=== PATIENT | female | born 1960 | race African-American/Black ===

== ENCOUNTER 2018-01-01 13:34 | Inpatient (IN) | payer MEDICARE, OTHER ==
[2018-01-01] VITALS (10 sets, daily range): BP systolic 64–146; BP diastolic 30–84
[~2018-01-01] VITALS: Ht 165.1 cm; Wt 64.6 kg
[2018-01-01] MEDS ORDERED: Isovue-300 100ml vial INJ PRN (14:30)
--- NOTE | 2018-01-01 14:32 | Emergency Room Report ---
History of Present Illness General Chief Complaint: Abdominal Pain Source: Patient Present Illness HPI 57-year-old female presents ED for evaluation. Patient brought in by stitchdown toe former. Patient resides in [facility]. Tie Tape Machine Operator at bedside states that patient was drinking last night. Was complaining of abdominal pain and vomiting and diarrhea this morning. Patient states pain is dull, 7 out of 10, nonradiating. Denies fevers or chills. Denies chest pain or shortness of breath. Denies alcohol or drug use. Tie Tape Machine Operator states that patient has history of gallstones. No other aggravating relieving factors. Denies any other associated symptoms Allergies: Coded Allergies: OLANZAPINE (Verified Allergy, Unknown, 01/01/18) TETRACYCLINE (Verified Allergy, Unknown, 01/01/18) Patient History Past Medical History: HTN Past Surgical History: none Pertinent Family History: none Social History: Denies: smoking, alcohol use, drug use Now: No Immunizations: UTD Reviewed Nursing Documentation: PMH: Agreed; PSxH: Agreed Nursing Documentation-PMH Past Medical History: No History, Except For Hx Hypertension: Yes History Of Psychiatric Problem: Yes - paranoid schizophrenia, Review of Systems All Other Systems: negative except mentioned in HPI Physical Exam Vital Signs Date Time Temp Pulse Resp B/P (MAP) Pulse Ox O2 Delivery O2 Flow Rate FiO2 01/01/18 13:47 96.1 53 20 92/66 96.1 01/01/18 14:12 100 Room Air Sp02 EP Interpretation: reviewed, normal General Appearance: no apparent distress, alert, GCS 15, non-toxic Head: normocephalic, atraumatic Eyes: bilateral eye normal inspection, bilateral eye PERRL ENT: hearing grossly normal, normal pharynx, no angioedema, normal voice Neck: full range of motion, supple/symm/no masses Respiratory: chest non-tender, lungs clear, normal breath sounds, speaking full sentences Cardiovascular #1: regular rate, rhythm, no edema Cardiovascular #2: 2+ carotid (R), 2+ carotid (L), 2+ radial (R), 2+ radial (L) , 2+ dorsalis pedis (R), 2+ dorsalis pedis (L) Gastrointestinal: normal bowel sounds, soft, non-distended, no guarding, no rebound, tenderness Rectal: deferred Genitourinary: normal inspection, no CVA tenderness Musculoskeletal: back normal, gait/station normal, normal range of motion, non- tender Neurologic: alert, oriented x3, responsive, motor strength/tone normal, sensory intact, speech normal Psychiatric: judgement/insight normal, memory normal, mood/affect normal, no suicidal/homicidal ideation Reflexes: 3+ bicep (R), 3+ bicep (L), 3+ tricep (R), 3+ tricep (L), 3+ knee (R) , 3+ knee (L) Skin: normal color, no rash, warm/dry, well hydrated Lymphatic: no adenopathy Procedures Critical Care Time Critical Care Time i. I feel this is a highly complex case requiring extensive working including EKG/Rhythm strip, Xray/CT/US, Blood/urine lab work, repeat exams while in ED, and administration of strong opiates/narcotics for pain control, admission to hospital or close patient follow up. Total time: 30 min bedside evaluation and treatment excludes procedures (EKG). Reason for critical care: hypotensive, hypokalemia, severe sepsis, elevated LFTS Possible complications: hypotension, hypertension, [place], shock, arrhythmias, metabolic acidosis, end organ damage, respiratory failure. Interventions: Labs, IV fluids, potassium replacement. Central line. Pressors. Consultation with surgery and GI. Course: Patient presenting with abdominal pain, vomiting. Tachycardic. Labs show leukocytosis, elevated LFTs. CT shows choledocholithiasis. Patient remains hypotensive despite IV fluids. Central line placed. Pressors started. Lactate greater than 4. Concern for cholangitis. Discussed case with surgery and GI. Upgraded to ICU. Blood pressure slowly improving with pressors and IV fluids. Broad spectrum antibiotics given. Consultations: nursing staff, EMS, family Performed by: Dr Niño Tolerated well condition = critical j. because of unstable vital signs this patient had a condition that could potentially threaten life or limb. I feel this is a critical patient who required my full attention while patient was considered critical. Total Critical Care Time excluding procedures was greater than 35 minutes Central Line Central Line : Consent: Verbal Central Line Lumen: triple Maximal Sterile Barrier Tech: yes cap, yes mask, yes sterile gown, yes sterile gloves, yes large sterile sheet, yes hand hygiene, yes chlorhexidine prep Central Line Postion: femoral (R) Anesthesia: Lidocaine Complications: none Central Line Post Position: sutured, good blood return Attempts: One Patient Tolerated: Well Complications: None Medical Decision Making Diagnostic Impression: Primary Impression: Choledocholithiasis Additional Impressions: Septic shock Renal failure Qualified Codes: N19 - Unspecified kidney failure Hypokalemia Elevated LFTs ER Course Hospital Course 57 yo F presents with abd pain, vomiting. h/o ETOH. h/o tarry stools. h/o gallstones Differential diagnoses include: BPH, cystitis, pyelonephritis, kidney stone Clinical course Patient placed on stretcher. gm video. After initial history and physical I ordered labs, IV fluids, UA, pain medication and CT scan Labs - noted leukocytosis, Hb/Hct stable, BUN/Cr elevated, K 2.3 CT abdomen and pelvis - choledocolithiasis ABD US - gallstones with dilated CBD EKG - sinus tachycarda, no acute ischemic changes interpreted by me Despite IV hydration patient remains hypotensive. Central line placed. Lactic and cultures drawn Lactate greater than 4. Pressors started. Blood pressure slowly improving. given 30cc/kg fluid bolus. Concern for cholangitis potassium repleted. Broad-spectrum antibiotics given. Discussed case with GI and surgery Case discussed with Dr. lincoln and he agreed to accept the patient to his service for further care and support I feel this is a highly complex case requiring extensive working including EKG/ Rhythm strip, Xray/CT/US, Blood/urine lab work, repeat exams while in ED, and administration of strong opiates/narcotics for pain control, admission to hospital or close patient follow up. Diagnosis - choledocolithasis, septic shock, renal failure, hypokalemia, elevated LFTS Patient admitted to ICU in critical condition Labs Test 01/01/18 13:55 01/01/18 14:06 01/01/18 19:00 White Blood Count 17.6 K/UL (4.8-10.8) 18.4 K/UL (4.8-10.8) Red Blood Count 5.14 M/UL (4.20-5.40) 3.76 M/UL (4.20-5.40) Hemoglobin 17.0 G/DL (12.0-16.0) 13.4 G/DL (12.0-16.0) Hematocrit 49.1 % (37.0-47.0) 37.4 % (37.0-47.0) Mean Corpuscular Volume 96 FL (80-99) 99 FL (80-99) Mean Corpuscular Hemoglobin 33.2 PG (27.0-31.0) 35.5 PG (27.0-31.0) Mean Corpuscular Hemoglobin Concent 34.7 G/DL (32.0-36.0) 35.8 G/DL (32.0-36.0) Red Cell Distribution Width 11.7 % (11.6-14.8) 12.2 % (11.6-14.8) Platelet Count 60 K/UL (150-450) 37 K/UL (150-450) Mean Platelet Volume 6.8 FL (6.5-10.1) 5.7 FL (6.5-10.1) Neutrophils (%) (Auto) % (45.0-75.0) % (45.0-75.0) Lymphocytes (%) (Auto) % (20.0-45.0) % (20.0-45.0) Monocytes (%) (Auto) % (1.0-10.0) % (1.0-10.0) Eosinophils (%) (Auto) % (0.0-3.0) % (0.0-3.0) Basophils (%) (Auto) % (0.0-2.0) % (0.0-2.0) Differential Total Cells Counted 100 Neutrophils % (Manual) 71 % (45-75) Lymphocytes % (Manual) 9 % (20-45) Monocytes % (Manual) 6 % (1-10) Eosinophils % (Manual) 0 % (0-3) Basophils % (Manual) 0 % (0-2) Blast Cells % 5 % (0-0) Band Neutrophils 9 % (0-8) Platelet Estimate Decreased Platelet Morphology Normal Red Blood Cell Morphology Normal Prothrombin Time 13.8 SEC (9.30-11.50) Prothromb Time International Ratio 1.3 (0.9-1.1) Activated Partial Thromboplast Time 33 SEC (23-33) Sodium Level 140 MMOL/L (136-145) Potassium Level 2.3 MMOL/L (3.5-5.1) Chloride Level 98 MMOL/L (98-107) Carbon Dioxide Level 21 MMOL/L (21-32) Anion Gap 21 mmol/L (5-15) Blood Urea Nitrogen 35 mg/dL (7-18) Creatinine 3.8 MG/DL (0.55-1.30) Estimat Glomerular Filtration Rate 14.8 mL/min (>60) Glucose Level 85 MG/DL (74-106) Calcium Level 8.9 MG/DL (8.5-10.1) Total Bilirubin 11.0 MG/DL (0.2-1.0) Direct Bilirubin 8.7 MG/DL (0.0-0.3) Aspartate Amino Transf (AST/SGOT) 138 U/L (15-37) Alanine Aminotransferase (ALT/SGPT) 89 U/L (12-78) Alkaline Phosphatase 220 U/L (46-116) Total Protein 6.9 G/DL (6.4-8.2) Albumin 2.9 G/DL (3.4-5.0) Globulin 4.0 g/dL Albumin/Globulin Ratio 0.7 (1.0-2.7) Lipase 113 U/L (73-393) Stool Occult Blood Positive (NEGATIVE) Lactic Acid Level 4.10 mmol/L (0.4-2.0) EKG Diagnostic Results Rate: tachycardiac Rhythm: NSR ST Segments: no acute changes ASA given to the pt in ED: No Rhythm Strip Diag. Results EP Interpretation: yes Rhythm: NSR, no PVC's, no ectopy CT/MRI/US Diagnostic Results CT/MRI/US Diagnostic Results #1: Imaging Test Ordered: CT A/P Impression Positive for choledocholithiasis, 3 large calculi in the downstream common bile duct. There is evidence of biliary obstruction, with marked dilatation of the extrahepatic and intrahepatic bile ducts. CT/MRI/US Diagnostic Results #2: Imaging Test Ordered: ABD US Impression Gallbladder demonstrates gallstones. No gallbladder wall thickening Sonographic Simental's sign is negative. Common bile duct measures 22 mm in diameter. Last Vital Signs Date Time Temp Pulse Resp B/P (MAP) Pulse Ox O2 Delivery O2 Flow Rate FiO2 01/01/18 14:12 96.1 53 20 92/66 100 Room Air 96.1 Status: improved Disposition: ADMITTED INPATIENT Condition: Critical Lit Niño MD Jan 01, 2018 14:32
[2018-01-01 14:43] LABS: HEMATOCRIT 49.1 % (37.0-47.0); MEAN CORPUSCULAR VOLUME 96 FL (80-99); PLATELET COUNT 60 K/UL (150-450); RED BLOOD COUNT 5.14 M/UL (4.20-5.40); RED CELL DISTRIBUTION WIDTH 11.7 % (11.6-14.8); WHITE BLOOD COUNT 17.6 K/UL (4.8-10.8)
[2018-01-01 15:02] LABS: ALANINE AMINOTRANSFERASE 89 U/L (12-78); ALBUMIN 2.9 G/DL (3.4-5.0); ALBUMIN/GLOBULIN RATIO 0.7 (1.0-2.7); ALKALINE PHOSPHATASE 220 U/L (46-116); ANION GAP 21 mmol/L (5-15); ASPARTATE AMINO TRANSFERASE 138 U/L (15-37); BLOOD UREA NITROGEN 35 mg/dL (7-18); CALCIUM 8.9 MG/DL (8.5-10.1); CARBON DIOXIDE 21 MMOL/L (21-32); CHLORIDE 98 MMOL/L (98-107); CREATININE 3.8 MG/DL (0.55-1.30); SODIUM 140 MMOL/L (136-145)
[2018-01-01 15:06] LABS: POTASSIUM 2.3 MMOL/L (3.5-5.1)
[2018-01-01 15:07] LABS: BILIRUBIN,DIRECT 8.7 MG/DL (0.0-0.3)
[2018-01-01] MEDS ORDERED: NS w/KCl 40mEq 1,000 ML IV SCH (15:15)
[2018-01-01 16:14] LABS: INR 1.3 (0.9-1.1)
[2018-01-01] MEDS ORDERED: Pantoprazole Inj IVP ONE (16:15)
[2018-01-01] MEDS ORDERED: ALPRAZOLAM1 M2 ORAL (16:24)
[2018-01-01] MEDS ORDERED: FAMOTIDINE20 MG ORAL (16:24)
[2018-01-01] MEDS ORDERED: QUETIAPINE FUM300 MG ORAL (16:24)
[2018-01-01] MEDS ORDERED: LORAZEPAM2 MG/1 M4 ORAL (16:24)
[2018-01-01] MEDS ORDERED: TEMAZEPAM22.5 MG PO (16:24)
[2018-01-01] MEDS ORDERED: FAMOTIDINE IV (16:24)
[2018-01-01] MEDS ORDERED: LISINOPRIL20 MG ORAL (16:24)
[2018-01-01] MEDS ORDERED: BENZTROPINE2 MG/2 ML PO (16:24)
[2018-01-01] MEDS ORDERED: PERPHENAZINE8 MG PO (16:24)
[2018-01-01] MEDS ORDERED: Morphine Sulfate 4mg/ml Inj (IV/IM USE ONLY) IVP ONE (16:30)
--- NOTE | 2018-01-01 16:42 | Diagnostic Imaging Report ---
Indication: Abdominal pain Technique: Spiral acquisitions obtained through the abdomen and pelvis. No oral contrast utilized, per emergency room physician request No IV contrast utilized, per referring physician request.. Multiplanar reconstructions were generated. Total dose length product 629.75 mGycm. CTDIvol(s) 11.49 mGy. Dose reduction achieved using automated exposure control Comparison: None Findings: 3 calculi are seen within the downstream common bile duct. The largest of these is the most upstream, measures 12 mm in diameter. There is resultant extrahepatic biliary ductal dilatation, common bile duct measuring 19 mm in diameter. There is also considerable intrahepatic biliary ductal dilatation Multiple stones are seen within the gallbladder. The gallbladder is distended, but there is no definite gallbladder wall thickening or pericholecystic inflammation. Lack of IV contrast limits assessment of the solid organs. No focal liver lesions are demonstrated. The pancreas, spleen, adrenals, kidneys are unremarkable. No retroperitoneal or mesenteric mass or adenopathy. Uterus and ovaries are unremarkable. No pelvic mass or adenopathy. Is limited assessment of the GI tract, due to lack of enteric contrast. No evidence of diverticulosis or diverticulitis. The appendix is normal. Prominent gas-filled but not frankly dilated small bowel loops are demonstrated. The distal esophagus, stomach, duodenum are unremarkable. There is a tiny fat-containing umbilical hernia. The lung bases demonstrate posterior dependent atelectatic changes. There is some scarring in the medial right middle lobe with some associated bronchiectasis. The bones are unremarkable. Impression: Positive for choledocholithiasis, 3 large calculi in the downstream common bile duct. There is evidence of biliary obstruction, with marked dilatation of the extrahepatic and intrahepatic bile ducts. Dr. Niño was notified of this finding at the time of interpretation Cholelithiasis Limited assessment of the GI tract, due to lack of enteric contrast Posterior dependent pulmonary atelectatic changes. Right middle lobe scarring with associated bronchiectasis Incidental finding of tiny fat-containing abdominal hernia. The CT scanner at [facility] is accredited by the [employer] and the scans are performed using protocols designed to limit radiation exposure to as low as reasonably achievable to attain images of sufficient resolution adequate for diagnostic evaluation.
[2018-01-01] MEDS ORDERED: Lidocaine 1% Plain 30 ml INJ ONE (17:14)
[2018-01-01] MEDS ORDERED: Lidocaine 1% MPF 10mg/ml 5ml ONE (17:15)
--- NOTE | 2018-01-01 17:29 | Diagnostic Imaging Report ---
Indication: Abdominal pain Technique: Rosales-scale and duplex images of the upper abdomen were obtained. Doppler interrogation of the hepatic vessels Comparison: CT scan earlier the same day Findings: Exam is limited due to patient motion, as well as patient not being nothing by mouth. Gallbladder demonstrates gallstones. No gallbladder wall thickening Sonographic Simental's sign is negative. Common bile duct measures 22 mm in diameter. There is intrahepatic biliary ductal dilatation.. Liver demonstrates normal echogenicity, no focal abnormality. Portal vein and hepatic veins are patent. Pancreas is incompletely visualized due to overlying bowel gas, visualized portions are unremarkable. Spleen is unremarkable. Left kidney measures 10.1 cm in length. Right kidney measures 12.2 cm length. Both kidneys demonstrate normal echogenicity. There is no hydronephrosis. No focal abnormality . Abdominal aorta is partially obscured by bowel gas, visualized portions are non-aneurysmal . Impression: Cholelithiasis Marked biliary ductal dilatation, consistent with choledocholithiasis seen on prior CT scan, although not imaged on current study Limited exam as described. Note inability to visualize portions of the pancreas and portions of the abdominal aorta
--- NOTE | 2018-01-01 17:37 | History and Physical ---
History of Present Illness General Date patient seen: Jan 01, 2018 Time patient seen: 18:00 Reason for Hospitalization: Abdominal Pain Present Illness HPI 57 year old woman with history of unspecified psychiatry history, brought in from a board and care facility for abdominal pain and altered mental status which was reported by the patient's caregiver. Patient is unable to provide any meaningful history due to confusion. In ED she was noted to have markedly elevated T. bili of [address] A/P showing choledocholithiasis. She has been persistently hypotensive to the 60s despite 2.5 liters of fluid. I evaluated the patient and spoke with ED physician who will be placing a central line and admitting the patient to the ICU. Allergies: Coded Allergies: OLANZAPINE (Verified Allergy, Unknown, 01/01/18) TETRACYCLINE (Verified Allergy, Unknown, 01/01/18) Medication History Scheduled Alprazolam (Alprazolam), 1 MG ORAL BID, (Reported) Famotidine (Famotidine), 20 MG ORAL TWICE A DAY, (Reported) Lisinopril (Lisinopril*), 20 MG ORAL DAILY, (Reported) Lorazepam (Lorazepam), 1 MG ORAL BID, (Reported) Perphenazine (Perphenazine), 8 MG PO BID, (Reported) Quetiapine Fumarate (Quetiapine Fumarate), 100 MG ORAL BEDTIME, (Reported) Temazepam (Temazepam), 15 MG PO BEDTIME, (Reported) Miscellaneous Medications Benztropine Mesylate (Benztropine Mesylate), 1 MG PO, (Reported) Famotidine In Nacl,Iso-Osm/Pf (Famotidine 20 Mg Piggyback), 20 MG IV, (Reported) Patient History Limited by: medical condition Healthcare decision maker Resuscitation status Advanced Directive on File Family History Family History: Unabl to obtain due to confusion Social History Social History: (1) Unable to obtain due to confusion Review of Systems ROS Narrative Unable to obtain due to confusion Physical Exam General Appearance: confused, thin HEENT: atraumatic, anicteric Neck: non-tender, normal alignment Respiratory/Chest: lungs clear, normal breath sounds, no respiratory distress Cardiovascular/Chest: normal peripheral pulses, normal rate Abdomen: soft - No rebound, rigidity Extremities: non-tender, normal inspection, no calf tenderness Skin Exam: other - Cold Neurologic: alert Last 24 Hour Vital Signs Date Time Temp Pulse Resp B/P (MAP) Pulse Ox O2 Delivery O2 Flow Rate FiO2 01/01/18 16:20 96.1 01/01/18 16:00 114 24 73/51 Nasal Cannula 6.0 01/01/18 14:12 96.1 53 20 92/66 100 Room Air 96.1 01/01/18 13:47 96.1 53 20 92/ 96.1 Laboratory Tests Test 01/01/18 13:55 01/01/18 14:06 White Blood Count 17.6 K/UL (4.8-10.8) H Red Blood Count 5.14 M/UL (4.20-5.40) Hemoglobin 17.0 G/DL (12.0-16.0) H Hematocrit 49.1 % (37.0-47.0) H Mean Corpuscular Volume 96 FL (80-99) Mean Corpuscular Hemoglobin 33.2 PG (27.0-31.0) H Mean Corpuscular Hemoglobin Concent 34.7 G/DL (32.0-36.0) Red Cell Distribution Width 11.7 % (11.6-14.8) Platelet Count 60 K/UL (150-450) L Mean Platelet Volume 6.8 FL (6.5-10.1) Neutrophils (%) (Auto) % (45.0-75.0) Lymphocytes (%) (Auto) % (20.0-45.0) Monocytes (%) (Auto) % (1.0-10.0) Eosinophils (%) (Auto) % (0.0-3.0) Basophils (%) (Auto) % (0.0-2.0) Differential Total Cells Counted 100 Neutrophils % (Manual) 71 % (45-75) Lymphocytes % (Manual) 9 % (20-45) L Monocytes % (Manual) 6 % (1-10) Eosinophils % (Manual) 0 % (0-3) Basophils % (Manual) 0 % (0-2) Blast Cells % 5 % (0-0) *H Band Neutrophils 9 % (0-8) H Platelet Estimate Decreased L Platelet Morphology Normal Red Blood Cell Morphology Normal Prothrombin Time 13.8 SEC (9.30-11.50) H Prothromb Time International Ratio 1.3 (0.9-1.1) H Activated Partial Thromboplast Time 33 SEC (23-33) Sodium Level 140 MMOL/L (136-145) Potassium Level 2.3 MMOL/L (3.5-5.1) *L Chloride Level 98 MMOL/L (98-107) Carbon Dioxide Level 21 MMOL/L (21-32) Anion Gap 21 mmol/L (5-15) H Blood Urea Nitrogen 35 mg/dL (7-18) H Creatinine 3.8 MG/DL (0.55-1.30) H Estimat Glomerular Filtration Rate 14.8 mL/min (>60) Glucose Level 85 MG/DL (74-106) Calcium Level 8.9 MG/DL (8.5-10.1) Total Bilirubin 11.0 MG/DL (0.2-1.0) H Direct Bilirubin 8.7 MG/DL (0.0-0.3) H Aspartate Amino Transf (AST/SGOT) 138 U/L (15-37) H Alanine Aminotransferase (ALT/SGPT) 89 U/L (12-78) H Alkaline Phosphatase 220 U/L (46-116) H Total Protein 6.9 G/DL (6.4-8.2) Albumin 2.9 G/DL (3.4-5.0) L Globulin 4.0 g/dL Albumin/Globulin Ratio 0.7 (1.0-2.7) L Lipase 113 U/L (73-393) Stool Occult Blood Positive (NEGATIVE) Height (Feet): 5 Height (Inches): 6.00 Weight (Pounds): 150 Medications Current Medications Medications (Trade) Dose Ordered Sig/Bertrand Route PRN Reason Start Time Stop Time Status Last Admin Dose Admin Dextrose (Dextrose 50%) 25 ml Q30M PRN IV Hypoglycemia 01/01/18 17:30 01/31/18 17:29 UNV Dextrose (Dextrose 50%) 50 ml Q30M PRN IV Hypoglycemia 01/01/18 17:30 01/31/18 17:29 UNV Heparin Sodium (Porcine) (Heparin 5000 units/ml) 5,000 units EVERY 12 HOURS SUBQ 01/01/18 21:00 01/31/18 20:59 UNV Iopamidol (Isovue-300 100ml) 100 ml NOW PRN INJ Radiology Procedure 01/01/18 14:30 Ondansetron HCl (Zofran) 4 mg Q6H PRN IVP Nausea & Vomiting 01/01/18 17:30 01/31/18 17:29 UNV Pantoprazole (Protonix) 40 mg DAILY IV 01/02/18 09:00 02/01/18 08:59 UNV Piperacillin Sod/ Tazobactam Sod 3.375 gm/Sodium Chloride 110 ml @ 220 mls/hr ONCE ONCE IVPB 01/01/18 17:30 01/01/18 17:59 UNV Sodium Chloride 1,000 ml @ 100 mls/hr Q10H IV 01/01/18 15:15 01/31/18 15:14 01/01/18 15:15 Sodium Chloride 1,000 ml @ 125 mls/hr Q8H IVLG 01/01/18 18:18 01/31/18 18:17 UNV Objective Narrative EKG, personally reviewed, sinus tachycardia without acute ischemic changes Assessment/Plan Problem List: (1) Choledocholithiasis ICD Codes: K80.50 - Calculus of bile duct without cholangitis or cholecystitis without obstruction SNOMED: 069103295 (2) Sepsis ICD Codes: A41.9 - Sepsis, unspecified organism SNOMED: 54952672 Assessment/Plan 57 year old woman with history of unspecified psychiatry history on various psychotropics who presents from a [facility] facility with abdominal pain, hypotension, hyperbilirubinemia/choledocholithiasis on CT A/P. 1)Choledocholithiasis with hypotension despite 2.5 liters of crystalloid, could be early cholangitis. Spoke with ED physician, insurance defense attorney. She will be admitted to ICU with central line placement. NPO, Zofran, morphine prb. Continue IV fluids, check serial lactate levels, blood cultures. Start Zosyn. Patient may require vasopressor support for possible septic shock. Will continue to follow LFTs. Spoke with ID, GI and Surgery who will evaluate. 2)Severe hypokalemia, will replace with IV KCl, repeat BMP tonight and replace as needed. Check BMP in AM. 3)Acute metabolic encephalopathy, likely due to to underlying sepsis, continue to treat acute medical issues and provide supportive care. Fall, aspiration, seizure precautions. 4)History of unspecified psychiatric illness, will hold all psychotropics for now to avoid oversedation. VTE PPx heparin SC Full Code The patient is critically ill and will require a hospitalization crossing 2 midnights for IV antibiotics, IV fluids and possible pressors. She is high risk for given the severity of her medical problems and require close hemodynamic monitoring in the hospital setting. Sav Bunch MD Jan 01, 2018 17:37
[2018-01-01] MEDS ORDERED: Piperacillin/Tazobactam 3.375 GM in D5W 110 ML IVPB ONE (18:00)
[2018-01-01] MEDS ORDERED: Piperacillin/Tazobactam 3.375 GM in NS 110 ML IVPB SCH (18:00)
[2018-01-01] MEDS ORDERED: BENZTROPINE ME0.5 MG PO (18:39)
[2018-01-01] MEDS ORDERED: LISINOPRIL-HCT1 EAC2 ORAL (18:53)
[2018-01-01] MEDS ORDERED: SEROQUEL100 MG ORAL (19:02)
[2018-01-01] MEDS ORDERED: TEMAZEPAM15 MG ORAL (19:04)
[2018-01-01] MEDS ORDERED: PHENERGAN25 M1 ORAL (19:17)
[2018-01-01 19:18] LABS: HEMATOCRIT 37.4 % (37.0-47.0); HEMOGLOBIN 13.4 G/DL (12.0-16.0); MEAN CORPUSCULAR VOLUME 99 FL (80-99); PLATELET COUNT 37 K/UL (150-450); RED BLOOD COUNT 3.76 M/UL (4.20-5.40); RED CELL DISTRIBUTION WIDTH 12.2 % (11.6-14.8); WHITE BLOOD COUNT 18.4 K/UL (4.8-10.8)
[2018-01-01] MEDS ORDERED: PROMETHAZINE HC25 M1 ORAL (19:19)
[2018-01-01] MEDS ORDERED: VITAMIN D250000 UNI1 ORAL (19:22)
[2018-01-01] MEDS ORDERED: LORAZEPAM1 MG ORAL (19:24)
[2018-01-01] MEDS ORDERED: PERFOROMIS20 MCG/2 M IH (19:31)
[2018-01-01] MEDS: DOPamine 400mg/250ml 250 ML IV SCH (20:15)
[2018-01-01] MEDS: Heparin 5000 units/ml inj SUBQ SCH (21:00)
[2018-01-01] MEDS ORDERED: LORazepam Inj 2mg/ml 1ml IV ONE (21:15)
--- NOTE | 2018-01-01 21:22 | Pulmonolgy Critical Care Note ---
Critical Care - Asmt/Plan Assessment/Plan: Pulmonary Consultation Note Patient is a 57 year old woman with history of unspecified psychiatry history, brought in from a [facility] for abdominal pain and altered mental status which was reported by the patient's caregiver. Patient is unable to provide any meaningful history due to confusion. In ED she was noted to have markedly elevated Tbili of [address] A/P showing choledocholithiasis with dilated biliary ducts. She has been persistently hypotensive to the 60s despite 2.5 liters of fluid. S/p central line in the ED, remains on Pressors and broad spectrum antibiotics the ICU. Allergies: Coded Allergies: OLANZAPINE (Verified Allergy, Unknown, 01/01/18) TETRACYCLINE (Verified Allergy, Unknown, 01/01/18) Medication History Scheduled Alprazolam (Alprazolam), 1 MG ORAL BID, (Reported) Famotidine (Famotidine), 20 MG ORAL TWICE A DAY, (Reported) Lisinopril (Lisinopril*), 20 MG ORAL DAILY, (Reported) Lorazepam (Lorazepam), 1 MG ORAL BID, (Reported) Perphenazine (Perphenazine), 8 MG PO BID, (Reported) Quetiapine Fumarate (Quetiapine Fumarate), 100 MG ORAL BEDTIME, (Reported) Temazepam (Temazepam), 15 MG PO BEDTIME, (Reported) Miscellaneous Medications Benztropine Mesylate (Benztropine Mesylate), 1 MG PO, (Reported) Famotidine In Nacl,Iso-Osm/Pf (Famotidine 20 Mg Piggyback), 20 MG IV, (Reported) Patient History Limited by: medical condition Healthcare decision maker Resuscitation status Advanced Directive on File Family History Family History: Unabl to obtain due to confusion Social History Social History: (1) Unable to obtain due to confusion Review of Systems ROS Narrative Unable to obtain due to confusion Physical Exam General Appearance: confused, thin HEENT: atraumatic, anicteric Neck: non-tender, normal alignment Respiratory/Chest: lungs clear, normal breath sounds, no respiratory distress Cardiovascular/Chest: normal peripheral pulses, normal rate Abdomen: soft - No rebound, rigidity Extremities: non-tender, normal inspection, no calf tenderness Skin Exam: other - Cold Neurologic: alert Last 24 Hour Vital Signs Date Time Temp Pulse Resp B/P (MAP) Pulse Ox O2 Delivery O2 Flow Rate FiO2 10/5/18 16:20 96.1 01/01/18 16:00 114 24 73/51 Nasal Cannula 6.0 01/01/18 14:12 96.1 53 20 100 Room Air 96.1 01/01/18 13:47 96.1 53 20 96.1 Laboratory Tests Test 01/01/18 13:55 01/01/18 14:06 White Blood Count 17.6 K/UL (4.8-10.8) H Red Blood Count 5.14 M/UL (4.20-5.40) Hemoglobin 17.0 G/DL (12.0-16.0) H Hematocrit 49.1 % (37.0-47.0) H Mean Corpuscular Volume 96 FL (80-99) Mean Corpuscular Hemoglobin 33.2 PG (27.0-31.0) H Mean Corpuscular Hemoglobin Concent 34.7 G/DL (32.0-36.0) Red Cell Distribution Width 11.7 % (11.6-14.8) Platelet Count 60 K/UL (150-450) L Mean Platelet Volume 6.8 FL (6.5-10.1) Neutrophils (%) (Auto) % (45.0-75.0) Lymphocytes (%) (Auto) % (20.0-45.0) Monocytes (%) (Auto) % (1.0-10.0) Eosinophils (%) (Auto) % (0.0-3.0) Basophils (%) (Auto) % (0.0-2.0) Differential Total Cells Counted 100 Neutrophils % (Manual) 71 % (45-75) Lymphocytes % (Manual) 9 % (20-45) L Monocytes % (Manual) 6 % (1-10) Eosinophils % (Manual) 0 % (0-3) Basophils % (Manual) 0 % (0-2) Blast Cells % 5 % (0-0) *H Band Neutrophils 9 % (0-8) H Platelet Estimate Decreased L Platelet Morphology Normal Red Blood Cell Morphology Normal Prothrombin Time 13.8 SEC (9.30-11.50) H Prothromb Time International Ratio 1.3 (0.9-1.1) H Activated Partial Thromboplast Time 33 SEC (23-33) Sodium Level 140 MMOL/L (136-145) Potassium Level 2.3 MMOL/L (3.5-5.1) *L Chloride Level 98 MMOL/L (98-107) Carbon Dioxide Level 21 MMOL/L (21-32) Anion Gap 21 mmol/L (5-15) H Blood Urea Nitrogen 35 mg/dL (7-18) H Creatinine 3.8 MG/DL (0.55-1.30) H Estimat Glomerular Filtration Rate 14.8 mL/min (>60) Glucose Level 85 MG/DL (74-106) Calcium Level 8.9 MG/DL (8.5-10.1) Total Bilirubin 11.0 MG/DL (0.2-1.0) H Direct Bilirubin 8.7 MG/DL (0.0-0.3) H Aspartate Amino Transf (AST/SGOT) 138 U/L (15-37) H Alanine Aminotransferase (ALT/SGPT) 89 U/L (12-78) H Alkaline Phosphatase 220 U/L (46-116) H Total Protein 6.9 G/DL (6.4-8.2) Albumin 2.9 G/DL (3.4-5.0) L Globulin 4.0 g/dL Albumin/Globulin Ratio 0.7 (1.0-2.7) L Lipase 113 U/L (73-393) Stool Occult Blood Positive (NEGATIVE) Height (Feet): 5 Height (Inches): 6.00 Weight (Pounds): 150 Medications Current Medications Medications (Trade) Dose Ordered Sig/Bertrand Route PRN Reason Start Time Stop Time Status Last Admin Dose Admin Dextrose (Dextrose 50%) 25 ml Q30M PRN IV Hypoglycemia 01/01/18 17:30 01/31/18 17:29 UNV Dextrose (Dextrose 50%) 50 ml Q30M PRN IV Hypoglycemia 01/01/18 17:30 01/31/18 17:29 UNV Heparin Sodium (Porcine) (Heparin 5000 units/ml) 5,000 units EVERY 12 HOURS SUBQ 01/01/18 21:00 01/31/18 20:59 UNV Iopamidol (Isovue-300 100ml) 100 ml NOW PRN INJ Radiology Procedure 01/01/18 14:30 Ondansetron HCl (Zofran) 4 mg Q6H PRN IVP Nausea & Vomiting 01/01/18 17:30 114/18 17:29 UNV Pantoprazole (Protonix) 40 mg DAILY IV 01/02/18 09:00 02/01/18 08:59 UNV Piperacillin Sod/ Tazobactam Sod 3.375 gm/Sodium Chloride 110 ml @ 220 mls/hr ONCE ONCE IVPB 01/01/18 17:30 01/01/18 17:59 UNV Sodium Chloride 1,000 ml @ 100 mls/hr Q10H IV 01/01/18 15:15 01/31/18 15:14 01/01/18 15:15 Sodium Chloride 1,000 ml @ 125 mls/hr Q8H IVLG 01/01/18 18:18 01/31/18 18:17 UNV Objective Narrative EKG: Sinus tachycardia without acute ischemic changes Assessment/Plan Problem List: (1) Choledocholithiasis ICD Codes: K80.50 - Calculus of bile duct without cholangitis or cholecystitis without obstruction SNOMED: 920960782 (2) Sepsis ICD Codes: A41.9 - Sepsis, unspecified organism SNOMED: 75839411 Assessment/Plan 57 year old woman with history of unspecified psychiatry history on various psychotropics who presents from a [facility] facility with abdominal pain, hypotension, hyperbilirubinemia/choledocholithiasis on CT A/P. 1)Choledocholithiasis with hypotension despite 2.5 liters of crystalloid, possible cholangitis.Continue IV fluids, check serial lactate levels, blood cultures. Start Zosyn. Patient may require vasopressor support for possible septic shock. Will continue to follow LFTs. GI following 2)Severe hypokalemia, s/p IV KCl, repeat BMP tonight and replace as needed. Check BMP in AM. 3)Acute metabolic encephalopathy, likely due to to underlying sepsis, continue to treat acute medical issues and provide supportive care. Fall, aspiration, seizure precautions. 4)History of unspecified psychiatric illness, will hold all psychotropics for now to avoid oversedation. 5) O2 PRN 6)CXR VTE PPx heparin SC Full Code The patient is critically ill and will require a hospitalization crossing 2 midnights for IV antibiotics, IV fluids and possible pressors. She is high risk for given the severity of her medical problems and require close hemodynamic monitoring in the hospital setting. Respiratory: CXR Critical Care - Objective Last 24 Hour Vital Signs Date Time Temp Pulse Resp B/P (MAP) Pulse Ox O2 Delivery O2 Flow Rate FiO2 01/01/18 19:15 76/58 01/01/18 19:10 75/55 01/01/18 19:05 79/60 01/01/18 19:00 76/55 01/01/18 18:55 69/52 01/01/18 18:50 66/45 01/01/18 18:45 63/48 01/01/18 18:40 74/61 01/01/18 18:35 67/45 01/01/18 18:30 58/38 01/01/18 18:28 73/51 01/01/18 18:00 115 22 64/42 98 Nasal Cannula 6.0 01/01/18 17:00 117 22 64/30 98 Nasal Cannula 6.0 01/01/18 16:20 96.1 01/01/18 16:00 114 24 73/51 Nasal Cannula 6.0 01/01/18 14:12 96.1 53 20 92/66 100 Room Air 96.1 01/01/18 13:47 96.1 53 20 92/66 96.1 Accucheck: 89 Critical Care - Subjective ROS Limited/Unobtainable: No Condition: improving EKG Rhythm: Sinus Rhythm Farhat Hunt MD Jan 01, 2018 21:22
--- NOTE | 2018-01-01 23:44 | Infectious Diseases Prog Note ---
Assessment/Plan Assessment/Plan Full consult to follow: A) 1) possible cholangitis, choledocholithiasis, sepsis, shock, leukocytosis 2) pmh noted 3) allergies - olanzapine, tetracycline P) 1) zosyn 2) GI and surgery evaluations 3) supportive care 4) f/u on cultures 5) thank you n Subjective Allergies: Coded Allergies: OLANZAPINE (Verified Allergy, Unknown, 01/01/18) TETRACYCLINE (Verified Allergy, Unknown, 01/01/18) Objective Vital Signs Last 24 Hour Vital Signs Date Time Temp Pulse Resp B/P (MAP) Pulse Ox O2 Delivery O2 Flow Rate FiO2 01/01/18 23:05 Nasal Cannula 2.0 01/01/18 22:00 112 01/01/18 22:00 94.7 112 25 146/68 (94) 94.7 01/01/18 20:15 146/68 01/01/18 19:15 76/58 01/01/18 19:10 75/55 01/01/18 19:05 79/60 01/01/18 19:00 76/55 01/01/18 18:55 69/52 01/01/18 18:50 66/45 01/01/18 18:45 63/48 01/01/18 18:40 74/61 01/01/18 18:35 67/45 01/01/18 18:30 58/38 01/01/18 18:28 73/51 01/01/18 18:00 115 22 64/42 98 Nasal Cannula 6.0 01/01/18 17:00 117 22 64/30 98 Nasal Cannula 6.0 01/01/18 16:20 96.1 01/01/18 16:00 114 24 73/51 Nasal Cannula 6.0 01/01/18 14:12 96.1 53 20 92/66 100 Room Air 96.1 01/01/18 13:47 96.1 53 20 92/66 96.1 Height (Feet): 5 Height (Inches): 5.00 Weight (Pounds): 149 Laboratory Tests Test 01/01/18 13:55 01/01/18 14:06 01/01/18 19:00 White Blood Count 17.6 K/UL (4.8-10.8) H 18.4 K/UL (4.8-10.8) H Red Blood Count 5.14 M/UL (4.20-5.40) 3.76 M/UL (4.20-5.40) L Hemoglobin 17.0 G/DL (12.0-16.0) H 13.4 G/DL (12.0-16.0) Hematocrit 49.1 % (37.0-47.0) H 37.4 % (37.0-47.0) Mean Corpuscular Volume 96 FL (80-99) 99 FL (80-99) Mean Corpuscular Hemoglobin 33.2 PG (27.0-31.0) H 35.5 PG (27.0-31.0) H Mean Corpuscular Hemoglobin Concent 34.7 G/DL (32.0-36.0) 35.8 G/DL (32.0-36.0) Red Cell Distribution Width 11.7 % (11.6-14.8) 12.2 % (11.6-14.8) Platelet Count 60 K/UL (150-450) L 37 K/UL (150-450) L Mean Platelet Volume 6.8 FL (6.5-10.1) 5.7 FL (6.5-10.1) L Neutrophils (%) (Auto) % (45.0-75.0) % (45.0-75.0) Lymphocytes (%) (Auto) % (20.0-45.0) % (20.0-45.0) Monocytes (%) (Auto) % (1.0-10.0) % (1.0-10.0) Eosinophils (%) (Auto) % (0.0-3.0) % (0.0-3.0) Basophils (%) (Auto) % (0.0-2.0) % (0.0-2.0) Differential Total Cells Counted 100 100 Neutrophils % (Manual) 71 % (45-75) 78 % (45-75) H Lymphocytes % (Manual) 9 % (20-45) L 10 % (20-45) L Monocytes % (Manual) 6 % (1-10) 5 % (1-10) Eosinophils % (Manual) 0 % (0-3) 0 % (0-3) Basophils % (Manual) 0 % (0-2) 0 % (0-2) Blast Cells % 5 % (0-0) *H Band Neutrophils 9 % (0-8) H 5 % (0-8) Platelet Estimate Decreased L Decreased L Platelet Morphology Normal Normal Red Blood Cell Morphology Normal Prothrombin Time 13.8 SEC (9.30-11.50) H Prothromb Time International Ratio 1.3 (0.9-1.1) H Activated Partial Thromboplast Time 33 SEC (23-33) Sodium Level 140 MMOL/L (136-145) Potassium Level 2.3 MMOL/L (3.5-5.1) *L Chloride Level 98 MMOL/L (98-107) Carbon Dioxide Level 21 MMOL/L (21-32) Anion Gap 21 mmol/L (5-15) H Blood Urea Nitrogen 35 mg/dL (7-18) H Creatinine 3.8 MG/DL (0.55-1.30) H Estimat Glomerular Filtration Rate 14.8 mL/min (>60) Glucose Level 85 MG/DL (74-106) Calcium Level 8.9 MG/DL (8.5-10.1) Total Bilirubin 11.0 MG/DL (0.2-1.0) H Direct Bilirubin 8.7 MG/DL (0.0-0.3) H Aspartate Amino Transf (AST/SGOT) 138 U/L (15-37) H Alanine Aminotransferase (ALT/SGPT) 89 U/L (12-78) H Alkaline Phosphatase 220 U/L (46-116) H Total Protein 6.9 G/DL (6.4-8.2) Albumin 2.9 G/DL (3.4-5.0) L Globulin 4.0 g/dL Albumin/Globulin Ratio 0.7 (1.0-2.7) L Lipase 113 U/L (73-393) Stool Occult Blood Positive (NEGATIVE) Myelocytes % 2 % (0-0) H Atypical Lymphocytes Occasional Reactive Lymphocytes Giant Platelets Occasional Lactic Acid Level 4.10 mmol/L (0.4-2.0) H Current Medications Medications (Trade) Dose Ordered Sig/Bertrand Route PRN Reason Start Time Stop Time Status Last Admin Dose Admin Dextrose (Dextrose 50%) 25 ml Q30M PRN IV Hypoglycemia 01/01/18 17:30 01/31/18 17:29 Dextrose (Dextrose 50%) 50 ml Q30M PRN IV Hypoglycemia 01/01/18 17:30 01/31/18 17:29 Dopamine HCl/ Dextrose 250 ml @ 0 mls/hr Q24H IV 01/01/18 20:15 01/31/18 20:14 Heparin Sodium (Porcine) (Heparin 5000 units/ml) 5,000 units EVERY 12 HOURS SUBQ 01/01/18 21:00 01/31/18 20:59 01/01/18 21:00 Iopamidol (Isovue-300 100ml) 100 ml NOW PRN INJ Radiology Procedure 01/01/18 14:30 Norepinephrine Bitartrate 8 mg/ Dextrose 250 ml @ 0 mls/hr Q24H IV 01/01/18 18:00 01/31/18 17:59 01/01/18 18:28 Ondansetron HCl (Zofran) 4 mg Q6H PRN IVP Nausea & Vomiting 01/01/18 17:30 01/31/18 17:29 Pantoprazole (Protonix) 40 mg DAILY IV 01/02/18 09:00 02/01/18 08:59 Piperacillin Sod/ Tazobactam Sod 3.375 gm/Sodium Chloride 110 ml @ 27.5 mls/hr EVERY 6 HOURS IVPB 01/02/18 00:00 01/06/18 23:59 Sodium Chloride 1,000 ml @ 125 mls/hr Q8H IVLG 01/01/18 17:30 01/31/18 17:29 01/01/18 18:09 Corinne Lilly MD Jan 01, 2018 23:44
[2018-01-02] VITALS (35 sets, daily range): BP systolic 91–138; BP diastolic 36–83
[2018-01-02] MEDS ORDERED: Piperacillin/Tazobactam 3.375 GM in NS 110 ML IVPB SCH ×2
[2018-01-02] MEDS ORDERED: Levophed 4mg/4mL Inj IV ONE (00:38)
[2018-01-02 04:57] LABS: HEMATOCRIT 45.6 % (37.0-47.0); HEMOGLOBIN 16.3 G/DL (12.0-16.0); MEAN CORPUSCULAR VOLUME 97 FL (80-99); PLATELET COUNT 33 K/UL (150-450); RED BLOOD COUNT 4.71 M/UL (4.20-5.40); RED CELL DISTRIBUTION WIDTH 12.5 % (11.6-14.8); WHITE BLOOD COUNT 6.7 K/UL (4.8-10.8)
[2018-01-02 05:41] LABS: ALANINE AMINOTRANSFERASE 122 U/L (12-78); ALBUMIN 2.1 G/DL (3.4-5.0); ALKALINE PHOSPHATASE 138 U/L (46-116); ANION GAP 15 mmol/L (5-15); ASPARTATE AMINO TRANSFERASE 334 U/L (15-37); BILIRUBIN,DIRECT 9.2 MG/DL (0.0-0.3); BILIRUBIN,TOTAL 10.9 MG/DL (0.2-1.0); BLOOD UREA NITROGEN 36 mg/dL (7-18); CALCIUM 6.4 MG/DL (8.5-10.1); CARBON DIOXIDE 20 MMOL/L (21-32); CHLORIDE 111 MMOL/L (98-107); CREATININE 2.4 MG/DL (0.55-1.30); POTASSIUM 3.1 MMOL/L (3.5-5.1); SODIUM 146 MMOL/L (136-145)
[2018-01-02] MEDS: Piperacillin/Tazobactam 3.375 GM in NS 110 ML IVPB SCH ×2 (05:55→18:00)
[2018-01-02] MEDS: DOPamine 400mg/250ml 250 ML IV SCH ×3 (08:00→19:10)
[2018-01-02] MEDS: Pantoprazole Inj IV SCH (09:00)
[2018-01-02] MEDS: Heparin 5000 units/ml inj SUBQ SCH ×2 (09:00→21:00)
[2018-01-02] MEDS ORDERED: Tobramyicin Rx to dose MISC PRN (09:15)
[2018-01-02] MEDS: Vasopressin 100 UNITS in NS 95 ML IV SCH (10:08)
--- NOTE | 2018-01-02 11:20 | Emergency Room Report ---
History of Present Illness General Chief Complaint: Abdominal Pain Source: Medical Record Present Illness Allergies: Coded Allergies: OLANZAPINE (Verified Allergy, Unknown, 01/01/18) TETRACYCLINE (Verified Allergy, Unknown, 01/01/18) Patient History Now: No Nursing Documentation-[facility] Past Medical History: No History, Except For Hx Cardiac Problems: Yes Hx Hypertension: Yes Hx Cancer: No Hx Gastrointestinal Problems: Yes - nausea and vomiting History Of Psychiatric Problem: Yes - paranoid schizophrenia, Hx Neurological Problems: No Physical Exam Vital Signs Date Time Temp Pulse Resp B/P (MAP) Pulse Ox O2 Delivery O2 Flow Rate FiO2 01/01/18 13:47 96.1 53 20 92/66 96.1 01/01/18 14:12 100 Room Air 01/01/18 16:00 6.0 Procedures Intubation Intubation : Consent: Emergent Time of Intubation: 11:05 Intubation Method: orotracheal Tube Size (cm): 7.5 Medications: Etomidate, Rocuronium Breath Sounds after Intubation: equal Intubation Complications: no complications Post Intubation Xray: Yes Progress/Xray Impression: ETT in appropriate position Attempts: One Patient Tolerated: Well Complications: None Progress I was asked to by ICU nursing staff to intubate Ms. Mcleod with acute respiratory failure. I noticed severe hypoxia with NRB. 71% oxygen saturation when I came to bedside. I immediately increased flow of oxygen which improved oxygenation to 91%. I also added high flow to nasal cannula. After several minutes of oxygenation, 100% oxygenation was achieved. Intubation per procedure note. Medical Decision Making Diagnostic Impression: Primary Impression: Choledocholithiasis Additional Impressions: Septic shock Renal failure Elevated LFTs Hypokalemia Last Vital Signs Date Time Temp Pulse Resp B/P (MAP) Pulse Ox O2 Delivery O2 Flow Rate FiO2 01/02/18 10:00 125 30 121/77 (92) 97 01/02/18 08:00 Nasal Cannula 2.0 01/02/18 08:00 99.2 99.2 Disposition: ADMITTED INPATIENT Condition: Critical Referrals: NON PHYSICIAN (PCP) Tanya Delvalle MD Jan 02, 2018 11:20
--- NOTE | 2018-01-02 11:39 | Consultation ---
History of Present Illness General Date patient seen: Jan 02, 2018 Chief Complaint: Abdominal Pain Reason for Consultation: abdominal pain Present Illness HPI 57 year old female with history of unspecified psychiatry history presented from [facility] facility for abdominal pain and altered mental status as per report by the patient's caregiver. Patient is unable to provide any history. In ED she was noted to have markedly elevated T. bili of [address] A/ P showing choledocholithiasis. Hypotensive requiring resuscitation. Admitted to ICU for care and management. On pressors. Lactic acid trending down, leukocytosis tended down, LFTs noted. Surgery called to evaluate. patient seen , chart reviewed, patient examined. Allergies: Coded Allergies: OLANZAPINE (Verified Allergy, Unknown, 01/01/18) TETRACYCLINE (Verified Allergy, Unknown, 01/01/18) Medication History Scheduled Alprazolam (Alprazolam), 1 MG ORAL BID, (Reported) Benztropine Mesylate* (Cogentin*), 1 MG PO BID, (Reported) Ergocalciferol (Vitamin D2)* (Vitamin D*), 50,000 UNIT ORAL ONCE A WEEK, ( Reported) Famotidine (Famotidine), 20 MG ORAL TWICE A DAY, (Reported) Lisinopril/Hydrochlorothiazide 20-25 Mg Tab (Lisinopril-Hctz 20-25 Mg Tab), 1 TAB ORAL BID, (Reported) Lorazepam* (Lorazepam*), 1 MG ORAL BID, (Reported) Perphenazine (Perphenazine), 8 MG PO BID, (Reported) Promethazine Hcl* (Phenergan*), 6.25 MG ORAL Q8HR, (Reported) Quetiapine Fumarate* (Seroquel*), 100 MG ORAL BEDTIME, (Reported) Temazepam (Temazepam*), 15 MG ORAL BEDTIME, (Reported) Patient History Limited by: medical condition History Provided By: Medical Record, PMD Healthcare decision maker angela lewis Resuscitation status Full Code Advanced Directive on File No Past Medical/Surgical History Past Medical/Surgical History: (1) Unable to obtain due to confusion (2) Sepsis (3) Septic shock (4) Hypokalemia (5) Renal failure (6) Elevated LFTs (7) Choledocholithiasis Review of Systems ROS Narrative cannot obtain given medical condition Physical Exam General Appearance: other Lines, tubes and drains: central line HEENT: mucous membranes moist Neck: normal inspection Respiratory/Chest: on vent Cardiovascular/Chest: tachycardia Abdomen: normal bowel sounds, soft, no organomegaly, no mass, distended Extremities: normal inspection Skin Exam: warm/dry Neurologic: unresponsiveness Last 24 Hour Vital Signs Date Time Temp Pulse Resp B/P (MAP) Pulse Ox O2 Delivery O2 Flow Rate FiO2 01/02/18 10:00 125 30 121/77 (92) 97 01/02/18 09:16 78/36 01/02/18 09:00 121 34 111/45 (67) 97 01/02/18 08:00 Nasal Cannula 2.0 01/02/18 08:00 78/36 01/02/18 08:00 99.2 124 32 100/58 (72) 95 99.2 01/02/18 08:00 121 01/02/18 07:00 123 30 101/42 (61) 97 01/02/18 06:00 125 34 97/36 (56) 97 01/02/18 05:30 124 33 92/53 (66) 97 01/02/18 05:00 123 34 98/48 (65) 97 01/02/18 04:30 126 27 102/60 (74) 97 01/02/18 04:00 124 01/02/18 04:00 99.2 124 37 95/58 (70) 95 99.2 01/02/18 04:00 Nasal Cannula 2.0 01/02/18 03:30 125 33 91/64 (73) 97 01/02/18 03:00 123 32 91/64 (73) 96 01/02/18 02:30 119 38 110/63 (79) 97 01/02/18 02:00 120 36 103/64 (77) 98 01/02/18 01:30 120 36 98/68 (78) 98 01/02/18 01:00 121 35 102/67 (79) 97 01/02/18 00:30 112 35 96/66 (76) 98 01/02/18 00:00 112 01/02/18 00:00 96.6 112 36 93/60 (71) 98 96.6 01/01/18 23:30 115 31 103/84 (90) 97 01/01/18 23:30 Nasal Cannula 2.0 01/01/18 23:05 Nasal Cannula 2.0 01/01/18 23:00 111 33 117/69 (85) 96 01/01/18 22:00 112 01/01/18 22:00 94.7 112 25 146/68 (94) 94.7 01/01/18 21:55 97.5 113 28 146/68 95 Nasal Cannula 4.0 205.0 01/01/18 21:55 96.7 113 28 146/68 95 Nasal Cannula 4.0 96.7 01/01/18 21:00 96.5 115 22 89/57 98 Nasal Cannula 6.0 96.5 01/01/18 20:15 146/68 01/01/18 20:00 96.4 115 22 84/57 98 Nasal Cannula 6.0 96.4 01/01/18 19:15 76/58 01/01/18 19:10 75/55 01/01/18 19:10 96.6 01/01/18 19:05 79/60 01/01/18 19:00 76/55 01/01/18 18:55 69/52 01/01/18 18:50 66/45 01/01/18 18:45 63/48 01/01/18 18:40 74/61 01/01/18 18:35 67/45 01/01/18 18:30 58/38 01/01/18 18:28 73/51 01/01/18 18:00 115 22 64/42 98 Nasal Cannula 6.0 01/01/18 17:00 117 22 64/30 98 Nasal Cannula 6.0 01/01/18 16:20 96.1 01/01/18 16:00 114 24 73/51 Nasal Cannula 6.0 01/01/18 14:12 96.1 53 20 92/66 100 Room Air 96.1 01/01/18 13:47 96.1 53 20 92/66 96.1 Intake and Output 01/01/18 01/02/18 19:00 07:00 Intake Total 50 ml 3822.46 ml Output Total 300 ml Balance 50 ml 3522.46 ml Intake Oral 0 ml IV Total 50 ml 3822.46 ml Output Urine Total 300 ml # Voids 2 # Bowel Movements 1 Laboratory Tests Test 01/01/18 13:55 01/01/18 14:06 01/01/18 19:00 01/02/18 04:00 White Blood Count 17.6 K/UL (4.8-10.8) H 18.4 K/UL (4.8-10.8) H 6.7 K/UL (4.8-10.8) # Red Blood Count 5.14 M/UL (4.20-5.40) 3.76 M/UL (4.20-5.40) L 4.71 M/UL (4.20-5.40) Hemoglobin 17.0 G/DL (12.0-16.0) H 13.4 G/DL (12.0-16.0) 16.3 G/DL (12.0-16.0) H Hematocrit 49.1 % (37.0-47.0) H 37.4 % (37.0-47.0) 45.6 % (37.0-47.0) Mean Corpuscular Volume 96 FL (80-99) 99 FL (80-99) 97 FL (80-99) Mean Corpuscular Hemoglobin 33.2 PG (27.0-31.0) H 35.5 PG (27.0-31.0) H 34.5 PG (27.0-31.0) H Mean Corpuscular Hemoglobin Concent 34.7 G/DL (32.0-36.0) 35.8 G/DL (32.0-36.0) 35.7 G/DL (32.0-36.0) Red Cell Distribution Width 11.7 % (11.6-14.8) 12.2 % (11.6-14.8) 12.5 % (11.6-14.8) Platelet Count 60 K/UL (150-450) L 37 K/UL (150-450) L 33 K/UL (150-450) L Mean Platelet Volume 6.8 FL (6.5-10.1) 5.7 FL (6.5-10.1) L 9.4 FL (6.5-10.1) Neutrophils (%) (Auto) % (45.0-75.0) % (45.0-75.0) % (45.0-75.0) Lymphocytes (%) (Auto) % (20.0-45.0) % (20.0-45.0) % (20.0-45.0) Monocytes (%) (Auto) % (1.0-10.0) % (1.0-10.0) % (1.0-10.0) Eosinophils (%) (Auto) % (0.0-3.0) % (0.0-3.0) % (0.0-3.0) Basophils (%) (Auto) % (0.0-2.0) % (0.0-2.0) % (0.0-2.0) Differential Total Cells Counted 100 100 100 Neutrophils % (Manual) 71 % (45-75) 78 % (45-75) H 63 % (45-75) Lymphocytes % (Manual) 9 % (20-45) L 10 % (20-45) L 7 % (20-45) L Monocytes % (Manual) 6 % (1-10) 5 % (1-10) 4 % (1-10) Eosinophils % (Manual) 0 % (0-3) 0 % (0-3) 0 % (0-3) Basophils % (Manual) 0 % (0-2) 0 % (0-2) 0 % (0-2) Blast Cells % 5 % (0-0) *H Band Neutrophils 9 % (0-8) H 5 % (0-8) 21 % (0-8) H Platelet Estimate Decreased L Decreased L Decreased L Platelet Morphology Normal Normal Normal Red Blood Cell Morphology Normal Prothrombin Time 13.8 SEC (9.30-11.50) H Prothromb Time International Ratio 1.3 (0.9-1.1) H Activated Partial Thromboplast Time 33 SEC (23-33) Sodium Level 140 MMOL/L (136-145) 146 MMOL/L (136-145) H Potassium Level 2.3 MMOL/L (3.5-5.1) *L 3.1 MMOL/L (3.5-5.1) L Chloride Level 98 MMOL/L (98-107) 111 MMOL/L (98-107) H Carbon Dioxide Level 21 MMOL/L (21-32) 20 MMOL/L (21-32) L Anion Gap 21 mmol/L (5-15) H 15 mmol/L (5-15) Blood Urea Nitrogen 35 mg/dL (7-18) H 36 mg/dL (7-18) H Creatinine 3.8 MG/DL (0.55-1.30) H 2.4 MG/DL (0.55-1.30) H Estimat Glomerular Filtration Rate 14.8 mL/min (>60) 25.1 mL/min (>60) Glucose Level 85 MG/DL (74-106) 76 MG/DL (74-106) Calcium Level 8.9 MG/DL (8.5-10.1) 6.4 MG/DL (8.5-10.1) #L Total Bilirubin 11.0 MG/DL (0.2-1.0) H 10.9 MG/DL (0.2-1.0) H Direct Bilirubin 8.7 MG/DL (0.0-0.3) H 9.2 MG/DL (0.0-0.3) H Aspartate Amino Transf (AST/SGOT) 138 U/L (15-37) H 334 U/L (15-37) H Alanine Aminotransferase (ALT/SGPT) 89 U/L (12-78) H 122 U/L (12-78) H Alkaline Phosphatase 220 U/L (46-116) H 138 U/L (46-116) H Total Protein 6.9 G/DL (6.4-8.2) 5.4 G/DL (6.4-8.2) L Albumin 2.9 G/DL (3.4-5.0) L 2.1 G/DL (3.4-5.0) L Globulin 4.0 g/dL Albumin/Globulin Ratio 0.7 (1.0-2.7) L Lipase 113 U/L (73-393) Stool Occult Blood Positive (NEGATIVE) Myelocytes % 2 % (0-0) H 3 % (0-0) H Atypical Lymphocytes Occasional Reactive Lymphocytes Giant Platelets Occasional Lactic Acid Level 4.10 mmol/L (0.4-2.0) H 3.40 mmol/L (0.4-2.0) H Metamyelocytes % 2 % (0-0) H Macrocytosis 1+ Magnesium Level 1.9 MG/DL (1.8-2.4) Test 01/02/18 09:00 01/02/18 10:00 Lactic Acid Level 3.40 mmol/L (0.66-2.22) H Arterial Blood pH 7.296 (7.350-7.450) Arterial Blood Partial Pressure CO2 32.4 mmHg (35.0-45.0) L Arterial Blood Partial Pressure O2 42.5 mmHg (75.0-100.0) Arterial Blood HCO3 15.4 mmol/L (22.0-26.0) *L Arterial Blood Oxygen Saturation 74.5 % (95-100) *L Arterial Blood Base Excess -9.7 (-2-2) *L [place] Test Positive Microbiology Date/Time Source Procedure Growth Status 01/01/18 19:10 Blood Blood Culture - Preliminary Resulted 01/01/18 18:55 Blood Blood Culture - Preliminary Resulted Height (Feet): 5 Height (Inches): 5.00 Weight (Pounds): 138 Medications Current Medications Medications (Trade) Dose Ordered Sig/Bertrand Route PRN Reason Start Time Stop Time Status Last Admin Dose Admin Dextrose (Dextrose 50%) 25 ml Q30M PRN IV Hypoglycemia 01/01/18 17:30 01/31/18 17:29 Dextrose (Dextrose 50%) 50 ml Q30M PRN IV Hypoglycemia 01/01/18 17:30 01/31/18 17:29 Dopamine HCl/ Dextrose 250 ml @ 0 mls/hr Q24H IV 01/01/18 20:15 01/31/18 20:14 01/02/18 08:00 Heparin Sodium (Porcine) (Heparin 5000 units/ml) 5,000 units EVERY 12 HOURS SUBQ 01/01/18 21:00 01/31/18 20:59 01/01/18 21:00 Iopamidol (Isovue-300 100ml) 100 ml NOW PRN INJ Radiology Procedure 01/01/18 14:30 01/02/18 14:29 Norepinephrine Bitartrate 8 mg/ Dextrose 250 ml @ 0 mls/hr Q24H IV 01/01/18 18:00 01/31/18 17:59 01/02/18 09:16 Ondansetron HCl (Zofran) 4 mg Q6H PRN IVP Nausea & Vomiting 01/01/18 17:30 01/31/18 17:29 Pantoprazole (Protonix) 40 mg DAILY IV 01/02/18 09:00 02/01/18 08:59 01/02/18 09:00 Piperacillin Sod/ Tazobactam Sod 3.375 gm/Sodium Chloride 110 ml @ 27.5 mls/hr Q12H IVPB 01/02/18 06:00 01/09/18 05:59 01/02/18 05:55 Sodium Chloride 1,000 ml @ 125 mls/hr Q8H IVLG 01/01/18 17:30 01/31/18 17:29 01/02/18 09:16 Tobramycin Protocol (Tobramycin pharmacy to dose) 1 ea DAILY PRN MISC Per rx protocol 01/02/18 09:15 02/01/18 09:14 Tobramycin Sulfate 120 mg/ Sodium Chloride 55 ml @ 100 mls/hr Q24H IV 01/02/18 12:00 01/09/18 11:59 Vasopressin 100 units/Sodium Chloride 100 ml @ 0 mls/hr Q24H IV 01/02/18 10:00 02/01/18 09:59 01/02/18 10:08 Assessment/Plan Problem List: (1) Septic shock Assessment & Plan: Septic shock, choledocholithiasis, possible cholangitis -npo -iv fluids -iv abx -icu care -trend labs thank you. will follow with recs. ICD Codes: A41.9 - Sepsis, unspecified organism; R65.21 - Severe sepsis with septic shock SNOMED: 73806882 (2) Choledocholithiasis Assessment & Plan: -GI eval ICD Codes: K80.50 - Calculus of bile duct without cholangitis or cholecystitis without obstruction SNOMED: 232997174 (3) Elevated LFTs ICD Codes: R94.5 - Abnormal results of liver function studies SNOMED: 198960629, [id number] Darius Caraballo Jan 02, 2018 11:39
[2018-01-02] MEDS ORDERED: TOBRAMYCIN IV SCH (12:00)
[2018-01-02] MEDS ORDERED: NS IV SCH (12:00)
--- NOTE | 2018-01-02 12:45 | General Progress Note ---
Assessment/Plan Assessment/Plan GI CONSULT Dictated Assessment - Likely cholangitis - sepsis/chock - lactic acidosis - thrombocytopenia, likely DIC related - Critical Recommendations - NPO - IVF - Abx - emergency ERCP today to save life. Message left with family to discuss. Subjective Allergies: Coded Allergies: OLANZAPINE (Verified Allergy, Unknown, 01/01/18) TETRACYCLINE (Verified Allergy, Unknown, 01/01/18) Objective Last 24 Hour Vital Signs Date Time Temp Pulse Resp B/P (MAP) Pulse Ox O2 Delivery O2 Flow Rate FiO2 01/02/18 11:25 121 16 100 01/02/18 11:25 95 16 Mechanical Ventilator 15.0 100 01/02/18 10:00 125 30 121/77 (92) 97 01/02/18 09:16 78/36 01/02/18 09:00 121 34 111/45 (67) 97 01/02/18 08:00 Nasal Cannula 2.0 01/02/18 08:00 78/36 01/02/18 08:00 99.2 124 32 100/58 (72) 95 99.2 01/02/18 08:00 121 01/02/18 07:00 123 30 101/42 (61) 97 01/02/18 06:00 125 34 97/36 (56) 97 01/02/18 05:30 124 33 92/53 (66) 97 01/02/18 05:00 123 34 98/48 (65) 97 01/02/18 04:30 126 27 102/60 (74) 97 01/02/18 04:00 124 01/02/18 04:00 99.2 124 37 95/58 (70) 95 99.2 01/02/18 04:00 Nasal Cannula 2.0 01/02/18 03:30 125 33 91/64 (73) 97 01/02/18 03:00 123 32 91/64 (73) 96 01/02/18 02:30 119 38 110/63 (79) 97 01/02/18 02:00 120 36 103/64 (77) 98 01/02/18 01:30 120 36 98/68 (78) 98 01/02/18 01:00 121 35 102/67 (79) 97 01/02/18 00:30 112 35 96/66 (76) 98 01/02/18 00:00 112 01/02/18 00:00 96.6 112 36 93/60 (71) 98 96.6 01/01/18 23:30 115 31 103/84 (90) 97 01/01/18 23:30 Nasal Cannula 2.0 01/01/18 23:05 Nasal Cannula 2.0 01/01/18 23:00 111 33 117/69 (85) 96 01/01/18 22:00 112 01/01/18 22:00 94.7 112 25 146/68 (94) 94.7 01/01/18 21:55 97.5 113 28 146/68 95 Nasal Cannula 4.0 205.0 01/01/18 21:55 96.7 113 28 146/68 95 Nasal Cannula 4.0 96.7 01/01/18 21:00 96.5 115 22 89/57 98 Nasal Cannula 6.0 96.5 01/01/18 20:15 146/68 01/01/18 20:00 96.4 115 22 84/57 98 Nasal Cannula 6.0 96.4 01/01/18 19:15 76/58 01/01/18 19:10 75/55 01/01/18 19:10 96.6 01/01/18 19:05 79/60 01/01/18 19:00 76/55 01/01/18 18:55 69/52 01/01/18 18:50 66/45 01/01/18 18:45 63/48 01/01/18 18:40 74/61 01/01/18 18:35 67/45 01/01/18 18:30 58/38 01/01/18 18:28 73/51 01/01/18 18:00 115 22 64/42 98 Nasal Cannula 6.0 01/01/18 17:00 117 22 64/30 98 Nasal Cannula 6.0 01/01/18 16:20 96.1 01/01/18 16:00 114 24 73/51 Nasal Cannula 6.0 01/01/18 14:12 96.1 53 20 92/66 100 Room Air 96.1 01/01/18 13:47 96.1 53 20 92/66 96.1 Intake and Output 01/01/18 01/02/18 19:00 07:00 Intake Total 50 ml 3822.46 ml Output Total 300 ml Balance 50 ml 3522.46 ml Intake Oral 0 ml IV Total 50 ml 3822.46 ml Output Urine Total 300 ml # Voids 2 # Bowel Movements 1 Laboratory Tests 01/01/18 13:55: White Blood Count 17.6H, Red Blood Count 5.14, Hemoglobin 17.0H, Hematocrit 49.1H, Mean Corpuscular Volume 96, Mean Corpuscular Hemoglobin 33.2H, Mean Corpuscular Hemoglobin Concent 34.7, Red Cell Distribution Width 11.7, Platelet Count 60L, Mean Platelet Volume 6.8, Neutrophils (%) (Auto) , Lymphocytes (%) ( Auto) , Monocytes (%) (Auto) , Eosinophils (%) (Auto) , Basophils (%) (Auto) , Differential Total Cells Counted 100, Neutrophils % (Manual) 71, Lymphocytes % ( Manual) 9L, Monocytes % (Manual) 6, Eosinophils % (Manual) 0, Basophils % ( Manual) 0, Blast Cells % 5*H, Band Neutrophils 9H, Platelet Estimate DecreasedL , Platelet Morphology Normal, Red Blood Cell Morphology Normal, Prothrombin Time 13.8H, Prothromb Time International Ratio 1.3H, Activated Partial Thromboplast Time 33, Sodium Level 140, Potassium Level 2.3*L, Chloride Level 98 , Carbon Dioxide Level 21, Anion Gap 21H, Blood Urea Nitrogen 35H, Creatinine 3.8H, Estimat Glomerular Filtration Rate 14.8, Glucose Level 85, Calcium Level 8.9, Total Bilirubin 11.0H, Direct Bilirubin 8.7H, Aspartate Amino Transf (AST/ SGOT) 138H, Alanine Aminotransferase (ALT/SGPT) 89H, Alkaline Phosphatase 220H, Total Protein 6.9, Albumin 2.9L, Globulin 4.0, Albumin/Globulin Ratio 0.7L, Lipase 113 01/01/18 14:06: Stool Occult Blood Positive 01/01/18 19:00: White Blood Count 18.4H, Red Blood Count 3.76L, Hemoglobin 13.4, Hematocrit 37.4 , Mean Corpuscular Volume 99, Mean Corpuscular Hemoglobin 35.5H, Mean Corpuscular Hemoglobin Concent 35.8, Red Cell Distribution Width 12.2, Platelet Count 37L, Mean Platelet Volume 5.7L, Neutrophils (%) (Auto) , Lymphocytes (%) ( Auto) , Monocytes (%) (Auto) , Eosinophils (%) (Auto) , Basophils (%) (Auto) , Differential Total Cells Counted 100, Neutrophils % (Manual) 78H, Lymphocytes % (Manual) 10L, Monocytes % (Manual) 5, Eosinophils % (Manual) 0, Basophils % ( Manual) 0, Band Neutrophils 5, Platelet Estimate DecreasedL, Platelet Morphology Normal, Myelocytes % 2H, Atypical Lymphocytes Occasional, Reactive Lymphocytes , Giant Platelets Occasional, Lactic Acid Level 4.10H 01/02/18 04:00: White Blood Count 6.7#, Red Blood Count 4.71, Hemoglobin 16.3H, Hematocrit 45.6 , Mean Corpuscular Volume 97, Mean Corpuscular Hemoglobin 34.5H, Mean Corpuscular Hemoglobin Concent 35.7, Red Cell Distribution Width 12.5, Platelet Count 33L, Mean Platelet Volume 9.4, Neutrophils (%) (Auto) , Lymphocytes (%) ( Auto) , Monocytes (%) (Auto) , Eosinophils (%) (Auto) , Basophils (%) (Auto) , Differential Total Cells Counted 100, Neutrophils % (Manual) 63, Lymphocytes % ( Manual) 7L, Monocytes % (Manual) 4, Eosinophils % (Manual) 0, Basophils % ( Manual) 0, Band Neutrophils 21H, Platelet Estimate DecreasedL, Platelet Morphology Normal, Sodium Level 146H, Potassium Level 3.1L, Chloride Level 111H , Carbon Dioxide Level 20L, Anion Gap 15, Blood Urea Nitrogen 36H, Creatinine 2.4H, Estimat Glomerular Filtration Rate 25.1, Glucose Level 76, Calcium Level 6.4#L, Total Bilirubin 10.9H, Direct Bilirubin 9.2H, Aspartate Amino Transf (AST /SGOT) 334H, Alanine Aminotransferase (ALT/SGPT) 122H, Alkaline Phosphatase 138H , Total Protein 5.4L, Albumin 2.1L, Myelocytes % 3H, Lactic Acid Level 3.40H, Metamyelocytes % 2H, Macrocytosis 1+, Magnesium Level 1.9 01/02/18 09:00: Lactic Acid Level 3.40H 01/02/18 10:00: Arterial Blood pH 7.296L, Arterial Blood Partial Pressure CO2 32.4L, Arterial Blood Partial Pressure O2 42.5*L, Arterial Blood HCO3 15.4*L, Arterial Blood Oxygen Saturation 74.5*L, Arterial Blood Base Excess -9.7*L, [place] Test Positive 01/02/18 12:15: Prothrombin Time [Pending], Prothromb Time International Ratio [Pending], Fibrinogen [Pending], Cortisol [Pending] 01/02/18 12:25: Arterial Blood pH 7.146*L, Arterial Blood Partial Pressure CO2 53.5H, Arterial Blood Partial Pressure O2 80.5, Arterial Blood HCO3 18.1L, Arterial Blood Oxygen Saturation 92.7L, Arterial Blood Base Excess -11.3*L, [place] Test Positive Height (Feet): 5 Height (Inches): 5.00 Weight (Pounds): 138 Ky Guerrero MD Jan 02, 2018 12:45
[2018-01-02 12:50] LABS: INR 1.6 (0.9-1.1)
--- NOTE | 2018-01-02 13:20 | Diagnostic Imaging Report ---
EXAM: XR Chest, 1 View CLINICAL HISTORY: S/P INTUB TECHNIQUE: Frontal view of the chest. COMPARISON: No relevant prior studies available. FINDINGS: Lungs: Mild pulmonary vascular congestion. Subsegmental atelectasis versus infiltrates in bilateral lung bases. Pleural space: Unremarkable. The costophrenic angles are sharp. No visible pneumothorax. Heart: Unremarkable. No cardiomegaly. Mediastinum: Unremarkable. Bones/joints: Unremarkable. Tubes, lines and devices: Endotracheal tube tip is 2.9 cm above the andrade. EKG leads overlie the thorax. IMPRESSION: 1. Endotracheal tube tip is 2.9 cm above the andrade. 2. Mild pulmonary vascular congestion. 3. Subsegmental atelectasis versus infiltrates in bilateral lung bases.
[2018-01-02] MEDS ORDERED: Sodium Bicarbonate 150 ML in D5W 1000ml 1,000 ML IV SCH (14:00)
[2018-01-02] MEDS ORDERED: Zemuron 50mg/5ml Inj IV ONE (14:00)
[2018-01-02] MEDS ORDERED: NS 500ML ONE (14:00)
[2018-01-02] MEDS ORDERED: Midazolam 2mg/2ml Inj ONE ×2 (14:00→16:08)
--- NOTE | 2018-01-02 14:08 | General Progress Note ---
Assessment/Plan Problem List: (1) Septic shock ICD Codes: A41.9 - Sepsis, unspecified organism; R65.21 - Severe sepsis with septic shock SNOMED: 14407357 (2) Choledocholithiasis ICD Codes: K80.50 - Calculus of bile duct without cholangitis or cholecystitis without obstruction SNOMED: 080218935 Assessment/Plan Septic shock, gram negative bacteremia, suspected cholangitis - remains on multiple pressors and required intubation for acute respiratory failure. Continue with Zosyn and vasopressors. Add IV hydrocortisone for refractory hypotension. Plan for emergent ERCP today. ID, GI, Surgery following. Patient with very poor prognosis. Acute hypoxic respiratory failure, s/p intubation this morning, vent management per pulmonology. Acute thrombocytopenia with elevated INR, could be DIC from septic shock. Check D-dimer. Spoke with purse maker. VTE PPx Venodynes Full Code Subjective Date patient seen: Jan 02, 2018 Time patient seen: 12:00 ROS Limited/Unobtainable: Yes Allergies: Coded Allergies: OLANZAPINE (Verified Allergy, Unknown, 01/01/18) TETRACYCLINE (Verified Allergy, Unknown, 01/01/18) Subjective Medicine followup for septic shock, acute cholangitis, gram negative bacteremia , acute hypoxic respiratory failure requiring intubation. Patient has been on 3 vasopressors today, required intubation for respiratory failure. Seen by GI and Surgery, will need emergent ERCP. Unable to obtain due to intubation Objective Last 24 Hour Vital Signs Date Time Temp Pulse Resp B/P (MAP) Pulse Ox O2 Delivery O2 Flow Rate FiO2 01/02/18 14:01 99/65 01/02/18 13:00 111 30 99/65 (76) 97 01/02/18 12:00 117 01/02/18 12:00 99.2 124 32 109/58 (75) 95 99.2 01/02/18 12:00 Nasal Cannula 2.0 01/02/18 11:25 121 16 100 01/02/18 11:25 95 16 Mechanical Ventilator 15.0 100 01/02/18 11:00 122 30 100/70 (80) 97 01/02/18 10:00 125 30 121/77 (92) 97 01/02/18 09:16 78/36 01/02/18 09:00 121 34 111/45 (67) 97 01/02/18 08:00 Nasal Cannula 2.0 01/02/18 08:00 78/36 01/02/18 08:00 99.2 124 32 100/58 (72) 95 99.2 01/02/18 08:00 121 01/02/18 07:00 123 30 101/42 (61) 97 01/02/18 06:00 125 34 97/36 (56) 97 01/02/18 05:30 124 33 92/53 (66) 97 01/02/18 05:00 123 34 98/48 (65) 97 01/02/18 04:30 126 27 102/60 (74) 97 01/02/18 04:00 124 01/02/18 04:00 99.2 124 37 95/58 (70) 95 99.2 01/02/18 04:00 Nasal Cannula 2.0 01/02/18 03:30 125 33 91/64 (73) 97 01/02/18 03:00 123 32 91/64 (73) 96 01/02/18 02:30 119 38 110/63 (79) 97 01/02/18 02:00 120 36 103/64 (77) 98 01/02/18 01:30 120 36 98/68 (78) 98 01/02/18 01:00 121 35 102/67 (79) 97 01/02/18 00:30 112 35 96/66 (76) 98 01/02/18 00:00 112 01/02/18 00:00 96.6 112 36 93/60 (71) 98 96.6 01/01/18 23:30 115 31 103/84 (90) 97 01/01/18 23:30 Nasal Cannula 2.0 01/01/18 23:05 Nasal Cannula 2.0 01/01/18 23:00 111 33 117/69 (85) 96 01/01/18 22:00 112 01/01/18 22:00 94.7 112 25 146/68 (94) 94.7 01/01/18 21:55 97.5 113 28 146/68 95 Nasal Cannula 4.0 205.0 01/01/18 21:55 96.7 113 28 146/68 95 Nasal Cannula 4.0 96.7 01/01/18 21:00 96.5 115 22 89/57 98 Nasal Cannula 6.0 96.5 01/01/18 20:15 146/68 01/01/18 20:00 96.4 115 22 84/57 98 Nasal Cannula 6.0 96.4 01/01/18 19:15 76/58 01/01/18 19:10 75/55 01/01/18 19:10 96.6 01/01/18 19:05 79/60 01/01/18 19:00 76/55 01/01/18 18:55 69/52 01/01/18 18:50 66/45 01/01/18 18:45 63/48 01/01/18 18:40 74/61 01/01/18 18:35 67/45 01/01/18 18:30 58/38 01/01/18 18:28 73/51 01/01/18 18:00 115 22 64/42 98 Nasal Cannula 6.0 01/01/18 17:00 117 22 64/30 98 Nasal Cannula 6.0 01/01/18 16:20 96.1 01/01/18 16:00 114 24 73/51 Nasal Cannula 6.0 01/01/18 14:12 96.1 53 20 92/66 100 Room Air 96.1 Intake and Output 01/01/18 01/02/18 19:00 07:00 Intake Total 50 ml 3822.46 ml Output Total 300 ml Balance 50 ml 3522.46 ml Intake Oral 0 ml IV Total 50 ml 3822.46 ml Output Urine Total 300 ml # Voids 2 # Bowel Movements 1 Laboratory Tests 01/01/18 14:06: Stool Occult Blood Positive 01/01/18 19:00: White Blood Count 18.4H, Red Blood Count 3.76L, Hemoglobin 13.4, Hematocrit 37.4 , Mean Corpuscular Volume 99, Mean Corpuscular Hemoglobin 35.5H, Mean Corpuscular Hemoglobin Concent 35.8, Red Cell Distribution Width 12.2, Platelet Count 37L, Mean Platelet Volume 5.7L, Neutrophils (%) (Auto) , Lymphocytes (%) ( Auto) , Monocytes (%) (Auto) , Eosinophils (%) (Auto) , Basophils (%) (Auto) , Differential Total Cells Counted 100, Neutrophils % (Manual) 78H, Lymphocytes % (Manual) 10L, Monocytes % (Manual) 5, Eosinophils % (Manual) 0, Basophils % ( Manual) 0, Myelocytes % 2H, Band Neutrophils 5, Atypical Lymphocytes Occasional , Reactive Lymphocytes , Platelet Estimate DecreasedL, Platelet Morphology Normal, Giant Platelets Occasional, Lactic Acid Level 4.10H 01/02/18 04:00: White Blood Count 6.7#, Red Blood Count 4.71, Hemoglobin 16.3H, Hematocrit 45.6 , Mean Corpuscular Volume 97, Mean Corpuscular Hemoglobin 34.5H, Mean Corpuscular Hemoglobin Concent 35.7, Red Cell Distribution Width 12.5, Platelet Count 33L, Mean Platelet Volume 9.4, Neutrophils (%) (Auto) , Lymphocytes (%) ( Auto) , Monocytes (%) (Auto) , Eosinophils (%) (Auto) , Basophils (%) (Auto) , Differential Total Cells Counted 100, Neutrophils % (Manual) 63, Lymphocytes % ( Manual) 7L, Monocytes % (Manual) 4, Eosinophils % (Manual) 0, Basophils % ( Manual) 0, Myelocytes % 3H, Band Neutrophils 21H, Platelet Estimate DecreasedL, Platelet Morphology Normal, Lactic Acid Level 3.40H, Metamyelocytes % 2H, Macrocytosis 1+, Sodium Level 146H, Potassium Level 3.1L, Chloride Level 111H, Carbon Dioxide Level 20L, Anion Gap 15, Blood Urea Nitrogen 36H, Creatinine 2.4H , Estimat Glomerular Filtration Rate 25.1, Glucose Level 76, Calcium Level 6.4#L , Magnesium Level 1.9, Total Bilirubin 10.9H, Direct Bilirubin 9.2H, Aspartate Amino Transf (AST/SGOT) 334H, Alanine Aminotransferase (ALT/SGPT) 122H, Alkaline Phosphatase 138H, Total Protein 5.4L, Albumin 2.1L 01/02/18 09:00: Lactic Acid Level 3.40H 01/02/18 10:00: Arterial Blood pH 7.296L, Arterial Blood Partial Pressure CO2 32.4L, Arterial Blood Partial Pressure O2 42.5*L, Arterial Blood HCO3 15.4*L, Arterial Blood Oxygen Saturation 74.5*L, Arterial Blood Base Excess -9.7*L, [place] Test Positive 01/02/18 12:15: Prothrombin Time 16.5H, Prothromb Time International Ratio 1.6H, Fibrinogen [ Pending], Cortisol [Pending] 01/02/18 12:25: Arterial Blood pH 7.146*L, Arterial Blood Partial Pressure CO2 53.5H, Arterial Blood Partial Pressure O2 80.5, Arterial Blood HCO3 18.1L, Arterial Blood Oxygen Saturation 92.7L, Arterial Blood Base Excess -11.3*L, [place] Test Positive Height (Feet): 5 Height (Inches): 5.00 Weight (Pounds): 138 General Appearance: no apparent distress EENT: other - Intubated Cardiovascular: no gallop/murmur, no JVD, tachycardia Respiratory/Chest: lungs clear, normal breath sounds, no respiratory distress Abdomen: non tender, soft, no mass Extremities: normal inspection, no calf tenderness Neurologic: unresponsive Sav Bunch MD Jan 02, 2018 14:08
[2018-01-02] MEDS: Hydrocortisone 100mg Inj IV SCH ×3 (14:15→23:38)
[2018-01-02] MEDS ORDERED: Iothalamate Meglumine 60% 30ML INJ ONE ×2 (15:04→17:15)
[2018-01-02] MEDS ORDERED: Amikacin Rx to dose MISC PRN (15:30)
--- NOTE | 2018-01-02 15:40 | Infectious Diseases Prog Note ---
Assessment/Plan Assessment/Plan Full consult dictated: A) 1) cholangitis, gram neg bacteremia, choledocholithiasis, sepsis, shock, leukocytosis, ? zimmer 2) pmh noted 3) allergies - olanzapine, tetracycline P) 1) zosyn and tobramycin 2) for ERCP 3) supportive care 4) f/u on cultures 5) prognosis guarded Subjective Allergies: Coded Allergies: OLANZAPINE (Verified Allergy, Unknown, 01/01/18) TETRACYCLINE (Verified Allergy, Unknown, 01/01/18) Objective Vital Signs Last 24 Hour Vital Signs Date Time Temp Pulse Resp B/P (MAP) Pulse Ox O2 Delivery O2 Flow Rate FiO2 01/02/18 15:11 119 28 100 01/02/18 14:45 99/65 01/02/18 14:01 99/65 01/02/18 13:00 111 30 99/65 (76) 97 01/02/18 12:40 115 28 100 01/02/18 12:00 117 01/02/18 12:00 99.2 124 32 109/58 (75) 95 99.2 01/02/18 12:00 100 01/02/18 12:00 Nasal Cannula 2.0 01/02/18 11:25 121 16 100 01/02/18 11:25 95 16 Mechanical Ventilator 15.0 100 01/02/18 11:00 122 30 100/70 (80) 97 01/02/18 10:00 125 30 121/77 (92) 97 01/02/18 09:16 78/36 01/02/18 09:00 121 34 111/45 (67) 97 01/02/18 08:00 Nasal Cannula 2.0 01/02/18 08:00 78/36 01/02/18 08:00 99.2 124 32 100/58 (72) 95 99.2 01/02/18 08:00 121 01/02/18 07:00 123 30 101/42 (61) 97 01/02/18 06:00 125 34 97/36 (56) 97 01/02/18 05:30 124 33 92/53 (66) 97 01/02/18 05:00 123 34 98/48 (65) 97 01/02/18 04:30 126 27 102/60 (74) 97 01/02/18 04:00 124 01/02/18 04:00 99.2 124 37 95/58 (70) 95 99.2 01/02/18 04:00 Nasal Cannula 2.0 01/02/18 03:30 125 33 91/64 (73) 97 01/02/18 03:00 123 32 91/64 (73) 96 01/02/18 02:30 119 38 110/63 (79) 97 01/02/18 02:00 120 36 103/64 (77) 98 01/02/18 01:30 120 36 98/68 (78) 98 01/02/18 01:00 121 35 102/67 (79) 97 01/02/18 00:30 112 35 96/66 (76) 98 01/02/18 00:00 112 01/02/18 00:00 96.6 112 36 93/60 (71) 98 96.6 01/01/18 23:30 115 31 103/84 (90) 97 01/01/18 23:30 Nasal Cannula 2.0 01/01/18 23:05 Nasal Cannula 2.0 01/01/18 23:00 111 33 117/69 (85) 96 01/01/18 22:00 112 01/01/18 22:00 94.7 112 25 146/68 (94) 94.7 01/01/18 21:55 97.5 113 28 146/68 95 Nasal Cannula 4.0 205.0 01/01/18 21:55 96.7 113 28 146/68 95 Nasal Cannula 4.0 96.7 01/01/18 21:00 96.5 115 22 89/57 98 Nasal Cannula 6.0 96.5 01/01/18 20:15 146/68 01/01/18 20:00 96.4 115 22 84/57 98 Nasal Cannula 6.0 96.4 01/01/18 19:15 76/58 01/01/18 19:10 75/55 01/01/18 19:10 96.6 01/01/18 19:05 79/60 01/01/18 19:00 76/55 18 18:55 69/52 01/01/18 18:50 66/45 18 18:45 63/48 18 18:40 74/61 01/01/18 18:35 67/45 01/01/18 18:30 58/38 01/01/18 18:28 73/51 01/01/18 18:00 115 22 64/42 98 Nasal Cannula 6.0 01/01/18 17:00 117 22 64/30 98 Nasal Cannula 6.0 01/01/18 16:20 96.1 01/01/18 16:00 114 24 73/51 Nasal Cannula 6.0 Height (Feet): 5 Height (Inches): 5.00 Weight (Pounds): 138 Microbiology Date/Time Source Procedure Growth Status 01/01/18 19:10 Blood Blood Culture - Preliminary Resulted 01/01/18 18:55 Blood Blood Culture - Preliminary Resulted Laboratory Tests Test 01/01/18 19:00 01/02/18 04:00 01/02/18 09:00 01/02/18 10:00 White Blood Count 18.4 K/UL (4.8-10.8) H 6.7 K/UL (4.8-10.8) # Red Blood Count 3.76 M/UL (4.20-5.40) L 4.71 M/UL (4.20-5.40) Hemoglobin 13.4 G/DL (12.0-16.0) 16.3 G/DL (12.0-16.0) H Hematocrit 37.4 % (37.0-47.0) 45.6 % (37.0-47.0) Mean Corpuscular Volume 99 FL (80-99) 97 FL (80-99) Mean Corpuscular Hemoglobin 35.5 PG (27.0-31.0) H 34.5 PG (27.0-31.0) H Mean Corpuscular Hemoglobin Concent 35.8 G/DL (32.0-36.0) 35.7 G/DL (32.0-36.0) Red Cell Distribution Width 12.2 % (11.6-14.8) 12.5 % (11.6-14.8) Platelet Count 37 K/UL (150-450) L 33 K/UL (150-450) L Mean Platelet Volume 5.7 FL (6.5-10.1) L 9.4 FL (6.5-10.1) Neutrophils (%) (Auto) % (45.0-75.0) % (45.0-75.0) Lymphocytes (%) (Auto) % (20.0-45.0) % (20.0-45.0) Monocytes (%) (Auto) % (1.0-10.0) % (1.0-10.0) Eosinophils (%) (Auto) % (0.0-3.0) % (0.0-3.0) Basophils (%) (Auto) % (0.0-2.0) % (0.0-2.0) Differential Total Cells Counted 100 100 Neutrophils % (Manual) 78 % (45-75) H 63 % (45-75) Lymphocytes % (Manual) 10 % (20-45) L 7 % (20-45) L Monocytes % (Manual) 5 % (1-10) 4 % (1-10) Eosinophils % (Manual) 0 % (0-3) 0 % (0-3) Basophils % (Manual) 0 % (0-2) 0 % (0-2) Myelocytes % 2 % (0-0) H 3 % (0-0) H Band Neutrophils 5 % (0-8) 21 % (0-8) H Atypical Lymphocytes Occasional Reactive Lymphocytes Platelet Estimate Decreased L Decreased L Platelet Morphology Normal Normal Giant Platelets Occasional Lactic Acid Level 4.10 mmol/L (0.4-2.0) H 3.40 mmol/L (0.4-2.0) H 3.40 mmol/L (0.66-2.22) H Metamyelocytes % 2 % (0-0) H Macrocytosis 1+ Sodium Level 146 MMOL/L (136-145) H Potassium Level 3.1 MMOL/L (3.5-5.1) L Chloride Level 111 MMOL/L (98-107) H Carbon Dioxide Level 20 MMOL/L (21-32) L Anion Gap 15 mmol/L (5-15) Blood Urea Nitrogen 36 mg/dL (7-18) H Creatinine 2.4 MG/DL (0.55-1.30) H Estimat Glomerular Filtration Rate 25.1 mL/min (>60) Glucose Level 76 MG/DL (74-106) Calcium Level 6.4 MG/DL (8.5-10.1) #L Magnesium Level 1.9 MG/DL (1.8-2.4) Total Bilirubin 10.9 MG/DL (0.2-1.0) H Direct Bilirubin 9.2 MG/DL (0.0-0.3) H Aspartate Amino Transf (AST/SGOT) 334 U/L (15-37) H Alanine Aminotransferase (ALT/SGPT) 122 U/L (12-78) H Alkaline Phosphatase 138 U/L (46-116) H Total Protein 5.4 G/DL (6.4-8.2) L Albumin 2.1 G/DL (3.4-5.0) L Arterial Blood pH 7.296 (7.350-7.450) Arterial Blood Partial Pressure CO2 32.4 mmHg (35.0-45.0) L Arterial Blood Partial Pressure O2 42.5 mmHg (75.0-100.0) Arterial Blood HCO3 15.4 mmol/L (22.0-26.0) *L Arterial Blood Oxygen Saturation 74.5 % (95-100) *L Arterial Blood Base Excess -9.7 (-2-2) *L [place] Test Positive Test 01/02/18 12:15 01/02/18 12:25 Prothrombin Time 16.5 SEC (9.30-11.50) H Prothromb Time International Ratio 1.6 (0.9-1.1) H Fibrinogen 848 mg/dL (200-400) H Cortisol Pending Arterial Blood pH 7.146 (7.350-7.450) Arterial Blood Partial Pressure CO2 53.5 mmHg (35.0-45.0) H Arterial Blood Partial Pressure O2 80.5 mmHg (75.0-100.0) Arterial Blood HCO3 18.1 mmol/L (22.0-26.0) L Arterial Blood Oxygen Saturation 92.7 % (95-100) L Arterial Blood Base Excess -11.3 (-2-2) *L [place] Test Positive Current Medications Medications (Trade) Dose Ordered Sig/Bertrand Route PRN Reason Start Time Stop Time Status Last Admin Dose Admin Dextrose (Dextrose 50%) 25 ml Q30M PRN IV Hypoglycemia 01/01/18 17:30 01/31/18 17:29 Dextrose (Dextrose 50%) 50 ml Q30M PRN IV Hypoglycemia 01/01/18 17:30 01/31/18 17:29 Dopamine HCl/ Dextrose 250 ml @ 0 mls/hr Q24H IV 01/01/18 20:15 01/31/18 20:14 01/02/18 14:01 Heparin Sodium (Porcine) (Heparin 5000 units/ml) 5,000 units EVERY 12 HOURS SUBQ 01/01/18 21:00 01/31/18 20:59 01/01/18 21:00 Hydrocortisone (Solu-CORTEF) 50 mg Q6HR IV 01/02/18 14:15 02/01/18 14:14 01/02/18 14:15 Lorazepam (Ativan 2mg/ml 1ml) 2 mg EVERY 2 HOURS PRN IV For Anxiety 01/02/18 14:30 01/09/18 14:29 Morphine Sulfate (Morphine Sulfate) 2 mg Q4H PRN IVP For Pain 01/02/18 14:30 01/09/18 14:29 Norepinephrine Bitartrate 16 mg/ Dextrose 516 ml @ 0 mls/hr Q24H IV 01/02/18 14:00 02/01/18 13:59 01/02/18 14:45 Ondansetron HCl (Zofran) 4 mg Q6H PRN IVP Nausea & Vomiting 01/01/18 17:30 01/31/18 17:29 Pantoprazole (Protonix) 40 mg DAILY IV 01/02/18 09:00 02/01/18 08:59 01/02/18 09:00 Piperacillin Sod/ Tazobactam Sod 3.375 gm/Sodium Chloride 110 ml @ 27.5 mls/hr Q12H IVPB 01/02/18 06:00 01/09/18 05:59 01/02/18 05:55 Potassium Chloride 100 ml @ 50 mls/hr ONCE ONCE IVPB 01/02/18 18:00 01/02/18 19:59 Sodium Bicarbonate 150 ml/Dextrose 1,150 ml @ 50 mls/hr Q23H IV 01/02/18 14:00 02/01/18 13:59 01/02/18 14:00 Tobramycin Protocol (Tobramycin pharmacy to dose) 1 ea DAILY PRN MISC Per rx protocol 01/02/18 09:15 02/01/18 09:14 Tobramycin Sulfate 120 mg/ Sodium Chloride 55 ml @ 100 mls/hr Q24H IV 01/02/18 12:00 01/09/18 11:59 10/6/18 12:00 Vasopressin 100 units/Sodium Chloride 100 ml @ 0 mls/hr Q24H IV 01/02/18 10:00 02/01/18 09:59 01/02/18 10:08 Corinne Lilly MD Jan 02, 2018 15:40
--- NOTE | 2018-01-02 15:53 | Pulmonolgy Critical Care Note ---
Critical Care - Asmt/Plan Assessment/Plan: Pulmonary Follow Up Note Patient is a 57 year old woman with history of unspecified psychiatry history, brought in from a [facility] care facility for abdominal pain and altered mental status which was reported by the patient's caregiver. Patient is unable to provide any meaningful history due to confusion. In ED she was noted to have markedly elevated Tbili of [address] A/P showing choledocholithiasis with dilated biliary ducts. She has been persistently hypotensive to the 60s despite 2.5 liters of fluid. S/p central line in the ED, remains on Pressors and broad spectrum antibiotics the ICU. Allergies: Coded Allergies: OLANZAPINE (Verified Allergy, Unknown, 01/01/18) TETRACYCLINE (Verified Allergy, Unknown, 01/01/18) Medication History Scheduled Alprazolam (Alprazolam), 1 MG ORAL BID, (Reported) Famotidine (Famotidine), 20 MG ORAL TWICE A DAY, (Reported) Lisinopril (Lisinopril*), 20 MG ORAL DAILY, (Reported) Lorazepam (Lorazepam), 1 MG ORAL BID, (Reported) Perphenazine (Perphenazine), 8 MG PO BID, (Reported) Quetiapine Fumarate (Quetiapine Fumarate), 100 MG ORAL BEDTIME, (Reported) Temazepam (Temazepam), 15 MG PO BEDTIME, (Reported) Miscellaneous Medications Benztropine Mesylate (Benztropine Mesylate), 1 MG PO, (Reported) Famotidine In Nacl,Iso-Osm/Pf (Famotidine 20 Mg Piggyback), 20 MG IV, (Reported) Patient History Limited by: medical condition Healthcare decision maker Resuscitation status Advanced Directive on File Family History Family History: Unabl to obtain due to confusion Social History Social History: (1) Unable to obtain due to confusion Review of Systems ROS Narrative Unable to obtain due to confusion Physical Exam General Appearance: confused, thin HEENT: atraumatic, anicteric Neck: non-tender, normal alignment Respiratory/Chest: lungs clear, normal breath sounds, no respiratory distress Cardiovascular/Chest: normal peripheral pulses, normal rate Abdomen: soft - No rebound, rigidity Extremities: non-tender, normal inspection, no calf tenderness Skin Exam: other - Cold Neurologic: alert Last 24 Hour Vital Signs Date Time Temp Pulse Resp B/P (MAP) Pulse Ox O2 Delivery O2 Flow Rate FiO2 10/5/18 16:20 96.1 01/01/18 16:00 114 24 73/51 Nasal Cannula 6.0 01/01/18 14:12 96.1 53 20 100 Room Air 96.1 01/01/18 13:47 96.1 53 20 96.1 Laboratory Tests Test 01/01/18 13:55 01/01/18 14:06 White Blood Count 17.6 K/UL (4.8-10.8) H Red Blood Count 5.14 M/UL (4.20-5.40) Hemoglobin 17.0 G/DL (12.0-16.0) H Hematocrit 49.1 % (37.0-47.0) H Mean Corpuscular Volume 96 FL (80-99) Mean Corpuscular Hemoglobin 33.2 PG (27.0-31.0) H Mean Corpuscular Hemoglobin Concent 34.7 G/DL (32.0-36.0) Red Cell Distribution Width 11.7 % (11.6-14.8) Platelet Count 60 K/UL (150-450) L Mean Platelet Volume 6.8 FL (6.5-10.1) Neutrophils (%) (Auto) % (45.0-75.0) Lymphocytes (%) (Auto) % (20.0-45.0) Monocytes (%) (Auto) % (1.0-10.0) Eosinophils (%) (Auto) % (0.0-3.0) Basophils (%) (Auto) % (0.0-2.0) Differential Total Cells Counted 100 Neutrophils % (Manual) 71 % (45-75) Lymphocytes % (Manual) 9 % (20-45) L Monocytes % (Manual) 6 % (1-10) Eosinophils % (Manual) 0 % (0-3) Basophils % (Manual) 0 % (0-2) Blast Cells % 5 % (0-0) *H Band Neutrophils 9 % (0-8) H Platelet Estimate Decreased L Platelet Morphology Normal Red Blood Cell Morphology Normal Prothrombin Time 13.8 SEC (9.30-11.50) H Prothromb Time International Ratio 1.3 (0.9-1.1) H Activated Partial Thromboplast Time 33 SEC (23-33) Sodium Level 140 MMOL/L (136-145) Potassium Level 2.3 MMOL/L (3.5-5.1) *L Chloride Level 98 MMOL/L (98-107) Carbon Dioxide Level 21 MMOL/L (21-32) Anion Gap 21 mmol/L (5-15) H Blood Urea Nitrogen 35 mg/dL (7-18) H Creatinine 3.8 MG/DL (0.55-1.30) H Estimat Glomerular Filtration Rate 14.8 mL/min (>60) Glucose Level 85 MG/DL (74-106) Calcium Level 8.9 MG/DL (8.5-10.1) Total Bilirubin 11.0 MG/DL (0.2-1.0) H Direct Bilirubin 8.7 MG/DL (0.0-0.3) H Aspartate Amino Transf (AST/SGOT) 138 U/L (15-37) H Alanine Aminotransferase (ALT/SGPT) 89 U/L (12-78) H Alkaline Phosphatase 220 U/L (46-116) H Total Protein 6.9 G/DL (6.4-8.2) Albumin 2.9 G/DL (3.4-5.0) L Globulin 4.0 g/dL Albumin/Globulin Ratio 0.7 (1.0-2.7) L Lipase 113 U/L (73-393) Stool Occult Blood Positive (NEGATIVE) Height (Feet): 5 Height (Inches): 6.00 Weight (Pounds): 150 Medications Current Medications Medications (Trade) Dose Ordered Sig/Bertrand Route PRN Reason Start Time Stop Time Status Last Admin Dose Admin Dextrose (Dextrose 50%) 25 ml Q30M PRN IV Hypoglycemia 01/01/18 17:30 01/31/18 17:29 UNV Dextrose (Dextrose 50%) 50 ml Q30M PRN IV Hypoglycemia 01/01/18 17:30 01/31/18 17:29 UNV Heparin Sodium (Porcine) (Heparin 5000 units/ml) 5,000 units EVERY 12 HOURS SUBQ 01/01/18 21:00 01/31/18 20:59 UNV Iopamidol (Isovue-300 100ml) 100 ml NOW PRN INJ Radiology Procedure 01/01/18 14:30 Ondansetron HCl (Zofran) 4 mg Q6H PRN IVP Nausea & Vomiting 01/01/18 17:30 11/4/18 17:29 UNV Pantoprazole (Protonix) 40 mg DAILY IV 01/02/18 09:00 02/01/18 08:59 UNV Piperacillin Sod/ Tazobactam Sod 3.375 gm/Sodium Chloride 110 ml @ 220 mls/hr ONCE ONCE IVPB 01/01/18 17:30 01/01/18 17:59 UNV Sodium Chloride 1,000 ml @ 100 mls/hr Q10H IV 01/01/18 15:15 01/31/18 15:14 01/01/18 15:15 Sodium Chloride 1,000 ml @ 125 mls/hr Q8H IVLG 01/01/18 18:18 01/31/18 18:17 UNV Objective Narrative EKG: Sinus tachycardia without acute ischemic changes Assessment/Plan Problem List: (1) Choledocholithiasis ICD Codes: K80.50 - Calculus of bile duct without cholangitis or cholecystitis without obstruction SNOMED: 193042080 (2) Sepsis ICD Codes: A41.9 - Sepsis, unspecified organism SNOMED: 28846959 Assessment/Plan 57 year old woman with history of unspecified psychiatry history on various psychotropics who presents from a [facility] facility with abdominal pain, hypotension, hyperbilirubinemia/choledocholithiasis on CT A/P. 1)Choledocholithiasis with hypotension despite 2.5 liters of crystalloid, possible cholangitis.Continue IV fluids, check serial lactate levels, blood cultures. Start Zosyn. Patient may require vasopressor support for possible septic shock. Will continue to follow LFTs. GI following Antibiotics per ID, Surgery following 2)Severe hypokalemia, s/p IV KCl, repeat BMP tonight and replace as needed. Check BMP in AM. 3)Acute metabolic encephalopathy, likely due to to underlying sepsis, continue to treat acute medical issues and provide supportive care. Fall, aspiration, seizure precautions. 4)History of unspecified psychiatric illness, will hold all psychotropics for now to avoid oversedation. 5) Worsening Respiratory Failure, Hypoxia, Respiratory Acidosis - acute with metabolic acidosis - AC ventilation, adjust Vt, HCO# gtt 6)CXR: 1. Endotracheal tube tip is 2.9 cm above the andrade. 2. Mild pulmonary vascular congestion. 3. Subsegmental atelectasis versus infiltrates in bilateral lung bases. VTE PPx heparin SC Full Code The patient is critically ill and will require a hospitalization crossing 2 midnights for IV antibiotics, IV fluids and possible pressors. She is high risk for given the severity of her medical problems and require close hemodynamic monitoring in the hospital setting. Critical Care - Objective Last 24 Hour Vital Signs Date Time Temp Pulse Resp B/P (MAP) Pulse Ox O2 Delivery O2 Flow Rate FiO2 01/02/18 15:11 119 28 100 01/02/18 14:45 99/65 01/02/18 14:01 99/65 01/02/18 13:00 111 30 99/65 (76) 97 01/02/18 12:40 115 28 100 01/02/18 12:00 117 01/02/18 12:00 99.2 124 32 109/58 (75) 95 99.2 01/02/18 12:00 100 01/02/18 12:00 Nasal Cannula 2.0 01/02/18 11:25 121 16 100 01/02/18 11:25 95 16 Mechanical Ventilator 15.0 100 01/02/18 11:00 122 30 100/70 (80) 97 01/02/18 10:00 125 30 121/77 (92) 97 01/02/18 09:16 78/36 01/02/18 09:00 121 34 111/45 (67) 97 01/02/18 08:00 Nasal Cannula 2.0 01/02/18 08:00 78/36 01/02/18 08:00 99.2 124 32 100/58 (72) 95 99.2 01/02/18 08:00 121 01/02/18 07:00 123 30 101/42 (61) 97 01/02/18 06:00 125 34 97/36 (56) 97 01/02/18 05:30 124 33 92/53 (66) 97 01/02/18 05:00 123 34 98/48 (65) 97 01/02/18 04:30 126 27 102/60 (74) 97 01/02/18 04:00 124 01/02/18 04:00 99.2 124 37 95/58 (70) 95 99.2 01/02/18 04:00 Nasal Cannula 2.0 01/02/18 03:30 125 33 91/64 (73) 97 01/02/18 03:00 123 32 91/64 (73) 96 01/02/18 02:30 119 38 110/63 (79) 97 01/02/18 02:00 120 36 103/64 (77) 98 01/02/18 01:30 120 36 98/68 (78) 98 01/02/18 01:00 121 35 102/67 (79) 97 01/02/18 00:30 112 35 96/66 (76) 98 01/02/18 00:00 112 01/02/18 00:00 96.6 112 36 93/60 (71) 98 96.6 01/01/18 23:30 115 31 103/84 (90) 97 01/01/18 23:30 Nasal Cannula 2.0 01/01/18 23:05 Nasal Cannula 2.0 01/01/18 23:00 111 33 117/69 (85) 96 01/01/18 22:00 112 01/01/18 22:00 94.7 112 25 146/68 (94) 94.7 01/01/18 21:55 97.5 113 28 146/68 95 Nasal Cannula 4.0 205.0 01/01/18 21:55 96.7 113 28 146/68 95 Nasal Cannula 4.0 96.7 01/01/18 21:00 96.5 115 22 89/57 98 Nasal Cannula 6.0 96.5 01/01/18 20:15 146/68 01/01/18 20:00 96.4 115 22 84/57 98 Nasal Cannula 6.0 96.4 01/01/18 19:15 76/58 01/01/18 19:10 75/55 01/01/18 19:10 96.6 01/01/18 19:05 79/60 01/01/18 19:00 76/55 01/01/18 18:55 69/52 01/01/18 18:50 66/45 01/01/18 18:45 63/48 01/01/18 18:40 74/61 01/01/18 18:35 67/45 01/01/18 18:30 58/38 01/01/18 18:28 73/51 01/01/18 18:00 115 22 64/42 98 Nasal Cannula 6.0 01/01/18 17:00 117 22 64/30 98 Nasal Cannula 6.0 01/01/18 16:20 96.1 01/01/18 16:00 114 24 73/51 Nasal Cannula 6.0 Micro: Microbiology Date/Time Source Procedure Growth Status 01/01/18 19:10 Blood Blood Culture - Preliminary Resulted 01/01/18 18:55 Blood Blood Culture - Preliminary Resulted Accucheck: 89 Critical Care - Subjective ROS Limited/Unobtainable: Yes Condition: critical IV Access: central EKG Rhythm: Sinus Rhythm FI02: 100 Vent Support Breath Rate: 28 Vent Support Mode: AC Vent Tidal Volume: 600 Sputum Amount: Moderate PEEP: 5.0 PIP: 24 I&O: Intake and Output 01/01/18 01/02/18 19:00 07:00 Intake Total 50 ml 3822.46 ml Output Total 300 ml Balance 50 ml 3522.46 ml Intake Oral 0 ml IV Total 50 ml 3822.46 ml Output Urine Total 300 ml # Voids 2 # Bowel Movements 1 ET-Tube: 7.5 ET Position: 23 Farhat Hunt MD Jan 02, 2018 15:53
[2018-01-02] MEDS ORDERED: NS 500ML IVPB ONE ×2 (16:00→17:00)
[2018-01-02] MEDS ORDERED: Midazolam 2mg/2ml Inj IV ONE (16:10)
[2018-01-02] MEDS ORDERED: Amikacin 350 MG in NS 110 ML IV ONE (16:30)
--- NOTE | 2018-01-02 16:37 | Pre-Procedure Note/Attestation ---
Pre-Procedure Note/Attestation Complete Prior to Procedure Planned Procedure: not applicable Procedure Narrative: ercp Indications for Procedure Pre-Operative Diagnosis: cholangitis Attestation I attest that I discussed the nature of the procedure; its benefits; risks and complications; and alternatives (and the risks and benefits of such alternatives ), prior to the procedure, with the patient (or the patient's legal member services representative). I attest that, if there was a reasonable possibility of needing a blood transfusion, the patient (or the patient's legal member services representative) was given the [facility] standardized written summary, pursuant to the [place] Blood Safety Act ([place] Health and Safety Code # 1645, as amended). I attest that I re-evaluated the patient just prior to the surgery and that there has been no change in the patient's H&P, except as documented below: Edward Villar MD Jan 02, 2018 16:37
--- NOTE | 2018-01-02 16:54 | Consultation ---
Consult Note Consult Note HEMATOLOGY-ONCOLOGY CONSULTATION REQUESTING PHYSICIAN: Mercedes Vásquez MD DATE OF CONSULTATION: 01/02/2018 REASON FOR CONSULTATION: Evaluation of thrombocytopenia and leukocytosis HPI 57 year old woman with history of unspecified psychiatry history, brought in from a [facility] facility for abdominal pain and altered mental status which was reported by the patient's caregiver. Patient is unable to provide any meaningful history due to confusion. In ED she was noted to have markedly elevated T. bili of [address] A/P showing choledocholithiasis. She has been persistently hypotensive to the 60s despite 2.5 liters of fluid. Pt admitted to ICU for central line placement. I have been conulted for the evaluation of leukocytosis and thrombocytopenia. Current wbc 6.7 and plt at 13.3k. US abd has been reviewed. Allergies: Coded Allergies: OLANZAPINE (Verified Allergy, Unknown, 01/01/18) TETRACYCLINE (Verified Allergy, Unknown, 01/01/18) Medication History Scheduled Alprazolam (Alprazolam), 1 MG ORAL BID, (Reported) Famotidine (Famotidine), 20 MG ORAL TWICE A DAY, (Reported) Lisinopril (Lisinopril*), 20 MG ORAL DAILY, (Reported) Lorazepam (Lorazepam), 1 MG ORAL BID, (Reported) Perphenazine (Perphenazine), 8 MG PO BID, (Reported) Quetiapine Fumarate (Quetiapine Fumarate), 100 MG ORAL BEDTIME, (Reported) Temazepam (Temazepam), 15 MG PO BEDTIME, (Reported) Miscellaneous Medications Benztropine Mesylate (Benztropine Mesylate), 1 MG PO, (Reported) Famotidine In Nacl,Iso-Osm/Pf (Famotidine 20 Mg Piggyback), 20 MG IV, (Reported) Patient History Limited by: medical condition Healthcare decision maker Resuscitation status Advanced Directive on File Family History Family History: Unable to obtain due to confusion Social History Social History: (1) Unable to obtain due to confusion Review of Systems ROS Narrative Unable to obtain due to confusion Physical Exam General Appearance: confused, thin HEENT: atraumatic, anicteric Neck: non-tender, normal alignment Respiratory/Chest: lungs clear, normal breath sounds, no respiratory distress Cardiovascular/Chest: normal peripheral pulses, normal rate Abdomen: soft - No rebound, rigidity Extremities: non-tender, normal inspection, no calf tenderness Skin Exam: other - Cold Neurologic: alert Last 24 Hour Vital Signs Date Time Temp Pulse Resp B/P (MAP) Pulse Ox O2 Delivery O2 Flow Rate FiO2 01/01/18 16:20 96.1 01/01/18 16:00 114 24 73/51 Nasal Cannula 6.0 01/01/18 14:12 96.1 53 20 92/66 100 Room Air 96.1 01/01/18 13:47 96.1 53 20 92/ 96.1 Laboratory Tests Test 01/01/18 13:55 01/01/18 14:06 White Blood Count 17.6 K/UL (4.8-10.8) H Red Blood Count 5.14 M/UL (4.20-5.40) Hemoglobin 17.0 G/DL (12.0-16.0) H Hematocrit 49.1 % (37.0-47.0) H Mean Corpuscular Volume 96 FL (80-99) Mean Corpuscular Hemoglobin 33.2 PG (27.0-31.0) H Mean Corpuscular Hemoglobin Concent 34.7 G/DL (32.0-36.0) Red Cell Distribution Width 11.7 % (11.6-14.8) Platelet Count 60 K/UL (150-450) L Mean Platelet Volume 6.8 FL (6.5-10.1) Neutrophils (%) (Auto) % (45.0-75.0) Lymphocytes (%) (Auto) % (20.0-45.0) Monocytes (%) (Auto) % (1.0-10.0) Eosinophils (%) (Auto) % (0.0-3.0) Basophils (%) (Auto) % (0.0-2.0) Differential Total Cells Counted 100 Neutrophils % (Manual) 71 % (45-75) Lymphocytes % (Manual) 9 % (20-45) L Monocytes % (Manual) 6 % (1-10) Eosinophils % (Manual) 0 % (0-3) Basophils % (Manual) 0 % (0-2) Blast Cells % 5 % (0-0) *H Band Neutrophils 9 % (0-8) H Platelet Estimate Decreased L Platelet Morphology Normal Red Blood Cell Morphology Normal Prothrombin Time 13.8 SEC (9.30-11.50) H Prothromb Time International Ratio 1.3 (0.9-1.1) H Activated Partial Thromboplast Time 33 SEC (23-33) Sodium Level 140 MMOL/L (136-145) Potassium Level 2.3 MMOL/L (3.5-5.1) *L Chloride Level 98 MMOL/L (98-107) Carbon Dioxide Level 21 MMOL/L (21-32) Anion Gap 21 mmol/L (5-15) H Blood Urea Nitrogen 35 mg/dL (7-18) H Creatinine 3.8 MG/DL (0.55-1.30) H Estimat Glomerular Filtration Rate 14.8 mL/min (>60) Glucose Level 85 MG/DL (74-106) Calcium Level 8.9 MG/DL (8.5-10.1) Total Bilirubin 11.0 MG/DL (0.2-1.0) H Direct Bilirubin 8.7 MG/DL (0.0-0.3) H Aspartate Amino Transf (AST/SGOT) 138 U/L (15-37) H Alanine Aminotransferase (ALT/SGPT) 89 U/L (12-78) H Alkaline Phosphatase 220 U/L (46-116) H Total Protein 6.9 G/DL (6.4-8.2) Albumin 2.9 G/DL (3.4-5.0) L Globulin 4.0 g/dL Albumin/Globulin Ratio 0.7 (1.0-2.7) L Lipase 113 U/L (73-393) Stool Occult Blood Positive (NEGATIVE) Height (Feet): 5 Height (Inches): 6.00 Weight (Pounds): 150 Medications Current Medications Medications (Trade) Dose Ordered Sig/Bertrand Route PRN Reason Start Time Stop Time Status Last Admin Dose Admin Dextrose (Dextrose 50%) 25 ml Q30M PRN IV Hypoglycemia 01/01/18 17:30 01/31/18 17:29 UNV Dextrose (Dextrose 50%) 50 ml Q30M PRN IV Hypoglycemia 01/01/18 17:30 01/31/18 17:29 UNV Heparin Sodium (Porcine) (Heparin 5000 units/ml) 5,000 units EVERY 12 HOURS SUBQ 01/01/18 21:00 01/31/18 20:59 UNV Iopamidol (Isovue-300 100ml) 100 ml NOW PRN INJ Radiology Procedure 01/01/18 14:30 Ondansetron HCl (Zofran) 4 mg Q6H PRN IVP Nausea & Vomiting 01/01/18 17:30 01/31/18 17:29 UNV Pantoprazole (Protonix) 40 mg DAILY IV 01/02/18 09:00 02/01/18 08:59 UNV Piperacillin Sod/ Tazobactam Sod 3.375 gm/Sodium Chloride 110 ml @ 220 mls/hr ONCE ONCE IVPB 01/01/18 17:30 01/01/18 17:59 UNV Sodium Chloride 1,000 ml @ 100 mls/hr Q10H IV 01/01/18 15:15 01/31/18 15:14 01/01/18 15:15 Sodium Chloride 1,000 ml @ 125 mls/hr Q8H IVLG 01/01/18 18:18 01/31/18 18:17 UNV Assessment/Plan # Leukocytosis. Likely related to underlying infection versus reactive process. In addition, concerning for BLASTS, MYELOCYTES AND METAMYELOCYTES on the peripheral smear --> WILL ORDER A FLOW CYTOMETRY TO RULE OUT ACUTE LEUKEMIA --> DIC PANEL ORDERED WELL, HAPTO PENDING --> TUMOR LYSIS LABS ORDERED URIC ACID, LDH, K, PHOS, CALCIUM STAT --> MAY need a bone marrow biopsy will discuss with pathologist --> Imaging has been reviewed and reveals: Mild pulmonary vascular congestion. Subsegmental atelectasis versus infiltrates in bilateral lung bases. Cholelithiasis --> Blood and urine cultures are pending. --> Has been started on abx, empiric treatment # Thrombocytopenia. Potential causes multifactorial, evaluate liver and viral etiologies v infectious --> Have ordered for Hep panel and HIV --> US abd: Cholelithiasis --> Peripheral smear ordered to eval for blasts --> Abx and other meds have been reviewed. # Choledocholithiasis with hypotension despite 2.5 liters of crystalloid, could be early cholangitis. She will be admitted to ICU with central line placement. --> NPO, Zofran, morphine prb. Continue IV fluids, check serial lactate levels, blood cultures. Start Zosyn. Patient may require vasopressor support for possible septic shock. --> ID, GI and Surgery will evaluate. # Severe hypokalemia, will replace with IV KCl, repeat BMP tonight and replace as needed. Check BMP in AM. # Acute metabolic encephalopathy, likely due to to underlying sepsis, continue to treat acute medical issues and provide supportive care. Fall, aspiration, seizure precautions. # History of unspecified psychiatric illness, will hold all psychotropics for now to avoid oversedation. # Rrespiratory failure -- s/p vent I GREATLY APPRECIATE CONSULTATION. Davin Aguero MD Jan 02, 2018 16:54
--- NOTE | 2018-01-02 17:05 | Anethesia Preoperative Eval ---
Anesthesia Pre-op PMH/ROS General Date of Evaluation: Jan 02, 2018 Anesthesiologist: Sami ASA Score: ASA 5 - Emergency Mallampati Score Class I : Soft palate, uvula, fauces, pillars visible Class II: Soft palate, uvula, fauces visible Class III: Soft palate, base of uvula visible Class IV: Only hard plate visible Mallampati Classification: Class IV Surgeon: Jian Diagnosis: Septic Cholangitis Anesthesia History: none Family History: no anesthesia problems Allergies: Coded Allergies: OLANZAPINE (Verified Allergy, Unknown, 01/01/18) TETRACYCLINE (Verified Allergy, Unknown, 01/01/18) Medications: see eMAR Patient NPO?: Yes Past Medical History Cardiovascular: Reports: HTN Pulmonary: Reports: other - Ventilatory Failure Neurologic/Psychiatric: Reports: other - Schizophrenia Hematology/Immune: Reports: other - Septic Cholangitis Anesthesia Pre-op Phys. Exam Physician Exam Last Vital Signs Date Time Temp Pulse Resp B/P (MAP) Pulse Ox O2 Delivery O2 Flow Rate FiO2 01/02/18 15:11 119 28 100 01/02/18 14:45 99/65 01/02/18 13:00 97 01/02/18 12:00 99.2 99.2 01/02/18 12:00 Nasal Cannula 2.0 Constitutional: NAD, other - In Extremis Neurologic: other Cardiovascular: other - Tachycardia Respiratory: other - Rhonci Airway Exam Mallampati Score: Class IV MO: limited ROM: limited Teeth: missing Anesthesia Pre-op A/P Labs Hematology Test 01/01/18 19:00 01/02/18 04:00 White Blood Count 18.4 K/UL (4.8-10.8) H 6.7 K/UL (4.8-10.8) # Red Blood Count 3.76 M/UL (4.20-5.40) L 4.71 M/UL (4.20-5.40) Hemoglobin 13.4 G/DL (12.0-16.0) 16.3 G/DL (12.0-16.0) H Hematocrit 37.4 % (37.0-47.0) 45.6 % (37.0-47.0) Mean Corpuscular Volume 99 FL (80-99) 97 FL (80-99) Mean Corpuscular Hemoglobin 35.5 PG (27.0-31.0) H 34.5 PG (27.0-31.0) H Mean Corpuscular Hemoglobin Concent 35.8 G/DL (32.0-36.0) 35.7 G/DL (32.0-36.0) Red Cell Distribution Width 12.2 % (11.6-14.8) 12.5 % (11.6-14.8) Platelet Count 37 K/UL (150-450) L 33 K/UL (150-450) L Mean Platelet Volume 5.7 FL (6.5-10.1) L 9.4 FL (6.5-10.1) Neutrophils (%) (Auto) % (45.0-75.0) % (45.0-75.0) Lymphocytes (%) (Auto) % (20.0-45.0) % (20.0-45.0) Monocytes (%) (Auto) % (1.0-10.0) % (1.0-10.0) Eosinophils (%) (Auto) % (0.0-3.0) % (0.0-3.0) Basophils (%) (Auto) % (0.0-2.0) % (0.0-2.0) Differential Total Cells Counted 100 100 Neutrophils % (Manual) 78 % (45-75) H 63 % (45-75) Lymphocytes % (Manual) 10 % (20-45) L 7 % (20-45) L Monocytes % (Manual) 5 % (1-10) 4 % (1-10) Eosinophils % (Manual) 0 % (0-3) 0 % (0-3) Basophils % (Manual) 0 % (0-2) 0 % (0-2) Myelocytes % 2 % (0-0) H 3 % (0-0) H Band Neutrophils 5 % (0-8) 21 % (0-8) H Atypical Lymphocytes Occasional Reactive Lymphocytes Platelet Estimate Decreased L Decreased L Platelet Morphology Normal Normal Giant Platelets Occasional Metamyelocytes % 2 % (0-0) H Macrocytosis 1+ Coagulation Test 01/02/18 12:15 Prothrombin Time 16.5 SEC (9.30-11.50) H Prothromb Time International Ratio 1.6 (0.9-1.1) H Fibrinogen 848 mg/dL (200-400) H Chemistry Test 01/01/18 19:00 01/02/18 04:00 01/02/18 09:00 01/02/18 12:15 Lactic Acid Level 4.10 mmol/L (0.4-2.0) H 3.40 mmol/L (0.4-2.0) H 3.40 mmol/L (0.66-2.22) H Sodium Level 146 MMOL/L (136-145) H Potassium Level 3.1 MMOL/L (3.5-5.1) L Chloride Level 111 MMOL/L (98-107) H Carbon Dioxide Level 20 MMOL/L (21-32) L Anion Gap 15 mmol/L (5-15) Blood Urea Nitrogen 36 mg/dL (7-18) H Creatinine 2.4 MG/DL (0.55-1.30) H Estimat Glomerular Filtration Rate 25.1 mL/min (>60) Glucose Level 76 MG/DL (74-106) Calcium Level 6.4 MG/DL (8.5-10.1) #L Magnesium Level 1.9 MG/DL (1.8-2.4) Total Bilirubin 10.9 MG/DL (0.2-1.0) H Direct Bilirubin 9.2 MG/DL (0.0-0.3) H Aspartate Amino Transf (AST/SGOT) 334 U/L (15-37) H Alanine Aminotransferase (ALT/SGPT) 122 U/L (12-78) H Alkaline Phosphatase 138 U/L (46-116) H Total Protein 5.4 G/DL (6.4-8.2) L Albumin 2.1 G/DL (3.4-5.0) L Cortisol Pending Risk Assessment & Plan Assessment: ASA 5E Plan: GA Pre-Antibiotics Drug: Receiving Given Within 1 Hr of Incision: Yes Rajeev Gallardo MD Jan 02, 2018 17:05
--- NOTE | 2018-01-02 17:06 | 48 Hour Post Anesthesia Eval ---
Post Anesthesia Evaluation Procedure: ERCP Date of Evaluation: Jan 02, 2018 Time of Evaluation: 20:23 Blood Pressure Systolic: 104 0: 66 Pulse Rate: 112 Respiratory Rate: 25 - Mech Vent Temperature (Fahrenheit): 98.2 O2 Sat by Pulse Oximetry: 97 Airway: patent Nausea: No Vomiting: No Pain Intensity: 0 Hydration Status: adequate Cardiopulmonary Status: Guarded Mental Status/LOC: other - Intubated Follow-up Care/Observations: 0 Post-Anesthesia Complications: 0 Rajeev Gallardo MD Jan 02, 2018 17:06
--- NOTE | 2018-01-02 17:34 | Immediate Post-Op Evaluation ---
Immediate Post-Op Evalulation Immediate Post-Op Evalulation Procedure: ERCP Date of Evaluation: Jan 02, 2018 Time of Evaluation: 18:14 IV Fluids: 700 NS Blood Products: 0 Estimated Blood Loss: 2 Urinary Output: 0 Blood Pressure Systolic: 106 Blood Pressure Diastolic: 64 Pulse Rate: 118 Respiratory Rate: 25 - Mech Vent O2 Sat by Pulse Oximetry: 95 Temperature (Fahrenheit): 98.2 Pain Score (1-10): 0 Nausea: No Vomiting: No Complications 0 Patient Status: no response, patent, ventilated, none Hydration Status: adequate Given Within 1 Hr of Incision: Yes Rajeev Gallardo MD Jan 02, 2018 17:34
--- NOTE | 2018-01-02 19:15 | Procedure Note ---
DATE OF PROCEDURE: 01/02/2018 SURGEON: Edward Villar M.D. ANESTHESIOLOGIST: Dr. Gallardo. REFERRING PHYSICIAN: Mercedes Vásquez M.D. PROCEDURE: ERCP with sphincterotomy, stone removal, and stent placement. ANESTHESIA: Per Dr. Gallardo. INSTRUMENT: Olympus adult flexible ERCP scope. INDICATION: Cholangitis. The procedure, risks, benefits, and possible consequences, including hemorrhage, aspiration, perforation and infection, and alternative treatments, were explained to the patient/legal guardian by Dr. Edward Villar and the patient/legal guardian understood and accepted these risks. DESCRIPTION OF PROCEDURE: After informed consent was obtained and the patient was adequately sedated, ERCP scope was advanced from the mouth into the second portion of duodenum. A stone was seen impacted at the ampulla most probably causing cholangitis. Using a cannula, common bile duct was selectively cannulated. Initial cholangiogram showed dilated common bile duct with multiple stones, one impacted. Then over a guidewire, a sphincterotomy was performed. Given the patient has low platelet, we only did 90% sphincterotomy. Then a balloon was used to sweep the duct and removed the stone that was causing impaction. There were multiple other stones, the big ones, but given we could not do a larger sphincterotomy given the low platelets, we decided not to take them out at this time. Then over a guidewire, a 10-Croatian 9 cm stent was successfully placed. The draining was excellent after the stent placement. SUMMARY OF FINDINGS: 1. Cholangitis, most probably from the stone impaction at the ampulla. 2. Status post sphincterotomy, balloon assist, stone extraction, and stent placement. RECOMMENDATIONS: The patient at this time is critical, still on pressors. There is stent now draining common bile duct. Recommend following laboratories tomorrow. Continue on antibiotics. Supportive care. If the patient gets better and gets extubated, she would need repeat ERCP for removing the rest of the stones and also to remove the stent. I want to thank Dr. Vásquez for this kind referral. Edward Villar M.D. DR: Mendoza JOB#: [id number] CC: Mercedes Vásquez M.D.; Fax#: [phone]
[2018-01-02 21:59] LABS: LACTATE DEHYDROGENASE 597 U/L (81-234)
--- NOTE | 2018-01-02 22:00 | Consultation ---
DATE OF CONSULTATION: 01/02/2018 GASTROENTEROLOGY CONSULTATION CONSULTING PHYSICIAN: Ky Guerrero M.D. CHIEF COMPLAINT: I was asked to see this patient by Dr. Mercedes Vásquez, for evaluation of cholangitis. HISTORY OF PRESENT ILLNESS: The patient is a 57-year-old woman from a facility, who was brought in last night due to abdominal pain and vomiting. She was noted to be jaundiced and imaging studies shortly thereafter revealed biliary ductal dilation with common bile duct stones and a presumptive diagnosis of cholangitis was made. The patient was ill and septic. Discussion was held at that time with respect to performing an ERCP. However, the patient was elected to wait until the patient stabilized. Today, the patient is intubated and she is on three pressors for blood pressure support. She is nonverbal and nonreactive and there is no family available to me to discuss further details. The patient has developed lactic acidosis, which has mildly improved. She has also had some leukocytosis on admission, which has improved. However, her platelet counts dropped down to 30s and she is still jaundiced. PAST MEDICAL HISTORY: Remarkable for history of hypertension and history of psychiatric disorder based on her medication list. FAMILY HISTORY: Unavailable and unobtainable. SOCIAL HISTORY: Unavailable and unobtainable. REVIEW OF SYSTEMS: Unobtainable. MEDICATIONS: See chart list for details. PHYSICAL EXAMINATION: GENERAL: This is a well-developed, well-nourished, woman, who was intubated and unresponsive, seen in the intensive care unit. HEENT: Normocephalic and atraumatic. Endotracheal tube was in place. CHEST: Reveals coarse breath sounds. CARDIOVASCULAR: Tachycardic heart rate. ABDOMEN: Mildly distended, but soft. EXTREMITIES: Revealed no edema. LABORATORY DATA: Noted. IMAGING STUDIES: Noted. ASSESSMENT: This patient presents with biliary obstruction presumed due to common bile duct stones, which have been seen on imaging studies. She has significant jaundice and also in septic shock, which the picture is highly suggestive of cholangitis. The patient will need to undergo an emergency ERCP today to help drain the common bile duct. Given her low platelet counts and her septic state, preliminary ERCP will be performed to place the plastic stents to allow for drainage and stabilization. The patient can then be taken back to the GI laboratory at a later date once stabilized for completion of the ERCP with stone extraction. I have left a message to the patient's family, the only phone number available to me on the face sheet, but there has been no reply yet. If there will be no reply by the next three hours, then the patient will undergo this examination based on emergency decree given her critical status and possibility of without ERCP. RECOMMENDATIONS: 1. Keep the patient NPO. 2. Broad-spectrum antibiotics. 3. Blood pressure support. 4. Fresh platelet transfusion. 5. Emergency ERCP today. Ky Guerrero M.D. DR: CICI JOB#: [id number] CC:
[2018-01-02 22:31] LABS: % IRON SATURATION 7 % (15-50); IRON 9 ug/dL (50-175); TOTAL IRON BINDING CAPACITY 138 ug/dL (250-450)
--- NOTE | 2018-01-02 23:45 | Consultation ---
DATE OF CONSULTATION: 01/02/2018 CONSULTING PHYSICIAN: Corinne Lilly M.D. ATTENDING PHYSICIAN: Mercedes Vásquez M.D. REFERRING PHYSICIAN: Dr. Bowling. REASON FOR CONSULTATION: Sepsis, shock, cholangitis, possible pneumonia, leukocytosis. CHIEF COMPLAINT: The patient's chief complaint coming in to the hospital is vomiting, hypokalemia, and dehydration. HISTORY OF PRESENT ILLNESS: This is a 57-year-old female, who comes in to [facility] and is currently intubated on a vent, on maximum pressors. The patient came in with abdominal pain and altered mental status. The patient currently is in septic shock with elevated white count and likely has cholangitis with elevated total bilirubin. The patient is to undergo an emergency ERCP or urgent ERCP. The patient is currently on Zosyn. Blood cultures grew out gram-negative organisms, identification is pending. Amikacin was added just now in addition to Zosyn. The patient cannot give any further history. Case was discussed with RN. MAR was noted. Orders were noted. Notes were reviewed. REVIEW OF SYSTEMS: CONSTITUTIONAL: She has generalized weakness and fatigue. She does open her eyes. HEAD AND NECK: She is orally intubated. CARDIAC: She is on pressors. GASTROINTESTINAL: No current nausea, vomiting, or diarrhea. GENITOURINARY: She has a Sarmiento. PULMONARY: On a vent. She has yellowish secretions that are significant or large amount. SKIN: No new rash. NEUROLOGIC: No seizures. Denies fatigue or weakness. She is afebrile. No seizure activity noted. GENITOURINARY: She does have a Sarmiento. Review of systems is limited in this patient otherwise. PAST MEDICAL HISTORY: Obtained from the records, she has history of psychiatric disease. She comes from a board and [facility]. She has history of coming in with confusion. She has history of hypertension. She comes in with choledocholithiasis, hypokalemia, and encephalopathy. As discussed, she has history of hypertension. No history of diabetes and she has history of paranoid schizophrenia. ALLERGIES: Include olanzapine and tetracycline. SOCIAL HISTORY: No mention of smoking, alcohol, or drug abuse. FAMILY HISTORY: There is no mention of exposure to tuberculosis or cancer, but limited. MEDICATIONS: Upon reviewing the MAR, she is on the following medications. I am going to stop her amikacin. She is already on tobramycin. She is on morphine, potassium, lorazepam, hydrocortisone, norepinephrine, and tobramycin. She is on vasopressin. She is on Zosyn. She is on heparin, dopamine, and Zofran. Outside medications were noted and reconciliated. PHYSICAL EXAMINATION: VITAL SIGNS: Temperature maximum 99.2, pulse rate 111, respiratory rate 30, blood pressure 99/65, and saturation 97% on FiO2 100%. She is on maximum pressors. GENERAL: She is alert, responsive to a certain extent, opens her eyes. HEAD AND NECK: Oral exam, she is intubated. She is normocephalic. Eye exam, she has icterus. No obvious JVD. Could not assess neck suppleness. She is currently on vent, on pressors. HEART: Regular. No obvious gallop or murmur. No friction rub. ABDOMEN: Soft. Positive bowel sounds. Some distention. She did have tenderness. LUNGS: Few bilateral rhonchi. Positive rales at the bases. SKIN: No rash or dermatitis. MUSCULOSKELETAL: No effusion. Legs are without cellulitis. PERIPHERAL VASCULAR: No cyanosis or gangrene. GENITOURINARY: She has a Sarmiento. Urine is slightly cloudy. LINE SITES: Without phlebitis. NEUROLOGIC: Alert. Generalized weakness. Responsive. Opens her eyes to a certain extent. LABORATORY DATA: As follows. Total bilirubin is 10.9, AST 324, ALT 122, and alkaline phosphatase 138. Creatinine 2.4. White count on admission 17.6, hemoglobin 17.0. Now white count 6.7, hemoglobin 16.3. Urinalysis was canceled. Blood cultures in both looks like 4/4 gram-negative rods. Identification is pending. IMAGING STUDIES: Chest x-ray shows atelectasis versus infiltrate in the lower lung bases. Her abdominal ultrasound showed marked biliary ductal dilatation consistent with choledocholithiasis. CT scan of the abdomen and pelvis was positive for choledocholithiasis and 3 large calculi downstream in the common bile duct. ASSESSMENT AND PLAN: 1. The patient has sepsis, shock likely secondary to cholangitis, rule out pneumonia such as aspiration or healthcare-acquired pneumonia versus community-acquired pneumonia. She has gram-negative bacteremia. The likely source of gram-negative bacteremia is the cholangitis. She has common bile duct stones and markedly dilated common bile duct. Imaging was noted. At this time, we will continue with Zosyn and tobramycin for gram-negative bacteremia. The patient is to go undergo an emergency or urgent ERCP today. Check followup labs, chest x-ray, and blood cultures. Check identification of blood cultures. Continue antibiotics, Zosyn and tobramycin for sepsis, shock, gram-negative bacteremia, cholangitis, and possible pneumonia pending final workup. Check sputum culture also. Watch laboratories and chest x-ray. Continue ICU, supportive care, and pressors at this time. Continue vent support. FiO2 is 100%. 2. Respiratory failure, on FiO2 of 100%. Treatment per Pulmonary Medicine. 3. Acute kidney injury with elevated creatinine, likely secondary to sepsis. 4. History of paranoid schizophrenia and psychiatric disease. 5. Hypertension. 6. No history of diabetes. 7. Allergy to olanzapine and tetracycline. 8. MAR was noted. 9. Case discussed with RN. 10. Family history noncontributory. 11. Social history negative. 12. Continue treatment per primary consultants. 13. Prognosis is guarded to poor. 14. Notes and records were noted and orders were entered. Thank you for this consultation. I will follow. Corinne Lilly M.D. DR: LILLIE JOB#: [id number] CC:
[2018-01-03] VITALS (41 sets, daily range): BP systolic 65–151; BP diastolic 37–85
[2018-01-03] MEDS: DOPamine 400mg/250ml 250 ML IV SCH ×3 (00:09→15:50)
[2018-01-03] MEDS: Norepinephrine Bitartrate 16 MG in D5W 500ml 550 ML IV SCH ×2 (00:12→15:50)
[2018-01-03] MEDS: LORazepam Inj 2mg/ml 1ml IV PRN ×4 (00:16→22:03)
[2018-01-03] MEDS: Hydrocortisone 100mg Inj IV SCH ×4 (05:43→23:33)
[2018-01-03] MEDS: Piperacillin/Tazobactam 3.375 GM in NS 110 ML IVPB SCH (05:44)
[2018-01-03 06:39] LABS: HEMATOCRIT 43.2 % (37.0-47.0); HEMOGLOBIN 15.5 G/DL (12.0-16.0); MEAN CORPUSCULAR VOLUME 95 FL (80-99); PLATELET COUNT 12 K/UL (150-450); RED BLOOD COUNT 4.53 M/UL (4.20-5.40); RED CELL DISTRIBUTION WIDTH 12.5 % (11.6-14.8); WHITE BLOOD COUNT 15.7 K/UL (4.8-10.8)
[2018-01-03] MEDS ORDERED: Sodium Chloride 500ML 550 ML IV ONE (07:30)
[2018-01-03 07:35] LABS: ALANINE AMINOTRANSFERASE 130 U/L (12-78); ALBUMIN 1.9 G/DL (3.4-5.0); ALBUMIN/GLOBULIN RATIO 0.5 (1.0-2.7); ALKALINE PHOSPHATASE 109 U/L (46-116); ANION GAP 14 mmol/L (5-15); ASPARTATE AMINO TRANSFERASE 216 U/L (15-37); BILIRUBIN,TOTAL 13.4 MG/DL (0.2-1.0); BLOOD UREA NITROGEN 30 mg/dL (7-18); CALCIUM 6.6 MG/DL (8.5-10.1); CARBON DIOXIDE 21 MMOL/L (21-32); CHLORIDE 109 MMOL/L (98-107); CREATININE 1.3 MG/DL (0.55-1.30); SODIUM 144 MMOL/L (136-145)
[2018-01-03 07:36] LABS: POTASSIUM 2.2 MMOL/L (3.5-5.1)
[2018-01-03 07:37] LABS: BILIRUBIN,DIRECT 10.8 MG/DL (0.0-0.3)
[2018-01-03] MEDS: Pantoprazole Inj IV SCH (08:55)
[2018-01-03] MEDS ORDERED: D5 1/2NS 1,000 ML IV SCH (09:00)
--- NOTE | 2018-01-03 09:11 | Diagnostic Imaging Report ---
PORTABLE AP UPRIGHT CXR: HISTORY: 57-year-old female with SOB. COMPARISON: Portable CXR 01/02/2018; abdominal CT without contrast 01/01/2018. FINDINGS: Image is limited by portable technique and external artifacts. Allowing for this, endotracheal tube remains in place, terminating approximately 2 cm above the andrade. Enteric tube terminates at least within the gastric body. There are patchy coarse reticular opacities within bilateral medial lung bases with probable associated volume loss, indicating at least atelectasis, as before. No definite new lung opacity. Heart size is normal and stable. No obvious significant pleural effusion or pneumothorax. IMPRESSION: 1. New enteric tube terminates at least within the gastric body. 2. Otherwise, no definite significant interval change.
[2018-01-03] MEDS: Vasopressin 100 UNITS in NS 95 ML IV SCH ×2 (10:00→19:00)
--- NOTE | 2018-01-03 12:01 | General Progress Note ---
Assessment/Plan Assessment/Plan Assessment/Plan # Leukocytosis. Likely related to underlying infection versus reactive process. In addition, concerning for BLASTS, MYELOCYTES AND METAMYELOCYTES on the peripheral smear --> WILL ORDER A FLOW CYTOMETRY TO RULE OUT ACUTE LEUKEMIA (results are pending ) have discussed with pathologist --> DIC PANEL ORDERED WELL, HAPTO PENDING --> TUMOR LYSIS LABS ORDERED URIC ACID, LDH, K, PHOS, CALCIUM Monitor --> MAY need a bone marrow biopsy will discuss with pathologist --> Imaging has been reviewed and reveals: Mild pulmonary vascular congestion. Subsegmental atelectasis versus infiltrates in bilateral lung bases. Cholelithiasis --> Blood and urine cultures are pending. --> Has been started on abx, empiric treatment # Thrombocytopenia. Potential causes multifactorial, evaluate liver and viral etiologies v infectious, hepatitis and hiv are negative --> have ordered for HIT test and heparin d/mao --> US abd: Cholelithiasis --> Peripheral smear ordered to eval for blasts --> initially showed blasts --> Abx and other meds have been reviewed. # Choledocholithiasis with hypotension despite 2.5 liters of crystalloid, could be early cholangitis. She will be admitted to ICU with central line placement. --> NPO, Zofran, morphine prb. Continue IV fluids, check serial lactate levels, blood cultures. Start Zosyn. Patient may require vasopressor support for possible septic shock. --> ID, GI and Surgery will evaluate. # Severe hypokalemia, will replace with IV KCl, repeat BMP tonight and replace as needed. Check BMP in AM. # Acute metabolic encephalopathy, likely due to to underlying sepsis, continue to treat acute medical issues and provide supportive care. Fall, aspiration, seizure precautions. # History of unspecified psychiatric illness, will hold all psychotropics for now to avoid oversedation. # Rrespiratory failure -- s/p vent --> pulm recs appreciated I GREATLY APPRECIATE CONSULTATION. Subjective Constitutional: Reports: no symptoms HEENT: Reports: no symptoms Cardiovascular: Reports: no symptoms Respiratory: Reports: no symptoms Gastrointestinal/Abdominal: Reports: no symptoms Genitourinary: Reports: no symptoms Neurologic/Psychiatric: Reports: no symptoms Endocrine: Reports: no symptoms Hematologic/Lymphatic: Reports: no symptoms Allergies: Coded Allergies: OLANZAPINE (Verified Allergy, Unknown, 01/01/18) TETRACYCLINE (Verified Allergy, Unknown, 01/01/18) Subjective remains on pressors, on abx, labs being monitored Objective Last 24 Hour Vital Signs Date Time Temp Pulse Resp B/P (MAP) Pulse Ox O2 Delivery O2 Flow Rate FiO2 01/03/18 11:25 97 26 90 01/03/18 11:00 99 26 112/59 (76) 97 01/03/18 10:30 98 26 103/69 (80) 96 01/03/18 10:00 99 26 92/60 (71) 97 01/03/18 09:30 95 25 136/81 (99) 97 01/03/18 09:00 92 25 109/77 (88) 97 01/03/18 09:00 85 24 90 01/03/18 08:30 80 25 105/80 (88) 97 01/03/18 08:00 99.5 91 25 119/72 (88) 97 99.5 01/03/18 08:00 Mechanical Ventilator 01/03/18 08:00 97 01/03/18 07:24 90 28 100 01/03/18 07:00 99 28 136/81 (99) 100 01/03/18 06:30 82 28 132/80 (97) 100 01/03/18 06:00 103 28 105/69 (81) 100 01/03/18 06:00 105/69 01/03/18 05:47 99/62 01/03/18 05:30 129/72 01/03/18 05:30 102 28 129/72 (91) 99 01/03/18 05:00 79 28 150/77 (101) 99 01/03/18 05:00 150/77 01/03/18 05:00 150/77 01/03/18 04:48 80 28 100 01/03/18 04:45 82 28 134/80 (98) 99 01/03/18 04:30 82 28 65/38 (47) 99 01/03/18 04:30 65/38 01/03/18 04:00 99.5 91 28 122/72 (89) 100 99.5 01/03/18 04:00 Mechanical Ventilator 01/03/18 04:00 122/72 01/03/18 03:31 99 01/03/18 03:30 92 28 141/82 (101) 99 01/03/18 03:28 89 28 100 01/03/18 03:00 102 27 105/66 (79) 98 01/03/18 03:00 105/66 01/03/18 02:30 105 28 123/69 (87) 97 01/03/18 02:00 111/68 01/03/18 02:00 103 28 111/68 (82) 96 01/03/18 01:30 99 25 151/78 (102) 99 01/03/18 01:09 100 28 100 01/03/18 01:00 124/70 01/03/18 01:00 124/70 01/03/18 01:00 102 28 124/70 (88) 97 01/03/18 00:45 130/73 01/03/18 00:30 98 28 138/77 (97) 97 01/03/18 00:30 138/77 01/03/18 00:15 99 28 72/37 (49) 97 01/03/18 00:12 144/82 01/03/18 00:09 144/82 01/03/18 00:00 Mechanical Ventilator 01/03/18 00:00 144/82 01/03/18 00:00 98.5 99 28 144/82 (102) 97 98.5 01/02/18 23:58 111 28 100 01/02/18 23:30 109 28 111/73 (86) 97 01/02/18 23:12 113 01/02/18 23:00 112 28 123/72 (89) 94 01/02/18 23:00 123/72 01/02/18 23:00 123/72 01/02/18 22:30 108 28 128/83 (98) 96 01/02/18 22:00 138/78 01/02/18 22:00 138/78 01/02/18 22:00 111 28 138/78 (98) 96 01/02/18 21:30 115 28 100/67 (78) 95 01/02/18 21:13 115 27 100 01/02/18 21:00 115/94 01/02/18 21:00 115/94 01/02/18 21:00 114 28 112/66 (81) 95 01/02/18 20:30 115 28 122/73 (89) 94 01/02/18 20:00 115/94 01/02/18 20:00 115/93 01/02/18 20:00 Mechanical Ventilator 01/02/18 20:00 100.0 115 28 96/60 (72) 93 100.0 01/02/18 19:30 115 28 117/73 (88) 93 01/02/18 19:20 118 01/02/18 19:10 109/65 01/02/18 19:02 113 28 100 01/02/18 19:00 112 28 106/70 (82) 98 01/02/18 18:00 114 28 109/65 (80) 97 01/02/18 17:57 208.8 112 25 97 01/02/18 17:56 208.8 118 25 95 01/02/18 17:45 118 26 100 01/02/18 17:00 111 30 98/65 (76) 97 01/02/18 16:00 Nasal Cannula 2.0 01/02/18 16:00 98.9 115 28 101/58 (72) 95 98.9 01/02/18 16:00 115 01/02/18 15:11 119 28 100 01/02/18 15:00 111 30 99/65 (76) 97 01/02/18 14:45 99/65 01/02/18 14:01 99/65 01/02/18 14:00 110 30 110/65 (80) 97 01/02/18 13:00 111 30 99/65 (76) 97 01/02/18 12:40 115 28 100 01/02/18 12:00 117 01/02/18 12:00 99.2 124 32 109/58 (75) 95 99.2 01/02/18 12:00 100 01/02/18 12:00 Nasal Cannula 2.0 Intake and Output 01/02/18 01/03/18 19:00 07:00 Intake Total 290.16 ml 2039.13 ml Output Total 2090 ml 3350 ml Balance -1799.84 ml -1310.87 ml IV Total 290.16 ml 2039.13 ml Output Urine Total 2090 ml 3350 ml Laboratory Tests 01/02/18 12:15: Prothrombin Time 16.5H, Prothromb Time International Ratio 1.6H, Fibrinogen 848H , D-Dimer 18.04H, Cortisol [Pending] 01/02/18 12:25: Arterial Blood pH 7.146*L, Arterial Blood Partial Pressure CO2 53.5H, Arterial Blood Partial Pressure O2 80.5, Arterial Blood HCO3 18.1L, Arterial Blood Oxygen Saturation 92.7L, Arterial Blood Base Excess -11.3*L, [place] Test Positive 01/02/18 21:00: Reticulocyte Count 0.6, Sickle Cell Screen [Pending], Haptoglobin [Pending], Jak2 V617F Mutation Detection [Pending], JAK2 V617F Mutation Background [Pending ], JAK2 V617F Reviewed By [Pending], Iron Level 9L, Total Iron Binding Capacity 138L, Percent Iron Saturation 7L, Unsaturated Iron Binding 129, Lactate Dehydrogenase 597H, Carcinoembryonic Antigen [Pending], Hepatitis A IgM Antibody [Pending], Hepatitis B Surface Antigen [Pending], Hepatitis B Core IgM Antibody [Pending], Hepatitis C Antibody [Pending], HIV (1&2) Antibody Rapid Negative 01/03/18 06:05: White Blood Count 15.7#H, Red Blood Count 4.53, Hemoglobin 15.5, Hematocrit 43.2 , Mean Corpuscular Volume 95, Mean Corpuscular Hemoglobin 34.2H, Mean Corpuscular Hemoglobin Concent 35.8, Red Cell Distribution Width 12.5, Platelet Count 12#L, Mean Platelet Volume 10.8H, Neutrophils (%) (Auto) , Lymphocytes (% ) (Auto) , Monocytes (%) (Auto) , Eosinophils (%) (Auto) , Basophils (%) (Auto) , Differential Total Cells Counted 100, Neutrophils % (Manual) 78H, Lymphocytes % (Manual) 10L, Monocytes % (Manual) 3, Eosinophils % (Manual) 0, Basophils % ( Manual) 0, Myelocytes % 1H, Band Neutrophils 8, Toxic Granulation 1+, Platelet Estimate DecreasedL, Platelet Morphology Normal, Red Blood Cell Morphology Normal, Sodium Level 144, Potassium Level 2.2*L, Chloride Level 109H, Carbon Dioxide Level 21, Anion Gap 14, Blood Urea Nitrogen 30H, Creatinine 1.3, Estimat Glomerular Filtration Rate 51.0, Glucose Level 229#H, Calcium Level 6.6L , Total Bilirubin 13.4H, Direct Bilirubin 10.8H, Aspartate Amino Transf (AST/ SGOT) 216H, Alanine Aminotransferase (ALT/SGPT) 130H, Alkaline Phosphatase 109, Total Protein 5.7L, Albumin 1.9L, Globulin 3.8, Albumin/Globulin Ratio 0.5L 01/03/18 07:40: Arterial Blood pH 7.554*H, Arterial Blood Partial Pressure CO2 20.7*L, Arterial Blood Partial Pressure O2 162.4H, Arterial Blood HCO3 17.9*L, Arterial Blood Oxygen Saturation 98.9, Arterial Blood Base Excess -1.7, [place] Test Positive 01/03/18 11:25: Arterial Blood pH 7.455H, Arterial Blood Partial Pressure CO2 29.7L, Arterial Blood Partial Pressure O2 66.4L, Arterial Blood HCO3 20.4L, Arterial Blood Oxygen Saturation 93.7L, Arterial Blood Base Excess -2.3L, [place] Test Positive Height (Feet): 5 Height (Inches): 5.00 Weight (Pounds): 148 General Appearance: no apparent distress EENT: TMs normal Neck: supple Cardiovascular: regular rhythm Respiratory/Chest: lungs clear, other - intuabted++ Abdomen: soft Extremities: normal inspection Edema: 1+ Leg (L), 1+ Leg (R) Edema: mild edema Neurologic: responsive Davin Aguero MD Jan 03, 2018 12:01
--- NOTE | 2018-01-03 13:28 | General Progress Note ---
Assessment/Plan Problem List: (1) Septic shock ICD Codes: A41.9 - Sepsis, unspecified organism; R65.21 - Severe sepsis with septic shock SNOMED: 72146481 (2) Choledocholithiasis ICD Codes: K80.50 - Calculus of bile duct without cholangitis or cholecystitis without obstruction SNOMED: 622908628 Assessment/Plan Septic shock due to gram negative bacteremia, choledocholithiasis s/p emergent ERCP with stone stone removal, acute cholangitis - hypotension improved somewhat today, suspect can start to wean vasopressors, will defer to weigh box tender. Continue Zosyn and follow up final blood cultures, ID following. Continue hydrocortisone IV. Continue to monitor LFTs daily Severe hypokalemia, replace with IV KCl and check BMP and Mg this afternoon. Acute hypoxic respiratory failure, s/p intubation,vent management per pulmonology. Acute thrombocytopenia with elevated INR, no evidence of bleeding, transfused platelets, will continue to monitor daily CBC. Hematology evaluation appreciated. VTE PPx Venodynes Full Code Subjective Date patient seen: Jan 03, 2018 Time patient seen: 13:20 ROS Limited/Unobtainable: Yes Allergies: Coded Allergies: OLANZAPINE (Verified Allergy, Unknown, 01/01/18) TETRACYCLINE (Verified Allergy, Unknown, 01/01/18) Subjective Medicine followup for septic shock, acute cholangitis, choledocholithiasis, gram negative bacteremia, acute hypoxic respiratory failure requiring intubation. She underwent ERCP yesterday sphincterotomy, stone removal, and stent placement. Hypotension has improved. Objective Last 24 Hour Vital Signs Date Time Temp Pulse Resp B/P (MAP) Pulse Ox O2 Delivery O2 Flow Rate FiO2 01/03/18 11:25 97 26 90 01/03/18 11:00 99 26 112/59 (76) 97 01/03/18 10:30 98 26 103/69 (80) 96 01/03/18 10:00 99 26 92/60 (71) 97 01/03/18 09:30 95 25 136/81 (99) 97 01/03/18 09:00 92 25 109/77 (88) 97 01/03/18 09:00 85 24 90 01/03/18 08:30 80 25 105/80 (88) 97 01/03/18 08:00 99.5 91 25 119/72 (88) 97 99.5 10/7/18 08:00 Mechanical Ventilator 01/03/18 08:00 97 01/03/18 07:24 90 28 100 01/03/18 07:00 99 28 136/81 (99) 100 01/03/18 06:30 82 28 132/80 (97) 100 01/03/18 06:00 103 28 105/69 (81) 100 01/03/18 06:00 105/69 01/03/18 05:47 99/62 01/03/18 05:30 129/72 01/03/18 05:30 102 28 129/72 (91) 99 01/03/18 05:00 79 28 150/77 (101) 99 01/03/18 05:00 150/77 01/03/18 05:00 150/77 01/03/18 04:48 80 28 100 01/03/18 04:45 82 28 134/80 (98) 99 01/03/18 04:30 82 28 65/38 (47) 99 01/03/18 04:30 65/38 01/03/18 04:00 99.5 91 28 122/72 (89) 100 99.5 01/03/18 04:00 Mechanical Ventilator 01/03/18 04:00 122/72 01/03/18 03:31 99 01/03/18 03:30 92 28 141/82 (101) 99 01/03/18 03:28 89 28 100 01/03/18 03:00 102 27 105/66 (79) 98 01/03/18 03:00 105/66 01/03/18 02:30 105 28 123/69 (87) 97 01/03/18 02:00 111/68 01/03/18 02:00 103 28 111/68 (82) 96 01/03/18 01:30 99 25 151/78 (102) 99 01/03/18 01:09 100 28 100 01/03/18 01:00 124/70 01/03/18 01:00 124/70 01/03/18 01:00 102 28 124/70 (88) 97 01/03/18 00:45 130/73 01/03/18 00:30 98 28 138/77 (97) 97 01/03/18 00:30 138/77 01/03/18 00:15 99 28 72/37 (49) 97 01/03/18 00:12 144/82 01/03/18 00:09 144/82 01/03/18 00:00 Mechanical Ventilator 01/03/18 00:00 144/82 01/03/18 00:00 98.5 99 28 144/82 (102) 97 98.5 01/02/18 23:58 111 28 100 01/02/18 23:30 109 28 111/73 (86) 97 01/02/18 23:12 113 01/02/18 23:00 112 28 123/72 (89) 94 01/02/18 23:00 123/72 01/02/18 23:00 123/72 01/02/18 22:30 108 28 128/83 (98) 96 01/02/18 22:00 138/78 01/02/18 22:00 138/78 01/02/18 22:00 111 28 138/78 (98) 96 01/02/18 21:30 115 28 100/67 (78) 95 01/02/18 21:13 115 27 100 01/02/18 21:00 115/94 01/02/18 21:00 115/94 01/02/18 21:00 114 28 112/66 (81) 95 01/02/18 20:30 115 28 122/73 (89) 94 01/02/18 20:00 115/94 01/02/18 20:00 115/93 01/02/18 20:00 Mechanical Ventilator 01/02/18 20:00 100.0 115 28 96/60 (72) 93 100.0 01/02/18 19:30 115 28 117/73 (88) 93 01/02/18 19:20 118 01/02/18 19:10 109/65 01/02/18 19:02 113 28 100 01/02/18 19:00 112 28 106/70 (82) 98 01/02/18 18:00 114 28 109/65 (80) 97 01/02/18 17:57 208.8 112 25 97 01/02/18 17:56 208.8 118 25 95 01/02/18 17:45 118 26 100 01/02/18 17:00 111 30 98/65 (76) 97 01/02/18 16:00 Nasal Cannula 2.0 01/02/18 16:00 98.9 115 28 101/58 (72) 95 98.9 01/02/18 16:00 115 01/02/18 15:11 119 28 100 01/02/18 15:00 111 30 99/65 (76) 97 01/02/18 14:45 99/65 01/02/18 14:01 99/65 01/02/18 14:00 110 30 110/65 (80) 97 Intake and Output 01/02/18 01/03/18 19:00 07:00 Intake Total 290.16 ml 2039.13 ml Output Total 2090 ml 3350 ml Balance -1799.84 ml -1310.87 ml IV Total 290.16 ml 2039.13 ml Output Urine Total 2090 ml 3350 ml Laboratory Tests 01/02/18 21:00: Reticulocyte Count 0.6, Sickle Cell Screen [Pending], Haptoglobin [Pending], Jak2 V617F Mutation Detection [Pending], JAK2 V617F Mutation Background [Pending ], JAK2 V617F Reviewed By [Pending], Iron Level 9L, Total Iron Binding Capacity 138L, Percent Iron Saturation 7L, Unsaturated Iron Binding 129, Lactate Dehydrogenase 597H, Carcinoembryonic Antigen [Pending], Hepatitis A IgM Antibody [Pending], Hepatitis B Surface Antigen [Pending], Hepatitis B Core IgM Antibody [Pending], Hepatitis C Antibody [Pending], HIV (1&2) Antibody Rapid Negative 01/03/18 06:05: White Blood Count 15.7#H, Red Blood Count 4.53, Hemoglobin 15.5, Hematocrit 43.2 , Mean Corpuscular Volume 95, Mean Corpuscular Hemoglobin 34.2H, Mean Corpuscular Hemoglobin Concent 35.8, Red Cell Distribution Width 12.5, Platelet Count 12#L, Mean Platelet Volume 10.8H, Neutrophils (%) (Auto) , Lymphocytes (% ) (Auto) , Monocytes (%) (Auto) , Eosinophils (%) (Auto) , Basophils (%) (Auto) , Differential Total Cells Counted 100, Neutrophils % (Manual) 78H, Lymphocytes % (Manual) 10L, Monocytes % (Manual) 3, Eosinophils % (Manual) 0, Basophils % ( Manual) 0, Myelocytes % 1H, Band Neutrophils 8, Toxic Granulation 1+, Platelet Estimate DecreasedL, Platelet Morphology Normal, Red Blood Cell Morphology Normal, Sodium Level 144, Potassium Level 2.2*L, Chloride Level 109H, Carbon Dioxide Level 21, Anion Gap 14, Blood Urea Nitrogen 30H, Creatinine 1.3, Estimat Glomerular Filtration Rate 51.0, Glucose Level 229#H, Calcium Level 6.6L , Total Bilirubin 13.4H, Direct Bilirubin 10.8H, Aspartate Amino Transf (AST/ SGOT) 216H, Alanine Aminotransferase (ALT/SGPT) 130H, Alkaline Phosphatase 109, Total Protein 5.7L, Albumin 1.9L, Globulin 3.8, Albumin/Globulin Ratio 0.5L 01/03/18 07:40: Arterial Blood pH 7.554*H, Arterial Blood Partial Pressure CO2 20.7*L, Arterial Blood Partial Pressure O2 162.4H, Arterial Blood HCO3 17.9*L, Arterial Blood Oxygen Saturation 98.9, Arterial Blood Base Excess -1.7, [place] Test Positive 01/03/18 11:25: Arterial Blood pH 7.455H, Arterial Blood Partial Pressure CO2 29.7L, Arterial Blood Partial Pressure O2 66.4L, Arterial Blood HCO3 20.4L, Arterial Blood Oxygen Saturation 93.7L, Arterial Blood Base Excess -2.3L, [place] Test Positive Height (Feet): 5 Height (Inches): 5.00 Weight (Pounds): 148 General Appearance: lethargic Neck: supple Cardiovascular: regular rhythm, tachycardia Respiratory/Chest: lungs clear, normal breath sounds, no respiratory distress Abdomen: non tender, soft, no mass Edema: trace edema Neurologic: other - Unable to assess as she is intubated Skin: warm/dry Sav Bunch MD Jan 03, 2018 13:28
--- NOTE | 2018-01-03 14:17 | General Progress Note ---
Assessment/Plan Assessment/Plan Assessment - Cholangitis - Choledocholithiasis - s/p ERCP and stent - sepsis/chock - lactic acidosis - renal failure - thrombocytopenia, likely DIC related - Critical Recommendations - Begin TF, slowly - IVF - Abx - follow labs - transfuse PRN Subjective Allergies: Coded Allergies: OLANZAPINE (Verified Allergy, Unknown, 01/01/18) TETRACYCLINE (Verified Allergy, Unknown, 01/01/18) Subjective Above noted s/p ERCP, sphincterotomy, partial stone extraction, and stent placement Bili slightly higher Platelets critically low --> transfusion ordered (did not get the platelets yesterday) Objective Last 24 Hour Vital Signs Date Time Temp Pulse Resp B/P (MAP) Pulse Ox O2 Delivery O2 Flow Rate FiO2 01/03/18 12:57 92 22 80 01/03/18 11:25 97 26 90 01/03/18 11:00 99 26 112/59 (76) 97 01/03/18 10:30 98 26 103/69 (80) 96 01/03/18 10:00 99 26 92/60 (71) 97 01/03/18 09:30 95 25 136/81 (99) 97 01/03/18 09:00 92 25 109/77 (88) 97 01/03/18 09:00 85 24 90 01/03/18 08:30 80 25 105/80 (88) 97 01/03/18 08:00 99.5 91 25 119/72 (88) 97 99.5 01/03/18 08:00 Mechanical Ventilator 01/03/18 08:00 97 01/03/18 07:24 90 28 100 01/03/18 07:00 99 28 136/81 (99) 100 01/03/18 06:30 82 28 132/80 (97) 100 01/03/18 06:00 103 28 105/69 (81) 100 01/03/18 06:00 105/69 01/03/18 05:47 99/62 01/03/18 05:30 129/72 01/03/18 05:30 102 28 129/72 (91) 99 01/03/18 05:00 79 28 150/77 (101) 99 01/03/18 05:00 150/77 01/03/18 05:00 150/77 01/03/18 04:48 80 28 100 01/03/18 04:45 82 28 134/80 (98) 99 01/03/18 04:30 82 28 65/38 (47) 99 01/03/18 04:30 65/38 01/03/18 04:00 99.5 91 28 122/72 (89) 100 99.5 01/03/18 04:00 Mechanical Ventilator 01/03/18 04:00 122/72 01/03/18 03:31 99 01/03/18 03:30 92 28 141/82 (101) 99 01/03/18 03:28 89 28 100 01/03/18 03:00 102 27 105/66 (79) 98 01/03/18 03:00 105/66 01/03/18 02:30 105 28 123/69 (87) 97 01/03/18 02:00 111/68 01/03/18 02:00 103 28 111/68 (82) 96 01/03/18 01:30 99 25 151/78 (102) 99 01/03/18 01:09 100 28 100 01/03/18 01:00 124/70 01/03/18 01:00 124/70 01/03/18 01:00 102 28 124/70 (88) 97 01/03/18 00:45 130/73 01/03/18 00:30 98 28 138/77 (97) 97 01/03/18 00:30 138/77 01/03/18 00:15 99 28 72/37 (49) 97 01/03/18 00:12 144/82 01/03/18 00:09 144/82 01/03/18 00:00 Mechanical Ventilator 01/03/18 00:00 144/82 01/03/18 00:00 98.5 99 28 144/82 (102) 97 98.5 01/02/18 23:58 111 28 100 01/02/18 23:30 109 28 111/73 (86) 97 01/02/18 23:12 113 01/02/18 23:00 112 28 123/72 (89) 94 01/02/18 23:00 123/72 01/02/18 23:00 123/72 01/02/18 22:30 108 28 128/83 (98) 96 01/02/18 22:00 138/78 01/02/18 22:00 138/78 01/02/18 22:00 111 28 138/78 (98) 96 01/02/18 21:30 115 28 100/67 (78) 95 01/02/18 21:13 115 27 100 01/02/18 21:00 115/94 01/02/18 21:00 115/94 01/02/18 21:00 114 28 112/66 (81) 95 01/02/18 20:30 115 28 122/73 (89) 94 01/02/18 20:00 115/94 01/02/18 20:00 115/93 01/02/18 20:00 Mechanical Ventilator 01/02/18 20:00 100.0 115 28 96/60 (72) 93 100.0 01/02/18 19:30 115 28 117/73 (88) 93 01/02/18 19:20 118 01/02/18 19:10 109/65 01/02/18 19:02 113 28 100 01/02/18 19:00 112 28 106/70 (82) 98 01/02/18 18:00 114 28 109/65 (80) 97 01/02/18 17:57 208.8 112 25 97 01/02/18 17:56 208.8 118 25 95 01/02/18 17:45 118 26 100 01/02/18 17:00 111 30 98/65 (76) 97 01/02/18 16:00 Nasal Cannula 2.0 01/02/18 16:00 98.9 115 28 101/58 (72) 95 98.9 01/02/18 16:00 115 01/02/18 15:11 119 28 100 01/02/18 15:00 111 30 99/65 (76) 97 01/02/18 14:45 99/65 Intake and Output 01/02/18 01/03/18 19:00 07:00 Intake Total 290.16 ml 2039.13 ml Output Total 2090 ml 3350 ml Balance -1799.84 ml -1310.87 ml IV Total 290.16 ml 2039.13 ml Output Urine Total 2090 ml 3350 ml Laboratory Tests 01/02/18 21:00: Reticulocyte Count 0.6, Sickle Cell Screen [Pending], Haptoglobin [Pending], Jak2 V617F Mutation Detection [Pending], JAK2 V617F Mutation Background [Pending ], JAK2 V617F Reviewed By [Pending], Iron Level 9L, Total Iron Binding Capacity 138L, Percent Iron Saturation 7L, Unsaturated Iron Binding 129, Lactate Dehydrogenase 597H, Carcinoembryonic Antigen [Pending], Hepatitis A IgM Antibody [Pending], Hepatitis B Surface Antigen [Pending], Hepatitis B Core IgM Antibody [Pending], Hepatitis C Antibody [Pending], HIV (1&2) Antibody Rapid Negative 01/03/18 06:05: White Blood Count 15.7#H, Red Blood Count 4.53, Hemoglobin 15.5, Hematocrit 43.2 , Mean Corpuscular Volume 95, Mean Corpuscular Hemoglobin 34.2H, Mean Corpuscular Hemoglobin Concent 35.8, Red Cell Distribution Width 12.5, Platelet Count 12#L, Mean Platelet Volume 10.8H, Neutrophils (%) (Auto) , Lymphocytes (% ) (Auto) , Monocytes (%) (Auto) , Eosinophils (%) (Auto) , Basophils (%) (Auto) , Differential Total Cells Counted 100, Neutrophils % (Manual) 78H, Lymphocytes % (Manual) 10L, Monocytes % (Manual) 3, Eosinophils % (Manual) 0, Basophils % ( Manual) 0, Myelocytes % 1H, Band Neutrophils 8, Toxic Granulation 1+, Platelet Estimate DecreasedL, Platelet Morphology Normal, Red Blood Cell Morphology Normal, Sodium Level 144, Potassium Level 2.2*L, Chloride Level 109H, Carbon Dioxide Level 21, Anion Gap 14, Blood Urea Nitrogen 30H, Creatinine 1.3, Estimat Glomerular Filtration Rate 51.0, Glucose Level 229#H, Calcium Level 6.6L , Total Bilirubin 13.4H, Direct Bilirubin 10.8H, Aspartate Amino Transf (AST/ SGOT) 216H, Alanine Aminotransferase (ALT/SGPT) 130H, Alkaline Phosphatase 109, Total Protein 5.7L, Albumin 1.9L, Globulin 3.8, Albumin/Globulin Ratio 0.5L 01/03/18 07:40: Arterial Blood pH 7.554*H, Arterial Blood Partial Pressure CO2 20.7*L, Arterial Blood Partial Pressure O2 162.4H, Arterial Blood HCO3 17.9*L, Arterial Blood Oxygen Saturation 98.9, Arterial Blood Base Excess -1.7, [place] Test Positive 01/03/18 11:25: Arterial Blood pH 7.455H, Arterial Blood Partial Pressure CO2 29.7L, Arterial Blood Partial Pressure O2 66.4L, Arterial Blood HCO3 20.4L, Arterial Blood Oxygen Saturation 93.7L, Arterial Blood Base Excess -2.3L, [place] Test Positive Height (Feet): 5 Height (Inches): 5.00 Weight (Pounds): 148 Objective Obtunded AA woman NCAT supple CTA RRR Abd soft no edema Ky Guerrero MD Jan 03, 2018 14:17
[2018-01-03] MEDS: Piperacillin/Tazobactam 3.375 GM in D5W 110 ML IVPB SCH ×2 (14:22→21:51)
--- NOTE | 2018-01-03 14:24 | General Surgery Progress Note ---
General Surgery-Progress Note Subjective Additional Comments ERCP with stent last night. today alert and able to follow simple commands. leukocytosis. lfts noted Objective Last 24 Hour Vital Signs Date Time Temp Pulse Resp B/P (MAP) Pulse Ox O2 Delivery O2 Flow Rate FiO2 01/03/18 12:57 92 22 80 01/03/18 11:25 97 26 90 01/03/18 11:00 99 26 112/59 (76) 97 01/03/18 10:30 98 26 103/69 (80) 96 01/03/18 10:00 99 26 92/60 (71) 97 01/03/18 09:30 95 25 136/81 (99) 97 01/03/18 09:00 92 25 109/77 (88) 97 01/03/18 09:00 85 24 90 01/03/18 08:30 80 25 105/80 (88) 97 01/03/18 08:00 99.5 91 25 119/72 (88) 97 99.5 01/03/18 08:00 Mechanical Ventilator 01/03/18 08:00 97 01/03/18 07:24 90 28 100 01/03/18 07:00 99 28 136/81 (99) 100 01/03/18 06:30 82 28 132/80 (97) 100 01/03/18 06:00 103 28 105/69 (81) 100 01/03/18 06:00 105/69 01/03/18 05:47 99/62 01/03/18 05:30 129/72 01/03/18 05:30 102 28 129/72 (91) 99 01/03/18 05:00 79 28 150/77 (101) 99 01/03/18 05:00 150/77 01/03/18 05:00 150/77 01/03/18 04:48 80 28 100 01/03/18 04:45 82 28 134/80 (98) 99 01/03/18 04:30 82 28 65/38 (47) 99 01/03/18 04:30 65/38 01/03/18 04:00 99.5 91 28 122/72 (89) 100 99.5 01/03/18 04:00 Mechanical Ventilator 01/03/18 04:00 122/72 01/03/18 03:31 99 01/03/18 03:30 92 28 141/82 (101) 99 10/7/18 03:28 89 28 100 01/03/18 03:00 102 27 105/66 (79) 98 01/03/18 03:00 105/66 01/03/18 02:30 105 28 123/69 (87) 97 01/03/18 02:00 111/68 01/03/18 02:00 103 28 111/68 (82) 96 01/03/18 01:30 99 25 151/78 (102) 99 01/03/18 01:09 100 28 100 01/03/18 01:00 124/70 01/03/18 01:00 124/70 01/03/18 01:00 102 28 124/70 (88) 97 01/03/18 00:45 130/73 01/03/18 00:30 98 28 138/77 (97) 97 01/03/18 00:30 138/77 01/03/18 00:15 99 28 72/37 (49) 97 01/03/18 00:12 144/82 01/03/18 00:09 144/82 01/03/18 00:00 Mechanical Ventilator 01/03/18 00:00 144/82 01/03/18 00:00 98.5 99 28 144/82 (102) 97 98.5 01/02/18 23:58 111 28 100 01/02/18 23:30 109 28 111/73 (86) 97 01/02/18 23:12 113 01/02/18 23:00 112 28 123/72 (89) 94 01/02/18 23:00 123/72 01/02/18 23:00 123/72 01/02/18 22:30 108 28 128/83 (98) 96 01/02/18 22:00 138/78 01/02/18 22:00 138/78 01/02/18 22:00 111 28 138/78 (98) 96 01/02/18 21:30 115 28 100/67 (78) 95 01/02/18 21:13 115 27 100 01/02/18 21:00 115/94 01/02/18 21:00 115/94 01/02/18 21:00 114 28 112/66 (81) 95 01/02/18 20:30 115 28 122/73 (89) 94 01/02/18 20:00 115/94 10/6/18 20:00 115/93 01/02/18 20:00 Mechanical Ventilator 01/02/18 20:00 100.0 115 28 96/60 (72) 93 100.0 01/02/18 19:30 115 28 117/73 (88) 93 01/02/18 19:20 118 01/02/18 19:10 109/65 01/02/18 19:02 113 28 100 01/02/18 19:00 112 28 106/70 (82) 98 01/02/18 18:00 114 28 109/65 (80) 97 01/02/18 17:57 208.8 112 25 97 01/02/18 17:56 208.8 118 25 95 01/02/18 17:45 118 26 100 01/02/18 17:00 111 30 98/65 (76) 97 01/02/18 16:00 Nasal Cannula 2.0 01/02/18 16:00 98.9 115 28 101/58 (72) 95 98.9 01/02/18 16:00 115 01/02/18 15:11 119 28 100 01/02/18 15:00 111 30 99/65 (76) 97 01/02/18 14:45 99/65 I&O Intake and Output 01/02/18 01/03/18 19:00 07:00 Intake Total 290.16 ml 2039.13 ml Output Total 2090 ml 3350 ml Balance -1799.84 ml -1310.87 ml IV Total 290.16 ml 2039.13 ml Output Urine Total 2090 ml 3350 ml Drains: other Cardiovascular: RSR Respiratory: decreased breath sounds Abdomen: soft, distended, non-tender, present bowel sounds Extremities: other Laboratory Tests Test 01/02/18 21:00 01/03/18 06:05 01/03/18 07:40 01/03/18 11:25 Reticulocyte Count 0.6 % (0.0-2.0) Sickle Cell Screen Pending Haptoglobin Pending Jak2 V617F Mutation Detection Pending JAK2 V617F Mutation Background Pending JAK2 V617F Reviewed By Pending Iron Level 9 ug/dL (50-175) L Total Iron Binding Capacity 138 ug/dL (250-450) L Percent Iron Saturation 7 % (15-50) L Unsaturated Iron Binding 129 ug/dL (112-346) Lactate Dehydrogenase 597 U/L (81-234) H Carcinoembryonic Antigen Pending Hepatitis A IgM Antibody Pending Hepatitis B Surface Antigen Pending Hepatitis B Core IgM Antibody Pending Hepatitis C Antibody Pending HIV (1&2) Antibody Rapid Negative (NEGATIVE) White Blood Count 15.7 K/UL (4.8-10.8) #H Red Blood Count 4.53 M/UL (4.20-5.40) Hemoglobin 15.5 G/DL (12.0-16.0) Hematocrit 43.2 % (37.0-47.0) Mean Corpuscular Volume 95 FL (80-99) Mean Corpuscular Hemoglobin 34.2 PG (27.0-31.0) H Mean Corpuscular Hemoglobin Concent 35.8 G/DL (32.0-36.0) Red Cell Distribution Width 12.5 % (11.6-14.8) Platelet Count 12 K/UL (150-450) #L Mean Platelet Volume 10.8 FL (6.5-10.1) H Neutrophils (%) (Auto) % (45.0-75.0) Lymphocytes (%) (Auto) % (20.0-45.0) Monocytes (%) (Auto) % (1.0-10.0) Eosinophils (%) (Auto) % (0.0-3.0) Basophils (%) (Auto) % (0.0-2.0) Differential Total Cells Counted 100 Neutrophils % (Manual) 78 % (45-75) H Lymphocytes % (Manual) 10 % (20-45) L Monocytes % (Manual) 3 % (1-10) Eosinophils % (Manual) 0 % (0-3) Basophils % (Manual) 0 % (0-2) Myelocytes % 1 % (0-0) H Band Neutrophils 8 % (0-8) Toxic Granulation 1+ Platelet Estimate Decreased L Platelet Morphology Normal Red Blood Cell Morphology Normal Sodium Level 144 MMOL/L (136-145) Potassium Level 2.2 MMOL/L (3.5-5.1) *L Chloride Level 109 MMOL/L (98-107) H Carbon Dioxide Level 21 MMOL/L (21-32) Anion Gap 14 mmol/L (5-15) Blood Urea Nitrogen 30 mg/dL (7-18) H Creatinine 1.3 MG/DL (0.55-1.30) Estimat Glomerular Filtration Rate 51.0 mL/min (>60) Glucose Level 229 MG/DL (74-106) #H Calcium Level 6.6 MG/DL (8.5-10.1) L Total Bilirubin 13.4 MG/DL (0.2-1.0) H Direct Bilirubin 10.8 MG/DL (0.0-0.3) H Aspartate Amino Transf (AST/SGOT) 216 U/L (15-37) H Alanine Aminotransferase (ALT/SGPT) 130 U/L (12-78) H Alkaline Phosphatase 109 U/L (46-116) Total Protein 5.7 G/DL (6.4-8.2) L Albumin 1.9 G/DL (3.4-5.0) L Globulin 3.8 g/dL Albumin/Globulin Ratio 0.5 (1.0-2.7) L Arterial Blood pH 7.554 (7.350-7.450) 7.455 (7.350-7.450) Arterial Blood Partial Pressure CO2 20.7 mmHg (35.0-45.0) *L 29.7 mmHg (35.0-45.0) L Arterial Blood Partial Pressure O2 162.4 mmHg (75.0-100.0) H 66.4 mmHg (75.0-100.0) L Arterial Blood HCO3 17.9 mmol/L (22.0-26.0) *L 20.4 mmol/L (22.0-26.0) L Arterial Blood Oxygen Saturation 98.9 % (95-100) 93.7 % (95-100) L Arterial Blood Base Excess -1.7 (-2-2) -2.3 (-2-2) L [place] Test Positive Positive Plan Problems: (1) Septic shock Assessment & Plan: Septic shock, choledocholithiasis, possible cholangitis -npo -iv fluids -iv abx -icu care -trend labs thank you. will follow with recs. (2) Choledocholithiasis Assessment & Plan: s/p ERCP with stent LFT's noted Trend labs for now thank you (3) Elevated LFTs Darius Caraballo Jan 03, 2018 14:24
--- NOTE | 2018-01-03 15:09 | Pulmonolgy Critical Care Note ---
Critical Care - Asmt/Plan Assessment/Plan: Pulmonary CCM Follow Up Note Patient is a 57 year old woman with history of unspecified psychiatry history, brought in from a board and care facility for abdominal pain and altered mental status which was reported by the patient's caregiver. Patient is unable to provide any meaningful history due to confusion. In ED she was noted to have markedly elevated Tbili of [address] A/P showing choledocholithiasis with dilated biliary ducts. She has been persistently hypotensive to the 60s despite 2.5 liters of fluid. S/p central line in the ED, remains on Pressors and broad spectrum antibiotics the ICU. Acidosis improved, HCO2 gtt dc, Vt and RR decreased, K supplemented CXR: 1. New enteric tube terminates at least within the gastric body. 2. Otherwise, no definite significant interval change. Allergies: Coded Allergies: OLANZAPINE (Verified Allergy, Unknown, 01/01/18) TETRACYCLINE (Verified Allergy, Unknown, 01/01/18) Medication History Scheduled Alprazolam (Alprazolam), 1 MG ORAL BID, (Reported) Famotidine (Famotidine), 20 MG ORAL TWICE A DAY, (Reported) Lisinopril (Lisinopril*), 20 MG ORAL DAILY, (Reported) Lorazepam (Lorazepam), 1 MG ORAL BID, (Reported) Perphenazine (Perphenazine), 8 MG PO BID, (Reported) Quetiapine Fumarate (Quetiapine Fumarate), 100 MG ORAL BEDTIME, (Reported) Temazepam (Temazepam), 15 MG PO BEDTIME, (Reported) Miscellaneous Medications Benztropine Mesylate (Benztropine Mesylate), 1 MG PO, (Reported) Famotidine In Nacl,Iso-Osm/Pf (Famotidine 20 Mg Piggyback), 20 MG IV, (Reported) Patient History Limited by: medical condition Healthcare decision maker Resuscitation status Advanced Directive on File Family History Family History: Unabl to obtain due to confusion Social History Social History: (1) Unable to obtain due to confusion Review of Systems ROS Narrative Unable to obtain due to confusion Physical Exam General Appearance: confused, thin HEENT: atraumatic, anicteric Neck: non-tender, normal alignment Respiratory/Chest: lungs clear, normal breath sounds, no respiratory distress Cardiovascular/Chest: normal peripheral pulses, normal rate Abdomen: soft - No rebound, rigidity Extremities: non-tender, normal inspection, no calf tenderness Skin Exam: other - Cold Neurologic: alert Last 24 Hour Vital Signs Date Time Temp Pulse Resp B/P (MAP) Pulse Ox O2 Delivery O2 Flow Rate FiO2 01/01/18 16:20 96.1 01/01/18 16:00 114 24 73/51 Nasal Cannula 6.0 01/01/18 14:12 96.1 53 20 92/66 100 Room Air 96.1 01/01/18 13:47 96.1 53 20 92/ 96.1 Laboratory Tests Test 01/01/18 13:55 01/01/18 14:06 White Blood Count 17.6 K/UL (4.8-10.8) H Red Blood Count 5.14 M/UL (4.20-5.40) Hemoglobin 17.0 G/DL (12.0-16.0) H Hematocrit 49.1 % (37.0-47.0) H Mean Corpuscular Volume 96 FL (80-99) Mean Corpuscular Hemoglobin 33.2 PG (27.0-31.0) H Mean Corpuscular Hemoglobin Concent 34.7 G/DL (32.0-36.0) Red Cell Distribution Width 11.7 % (11.6-14.8) Platelet Count 60 K/UL (150-450) L Mean Platelet Volume 6.8 FL (6.5-10.1) Neutrophils (%) (Auto) % (45.0-75.0) Lymphocytes (%) (Auto) % (20.0-45.0) Monocytes (%) (Auto) % (1.0-10.0) Eosinophils (%) (Auto) % (0.0-3.0) Basophils (%) (Auto) % (0.0-2.0) Differential Total Cells Counted 100 Neutrophils % (Manual) 71 % (45-75) Lymphocytes % (Manual) 9 % (20-45) L Monocytes % (Manual) 6 % (1-10) Eosinophils % (Manual) 0 % (0-3) Basophils % (Manual) 0 % (0-2) Blast Cells % 5 % (0-0) *H Band Neutrophils 9 % (0-8) H Platelet Estimate Decreased L Platelet Morphology Normal Red Blood Cell Morphology Normal Prothrombin Time 13.8 SEC (9.30-11.50) H Prothromb Time International Ratio 1.3 (0.9-1.1) H Activated Partial Thromboplast Time 33 SEC (23-33) Sodium Level 140 MMOL/L (136-145) Potassium Level 2.3 MMOL/L (3.5-5.1) *L Chloride Level 98 MMOL/L (98-107) Carbon Dioxide Level 21 MMOL/L (21-32) Anion Gap 21 mmol/L (5-15) H Blood Urea Nitrogen 35 mg/dL (7-18) H Creatinine 3.8 MG/DL (0.55-1.30) H Estimat Glomerular Filtration Rate 14.8 mL/min (>60) Glucose Level 85 MG/DL (74-106) Calcium Level 8.9 MG/DL (8.5-10.1) Total Bilirubin 11.0 MG/DL (0.2-1.0) H Direct Bilirubin 8.7 MG/DL (0.0-0.3) H Aspartate Amino Transf (AST/SGOT) 138 U/L (15-37) H Alanine Aminotransferase (ALT/SGPT) 89 U/L (12-78) H Alkaline Phosphatase 220 U/L (46-116) H Total Protein 6.9 G/DL (6.4-8.2) Albumin 2.9 G/DL (3.4-5.0) L Globulin 4.0 g/dL Albumin/Globulin Ratio 0.7 (1.0-2.7) L Lipase 113 U/L (73-393) Stool Occult Blood Positive (NEGATIVE) Height (Feet): 5 Height (Inches): 6.00 Weight (Pounds): 150 Medications Current Medications Medications (Trade) Dose Ordered Sig/Bertrand Route PRN Reason Start Time Stop Time Status Last Admin Dose Admin Dextrose (Dextrose 50%) 25 ml Q30M PRN IV Hypoglycemia 01/01/18 17:30 01/31/18 17:29 UNV Dextrose (Dextrose 50%) 50 ml Q30M PRN IV Hypoglycemia 01/01/18 17:30 01/31/18 17:29 UNV Heparin Sodium (Porcine) (Heparin 5000 units/ml) 5,000 units EVERY 12 HOURS SUBQ 01/01/18 21:00 01/31/18 20:59 UNV Iopamidol (Isovue-300 100ml) 100 ml NOW PRN INJ Radiology Procedure 01/01/18 14:30 Ondansetron HCl (Zofran) 4 mg Q6H PRN IVP Nausea & Vomiting 01/01/18 17:30 01/31/18 17:29 UNV Pantoprazole (Protonix) 40 mg DAILY IV 01/02/18 09:00 02/01/18 08:59 UNV Piperacillin Sod/ Tazobactam Sod 3.375 gm/Sodium Chloride 110 ml @ 220 mls/hr ONCE ONCE IVPB 01/01/18 17:30 01/01/18 17:59 UNV Sodium Chloride 1,000 ml @ 100 mls/hr Q10H IV 01/01/18 15:15 01/31/18 15:14 01/01/18 15:15 Sodium Chloride 1,000 ml @ 125 mls/hr Q8H IVLG 01/01/18 18:18 01/31/18 18:17 UNV Objective Narrative EKG: Sinus tachycardia without acute ischemic changes Assessment/Plan Problem List: (1) Choledocholithiasis ICD Codes: K80.50 - Calculus of bile duct without cholangitis or cholecystitis without obstruction SNOMED: 504885207 (2) Sepsis ICD Codes: A41.9 - Sepsis, unspecified organism SNOMED: 34299388 Assessment/Plan 57 year old woman with history of unspecified psychiatry history on various psychotropics who presents from a [facility] and [facility] facility with abdominal pain, hypotension, hyperbilirubinemia/choledocholithiasis on CT A/P. 1)Choledocholithiasis with hypotension despite 2.5 liters of crystalloid, possible cholangitis.Continue IV fluids, check serial lactate levels, blood cultures. Start Zosyn. Patient may require vasopressor support for possible septic shock. Will continue to follow LFTs. GI following Antibiotics per ID, Surgery following 2)Severe hypokalemia, s/p IV KCl, repeat BMP tonight and replace as needed. Check BMP in AM. 3)Acute metabolic encephalopathy, likely due to to underlying sepsis, continue to treat acute medical issues and provide supportive care. Fall, aspiration, seizure precautions. 4)History of unspecified psychiatric illness, will hold all psychotropics for now to avoid oversedation. 5) Worsening Respiratory Failure, Hypoxia, Respiratory Acidosis - acute with metabolic acidosis - AC ventilation, adjust Vt, HCO# gtt dc, ABG ordered 6)CXR: 1. Endotracheal tube tip is 2.9 cm above the andrade. 2. Mild pulmonary vascular congestion. 3. Subsegmental atelectasis versus infiltrates in bilateral lung bases. VTE PPx heparin SC Full Code The patient is critically ill and will require a hospitalization crossing 2 midnights for IV antibiotics, IV fluids and possible pressors. She is high risk for given the severity of her medical problems and require close hemodynamic monitoring in the hospital setting. Critical Care - Objective Last 24 Hour Vital Signs Date Time Temp Pulse Resp B/P (MAP) Pulse Ox O2 Delivery O2 Flow Rate FiO2 01/03/18 14:35 89 24 80 01/03/18 12:57 92 22 80 01/03/18 11:25 97 26 90 01/03/18 11:00 99 26 112/59 (76) 97 01/03/18 10:30 98 26 103/69 (80) 96 01/03/18 10:00 99 26 92/60 (71) 97 01/03/18 09:30 95 25 136/81 (99) 97 01/03/18 09:00 92 25 109/77 (88) 97 01/03/18 09:00 85 24 90 01/03/18 08:30 80 25 105/80 (88) 97 01/03/18 08:00 99.5 91 25 119/72 (88) 97 99.5 01/03/18 08:00 Mechanical Ventilator 01/03/18 08:00 97 01/03/18 07:24 90 28 100 01/03/18 07:00 99 28 136/81 (99) 100 01/03/18 06:30 82 28 132/80 (97) 100 01/03/18 06:00 103 28 105/69 (81) 100 01/03/18 06:00 105/69 01/03/18 05:47 99/62 01/03/18 05:30 129/72 01/03/18 05:30 102 28 129/72 (91) 99 01/03/18 05:00 79 28 150/77 (101) 99 01/03/18 05:00 150/77 01/03/18 05:00 150/77 01/03/18 04:48 80 28 100 01/03/18 04:45 82 28 134/80 (98) 99 10/7/18 04:30 82 28 65/38 (47) 99 01/03/18 04:30 65/38 01/03/18 04:00 99.5 91 28 122/72 (89) 100 99.5 01/03/18 04:00 Mechanical Ventilator 01/03/18 04:00 122/72 01/03/18 03:31 99 01/03/18 03:30 92 28 141/82 (101) 99 01/03/18 03:28 89 28 100 01/03/18 03:00 102 27 105/66 (79) 98 01/03/18 03:00 105/66 01/03/18 02:30 105 28 123/69 (87) 97 01/03/18 02:00 111/68 01/03/18 02:00 103 28 111/68 (82) 96 01/03/18 01:30 99 25 151/78 (102) 99 01/03/18 01:09 100 28 100 01/03/18 01:00 124/70 01/03/18 01:00 124/70 01/03/18 01:00 102 28 124/70 (88) 97 01/03/18 00:45 130/73 01/03/18 00:30 98 28 138/77 (97) 97 01/03/18 00:30 138/77 01/03/18 00:15 99 28 72/37 (49) 97 01/03/18 00:12 144/82 01/03/18 00:09 144/82 01/03/18 00:00 Mechanical Ventilator 01/03/18 00:00 144/82 01/03/18 00:00 98.5 99 28 144/82 (102) 97 98.5 01/02/18 23:58 111 28 100 01/02/18 23:30 109 28 111/73 (86) 97 01/02/18 23:12 113 01/02/18 23:00 112 28 123/72 (89) 94 01/02/18 23:00 123/72 01/02/18 23:00 123/72 01/02/18 22:30 108 28 128/83 (98) 96 01/02/18 22:00 138/78 01/02/18 22:00 138/78 01/02/18 22:00 111 28 138/78 (98) 96 01/02/18 21:30 115 28 100/67 (78) 95 01/02/18 21:13 115 27 100 01/02/18 21:00 115/94 01/02/18 21:00 115/94 01/02/18 21:00 114 28 112/66 (81) 95 01/02/18 20:30 115 28 122/73 (89) 94 01/02/18 20:00 115/94 01/02/18 20:00 115/93 01/02/18 20:00 Mechanical Ventilator 01/02/18 20:00 100.0 115 28 96/60 (72) 93 100.0 01/02/18 19:30 115 28 117/73 (88) 93 01/02/18 19:20 118 01/02/18 19:10 109/65 01/02/18 19:02 113 28 100 01/02/18 19:00 112 28 106/70 (82) 98 01/02/18 18:00 114 28 109/65 (80) 97 01/02/18 17:57 208.8 112 25 97 01/02/18 17:56 208.8 118 25 95 01/02/18 17:45 118 26 100 01/02/18 17:00 111 30 98/65 (76) 97 01/02/18 16:00 Nasal Cannula 2.0 01/02/18 16:00 98.9 115 28 101/58 (72) 95 98.9 01/02/18 16:00 115 01/02/18 15:11 119 28 100 Micro: Microbiology Date/Time Source Procedure Growth Status 01/01/18 19:10 Blood Blood Culture - Preliminary Resulted 01/01/18 18:55 Blood Blood Culture - Preliminary Gram Negative Bacillus 1 Resulted 01/02/18 21:15 Sputum Induced Gram Stain - Final Resulted 01/02/18 21:15 Sputum Induced Sputum Culture Pending Resulted 01/01/18 14:00 Nasal Nares MRSA Culture - Final NO METHICILLIN RESISTANT STAPH AUREUS... Complete 01/01/18 14:00 Rectum - Final NO CARBAPENEM-RESISTANT ENTEROBACTERI... Complete 01/01/18 14:00 Rectum VRE Culture - Final NO VANCOMYCIN RESISTANT ENTEROCOCCUS ... Complete Accucheck: 89 Critical Care - Subjective ROS Limited/Unobtainable: Yes Condition: critical EKG Rhythm: Sinus Rhythm FI02: 80 Vent Support Breath Rate: 20 Vent Support Mode: AC Vent Tidal Volume: 450 Sputum Amount: Small PEEP: 7.0 PIP: 25 I&O: Intake and Output 01/02/18 01/03/18 19:00 07:00 Intake Total 290.16 ml 2039.13 ml Output Total 2090 ml 3350 ml Balance -1799.84 ml -1310.87 ml IV Total 290.16 ml 2039.13 ml Output Urine Total 2090 ml 3350 ml ET-Tube: 7.5 ET Position: 23 Farhat Hunt MD Jan 03, 2018 15:09
[2018-01-03 16:22] LABS: HEMATOCRIT 37.3 % (37.0-47.0); HEMOGLOBIN 13.2 G/DL (12.0-16.0); MEAN CORPUSCULAR VOLUME 96 FL (80-99); PLATELET COUNT 42 K/UL (150-450); RED BLOOD COUNT 3.87 M/UL (4.20-5.40); RED CELL DISTRIBUTION WIDTH 12.6 % (11.6-14.8); WHITE BLOOD COUNT 16.7 K/UL (4.8-10.8)
[2018-01-03] MEDS ORDERED: Tubing IV Secondary IV ONE (16:24)
[2018-01-03] MEDS ORDERED: D5 1/2NS 1000ml IV ONE (16:24)
[2018-01-03] MEDS ORDERED: NS 275ml ONE (16:24)
[2018-01-03 16:57] LABS: ALANINE AMINOTRANSFERASE 116 U/L (12-78); ALBUMIN 2.1 G/DL (3.4-5.0); ALBUMIN/GLOBULIN RATIO 0.6 (1.0-2.7); ALKALINE PHOSPHATASE 90 U/L (46-116); ANION GAP 11 mmol/L (5-15); ASPARTATE AMINO TRANSFERASE 158 U/L (15-37); BILIRUBIN,TOTAL 10.6 MG/DL (0.2-1.0); BLOOD UREA NITROGEN 28 mg/dL (7-18); CALCIUM 6.4 MG/DL (8.5-10.1); CARBON DIOXIDE 25 MMOL/L (21-32); CHLORIDE 110 MMOL/L (98-107); CREATININE 1.2 MG/DL (0.55-1.30); SODIUM 147 MMOL/L (136-145)
[2018-01-03 17:04] LABS: POTASSIUM 2.5 MMOL/L (3.5-5.1)
[2018-01-03 17:06] LABS: BILIRUBIN,DIRECT 8.2 MG/DL (0.0-0.3)
[2018-01-03] MEDS ORDERED: NS IV SCH (18:00)
[2018-01-03] MEDS ORDERED: TOBRAMYCIN IV SCH (18:00)
[2018-01-03] MEDS: D5 1/2NS w/KCl 40meq 1000ml 1,000 ML IV SCH (19:20)
[2018-01-03] MEDS: Dyna-Hex 2% Top Sol 2oz TOPIC SCH (19:47)
--- NOTE | 2018-01-03 21:29 | Infectious Diseases Prog Note ---
Assessment/Plan Assessment/Plan ASSESSMENT AND PLAN: 1. sepsis, shock, gram negative bacteremia, cholangitis, fevers, leukocytosis, ? pna, ? ards - zosyn and tobramycin - f/u on cultures - monitor labs and chest x-ray - d/w RN\ - prognosis guarded - icu, supportive care 2. Respiratory failure - on vent, per pulmonary medicine 3. Acute kidney injury - cr better 4. History of paranoid schizophrenia and psychiatric disease. 5. Hypertension. 6. No history of diabetes. 7. Allergy to olanzapine and tetracycline. 8. MAR was noted. 9. Case discussed with RN. 10. Family history noncontributory. 11. Social history negative. 12. Continue treatment per primary consultants. 13. Prognosis is guarded to poor. 14. Notes and records were noted and orders were entered. Subjective Constitutional: Reports: fever, other - on vent HEENT: Reports: congestion Respiratory: Reports: shortness of breath, other - + vent Cardiovascular: Reports: other - + pressors Allergies: Coded Allergies: OLANZAPINE (Verified Allergy, Unknown, 01/01/18) TETRACYCLINE (Verified Allergy, Unknown, 01/01/18) Objective Vital Signs Last 24 Hour Vital Signs Date Time Temp Pulse Resp B/P (MAP) Pulse Ox O2 Delivery O2 Flow Rate FiO2 01/03/18 20:56 75 25 80 01/03/18 19:34 86 28 80 01/03/18 18:00 85 26 95/59 (71) 97 01/03/18 17:28 91 21 80 01/03/18 17:00 88 26 93/58 (70) 97 01/03/18 16:00 82 01/03/18 16:00 80 01/03/18 16:00 Mechanical Ventilator 01/03/18 16:00 98.2 91 25 100/77 (85) 96 98.2 01/03/18 15:50 112/59 01/03/18 15:50 112/59 01/03/18 15:00 94 26 112/59 (76) 97 01/03/18 14:35 89 24 80 01/03/18 14:00 95 26 110/55 (73) 97 01/03/18 13:00 80 26 106/59 (75) 96 01/03/18 12:57 92 22 80 01/03/18 12:00 98.2 89 25 115/72 (86) 96 98.2 01/03/18 12:00 88 01/03/18 12:00 Mechanical Ventilator 01/03/18 11:25 97 26 90 01/03/18 11:00 99 26 112/59 (76) 97 01/03/18 10:30 98 26 103/69 (80) 96 01/03/18 10:00 99 26 92/60 (71) 97 01/03/18 09:30 95 25 136/81 (99) 97 01/03/18 09:00 92 25 109/77 (88) 97 01/03/18 09:00 85 24 90 01/03/18 08:30 80 25 105/80 (88) 97 01/03/18 08:00 99.5 91 25 119/72 (88) 97 99.5 01/03/18 08:00 Mechanical Ventilator 01/03/18 08:00 97 01/03/18 07:24 90 28 100 01/03/18 07:00 99 28 136/81 (99) 100 01/03/18 06:30 82 28 132/80 (97) 100 01/03/18 06:00 103 28 105/69 (81) 100 01/03/18 06:00 105/69 01/03/18 05:47 99/62 01/03/18 05:30 129/72 01/03/18 05:30 102 28 129/72 (91) 99 01/03/18 05:00 79 28 150/77 (101) 99 01/03/18 05:00 150/77 01/03/18 05:00 150/77 01/03/18 04:48 80 28 100 01/03/18 04:45 82 28 134/80 (98) 99 01/03/18 04:30 82 28 65/38 (47) 99 01/03/18 04:30 65/38 01/03/18 04:00 99.5 91 28 122/72 (89) 100 99.5 01/03/18 04:00 Mechanical Ventilator 01/03/18 04:00 122/72 01/03/18 03:31 99 01/03/18 03:30 92 28 141/82 (101) 99 01/03/18 03:28 89 28 100 01/03/18 03:00 102 27 105/66 (79) 98 01/03/18 03:00 105/66 01/03/18 02:30 105 28 123/69 (87) 97 01/03/18 02:00 111/68 01/03/18 02:00 103 28 111/68 (82) 96 01/03/18 01:30 99 25 151/78 (102) 99 01/03/18 01:09 100 28 100 01/03/18 01:00 124/70 01/03/18 01:00 124/70 01/03/18 01:00 102 28 124/70 (88) 97 01/03/18 00:45 130/73 01/03/18 00:30 98 28 138/77 (97) 97 01/03/18 00:30 138/77 01/03/18 00:15 99 28 72/37 (49) 97 01/03/18 00:12 144/82 01/03/18 00:09 144/82 01/03/18 00:00 Mechanical Ventilator 01/03/18 00:00 144/82 01/03/18 00:00 98.5 99 28 144/82 (102) 97 98.5 01/02/18 23:58 111 28 100 01/02/18 23:30 109 28 111/73 (86) 97 01/02/18 23:12 113 01/02/18 23:00 112 28 123/72 (89) 94 01/02/18 23:00 123/72 01/02/18 23:00 123/72 01/02/18 22:30 108 28 128/83 (98) 96 01/02/18 22:00 138/78 01/02/18 22:00 138/78 01/02/18 22:00 111 28 138/78 (98) 96 01/02/18 21:30 115 28 100/67 (78) 95 Height (Feet): 5 Height (Inches): 5.00 Weight (Pounds): 148 General Appearance: other - on vent and pressors Respiratory/Chest: crackles/rales, rhonchi - bilaterally Cardiovascular: normal rate, regular rhythm, no gallop/murmur Abdomen: normal bowel sounds, soft, non tender, no organomegaly Extremities: no cyanosis Skin: no rash Neurologic/Psychiatric: other - lethergic, on vent Objective CT abdomen and pelvis: Impression: Positive for choledocholithiasis, 3 large calculi in the downstream common bile duct. There is evidence of biliary obstruction, with marked dilatation of the extrahepatic and intrahepatic bile ducts. Dr. Niño was notified of this finding at the time of interpretation Cholelithiasis Limited assessment of the GI tract, due to lack of enteric contrast Posterior dependent pulmonary atelectatic changes. Right middle lobe scarring with associated bronchiectasis Incidental finding of tiny fat-containing abdominal hernia. US - abdomen: Impression: Cholelithiasis Marked biliary ductal dilatation, consistent with choledocholithiasis seen on prior CT scan, although not imaged on current study Chest x-ray - 01/03 - FINDINGS: Image is limited by portable technique and external artifacts. Allowing for this, endotracheal tube remains in place, terminating approximately 2 cm above the andrade. Enteric tube terminates at least within the gastric body. There are patchy coarse reticular opacities within bilateral medial lung bases with probable associated volume loss, indicating at least atelectasis, as before. No definite new lung opacity. Heart size is normal and stable. No obvious significant pleural effusion or pneumothorax. IMPRESSION: 1. New enteric tube terminates at least within the gastric body. 2. Otherwise, no definite significant interval change. Microbiology Date/Time Source Procedure Growth Status 01/01/18 19:10 Blood Blood Culture - Preliminary Resulted 01/01/18 18:55 Blood Blood Culture - Preliminary Gram Negative Bacillus 1 Resulted 01/02/18 21:15 Sputum Induced Gram Stain - Final Resulted 01/02/18 21:15 Sputum Induced Sputum Culture Pending Resulted 01/01/18 14:00 Nasal Nares MRSA Culture - Final NO METHICILLIN RESISTANT STAPH AUREUS... Complete 01/01/18 14:00 Rectum - Final NO CARBAPENEM-RESISTANT ENTEROBACTERI... Complete 01/01/18 14:00 Rectum VRE Culture - Final NO VANCOMYCIN RESISTANT ENTEROCOCCUS ... Complete Laboratory Tests Test 01/03/18 06:05 01/03/18 07:40 01/03/18 11:25 01/03/18 14:25 White Blood Count 15.7 K/UL (4.8-10.8) #H Red Blood Count 4.53 M/UL (4.20-5.40) Hemoglobin 15.5 G/DL (12.0-16.0) Hematocrit 43.2 % (37.0-47.0) Mean Corpuscular Volume 95 FL (80-99) Mean Corpuscular Hemoglobin 34.2 PG (27.0-31.0) H Mean Corpuscular Hemoglobin Concent 35.8 G/DL (32.0-36.0) Red Cell Distribution Width 12.5 % (11.6-14.8) Platelet Count 12 K/UL (150-450) #L Mean Platelet Volume 10.8 FL (6.5-10.1) H Neutrophils (%) (Auto) % (45.0-75.0) Lymphocytes (%) (Auto) % (20.0-45.0) Monocytes (%) (Auto) % (1.0-10.0) Eosinophils (%) (Auto) % (0.0-3.0) Basophils (%) (Auto) % (0.0-2.0) Differential Total Cells Counted 100 Neutrophils % (Manual) 78 % (45-75) H Lymphocytes % (Manual) 10 % (20-45) L Monocytes % (Manual) 3 % (1-10) Eosinophils % (Manual) 0 % (0-3) Basophils % (Manual) 0 % (0-2) Myelocytes % 1 % (0-0) H Band Neutrophils 8 % (0-8) Toxic Granulation 1+ Platelet Estimate Decreased L Platelet Morphology Normal Red Blood Cell Morphology Normal Sodium Level 144 MMOL/L (136-145) Potassium Level 2.2 MMOL/L (3.5-5.1) *L Chloride Level 109 MMOL/L (98-107) H Carbon Dioxide Level 21 MMOL/L (21-32) Anion Gap 14 mmol/L (5-15) Blood Urea Nitrogen 30 mg/dL (7-18) H Creatinine 1.3 MG/DL (0.55-1.30) Estimat Glomerular Filtration Rate 51.0 mL/min (>60) Glucose Level 229 MG/DL (74-106) #H Calcium Level 6.6 MG/DL (8.5-10.1) L Total Bilirubin 13.4 MG/DL (0.2-1.0) H Direct Bilirubin 10.8 MG/DL (0.0-0.3) H Aspartate Amino Transf (AST/SGOT) 216 U/L (15-37) H Alanine Aminotransferase (ALT/SGPT) 130 U/L (12-78) H Alkaline Phosphatase 109 U/L (46-116) Total Protein 5.7 G/DL (6.4-8.2) L Albumin 1.9 G/DL (3.4-5.0) L Globulin 3.8 g/dL Albumin/Globulin Ratio 0.5 (1.0-2.7) L Arterial Blood pH 7.554 (7.350-7.450) 7.455 (7.350-7.450) 7.448 (7.350-7.450) Arterial Blood Partial Pressure CO2 20.7 mmHg (35.0-45.0) *L 29.7 mmHg (35.0-45.0) L 28.9 mmHg (35.0-45.0) L Arterial Blood Partial Pressure O2 162.4 mmHg (75.0-100.0) H 66.4 mmHg (75.0-100.0) L 91.3 mmHg (75.0-100.0) Arterial Blood HCO3 17.9 mmol/L (22.0-26.0) *L 20.4 mmol/L (22.0-26.0) L 19.5 mmol/L (22.0-26.0) L Arterial Blood Oxygen Saturation 98.9 % (95-100) 93.7 % (95-100) L 97.3 % (95-100) Arterial Blood Base Excess -1.7 (-2-2) -2.3 (-2-2) L -3.2 (-2-2) L [place] Test Positive Positive Positive Test 01/03/18 16:00 White Blood Count 16.7 K/UL (4.8-10.8) H Red Blood Count 3.87 M/UL (4.20-5.40) L Hemoglobin 13.2 G/DL (12.0-16.0) Hematocrit 37.3 % (37.0-47.0) Mean Corpuscular Volume 96 FL (80-99) Mean Corpuscular Hemoglobin 34.2 PG (27.0-31.0) H Mean Corpuscular Hemoglobin Concent 35.5 G/DL (32.0-36.0) Red Cell Distribution Width 12.6 % (11.6-14.8) Platelet Count 42 K/UL (150-450) #L Mean Platelet Volume 7.2 FL (6.5-10.1) Neutrophils (%) (Auto) % (45.0-75.0) Lymphocytes (%) (Auto) % (20.0-45.0) Monocytes (%) (Auto) % (1.0-10.0) Eosinophils (%) (Auto) % (0.0-3.0) Basophils (%) (Auto) % (0.0-2.0) Differential Total Cells Counted 100 Neutrophils % (Manual) 85 % (45-75) H Lymphocytes % (Manual) 4 % (20-45) L Monocytes % (Manual) 2 % (1-10) Eosinophils % (Manual) 0 % (0-3) Basophils % (Manual) 0 % (0-2) Myelocytes % 2 % (0-0) H Band Neutrophils 7 % (0-8) Platelet Estimate Decreased L Platelet Morphology Normal Red Blood Cell Morphology Normal Fibrinogen 904 mg/dL (200-400) H Fibrin Degradation Products, Quant Pending Sodium Level 147 MMOL/L (136-145) H Potassium Level 2.5 MMOL/L (3.5-5.1) *L Chloride Level 110 MMOL/L (98-107) H Carbon Dioxide Level 25 MMOL/L (21-32) Anion Gap 11 mmol/L (5-15) Blood Urea Nitrogen 28 mg/dL (7-18) H Creatinine 1.2 MG/DL (0.55-1.30) Estimat Glomerular Filtration Rate 56.0 mL/min (>60) Glucose Level 189 MG/DL (74-106) H Calcium Level 6.4 MG/DL (8.5-10.1) L Magnesium Level 2.0 MG/DL (1.8-2.4) Total Bilirubin 10.6 MG/DL (0.2-1.0) H Direct Bilirubin 8.2 MG/DL (0.0-0.3) H Aspartate Amino Transf (AST/SGOT) 158 U/L (15-37) H Alanine Aminotransferase (ALT/SGPT) 116 U/L (12-78) H Alkaline Phosphatase 90 U/L (46-116) Total Protein 5.7 G/DL (6.4-8.2) L Albumin 2.1 G/DL (3.4-5.0) L Globulin 3.6 g/dL Albumin/Globulin Ratio 0.6 (1.0-2.7) L Heparin-PF4 Antibody Screen Pending Current Medications Medications (Trade) Dose Ordered Sig/Bertrand Route PRN Reason Start Time Stop Time Status Last Admin Dose Admin Chlorhexidine Gluconate (Mandy-Hex 2%) 1 applic DAILY@2000 TOPIC 01/03/18 20:00 02/02/18 19:59 01/03/18 19:47 Dextrose (Dextrose 50%) 25 ml Q30M PRN IV Hypoglycemia 01/01/18 17:30 01/31/18 17:29 Dextrose (Dextrose 50%) 50 ml Q30M PRN IV Hypoglycemia 01/01/18 17:30 01/31/18 17:29 Dextrose/ Electrolytes 1,000 ml @ 50 mls/hr Q20H IV 01/03/18 19:00 02/02/18 18:59 01/03/18 19:20 Dopamine HCl/ Dextrose 250 ml @ 0 mls/hr Q24H IV 01/01/18 20:15 01/31/18 20:14 01/03/18 15:50 Hydrocortisone (Solu-CORTEF) 50 mg Q6HR IV 01/02/18 14:15 02/01/18 14:14 01/03/18 18:21 Lorazepam (Ativan 2mg/ml 1ml) 2 mg EVERY 2 HOURS PRN IV For Anxiety 01/02/18 14:30 01/09/18 14:29 01/03/18 15:52 Morphine Sulfate (Morphine Sulfate) 2 mg Q4H PRN IVP For Pain 01/02/18 14:30 01/09/18 14:29 Norepinephrine Bitartrate 16 mg/ Dextrose 566 ml @ 0 mls/hr Q24H IV 01/02/18 21:30 02/01/18 13:59 01/03/18 15:50 Ondansetron HCl (Zofran) 4 mg Q6H PRN IVP Nausea & Vomiting 01/01/18 17:30 01/31/18 17:29 Pantoprazole (Protonix) 40 mg DAILY IV 01/02/18 09:00 02/01/18 08:59 01/03/18 08:55 Piperacillin Sod/ Tazobactam Sod 3.375 gm/Dextrose 110 ml @ 27.5 mls/hr Q8HR IVPB 01/03/18 14:00 01/10/18 13:59 01/03/18 14:22 Tobramycin Protocol (Tobramycin pharmacy to dose) 1 ea DAILY PRN MISC Per rx protocol 01/02/18 09:15 02/01/18 09:14 Tobramycin Sulfate 280 mg/ Sodium Chloride 110 ml @ 220 mls/hr Q36H IV 01/03/18 18:00 01/10/18 17:59 01/03/18 18:21 Vasopressin 100 units/Sodium Chloride 100 ml @ 0 mls/hr Q24H IV 01/02/18 10:00 02/01/18 09:59 01/03/18 19:00 Corinne Lilly MD Jan 03, 2018 21:29
[2018-01-04] VITALS (48 sets, daily range): BP systolic 96–133; BP diastolic 60–93
[2018-01-04] MEDS: Hydrocortisone 100mg Inj IV SCH ×4 (05:38→23:51)
[2018-01-04] MEDS: Piperacillin/Tazobactam 3.375 GM in D5W 110 ML IVPB SCH ×3 (05:38→21:42)
[2018-01-04 06:25] LABS: HEMATOCRIT 35.2 % (37.0-47.0); HEMOGLOBIN 12.4 G/DL (12.0-16.0); MEAN CORPUSCULAR VOLUME 96 FL (80-99); PLATELET COUNT 26 K/UL (150-450); RED BLOOD COUNT 3.68 M/UL (4.20-5.40); RED CELL DISTRIBUTION WIDTH 13.1 % (11.6-14.8); WHITE BLOOD COUNT 17.8 K/UL (4.8-10.8)
[2018-01-04 06:54] LABS: ALANINE AMINOTRANSFERASE 110 U/L (12-78); ALBUMIN 2.1 G/DL (3.4-5.0); ALBUMIN/GLOBULIN RATIO 0.6 (1.0-2.7); ALKALINE PHOSPHATASE 98 U/L (46-116); ANION GAP 11 mmol/L (5-15); ASPARTATE AMINO TRANSFERASE 103 U/L (15-37); BILIRUBIN,TOTAL 6.4 MG/DL (0.2-1.0); BLOOD UREA NITROGEN 27 mg/dL (7-18); CALCIUM 6.7 MG/DL (8.5-10.1); CARBON DIOXIDE 25 MMOL/L (21-32); CHLORIDE 111 MMOL/L (98-107); SODIUM 147 MMOL/L (136-145)
[2018-01-04 07:02] LABS: BILIRUBIN,DIRECT 4.6 MG/DL (0.0-0.3); POTASSIUM 2.6 MMOL/L (3.5-5.1)
--- NOTE | 2018-01-04 07:25 | General Progress Note ---
Assessment/Plan Assessment/Plan # Leukocytosis. Likely related to underlying infection versus reactive process. In addition, concerning for BLASTS, MYELOCYTES AND METAMYELOCYTES on the peripheral smear --> Have ordered a FLOW CYTOMETRY TO RULE OUT ACUTE LEUKEMIA (results are pending) have discussed with pathologist over the 01/02 weekend --> DIC PANEL ORDERED WELL, HAPTO PENDING --> Tumor lysis labs have been reviewed and does not appear to have TLS -- will monitor closely --> MAY need a bone marrow biopsy will discuss with pathologist --> Imaging has been reviewed and reveals: Mild pulmonary vascular congestion. Subsegmental atelectasis versus infiltrates in bilateral lung bases. Cholelithiasis --> Blood and urine cultures are pending. --> Has been started on abx, empiric treatment # Thrombocytopenia. Potential causes multifactorial, evaluate liver and viral etiologies v infectious, hepatitis and hiv are negative, could be related to shock/sepsis as well --> have ordered for HIT test and heparin d/mao --> US abd: Cholelithiasis --> Peripheral smear ordered to eval for blasts --> initially showed blasts --> Abx and other meds have been reviewed. # Choledocholithiasis with hypotension despite 2.5 liters of crystalloid, could be early cholangitis. She will be admitted to ICU with central line placement. --> NPO, Zofran, morphine prb. Continue IV fluids, check serial lactate levels, blood cultures. Start Zosyn. Patient may require vasopressor support for possible septic shock. --> ID, GI and Surgery will evaluate. # Severe hypokalemia, will replace with IV KCl, repeat BMP tonight and replace as needed. Check BMP in AM. --> appreciate recs by renal # Acute metabolic encephalopathy, likely due to to underlying sepsis, continue to treat acute medical issues and provide supportive care. --> Fall, aspiration, seizure precautions. # History of unspecified psychiatric illness, will hold all psychotropics for now to avoid oversedation. # Rrespiratory failure -- s/p vent --> pulm recs appreciated I GREATLY APPRECIATE CONSULTATION. Subjective ROS Limited/Unobtainable: Yes Allergies: Coded Allergies: OLANZAPINE (Verified Allergy, Unknown, 01/01/18) TETRACYCLINE (Verified Allergy, Unknown, 01/01/18) Subjective remains on pressors, on abx, on a vent, og, rt as well, not bleeding Objective Last 24 Hour Vital Signs Date Time Temp Pulse Resp B/P (MAP) Pulse Ox O2 Delivery O2 Flow Rate FiO2 01/04/18 07:17 66 22 80 01/04/18 07:00 68 22 112/73 (86) 96 01/04/18 06:30 66 22 117/93 (101) 95 01/04/18 06:00 104/71 01/04/18 06:00 66 24 104/71 (82) 95 01/04/18 05:30 83 16 111/71 (84) 95 01/04/18 05:01 68 23 80 01/04/18 05:00 68 19 109/70 (83) 94 01/04/18 05:00 109/70 01/04/18 04:30 68 19 121/78 (92) 94 01/04/18 04:00 98.4 68 20 117/80 (92) 94 98.4 01/04/18 04:00 117/80 01/04/18 04:00 Mechanical Ventilator 01/04/18 03:30 67 21 128/77 (94) 95 01/04/18 03:11 70 24 80 01/04/18 03:07 70 01/04/18 03:00 128/78 01/04/18 03:00 68 19 128/78 (95) 95 01/04/18 02:30 69 20 126/73 (90) 95 01/04/18 02:00 96/60 01/04/18 02:00 71 24 96/60 (72) 94 01/04/18 01:30 77 25 103/65 (78) 94 01/04/18 01:00 84 22 101/63 (76) 94 01/04/18 01:00 101/63 01/04/18 00:56 73 26 80 01/04/18 00:30 68 19 128/79 (95) 94 01/04/18 00:30 128/79 01/04/18 00:00 98.6 69 18 125/74 (91) 94 98.6 01/04/18 00:00 125/74 01/04/18 00:00 Mechanical Ventilator 01/03/18 23:30 70 19 113/70 (84) 94 01/03/18 23:05 80 01/03/18 23:00 73 22 104/65 (78) 94 01/03/18 23:00 104/65 01/03/18 22:44 70 22 80 01/03/18 22:30 82 19 96/61 (73) 93 01/03/18 22:00 140/79 10 22:00 68 20 140/79 (99) 94 01/03/18 21:30 69 19 132/78 (96) 94 01/03/18 21:00 69 20 127/85 (99) 95 01/03/18 21:00 127/85 01/03/18 20:56 75 25 80 01/03/18 20:30 73 21 125/70 (88) 95 01/03/18 20:00 98.7 75 20 110/63 (79) 93 98.7 01/03/18 20:00 Mechanical Ventilator 01/03/18 20:00 110/63 01/03/18 19:34 86 28 80 01/03/18 19:30 86 25 118/64 (82) 92 01/03/18 19:29 75 01/03/18 19:00 68 19 121/74 (90) 94 01/03/18 18:00 85 26 95/59 (71) 97 01/03/18 17:28 91 21 80 01/03/18 17:00 88 26 93/58 (70) 97 01/03/18 16:00 82 01/03/18 16:00 80 01/03/18 16:00 Mechanical Ventilator 01/03/18 16:00 98.2 91 25 100/77 (85) 96 98.2 01/03/18 15:50 112/59 01/03/18 15:50 112/59 01/03/18 15:00 94 26 112/59 (76) 97 01/03/18 14:35 89 24 80 01/03/18 14:00 95 26 110/55 (73) 97 01/03/18 13:00 80 26 106/59 (75) 96 01/03/18 12:57 92 22 80 01/03/18 12:00 98.2 89 25 115/72 (86) 96 98.2 01/03/18 12:00 88 01/03/18 12:00 Mechanical Ventilator 01/03/18 11:25 97 26 90 01/03/18 11:00 99 26 112/59 (76) 97 01/03/18 10:30 98 26 103/69 (80) 96 01/03/18 10:00 99 26 92/60 (71) 97 01/03/18 09:30 95 25 136/81 (99) 97 01/03/18 09:00 92 25 109/77 (88) 97 01/03/18 09:00 85 24 90 01/03/18 08:30 80 25 105/80 (88) 97 01/03/18 08:00 99.5 91 25 119/72 (88) 97 99.5 01/03/18 08:00 Mechanical Ventilator 01/03/18 08:00 97 01/03/18 07:24 90 28 100 Intake and Output 01/03/18 01/04/18 19:00 07:00 Intake Total 30 ml 1141.56 ml Output Total 2300 ml 1140 ml Balance -2270 ml 1.56 ml IV Total 1081.56 ml Tube Feeding 30 ml 60 ml Output Urine Total 2300 ml 1140 ml Laboratory Tests 01/03/18 07:40: Arterial Blood pH 7.554*H, Arterial Blood Partial Pressure CO2 20.7*L, Arterial Blood Partial Pressure O2 162.4H, Arterial Blood HCO3 17.9*L, Arterial Blood Oxygen Saturation 98.9, Arterial Blood Base Excess -1.7, [place] Test Positive 01/03/18 11:25: Arterial Blood pH 7.455H, Arterial Blood Partial Pressure CO2 29.7L, Arterial Blood Partial Pressure O2 66.4L, Arterial Blood HCO3 20.4L, Arterial Blood Oxygen Saturation 93.7L, Arterial Blood Base Excess -2.3L, [place] Test Positive 01/03/18 14:25: Arterial Blood pH 7.448, Arterial Blood Partial Pressure CO2 28.9L, Arterial Blood Partial Pressure O2 91.3, Arterial Blood HCO3 19.5L, Arterial Blood Oxygen Saturation 97.3, Arterial Blood Base Excess -3.2L, [place] Test Positive 01/03/18 16:00: White Blood Count 16.7H, Red Blood Count 3.87L, Hemoglobin 13.2, Hematocrit 37.3 , Mean Corpuscular Volume 96, Mean Corpuscular Hemoglobin 34.2H, Mean Corpuscular Hemoglobin Concent 35.5, Red Cell Distribution Width 12.6, Platelet Count 42#L, Mean Platelet Volume 7.2, Neutrophils (%) (Auto) , Lymphocytes (%) ( Auto) , Monocytes (%) (Auto) , Eosinophils (%) (Auto) , Basophils (%) (Auto) , Differential Total Cells Counted 100, Neutrophils % (Manual) 85H, Lymphocytes % (Manual) 4L, Monocytes % (Manual) 2, Eosinophils % (Manual) 0, Basophils % ( Manual) 0, Myelocytes % 2H, Band Neutrophils 7, Platelet Estimate DecreasedL, Platelet Morphology Normal, Red Blood Cell Morphology Normal, Fibrinogen 904H, Fibrin Degradation Products, Quant [Pending], Sodium Level 147H, Potassium Level 2.5*L, Chloride Level 110H, Carbon Dioxide Level 25, Anion Gap 11, Blood Urea Nitrogen 28H, Creatinine 1.2, Estimat Glomerular Filtration Rate 56.0, Glucose Level 189H, Calcium Level 6.4L, Magnesium Level 2.0, Total Bilirubin 10.6H, Direct Bilirubin 8.2H, Aspartate Amino Transf (AST/SGOT) 158H, Alanine Aminotransferase (ALT/SGPT) 116H, Alkaline Phosphatase 90, Total Protein 5.7L, Albumin 2.1L, Globulin 3.6, Albumin/Globulin Ratio 0.6L, Heparin-PF4 Antibody Screen [Pending] 01/04/18 05:54: White Blood Count 17.8H, Red Blood Count 3.68L, Hemoglobin 12.4, Hematocrit 35.2L, Mean Corpuscular Volume 96, Mean Corpuscular Hemoglobin 33.8H, Mean Corpuscular Hemoglobin Concent 35.3, Red Cell Distribution Width 13.1, Platelet Count 26L, Mean Platelet Volume 11.4H, Neutrophils (%) (Auto) , Lymphocytes (%) (Auto) , Monocytes (%) (Auto) , Eosinophils (%) (Auto) , Basophils (%) (Auto) , Neutrophils % (Manual) [Pending], Lymphocytes % (Manual) [Pending], Platelet Estimate [Pending], Platelet Morphology [Pending], Prothrombin Time 10.7, Prothromb Time International Ratio 1.0, Sodium Level 147H, Potassium Level 2.6*L , Chloride Level 111H, Carbon Dioxide Level 25, Anion Gap 11, Blood Urea Nitrogen 27H, Creatinine 1.0, Estimat Glomerular Filtration Rate > 60, Glucose Level 205H, Lactic Acid Level 2.40H, Calcium Level 6.7L, Total Bilirubin 6.4H, Direct Bilirubin 4.6H, Aspartate Amino Transf (AST/SGOT) 103H, Alanine Aminotransferase (ALT/SGPT) 110H, Alkaline Phosphatase 98, Total Protein 5.8L, Albumin 2.1L, Globulin 3.7, Albumin/Globulin Ratio 0.6L, Random Tobramycin Level < 0.2 Height (Feet): 5 Height (Inches): 5.00 Weight (Pounds): 142 General Appearance: no apparent distress EENT: normal ENT inspection Neck: normal alignment Cardiovascular: regular rhythm Respiratory/Chest: lungs clear Abdomen: non tender Extremities: non-tender Edema: mild edema Neurologic: alert Skin: warm/dry Objective on a vent, og, RT as well Davin Aguero MD Jan 04, 2018 07:25
[2018-01-04 08:23] LABS: PHOSPHORUS 1.5 MG/DL (2.5-4.9)
[2018-01-04] MEDS: Pantoprazole Inj IV SCH (08:36)
--- NOTE | 2018-01-04 09:49 | Cardiology Report ---
APPROVED REPORT EXAM: Two-dimensional and M-mode echocardiogram with Doppler and color Doppler. INDICATION Chest Pain M-Mode DIMENSIONS IVSd1.0 (0.7-1.1cm)Left Atrium (MM)2.9 (1.6-4.0cm) LVDd1.2 (3.5-5.6cm)Aortic Root3.3 (2.0-3.7cm) PWd3.9 (0.7-1.1cm)Aortic Cusp Exc.1.9 (1.5-2.0cm) IVSs2.3 cm LVDs1.4 (2.5-4.0cm) PWs1.6 cm Normal left ventricular chamber size, hyper dynamic systolic function and wall motion. Left ventricular ejection fraction estimated to be 70-75%. Mild left ventricular hypertrophy by 2-D. No evidence of pericardial effusion. All other cardiac chamber sizes are within normal limits. Focal aortic valve sclerosis with adequate cusp excursion. Thickened mitral valve leaflets with normal excursion. Mitral annulus and aortic root calcification. Pulmonic valve not well visualized. Normal tricuspid valve structure. IVC at size 2.0cm without physiologic collapse, suggestive of increased RA pressure. A color flow and spectral Doppler study was performed and revealed: No aortic insufficiency . Trace mitral regurgitation. Mitral diastolic velocities suggest reduced left ventricular relaxation c/w mild LV diastolic dysfunction (Grade I ). Mild tricuspid regurgitation. Tricuspid systolic velocities suggests peak right ventricular systolic pressure of 62 mmHg,consistent with severe pulmonory hypertension . No Pulmonic regurgitation present.
--- NOTE | 2018-01-04 10:39 | Endoscopy Procedure Note ---
Endoscopy Procedure Note General Indication for Procedure: cholangitis Procedures Performed: ERCP Operative Findings/Diagnosis: same Specimen: none Pt Tolerated Procedure Well: Yes Estimated Blood Loss: none Anesthesia Anesthesiologist: cleo Anesthesia: MAC Inserted Devices Implant(s) used?: No GI Core Measures 50 yrs or older w/o bx or poly: Not Applicable 10yrs. F/U not recommended: Not Applicable Edward Villar MD Jan 04, 2018 10:39
[2018-01-04] MEDS ORDERED: NS 275ml ONE (11:02)
[2018-01-04] MEDS ORDERED: Tubing IV Secondary IV ONE (11:02)
--- NOTE | 2018-01-04 11:02 | Diagnostic Imaging Report ---
Indication: Dyspnea Comparison: 01/03/2018 A single view chest radiograph was obtained. Findings: The endotracheal tube appears to be projected over the right mainstem bronchus. This is not absolutely certain and the recommend repeating the examination. The heart is enlarged. There is basilar consolidation again demonstrated. IMPRESSION: Probable endotracheal tube in the proximal right mainstem bronchus. Suggest a repeat x-ray for confirmation.
--- NOTE | 2018-01-04 11:04 | General Progress Note ---
Assessment/Plan Problem List: (1) Septic shock ICD Codes: A41.9 - Sepsis, unspecified organism; R65.21 - Severe sepsis with septic shock SNOMED: 08880358 (2) Thrombocytopenia ICD Codes: D69.6 - Thrombocytopenia, unspecified SNOMED: 307740017 (3) Leukocytosis ICD Codes: D72.829 - Elevated white blood cell count, unspecified SNOMED: 535214089, 695034966 (4) Hypokalemia ICD Codes: E87.6 - Hypokalemia SNOMED: 65331956, 834023186 Status: stable Assessment/Plan Septic Shock 2/2 gram negative bacteremia 2/2 cholelithiasis s/p sphincterotomy and biliary stent on 01/02 - continue IV abx - follow ID reqs - patient currently on three pressors, wean off per ICU team Thrombocytopenia likely multifactorial ddx include sepsis vs medication vs DIC vs HIT - DIC panel pending, follow up factor 4 assay, follow up hemolysis labs including haptoglobin Leukocytosis likely 2/2 to steroids and sepsis - will follow up labs per heme onc reqs Severe Hyponatremia - replace as necessary Subjective Time patient seen: 09:30 ROS Limited/Unobtainable: Yes Allergies: Coded Allergies: OLANZAPINE (Verified Allergy, Unknown, 01/01/18) TETRACYCLINE (Verified Allergy, Unknown, 01/01/18) Subjective Per RN no acute events overnight Objective Last 24 Hour Vital Signs Date Time Temp Pulse Resp B/P (MAP) Pulse Ox O2 Delivery O2 Flow Rate FiO2 01/04/18 10:42 67 22 75 01/04/18 10:00 74 20 115/72 (86) 98 01/04/18 09:30 78 22 111/74 (86) 98 01/04/18 09:00 65 22 108/70 (83) 98 01/04/18 08:57 62 24 80 01/04/18 08:30 68 23 106/71 (83) 94 01/04/18 08:00 98.8 77 22 115/72 (86) 96 98.8 01/04/18 08:00 68 01/04/18 08:00 Mechanical Ventilator 01/04/18 07:30 65 22 110/70 (83) 96 01/04/18 07:17 66 22 80 01/04/18 07:00 68 22 112/73 (86) 96 01/04/18 06:30 66 22 117/93 (101) 95 01/04/18 06:00 104/71 01/04/18 06:00 66 24 104/71 (82) 95 01/04/18 05:30 83 16 111/71 (84) 95 01/04/18 05:01 68 23 80 01/04/18 05:00 68 19 109/70 (83) 94 01/04/18 05:00 109/70 01/04/18 04:30 68 19 121/78 (92) 94 01/04/18 04:00 98.4 68 20 117/80 (92) 94 98.4 01/04/18 04:00 117/80 01/04/18 04:00 Mechanical Ventilator 01/04/18 03:30 67 21 128/77 (94) 95 01/04/18 03:11 70 24 80 01/04/18 03:07 70 01/04/18 03:00 128/78 01/04/18 03:00 68 19 128/78 (95) 95 01/04/18 02:30 69 20 126/73 (90) 95 01/04/18 02:00 96/60 01/04/18 02:00 71 24 96/60 (72) 94 01/04/18 01:30 77 25 103/65 (78) 94 01/04/18 01:00 84 22 101/63 (76) 94 01/04/18 01:00 101/63 01/04/18 00:56 73 26 80 01/04/18 00:30 68 19 128/79 (95) 94 01/04/18 00:30 128/79 01/04/18 00:00 98.6 69 18 125/74 (91) 94 98.6 01/04/18 00:00 125/74 01/04/18 00:00 Mechanical Ventilator 01/03/18 23:30 70 19 113/70 (84) 94 01/03/18 23:05 80 01/03/18 23:00 73 22 104/65 (78) 94 01/03/18 23:00 104/65 01/03/18 22:44 70 22 80 01/03/18 22:30 82 19 96/61 (73) 93 01/03/18 22:00 140/79 01/03/18 22:00 68 20 140/79 (99) 94 01/03/18 21:30 69 19 132/78 (96) 94 01/03/18 21:00 69 20 127/85 (99) 95 01/03/18 21:00 127/85 01/03/18 20:56 75 25 80 01/03/18 20:30 73 21 125/70 (88) 95 01/03/18 20:00 98.7 75 20 110/63 (79) 93 98.7 01/03/18 20:00 Mechanical Ventilator 01/03/18 20:00 110/63 01/03/18 19:34 86 28 80 01/03/18 19:30 86 25 118/64 (82) 92 01/03/18 19:29 75 01/03/18 19:00 68 19 121/74 (90) 94 01/03/18 18:00 85 26 95/59 (71) 97 01/03/18 17:28 91 21 80 01/03/18 17:00 88 26 93/58 (70) 97 01/03/18 16:00 82 01/03/18 16:00 80 01/03/18 16:00 Mechanical Ventilator 01/03/18 16:00 98.2 91 25 100/77 (85) 96 98.2 01/03/18 15:50 112/59 01/03/18 15:50 112/59 01/03/18 15:00 94 26 112/59 (76) 97 01/03/18 14:35 89 24 80 01/03/18 14:00 95 26 110/55 (73) 97 01/03/18 13:00 80 26 106/59 (75) 96 01/03/18 12:57 92 22 80 01/03/18 12:00 98.2 89 25 115/72 (86) 96 98.2 01/03/18 12:00 88 01/03/18 12:00 Mechanical Ventilator 01/03/18 11:25 97 26 90 01/03/18 11:00 99 26 112/59 (76) 97 Intake and Output 01/03/18 01/04/18 19:00 07:00 Intake Total 30 ml 1247.92 ml Output Total 2300 ml 1140 ml Balance -2270 ml 107.92 ml IV Total 1187.92 ml Tube Feeding 30 ml 60 ml Output Urine Total 2300 ml 1140 ml Laboratory Tests 01/03/18 11:25: Arterial Blood pH 7.455H, Arterial Blood Partial Pressure CO2 29.7L, Arterial Blood Partial Pressure O2 66.4L, Arterial Blood HCO3 20.4L, Arterial Blood Oxygen Saturation 93.7L, Arterial Blood Base Excess -2.3L, [place] Test Positive 01/03/18 14:25: Arterial Blood pH 7.448, Arterial Blood Partial Pressure CO2 28.9L, Arterial Blood Partial Pressure O2 91.3, Arterial Blood HCO3 19.5L, Arterial Blood Oxygen Saturation 97.3, Arterial Blood Base Excess -3.2L, [place] Test Positive 01/03/18 16:00: White Blood Count 16.7H, Red Blood Count 3.87L, Hemoglobin 13.2, Hematocrit 37.3 , Mean Corpuscular Volume 96, Mean Corpuscular Hemoglobin 34.2H, Mean Corpuscular Hemoglobin Concent 35.5, Red Cell Distribution Width 12.6, Platelet Count 42#L, Mean Platelet Volume 7.2, Neutrophils (%) (Auto) , Lymphocytes (%) ( Auto) , Monocytes (%) (Auto) , Eosinophils (%) (Auto) , Basophils (%) (Auto) , Differential Total Cells Counted 100, Neutrophils % (Manual) 85H, Lymphocytes % (Manual) 4L, Monocytes % (Manual) 2, Eosinophils % (Manual) 0, Basophils % ( Manual) 0, Myelocytes % 2H, Band Neutrophils 7, Platelet Estimate DecreasedL, Platelet Morphology Normal, Red Blood Cell Morphology Normal, Fibrinogen 904H, Fibrin Degradation Products, Quant [Pending], Sodium Level 147H, Potassium Level 2.5*L, Chloride Level 110H, Carbon Dioxide Level 25, Anion Gap 11, Blood Urea Nitrogen 28H, Creatinine 1.2, Estimat Glomerular Filtration Rate 56.0, Glucose Level 189H, Calcium Level 6.4L, Magnesium Level 2.0, Total Bilirubin 10.6H, Direct Bilirubin 8.2H, Aspartate Amino Transf (AST/SGOT) 158H, Alanine Aminotransferase (ALT/SGPT) 116H, Alkaline Phosphatase 90, Total Protein 5.7L, Albumin 2.1L, Globulin 3.6, Albumin/Globulin Ratio 0.6L, Heparin-PF4 Antibody Screen [Pending] 01/04/18 05:54: White Blood Count 17.8H, Red Blood Count 3.68L, Hemoglobin 12.4, Hematocrit 35.2L, Mean Corpuscular Volume 96, Mean Corpuscular Hemoglobin 33.8H, Mean Corpuscular Hemoglobin Concent 35.3, Red Cell Distribution Width 13.1, Platelet Count 26L, Mean Platelet Volume 11.4H, Neutrophils (%) (Auto) , Lymphocytes (%) (Auto) , Monocytes (%) (Auto) , Eosinophils (%) (Auto) , Basophils (%) (Auto) , Differential Total Cells Counted 100, Neutrophils % (Manual) 84H, Lymphocytes % (Manual) 9L, Monocytes % (Manual) 7, Eosinophils % (Manual) 0, Basophils % ( Manual) 0, Band Neutrophils 0, Platelet Estimate DecreasedL, Platelet Morphology Normal, Red Blood Cell Morphology Normal, Sodium Level 147H, Potassium Level 2.6*L, Chloride Level 111H, Carbon Dioxide Level 25, Anion Gap 11, Blood Urea Nitrogen 27H, Creatinine 1.0, Estimat Glomerular Filtration Rate > 60, Glucose Level 205H, Calcium Level 6.7L, Total Bilirubin 6.4H, Direct Bilirubin 4.6H, Aspartate Amino Transf (AST/SGOT) 103H, Alanine Aminotransferase (ALT/SGPT) 110H, Alkaline Phosphatase 98, Total Protein 5.8L, Albumin 2.1L, Globulin 3.7, Albumin/Globulin Ratio 0.6L, Prothrombin Time 10.7, Prothromb Time International Ratio 1.0, Lactic Acid Level 2.40H, Uric Acid 5.6, Phosphorus Level 1.5L, Random Tobramycin Level < 0.2 01/04/18 07:57: Arterial Blood pH 7.394, Arterial Blood Partial Pressure CO2 38.9, Arterial Blood Partial Pressure O2 124.3H, Arterial Blood HCO3 23.2, Arterial Blood Oxygen Saturation 98.1, Arterial Blood Base Excess -1.4, [place] Test Positive Height (Feet): 5 Height (Inches): 5.00 Weight (Pounds): 142 General Appearance: WD/WN, no apparent distress - patient withdraws to pait and spontaneously opens eyes EENT: PERRL/EOMI - patient intubated Neck: non-tender, supple Cardiovascular: normal rate, regular rhythm, no gallop/murmur, no JVD Respiratory/Chest: no respiratory distress, no accessory muscle use, rhonchi - bilaterally Abdomen: soft, no mass, hypoactive bowel sounds, decreased bowel sounds Genitourinary/Rectal: other - urinary catheter in place Extremities: swelling - mild swelling - right wrist Edema: no edema noted Arm (L), no edema noted Arm (R), no edema noted Leg (L), no edema noted Leg (R), no edema noted Pedal (L), no edema noted Pedal (R), no edema noted Generalized Neurologic: responsive - patient spontaneously opens eyes and withdraws to gita as well as displays non-purposeful movements Skin: warm/dry Susi Pryor DO Jan 04, 2018 11:04
--- NOTE | 2018-01-04 11:06 | Diagnostic Imaging Report ---
Indication: NG tube placement Comparison: Earlier at 07:25 A single view chest radiograph was obtained. Findings: NG tube and nasogastric tube appear in good position. Basilar consolidation again noted. Heart size is stable. IMPRESSION: No significant traveler changer the last 6 hours.
--- NOTE | 2018-01-04 12:01 | GI Progress Note ---
Assessment/Plan Problems: (1) Thrombocytopenia ICD Codes: D69.6 - Thrombocytopenia, unspecified SNOMED: 301430042 (2) Leukocytosis ICD Codes: D72.829 - Elevated white blood cell count, unspecified SNOMED: 565115727, 171751797 (3) Choledocholithiasis ICD Codes: K80.50 - Calculus of bile duct without cholangitis or cholecystitis without obstruction SNOMED: 742491109 (4) Renal failure ICD Codes: N19 - Unspecified kidney failure SNOMED: 88396057 Qualifiers: Qualified Codes: N19 - Unspecified kidney failure (5) Hypokalemia ICD Codes: E87.6 - Hypokalemia SNOMED: 23144893, 430605563 (6) Septic shock ICD Codes: A41.9 - Sepsis, unspecified organism; R65.21 - Severe sepsis with septic shock SNOMED: 69765083 (7) Sepsis ICD Codes: A41.9 - Sepsis, unspecified organism SNOMED: 09686695 (8) Elevated LFTs ICD Codes: R94.5 - Abnormal results of liver function studies SNOMED: 720717348, 936072934 Status: unchanged Status Narrative Discussed with Dr. Villar. Assessment/Plan Assessment - Cholangitis - Choledocholithiasis - s/p ERCP and stent - sepsis/chock - lactic acidosis - renal failure - thrombocytopenia, likely DIC related - Critical Recommendations - Begin TF, slowly - IVF - Abx - follow labs - transfuse PRN Subjective Subjective limited Objective Last 24 Hour Vital Signs Date Time Temp Pulse Resp B/P (MAP) Pulse Ox O2 Delivery O2 Flow Rate FiO2 01/04/18 11:00 78 22 117/74 (88) 98 01/04/18 10:42 67 22 75 01/04/18 10:30 71 20 110/70 (83) 98 01/04/18 10:00 74 20 115/72 (86) 98 01/04/18 09:30 78 22 111/74 (86) 98 01/04/18 09:00 65 22 108/70 (83) 98 01/04/18 08:57 62 24 80 01/04/18 08:30 68 23 106/71 (83) 94 01/04/18 08:00 98.8 77 22 115/72 (86) 96 98.8 01/04/18 08:00 68 10/8/18 08:00 Mechanical Ventilator 01/04/18 07:30 65 22 110/70 (83) 96 01/04/18 07:17 66 22 80 01/04/18 07:00 68 22 112/73 (86) 96 01/04/18 06:30 66 22 117/93 (101) 95 01/04/18 06:00 104/71 01/04/18 06:00 66 24 104/71 (82) 95 01/04/18 05:30 83 16 111/71 (84) 95 01/04/18 05:01 68 23 80 01/04/18 05:00 68 19 109/70 (83) 94 01/04/18 05:00 109/70 01/04/18 04:30 68 19 121/78 (92) 94 01/04/18 04:00 98.4 68 20 117/80 (92) 94 98.4 01/04/18 04:00 117/80 01/04/18 04:00 Mechanical Ventilator 01/04/18 03:30 67 21 128/77 (94) 95 01/04/18 03:11 70 24 80 01/04/18 03:07 70 01/04/18 03:00 128/78 01/04/18 03:00 68 19 128/78 (95) 95 01/04/18 02:30 69 20 126/73 (90) 95 01/04/18 02:00 96/60 01/04/18 02:00 71 24 96/60 (72) 94 01/04/18 01:30 77 25 103/65 (78) 94 01/04/18 01:00 84 22 101/63 (76) 94 01/04/18 01:00 101/63 01/04/18 00:56 73 26 80 01/04/18 00:30 68 19 128/79 (95) 94 01/04/18 00:30 128/79 01/04/18 00:00 98.6 69 18 125/74 (91) 94 98.6 01/04/18 00:00 125/74 01/04/18 00:00 Mechanical Ventilator 01/03/18 23:30 70 19 113/70 (84) 94 01/03/18 23:05 80 01/03/18 23:00 73 22 104/65 (78) 94 01/03/18 23:00 104/65 01/03/18 22:44 70 22 80 01/03/18 22:30 82 19 96/61 (73) 93 01/03/18 22:00 140/79 01/03/18 22:00 68 20 140/79 (99) 94 01/03/18 21:30 69 19 132/78 (96) 94 01/03/18 21:00 69 20 127/85 (99) 95 01/03/18 21:00 127/85 01/03/18 20:56 75 25 80 01/03/18 20:30 73 21 125/70 (88) 95 01/03/18 20:00 98.7 75 20 110/63 (79) 93 98.7 01/03/18 20:00 Mechanical Ventilator 01/03/18 20:00 110/63 01/03/18 19:34 86 28 80 01/03/18 19:30 86 25 118/64 (82) 92 01/03/18 19:29 75 01/03/18 19:00 68 19 121/74 (90) 94 01/03/18 18:00 85 26 95/59 (71) 97 01/03/18 17:28 91 21 80 01/03/18 17:00 88 26 93/58 (70) 97 01/03/18 16:00 82 01/03/18 16:00 80 01/03/18 16:00 Mechanical Ventilator 01/03/18 16:00 98.2 91 25 100/77 (85) 96 98.2 01/03/18 15:50 112/59 01/03/18 15:50 112/59 01/03/18 15:00 94 26 112/59 (76) 97 01/03/18 14:35 89 24 80 01/03/18 14:00 95 26 110/55 (73) 97 01/03/18 13:00 80 26 106/59 (75) 96 01/03/18 12:57 92 22 80 01/03/18 12:00 98.2 89 25 115/72 (86) 96 98.2 01/03/18 12:00 88 01/03/18 12:00 Mechanical Ventilator Intake and Output 01/03/18 01/04/18 19:00 07:00 Intake Total 30 ml 1247.92 ml Output Total 2300 ml 1140 ml Balance -2270 ml 107.92 ml IV Total 1187.92 ml Tube Feeding 30 ml 60 ml Output Urine Total 2300 ml 1140 ml Laboratory Tests Test 01/03/18 14:25 01/03/18 16:00 01/04/18 05:54 01/04/18 07:57 Arterial Blood pH 7.448 (7.350-7.450) 7.394 (7.350-7.450) Arterial Blood Partial Pressure CO2 28.9 mmHg (35.0-45.0) L 38.9 mmHg (35.0-45.0) Arterial Blood Partial Pressure O2 91.3 mmHg (75.0-100.0) 124.3 mmHg (75.0-100.0) H Arterial Blood HCO3 19.5 mmol/L (22.0-26.0) L 23.2 mmol/L (22.0-26.0) Arterial Blood Oxygen Saturation 97.3 % (95-100) 98.1 % (95-100) Arterial Blood Base Excess -3.2 (-2-2) L -1.4 (-2-2) [place] Test Positive Positive White Blood Count 16.7 K/UL (4.8-10.8) H 17.8 K/UL (4.8-10.8) H Red Blood Count 3.87 M/UL (4.20-5.40) L 3.68 M/UL (4.20-5.40) L Hemoglobin 13.2 G/DL (12.0-16.0) 12.4 G/DL (12.0-16.0) Hematocrit 37.3 % (37.0-47.0) 35.2 % (37.0-47.0) L Mean Corpuscular Volume 96 FL (80-99) 96 FL (80-99) Mean Corpuscular Hemoglobin 34.2 PG (27.0-31.0) H 33.8 PG (27.0-31.0) H Mean Corpuscular Hemoglobin Concent 35.5 G/DL (32.0-36.0) 35.3 G/DL (32.0-36.0) Red Cell Distribution Width 12.6 % (11.6-14.8) 13.1 % (11.6-14.8) Platelet Count 42 K/UL (150-450) #L 26 K/UL (150-450) L Mean Platelet Volume 7.2 FL (6.5-10.1) 11.4 FL (6.5-10.1) H Neutrophils (%) (Auto) % (45.0-75.0) % (45.0-75.0) Lymphocytes (%) (Auto) % (20.0-45.0) % (20.0-45.0) Monocytes (%) (Auto) % (1.0-10.0) % (1.0-10.0) Eosinophils (%) (Auto) % (0.0-3.0) % (0.0-3.0) Basophils (%) (Auto) % (0.0-2.0) % (0.0-2.0) Differential Total Cells Counted 100 100 Neutrophils % (Manual) 85 % (45-75) H 84 % (45-75) H Lymphocytes % (Manual) 4 % (20-45) L 9 % (20-45) L Monocytes % (Manual) 2 % (1-10) 7 % (1-10) Eosinophils % (Manual) 0 % (0-3) 0 % (0-3) Basophils % (Manual) 0 % (0-2) 0 % (0-2) Myelocytes % 2 % (0-0) H Band Neutrophils 7 % (0-8) 0 % (0-8) Platelet Estimate Decreased L Decreased L Platelet Morphology Normal Normal Red Blood Cell Morphology Normal Normal Fibrinogen 904 mg/dL (200-400) H Fibrin Degradation Products, Quant Pending Sodium Level 147 MMOL/L (136-145) H 147 MMOL/L (136-145) H Potassium Level 2.5 MMOL/L (3.5-5.1) *L 2.6 MMOL/L (3.5-5.1) *L Chloride Level 110 MMOL/L (98-107) H 111 MMOL/L (98-107) H Carbon Dioxide Level 25 MMOL/L (21-32) 25 MMOL/L (21-32) Anion Gap 11 mmol/L (5-15) 11 mmol/L (5-15) Blood Urea Nitrogen 28 mg/dL (7-18) H 27 mg/dL (7-18) H Creatinine 1.2 MG/DL (0.55-1.30) 1.0 MG/DL (0.55-1.30) Estimat Glomerular Filtration Rate 56.0 mL/min (>60) > 60 mL/min (>60) Glucose Level 189 MG/DL (74-106) H 205 MG/DL (74-106) H Calcium Level 6.4 MG/DL (8.5-10.1) L 6.7 MG/DL (8.5-10.1) L Magnesium Level 2.0 MG/DL (1.8-2.4) Total Bilirubin 10.6 MG/DL (0.2-1.0) H 6.4 MG/DL (0.2-1.0) H Direct Bilirubin 8.2 MG/DL (0.0-0.3) H 4.6 MG/DL (0.0-0.3) H Aspartate Amino Transf (AST/SGOT) 158 U/L (15-37) H 103 U/L (15-37) H Alanine Aminotransferase (ALT/SGPT) 116 U/L (12-78) H 110 U/L (12-78) H Alkaline Phosphatase 90 U/L (46-116) 98 U/L (46-116) Total Protein 5.7 G/DL (6.4-8.2) L 5.8 G/DL (6.4-8.2) L Albumin 2.1 G/DL (3.4-5.0) L 2.1 G/DL (3.4-5.0) L Globulin 3.6 g/dL 3.7 g/dL Albumin/Globulin Ratio 0.6 (1.0-2.7) L 0.6 (1.0-2.7) L Heparin-PF4 Antibody Screen Pending Prothrombin Time 10.7 SEC (9.30-11.50) Prothromb Time International Ratio 1.0 (0.9-1.1) Lactic Acid Level 2.40 mmol/L (0.4-2.0) H Uric Acid 5.6 MG/DL (2.6-7.2) Phosphorus Level 1.5 MG/DL (2.5-4.9) L Random Tobramycin Level < 0.2 ug/mL Height (Feet): 5 Height (Inches): 5.00 Weight (Pounds): 142 General Appearance: no apparent distress Cardiovascular: normal rate Respiratory/Chest: no respiratory distress Abdominal Exam: normal bowel sounds, non tender, soft Extremities: non-tender Brando Euceda NP Jan 04, 2018 12:01
[2018-01-04] MEDS: LORazepam Inj 2mg/ml 1ml IV PRN ×2 (12:47→23:54)
[2018-01-04] MEDS ORDERED: Albuterol/Ipratropium 3ml neb HHN PRN (13:15)
--- NOTE | 2018-01-04 13:15 | Pulmonolgy Critical Care Note ---
Critical Care - Asmt/Plan Problems: (1) Septic shock (2) Sepsis (3) Choledocholithiasis (4) Thrombocytopenia (5) Leukocytosis (6) Elevated LFTs (7) Renal failure (8) Chronic deep vein thrombosis (DVT) Respiratory: monitor respiratory rate, adjust FIO2 - Titrate down FiO2 and then PEEP to keep SaO2 > 92%, CXR - monitor, ABG, weaning trial Cardiac: continue pressors - Titrate NE and DA to keep MAP > 60 Renal: keep IV fluid - D51/[id number]@50 Infectious Disease: continue antibiotics - Zosyn and Tobra per ID, F/U ERCP Cx' s Gastrointestinal: continue feedings/current rate, other - F/U GI recs, monitor LFT's Endocrine: check TSH - and cortisol Hematologic: monitor H/H - and platelets, F/U heme onc recs and w/u Neurologic: PRN Ativan Prophylaxis: Protonix, SCDs Disposition: keep in ICU Time Spent (Minutes): 70 Notes Reviewed: utility operator, ID, GI, other - heme onc Discussed with: nurses, consultants Critical Care - Objective Last 24 Hour Vital Signs Date Time Temp Pulse Resp B/P (MAP) Pulse Ox O2 Delivery O2 Flow Rate FiO2 01/04/18 12:50 61 20 75 01/04/18 12:30 70 20 110/66 (81) 98 01/04/18 12:00 Mechanical Ventilator 01/04/18 12:00 61 01/04/18 12:00 72 22 108/64 (79) 98 01/04/18 11:30 75 20 115/75 (88) 98 01/04/18 11:00 78 22 117/74 (88) 98 01/04/18 10:42 67 22 75 01/04/18 10:30 71 20 110/70 (83) 98 01/04/18 10:00 74 20 115/72 (86) 98 01/04/18 09:30 78 22 111/74 (86) 98 01/04/18 09:00 65 22 108/70 (83) 98 01/04/18 08:57 62 24 80 01/04/18 08:30 68 23 106/71 (83) 94 01/04/18 08:00 98.8 77 22 115/72 (86) 96 98.8 01/04/18 08:00 68 01/04/18 08:00 Mechanical Ventilator 01/04/18 07:30 65 22 110/70 (83) 96 01/04/18 07:17 66 22 80 01/04/18 07:00 68 22 112/73 (86) 96 01/04/18 06:30 66 22 117/93 (101) 95 01/04/18 06:00 104/71 01/04/18 06:00 66 24 104/71 (82) 95 01/04/18 05:30 83 16 111/71 (84) 95 01/04/18 05:01 68 23 80 01/04/18 05:00 68 19 109/70 (83) 94 01/04/18 05:00 109/70 01/04/18 04:30 68 19 121/78 (92) 94 01/04/18 04:00 98.4 68 20 117/80 (92) 94 98.4 01/04/18 04:00 117/80 01/04/18 04:00 Mechanical Ventilator 01/04/18 03:30 67 21 128/77 (94) 95 01/04/18 03:11 70 24 80 01/04/18 03:07 70 01/04/18 03:00 128/78 01/04/18 03:00 68 19 128/78 (95) 95 01/04/18 02:30 69 20 126/73 (90) 95 01/04/18 02:00 96/60 01/04/18 02:00 71 24 96/60 (72) 94 01/04/18 01:30 77 25 103/65 (78) 94 01/04/18 01:00 84 22 101/63 (76) 94 01/04/18 01:00 101/63 01/04/18 00:56 73 26 80 01/04/18 00:30 68 19 128/79 (95) 94 01/04/18 00:30 128/79 01/04/18 00:00 98.6 69 18 125/74 (91) 94 98.6 01/04/18 00:00 125/74 01/04/18 00:00 Mechanical Ventilator 01/03/18 23:30 70 19 113/70 (84) 94 01/03/18 23:05 80 01/03/18 23:00 73 22 104/65 (78) 94 01/03/18 23:00 104/65 01/03/18 22:44 70 22 80 01/03/18 22:30 82 19 96/61 (73) 93 01/03/18 22:00 140/79 01/03/18 22:00 68 20 140/79 (99) 94 01/03/18 21:30 69 19 132/78 (96) 94 01/03/18 21:00 69 20 127/85 (99) 95 01/03/18 21:00 127/85 01/03/18 20:56 75 25 80 01/03/18 20:30 73 21 125/70 (88) 95 01/03/18 20:00 98.7 75 20 110/63 (79) 93 98.7 01/03/18 20:00 Mechanical Ventilator 01/03/18 20:00 110/63 01/03/18 19:34 86 28 80 01/03/18 19:30 86 25 118/64 (82) 92 01/03/18 19:29 75 01/03/18 19:00 68 19 121/74 (90) 94 01/03/18 18:00 85 26 95/59 (71) 97 01/03/18 17:28 91 21 80 01/03/18 17:00 88 26 93/58 (70) 97 01/03/18 16:00 82 01/03/18 16:00 80 01/03/18 16:00 Mechanical Ventilator 01/03/18 16:00 98.2 91 25 100/77 (85) 96 98.2 01/03/18 15:50 112/59 01/03/18 15:50 112/59 01/03/18 15:00 94 26 112/59 (76) 97 01/03/18 14:35 89 24 80 01/03/18 14:00 95 26 110/55 (73) 97 Status: awake, other - intubated Condition: critical Neck: full ROM Lungs: rales - BiB Heart: HR/BP unstable Abdomen: soft, non-tender, active bowel sounds Extremities: no C/C/E Micro: Microbiology Date/Time Source Procedure Growth Status 01/03/18 06:05 Blood Blood Culture - Preliminary Resulted 01/01/18 19:10 Blood Blood Culture - Preliminary Citrobacter Freundii Resulted 01/01/18 18:55 Blood Blood Culture - Preliminary Citrobacter Freundii Gram Negative Bacillus 2 Resulted 01/02/18 21:15 Sputum Induced Gram Stain - Final Resulted 01/02/18 21:15 Sputum Induced Sputum Culture Pending Resulted 01/01/18 14:00 Nasal Nares MRSA Culture - Final NO METHICILLIN RESISTANT STAPH AUREUS... Complete 01/01/18 22:25 Rectum VRE Culture - Final NO VANCOMYCIN RESISTANT ENTEROCOCCUS ... Complete 01/01/18 14:00 Rectum - Final NO CARBAPENEM-RESISTANT ENTEROBACTERI... Complete 01/01/18 14:00 Rectum VRE Culture - Final NO VANCOMYCIN RESISTANT ENTEROCOCCUS ... Complete Accucheck: 89 Blood Sugars: BS controlled Critical Care - Subjective ROS Limited/Unobtainable: Yes ICU Day: 4 Intubation Day: 3 Interval Events: S/P ERCP and STENT Condition: critical IV Access: central - R fem TLC EKG Rhythm: Sinus Rhythm FI02: 75 Vent Support Breath Rate: 20 Vent Support Mode: AC - 20, 450, 75/8 Vent Tidal Volume: 450 Sputum Amount: Small PEEP: 8.0 PIP: 35 Secretions: No sig secretions Fluids: D51/4MAl10KAB@50 Drips: NE 8, DA 4, off vaso Tube Feeding Amount: 15 I&O: Intake and Output 01/03/18 01/04/18 19:00 07:00 Intake Total 30 ml 1247.92 ml Output Total 2300 ml 1140 ml Balance -2270 ml 107.92 ml IV Total 1187.92 ml Tube Feeding 30 ml 60 ml Output Urine Total 2300 ml 1140 ml Subjective: Awake on vent, follow commands CXR: Duplex chronic R FEM DVT CXR BiB atx, mainstem ETT ET-Tube: 7.5 ET Position: 23 Labs: Laboratory Tests Test 01/03/18 14:25 01/03/18 16:00 01/04/18 05:54 01/04/18 07:57 Arterial Blood pH 7.448 (7.350-7.450) 7.394 (7.350-7.450) Arterial Blood Partial Pressure CO2 28.9 mmHg (35.0-45.0) L 38.9 mmHg (35.0-45.0) Arterial Blood Partial Pressure O2 91.3 mmHg (75.0-100.0) 124.3 mmHg (75.0-100.0) H Arterial Blood HCO3 19.5 mmol/L (22.0-26.0) L 23.2 mmol/L (22.0-26.0) Arterial Blood Oxygen Saturation 97.3 % (95-100) 98.1 % (95-100) Arterial Blood Base Excess -3.2 (-2-2) L -1.4 (-2-2) [place] Test Positive Positive White Blood Count 16.7 K/UL (4.8-10.8) H 17.8 K/UL (4.8-10.8) H Red Blood Count 3.87 M/UL (4.20-5.40) L 3.68 M/UL (4.20-5.40) L Hemoglobin 13.2 G/DL (12.0-16.0) 12.4 G/DL (12.0-16.0) Hematocrit 37.3 % (37.0-47.0) 35.2 % (37.0-47.0) L Mean Corpuscular Volume 96 FL (80-99) 96 FL (80-99) Mean Corpuscular Hemoglobin 34.2 PG (27.0-31.0) H 33.8 PG (27.0-31.0) H Mean Corpuscular Hemoglobin Concent 35.5 G/DL (32.0-36.0) 35.3 G/DL (32.0-36.0) Red Cell Distribution Width 12.6 % (11.6-14.8) 13.1 % (11.6-14.8) Platelet Count 42 K/UL (150-450) #L 26 K/UL (150-450) L Mean Platelet Volume 7.2 FL (6.5-10.1) 11.4 FL (6.5-10.1) H Neutrophils (%) (Auto) % (45.0-75.0) % (45.0-75.0) Lymphocytes (%) (Auto) % (20.0-45.0) % (20.0-45.0) Monocytes (%) (Auto) % (1.0-10.0) % (1.0-10.0) Eosinophils (%) (Auto) % (0.0-3.0) % (0.0-3.0) Basophils (%) (Auto) % (0.0-2.0) % (0.0-2.0) Differential Total Cells Counted 100 100 Neutrophils % (Manual) 85 % (45-75) H 84 % (45-75) H Lymphocytes % (Manual) 4 % (20-45) L 9 % (20-45) L Monocytes % (Manual) 2 % (1-10) 7 % (1-10) Eosinophils % (Manual) 0 % (0-3) 0 % (0-3) Basophils % (Manual) 0 % (0-2) 0 % (0-2) Myelocytes % 2 % (0-0) H Band Neutrophils 7 % (0-8) 0 % (0-8) Platelet Estimate Decreased L Decreased L Platelet Morphology Normal Normal Red Blood Cell Morphology Normal Normal Fibrinogen 904 mg/dL (200-400) H Fibrin Degradation Products, Quant Pending Sodium Level 147 MMOL/L (136-145) H 147 MMOL/L (136-145) H Potassium Level 2.5 MMOL/L (3.5-5.1) *L 2.6 MMOL/L (3.5-5.1) *L Chloride Level 110 MMOL/L (98-107) H 111 MMOL/L (98-107) H Carbon Dioxide Level 25 MMOL/L (21-32) 25 MMOL/L (21-32) Anion Gap 11 mmol/L (5-15) 11 mmol/L (5-15) Blood Urea Nitrogen 28 mg/dL (7-18) H 27 mg/dL (7-18) H Creatinine 1.2 MG/DL (0.55-1.30) 1.0 MG/DL (0.55-1.30) Estimat Glomerular Filtration Rate 56.0 mL/min (>60) > 60 mL/min (>60) Glucose Level 189 MG/DL (74-106) H 205 MG/DL (74-106) H Calcium Level 6.4 MG/DL (8.5-10.1) L 6.7 MG/DL (8.5-10.1) L Magnesium Level 2.0 MG/DL (1.8-2.4) Total Bilirubin 10.6 MG/DL (0.2-1.0) H 6.4 MG/DL (0.2-1.0) H Direct Bilirubin 8.2 MG/DL (0.0-0.3) H 4.6 MG/DL (0.0-0.3) H Aspartate Amino Transf (AST/SGOT) 158 U/L (15-37) H 103 U/L (15-37) H Alanine Aminotransferase (ALT/SGPT) 116 U/L (12-78) H 110 U/L (12-78) H Alkaline Phosphatase 90 U/L (46-116) 98 U/L (46-116) Total Protein 5.7 G/DL (6.4-8.2) L 5.8 G/DL (6.4-8.2) L Albumin 2.1 G/DL (3.4-5.0) L 2.1 G/DL (3.4-5.0) L Globulin 3.6 g/dL 3.7 g/dL Albumin/Globulin Ratio 0.6 (1.0-2.7) L 0.6 (1.0-2.7) L Heparin-PF4 Antibody Screen Pending Prothrombin Time 10.7 SEC (9.30-11.50) Prothromb Time International Ratio 1.0 (0.9-1.1) Lactic Acid Level 2.40 mmol/L (0.4-2.0) H Uric Acid 5.6 MG/DL (2.6-7.2) Phosphorus Level 1.5 MG/DL (2.5-4.9) L Random Tobramycin Level < 0.2 ug/mL Test 01/04/18 11:50 Lactic Acid Level 2.20 mmol/L (0.66-2.22) Duncan Marte MD Jan 04, 2018 13:15
[2018-01-04] MEDS ORDERED: LORazepam Inj 2mg/ml 1ml IV SCH (13:30)
--- NOTE | 2018-01-04 14:48 | Cardiology Report ---
APPROVED REPORT EKG Measurement Heart [id number] MN 140P57 [id number] Sinus tachycardia Biatrial enlargement Anterior infarct, age undetermined Abnormal ECG
[2018-01-04] MEDS: DOPamine 400mg/250ml 250 ML IV SCH (15:20)
[2018-01-04] MEDS: D5 1/2NS w/KCl 40meq 1000ml 1,000 ML IV SCH (15:20)
--- NOTE | 2018-01-04 15:48 | General Surgery Progress Note ---
General Surgery-Progress Note Subjective Additional Comments leukocytosis. t bili trending down. lft's improving Objective Last 24 Hour Vital Signs Date Time Temp Pulse Resp B/P (MAP) Pulse Ox O2 Delivery O2 Flow Rate FiO2 01/04/18 15:24 54 21 65 01/04/18 15:22 80 01/04/18 15:20 108/62 01/04/18 15:00 78 20 108/62 (77) 98 01/04/18 14:00 98.8 88 20 118/65 (82) 98 98.8 01/04/18 13:00 98 20 122/68 (86) 98 01/04/18 12:50 61 20 70 01/04/18 12:30 70 20 110/66 (81) 98 01/04/18 12:00 Mechanical Ventilator 01/04/18 12:00 61 01/04/18 12:00 72 22 108/64 (79) 98 01/04/18 11:30 75 20 115/75 (88) 98 01/04/18 11:00 78 22 117/74 (88) 98 01/04/18 10:42 67 22 75 01/04/18 10:30 71 20 110/70 (83) 98 01/04/18 10:00 74 20 115/72 (86) 98 01/04/18 09:30 78 22 111/74 (86) 98 01/04/18 09:00 65 22 108/70 (83) 98 01/04/18 08:57 62 24 80 01/04/18 08:30 68 23 106/71 (83) 94 01/04/18 08:00 98.8 77 22 115/72 (86) 96 98.8 01/04/18 08:00 68 01/04/18 08:00 Mechanical Ventilator 01/04/18 07:30 65 22 110/70 (83) 96 01/04/18 07:17 66 22 80 01/04/18 07:00 68 22 112/73 (86) 96 01/04/18 06:30 66 22 117/93 (101) 95 01/04/18 06:00 104/71 01/04/18 06:00 66 24 104/71 (82) 95 01/04/18 05:30 83 16 111/71 (84) 95 01/04/18 05:01 68 23 80 01/04/18 05:00 68 19 109/70 (83) 94 01/04/18 05:00 109/70 01/04/18 04:30 68 19 121/78 (92) 94 01/04/18 04:00 98.4 68 20 117/80 (92) 94 98.4 01/04/18 04:00 117/80 01/04/18 04:00 Mechanical Ventilator 01/04/18 03:30 67 21 128/77 (94) 95 01/04/18 03:11 70 24 80 01/04/18 03:07 70 01/04/18 03:00 128/78 01/04/18 03:00 68 19 128/78 (95) 95 01/04/18 02:30 69 20 126/73 (90) 95 01/04/18 02:00 96/60 01/04/18 02:00 71 24 96/60 (72) 94 01/04/18 01:30 77 25 103/65 (78) 94 01/04/18 01:00 84 22 101/63 (76) 94 01/04/18 01:00 101/63 01/04/18 00:56 73 26 80 01/04/18 00:30 68 19 128/79 (95) 94 01/04/18 00:30 128/79 01/04/18 00:00 98.6 69 18 125/74 (91) 94 98.6 01/04/18 00:00 125/74 01/04/18 00:00 Mechanical Ventilator 01/03/18 23:30 70 19 113/70 (84) 94 01/03/18 23:05 80 01/03/18 23:00 73 22 104/65 (78) 94 01/03/18 23:00 104/65 01/03/18 22:44 70 22 80 01/03/18 22:30 82 19 96/61 (73) 93 01/03/18 22:00 140/79 01/03/18 22:00 68 20 140/79 (99) 94 01/03/18 21:30 69 19 132/78 (96) 94 01/03/18 21:00 69 20 127/85 (99) 95 01/03/18 21:00 127/85 01/03/18 20:56 75 25 80 01/03/18 20:30 73 21 125/70 (88) 95 01/03/18 20:00 98.7 75 20 110/63 (79) 93 98.7 01/03/18 20:00 Mechanical Ventilator 01/03/18 20:00 110/63 01/03/18 19:34 86 28 80 01/03/18 19:30 86 25 118/64 (82) 92 01/03/18 19:29 75 01/03/18 19:00 68 19 121/74 (90) 94 01/03/18 18:00 85 26 95/59 (71) 97 01/03/18 17:28 91 21 80 01/03/18 17:00 88 26 93/58 (70) 97 01/03/18 16:00 82 01/03/18 16:00 80 01/03/18 16:00 Mechanical Ventilator 01/03/18 16:00 98.2 91 25 100/77 (85) 96 98.2 01/03/18 15:50 112/59 01/03/18 15:50 112/59 I&O Intake and Output 01/03/18 01/04/18 19:00 07:00 Intake Total 30 ml 1247.92 ml Output Total 2300 ml 1140 ml Balance -2270 ml 107.92 ml IV Total 1187.92 ml Tube Feeding 30 ml 60 ml Output Urine Total 2300 ml 1140 ml Drains: other Cardiovascular: RSR Respiratory: clear Abdomen: soft, distended, non-tender, present bowel sounds Extremities: no cyanosis Laboratory Tests Test 01/03/18 16:00 01/04/18 05:54 01/04/18 07:57 01/04/18 11:50 White Blood Count 16.7 K/UL (4.8-10.8) H 17.8 K/UL (4.8-10.8) H Red Blood Count 3.87 M/UL (4.20-5.40) L 3.68 M/UL (4.20-5.40) L Hemoglobin 13.2 G/DL (12.0-16.0) 12.4 G/DL (12.0-16.0) Hematocrit 37.3 % (37.0-47.0) 35.2 % (37.0-47.0) L Mean Corpuscular Volume 96 FL (80-99) 96 FL (80-99) Mean Corpuscular Hemoglobin 34.2 PG (27.0-31.0) H 33.8 PG (27.0-31.0) H Mean Corpuscular Hemoglobin Concent 35.5 G/DL (32.0-36.0) 35.3 G/DL (32.0-36.0) Red Cell Distribution Width 12.6 % (11.6-14.8) 13.1 % (11.6-14.8) Platelet Count 42 K/UL (150-450) #L 26 K/UL (150-450) L Mean Platelet Volume 7.2 FL (6.5-10.1) 11.4 FL (6.5-10.1) H Neutrophils (%) (Auto) % (45.0-75.0) % (45.0-75.0) Lymphocytes (%) (Auto) % (20.0-45.0) % (20.0-45.0) Monocytes (%) (Auto) % (1.0-10.0) % (1.0-10.0) Eosinophils (%) (Auto) % (0.0-3.0) % (0.0-3.0) Basophils (%) (Auto) % (0.0-2.0) % (0.0-2.0) Differential Total Cells Counted 100 100 Neutrophils % (Manual) 85 % (45-75) H 84 % (45-75) H Lymphocytes % (Manual) 4 % (20-45) L 9 % (20-45) L Monocytes % (Manual) 2 % (1-10) 7 % (1-10) Eosinophils % (Manual) 0 % (0-3) 0 % (0-3) Basophils % (Manual) 0 % (0-2) 0 % (0-2) Myelocytes % 2 % (0-0) H Band Neutrophils 7 % (0-8) 0 % (0-8) Platelet Estimate Decreased L Decreased L Platelet Morphology Normal Normal Red Blood Cell Morphology Normal Normal Fibrinogen 904 mg/dL (200-400) H Fibrin Degradation Products, Quant Pending Sodium Level 147 MMOL/L (136-145) H 147 MMOL/L (136-145) H Potassium Level 2.5 MMOL/L (3.5-5.1) *L 2.6 MMOL/L (3.5-5.1) *L Chloride Level 110 MMOL/L (98-107) H 111 MMOL/L (98-107) H Carbon Dioxide Level 25 MMOL/L (21-32) 25 MMOL/L (21-32) Anion Gap 11 mmol/L (5-15) 11 mmol/L (5-15) Blood Urea Nitrogen 28 mg/dL (7-18) H 27 mg/dL (7-18) H Creatinine 1.2 MG/DL (0.55-1.30) 1.0 MG/DL (0.55-1.30) Estimat Glomerular Filtration Rate 56.0 mL/min (>60) > 60 mL/min (>60) Glucose Level 189 MG/DL (74-106) H 205 MG/DL (74-106) H Calcium Level 6.4 MG/DL (8.5-10.1) L 6.7 MG/DL (8.5-10.1) L Magnesium Level 2.0 MG/DL (1.8-2.4) Total Bilirubin 10.6 MG/DL (0.2-1.0) H 6.4 MG/DL (0.2-1.0) H Direct Bilirubin 8.2 MG/DL (0.0-0.3) H 4.6 MG/DL (0.0-0.3) H Aspartate Amino Transf (AST/SGOT) 158 U/L (15-37) H 103 U/L (15-37) H Alanine Aminotransferase (ALT/SGPT) 116 U/L (12-78) H 110 U/L (12-78) H Alkaline Phosphatase 90 U/L (46-116) 98 U/L (46-116) Total Protein 5.7 G/DL (6.4-8.2) L 5.8 G/DL (6.4-8.2) L Albumin 2.1 G/DL (3.4-5.0) L 2.1 G/DL (3.4-5.0) L Globulin 3.6 g/dL 3.7 g/dL Albumin/Globulin Ratio 0.6 (1.0-2.7) L 0.6 (1.0-2.7) L Heparin-PF4 Antibody Screen 0.06 OD (<0.40) Prothrombin Time 10.7 SEC (9.30-11.50) Prothromb Time International Ratio 1.0 (0.9-1.1) Lactic Acid Level 2.40 mmol/L (0.4-2.0) H 2.20 mmol/L (0.66-2.22) Uric Acid 5.6 MG/DL (2.6-7.2) Phosphorus Level 1.5 MG/DL (2.5-4.9) L Random Tobramycin Level < 0.2 ug/mL Arterial Blood pH 7.394 (7.350-7.450) Arterial Blood Partial Pressure CO2 38.9 mmHg (35.0-45.0) Arterial Blood Partial Pressure O2 124.3 mmHg (75.0-100.0) H Arterial Blood HCO3 23.2 mmol/L (22.0-26.0) Arterial Blood Oxygen Saturation 98.1 % (95-100) Arterial Blood Base Excess -1.4 (-2-2) [place] Test Positive Plan Problems: (1) Septic shock Assessment & Plan: Septic shock, choledocholithiasis, possible cholangitis -npo -iv fluids -iv abx -icu care -trend labs thank you. will follow with recs. (2) Choledocholithiasis Assessment & Plan: s/p ERCP with stent LFT's improving leukocytosis cont iv abx thank you (3) Elevated LFTs Darius Caraballo Jan 04, 2018 15:48
--- NOTE | 2018-01-04 16:18 | Diagnostic Imaging Report ---
Indication: Dyspnea. Repeat chest Comparison: None A single view chest radiograph was obtained. Findings: Endotracheal tube is in good position just above the andrade. This appears to have been repositioned. NG tube is unchanged. IMPRESSION: Endotracheal tube now in good position
--- NOTE | 2018-01-04 17:02 | Diagnostic Imaging Report ---
Indication: Abdominal pain. ERCP. Findings: Fluoroscopically captured images of the right upper quadrant of the abdomen demonstrate an endoscope with cannulation of the common bile duct and injection of contrast material. Single fluoroscopically obtained image shows the endoscope contrast within the somewhat prominent biliary ducts and a CBD stent. Total fluoroscopic time 5.9 minutes Impression: ERCP as above
--- NOTE | 2018-01-04 18:02 | Infectious Diseases Prog Note ---
Assessment/Plan Assessment/Plan ASSESSMENT AND PLAN: 1. sepsis, shock, citrobacter/gram negative bacteremia, cholangitis, fevers, leukocytosis, ? pna, ? ards - s/p ERCP - zosyn and tobramycin for now - f/u on cultures - monitor labs and chest x-ray - d/w RN - prognosis guarded - icu, supportive care 2. Respiratory failure - on vent, per pulmonary medicine 3. Acute kidney injury - cr better 4. History of paranoid schizophrenia and psychiatric disease. 5. Hypertension. 6. No history of diabetes. 7. Allergy to olanzapine and tetracycline. 8. MAR was noted. 9. Case discussed with RN. 10. Family history noncontributory. 11. Social history negative. 12. Continue treatment per primary consultants. 13. Prognosis is guarded to poor. 14. Notes and records were noted and orders were entered. Subjective Constitutional: Reports: fatigue, other - lethargic, on vent, + pressors ; Denies: fever HEENT: Reports: congestion Respiratory: Reports: shortness of breath, other - on vent Cardiovascular: Reports: other - + pressors Gastrointestinal/Abdominal: Reports: diarrhea, other - + rectal tube ; Denies: nausea, vomiting Genitourinary: Reports: other - + goldman Neurologic: Reports: other - lethargic and weak Psychiatric: Reports: other - na Skin: Denies: rash Endocrine: Reports: other - na Hematologic: Denies: bleeding Musculoskeletal: Reports: other - na Allergies: Coded Allergies: OLANZAPINE (Verified Allergy, Unknown, 01/01/18) TETRACYCLINE (Verified Allergy, Unknown, 01/01/18) Objective Vital Signs Last 24 Hour Vital Signs Date Time Temp Pulse Resp B/P (MAP) Pulse Ox O2 Delivery O2 Flow Rate FiO2 01/04/18 17:00 80 22 124/68 (86) 98 01/04/18 16:56 81 25 60 01/04/18 16:30 77 20 118/64 (82) 98 01/04/18 16:00 Mechanical Ventilator 01/04/18 16:00 60 01/04/18 16:00 75 20 115/68 (84) 98 01/04/18 15:30 70 20 110/66 (81) 98 01/04/18 15:24 54 21 65 01/04/18 15:22 80 01/04/18 15:20 108/62 01/04/18 15:00 78 20 108/62 (77) 98 01/04/18 14:30 82 20 118/62 (80) 98 01/04/18 14:00 98.8 88 20 118/65 (82) 98 98.8 01/04/18 13:30 90 20 120/68 (85) 98 01/04/18 13:00 98 20 122/68 (86) 98 01/04/18 12:50 61 20 70 01/04/18 12:30 70 20 110/66 (81) 98 01/04/18 12:00 Mechanical Ventilator 01/04/18 12:00 61 01/04/18 12:00 72 22 108/64 (79) 98 01/04/18 11:30 75 20 115/75 (88) 98 01/04/18 11:00 78 22 117/74 (88) 98 01/04/18 10:42 67 22 75 01/04/18 10:30 71 20 110/70 (83) 98 01/04/18 10:00 74 20 115/72 (86) 98 01/04/18 09:30 78 22 111/74 (86) 98 01/04/18 09:00 65 22 108/70 (83) 98 01/04/18 08:57 62 24 80 01/04/18 08:30 68 23 106/71 (83) 94 01/04/18 08:00 98.8 77 22 115/72 (86) 96 98.8 01/04/18 08:00 68 01/04/18 08:00 Mechanical Ventilator 01/04/18 07:30 65 22 110/70 (83) 96 01/04/18 07:17 66 22 80 01/04/18 07:00 68 22 112/73 (86) 96 01/04/18 06:30 66 22 117/93 (101) 95 01/04/18 06:00 104/71 01/04/18 06:00 66 24 104/71 (82) 95 01/04/18 05:30 83 16 111/71 (84) 95 01/04/18 05:01 68 23 80 01/04/18 05:00 68 19 109/70 (83) 94 01/04/18 05:00 109/70 01/04/18 04:30 68 19 121/78 (92) 94 01/04/18 04:00 98.4 68 20 117/80 (92) 94 98.4 01/04/18 04:00 117/80 01/04/18 04:00 Mechanical Ventilator 01/04/18 03:30 67 21 128/77 (94) 95 01/04/18 03:11 70 24 80 01/04/18 03:07 70 01/04/18 03:00 128/78 01/04/18 03:00 68 19 128/78 (95) 95 01/04/18 02:30 69 20 126/73 (90) 95 01/04/18 02:00 96/60 01/04/18 02:00 71 24 96/60 (72) 94 01/04/18 01:30 77 25 103/65 (78) 94 01/04/18 01:00 84 22 101/63 (76) 94 01/04/18 01:00 101/63 01/04/18 00:56 73 26 80 01/04/18 00:30 68 19 128/79 (95) 94 01/04/18 00:30 128/79 01/04/18 00:00 98.6 69 18 125/74 (91) 94 98.6 01/04/18 00:00 125/74 01/04/18 00:00 Mechanical Ventilator 01/03/18 23:30 70 19 113/70 (84) 94 01/03/18 23:05 80 01/03/18 23:00 73 22 104/65 (78) 94 01/03/18 23:00 104/65 01/03/18 22:44 70 22 80 01/03/18 22:30 82 19 96/61 (73) 93 01/03/18 22:00 140/79 01/03/18 22:00 68 20 140/79 (99) 94 01/03/18 21:30 69 19 132/78 (96) 94 01/03/18 21:00 69 20 127/85 (99) 95 01/03/18 21:00 127/85 01/03/18 20:56 75 25 80 01/03/18 20:30 73 21 125/70 (88) 95 01/03/18 20:00 98.7 75 20 110/63 (79) 93 98.7 01/03/18 20:00 Mechanical Ventilator 01/03/18 20:00 110/63 01/03/18 19:34 86 28 80 01/03/18 19:30 86 25 118/64 (82) 92 01/03/18 19:29 75 01/03/18 19:00 68 19 121/74 (90) 94 01/03/18 18:00 85 26 95/59 (71) 97 Height (Feet): 5 Height (Inches): 5.00 Weight (Pounds): 142 General Appearance: other - on vent, on pressors, lethargic HEENT: normocephalic, atraumatic, anicteric, other Respiratory/Chest: crackles/rales, rhonchi - bilaterally Cardiovascular: normal rate, regular rhythm, no gallop/murmur, no JVD Abdomen: normal bowel sounds, soft, non tender, no organomegaly, non distended Genitourinary: other - + rectal tube, + goldman Extremities: no cyanosis Skin: no rash Neurologic/Psychiatric: motor weakness, other - lethargic, weak Lymphatic: no neck adenopathy Musculoskeletal: no effusion Objective CT abdomen and pelvis: Impression: Positive for choledocholithiasis, 3 large calculi in the downstream common bile duct. There is evidence of biliary obstruction, with marked dilatation of the extrahepatic and intrahepatic bile ducts. Dr. Niño was notified of this finding at the time of interpretation Cholelithiasis Limited assessment of the GI tract, due to lack of enteric contrast Posterior dependent pulmonary atelectatic changes. Right middle lobe scarring with associated bronchiectasis Incidental finding of tiny fat-containing abdominal hernia. US - abdomen: Impression: Cholelithiasis Marked biliary ductal dilatation, consistent with choledocholithiasis seen on prior CT scan, although not imaged on current study Chest x-ray - 01/03 - FINDINGS: Image is limited by portable technique and external artifacts. Allowing for this, endotracheal tube remains in place, terminating approximately 2 cm above the andrade. Enteric tube terminates at least within the gastric body. There are patchy coarse reticular opacities within bilateral medial lung bases with probable associated volume loss, indicating at least atelectasis, as before. No definite new lung opacity. Heart size is normal and stable. No obvious significant pleural effusion or pneumothorax. IMPRESSION: 1. New enteric tube terminates at least within the gastric body. 2. Otherwise, no definite significant interval change. Chest x-ray - 01/04 - Findings: The endotracheal tube appears to be projected over the right mainstem bronchus. This is not absolutely certain and the recommend repeating the examination. The heart is enlarged. There is basilar consolidation again demonstrated. IMPRESSION: Probable endotracheal tube in the proximal right mainstem bronchus. Suggest a repeat x-ray for confirmation. Microbiology Date/Time Source Procedure Growth Status 01/03/18 06:05 Blood Blood Culture - Preliminary Resulted 01/01/18 19:10 Blood Blood Culture - Preliminary Citrobacter Freundii Resulted 01/01/18 18:55 Blood Blood Culture - Preliminary Citrobacter Freundii Gram Negative Bacillus 2 Resulted 01/02/18 21:15 Sputum Induced Gram Stain - Final Resulted 01/02/18 21:15 Sputum Induced Sputum Culture Pending Resulted 01/01/18 22:25 Rectum VRE Culture - Final NO VANCOMYCIN RESISTANT ENTEROCOCCUS ... Complete Laboratory Tests Test 01/04/18 05:54 01/04/18 07:57 01/04/18 11:50 White Blood Count 17.8 K/UL (4.8-10.8) H Red Blood Count 3.68 M/UL (4.20-5.40) L Hemoglobin 12.4 G/DL (12.0-16.0) Hematocrit 35.2 % (37.0-47.0) L Mean Corpuscular Volume 96 FL (80-99) Mean Corpuscular Hemoglobin 33.8 PG (27.0-31.0) H Mean Corpuscular Hemoglobin Concent 35.3 G/DL (32.0-36.0) Red Cell Distribution Width 13.1 % (11.6-14.8) Platelet Count 26 K/UL (150-450) L Mean Platelet Volume 11.4 FL (6.5-10.1) H Neutrophils (%) (Auto) % (45.0-75.0) Lymphocytes (%) (Auto) % (20.0-45.0) Monocytes (%) (Auto) % (1.0-10.0) Eosinophils (%) (Auto) % (0.0-3.0) Basophils (%) (Auto) % (0.0-2.0) Differential Total Cells Counted 100 Neutrophils % (Manual) 84 % (45-75) H Lymphocytes % (Manual) 9 % (20-45) L Monocytes % (Manual) 7 % (1-10) Eosinophils % (Manual) 0 % (0-3) Basophils % (Manual) 0 % (0-2) Band Neutrophils 0 % (0-8) Platelet Estimate Decreased L Platelet Morphology Normal Red Blood Cell Morphology Normal Prothrombin Time 10.7 SEC (9.30-11.50) Prothromb Time International Ratio 1.0 (0.9-1.1) Sodium Level 147 MMOL/L (136-145) H Potassium Level 2.6 MMOL/L (3.5-5.1) *L Chloride Level 111 MMOL/L (98-107) H Carbon Dioxide Level 25 MMOL/L (21-32) Anion Gap 11 mmol/L (5-15) Blood Urea Nitrogen 27 mg/dL (7-18) H Creatinine 1.0 MG/DL (0.55-1.30) Estimat Glomerular Filtration Rate > 60 mL/min (>60) Glucose Level 205 MG/DL (74-106) H Lactic Acid Level 2.40 mmol/L (0.4-2.0) H 2.20 mmol/L (0.66-2.22) Uric Acid 5.6 MG/DL (2.6-7.2) Calcium Level 6.7 MG/DL (8.5-10.1) L Phosphorus Level 1.5 MG/DL (2.5-4.9) L Total Bilirubin 6.4 MG/DL (0.2-1.0) H Direct Bilirubin 4.6 MG/DL (0.0-0.3) H Aspartate Amino Transf (AST/SGOT) 103 U/L (15-37) H Alanine Aminotransferase (ALT/SGPT) 110 U/L (12-78) H Alkaline Phosphatase 98 U/L (46-116) Total Protein 5.8 G/DL (6.4-8.2) L Albumin 2.1 G/DL (3.4-5.0) L Globulin 3.7 g/dL Albumin/Globulin Ratio 0.6 (1.0-2.7) L Random Tobramycin Level < 0.2 ug/mL Arterial Blood pH 7.394 (7.350-7.450) Arterial Blood Partial Pressure CO2 38.9 mmHg (35.0-45.0) Arterial Blood Partial Pressure O2 124.3 mmHg (75.0-100.0) H Arterial Blood HCO3 23.2 mmol/L (22.0-26.0) Arterial Blood Oxygen Saturation 98.1 % (95-100) Arterial Blood Base Excess -1.4 (-2-2) [place] Test Positive Current Medications Medications (Trade) Dose Ordered Sig/Bertrand Route PRN Reason Start Time Stop Time Status Last Admin Dose Admin Acetaminophen (Tylenol) 650 mg Q6H PRN ORAL Mild Pain/Temp > 100.5 01/03/18 21:25 02/02/18 21:24 Albuterol/ Ipratropium (Albuterol/ Ipratropium) 3 ml Q4H PRN HHN Shortness of Breath 01/04/18 13:15 01/09/18 13:14 Chlorhexidine Gluconate (Mandy-Hex 2%) 1 applic DAILY@2000 TOPIC 01/03/18 20:00 02/02/18 19:59 01/03/18 19:47 Dextrose (Dextrose 50%) 25 ml Q30M PRN IV Hypoglycemia 01/01/18 17:30 01/31/18 17:29 Dextrose (Dextrose 50%) 50 ml Q30M PRN IV Hypoglycemia 01/01/18 17:30 01/31/18 17:29 Dextrose/ Electrolytes 1,000 ml @ 50 mls/hr Q20H IV 01/03/18 19:00 02/02/18 18:59 01/04/18 15:20 Dopamine HCl/ Dextrose 250 ml @ 0 mls/hr Q24H IV 01/01/18 20:15 01/31/18 20:14 01/04/18 15:20 Hydrocortisone (Solu-CORTEF) 50 mg Q6HR IV 01/02/18 14:15 02/01/18 14:14 01/04/18 12:00 Lorazepam (Ativan 2mg/ml 1ml) 2 mg EVERY 2 HOURS PRN IV For Anxiety 01/02/18 14:30 01/09/18 14:29 01/04/18 12:47 Morphine Sulfate (Morphine Sulfate) 2 mg Q4H PRN IVP For Pain 01/02/18 14:30 01/09/18 14:29 Norepinephrine Bitartrate 16 mg/ Dextrose 566 ml @ 0 mls/hr Q24H IV 01/02/18 21:30 02/01/18 13:59 01/03/18 15:50 Ondansetron HCl (Zofran) 4 mg Q6H PRN IVP Nausea & Vomiting 01/01/18 17:30 01/31/18 17:29 Pantoprazole (Protonix) 40 mg DAILY IV 01/02/18 09:00 02/01/18 08:59 01/04/18 08:36 Piperacillin Sod/ Tazobactam Sod 3.375 gm/Dextrose 110 ml @ 27.5 mls/hr Q8HR IVPB 01/03/18 14:00 01/10/18 13:59 01/04/18 13:03 Tobramycin Protocol (Tobramycin pharmacy to dose) 1 ea DAILY PRN MISC Per rx protocol 01/02/18 09:15 02/01/18 09:14 Tobramycin Sulfate 280 mg/ Sodium Chloride 110 ml @ 220 mls/hr Q24H IV 01/04/18 18:00 01/11/18 17:59 Vasopressin 100 units/Sodium Chloride 100 ml @ 0 mls/hr Q24H IV 01/02/18 10:00 02/01/18 09:59 01/03/18 19:00 Corinne Lilly MD Jan 04, 2018 18:02
[2018-01-04] MEDS: TOBRAMYCIN IV SCH (18:10)
[2018-01-04] MEDS: NS IV SCH (18:10)
[2018-01-04] MEDS: Dyna-Hex 2% Top Sol 2oz TOPIC SCH (20:15)
[2018-01-04] MEDS: Norepinephrine Bitartrate 16 MG in D5W 500ml 550 ML IV SCH (21:12)
[2018-01-05] VITALS (37 sets, daily range): BP systolic 97–134; BP diastolic 56–86
[2018-01-05] MEDS: Hydrocortisone 100mg Inj IV SCH ×3 (06:07→18:04)
[2018-01-05] MEDS: Piperacillin/Tazobactam 3.375 GM in D5W 110 ML IVPB SCH ×3 (06:09→21:34)
[2018-01-05 07:19] LABS: HEMATOCRIT 33.6 % (37.0-47.0); HEMOGLOBIN 11.7 G/DL (12.0-16.0); MEAN CORPUSCULAR VOLUME 98 FL (80-99); PLATELET COUNT 44 K/UL (150-450); RED BLOOD COUNT 3.44 M/UL (4.20-5.40); RED CELL DISTRIBUTION WIDTH 13.5 % (11.6-14.8); WHITE BLOOD COUNT 19.1 K/UL (4.8-10.8)
[2018-01-05 07:53] LABS: ALANINE AMINOTRANSFERASE 102 U/L (12-78); ALBUMIN 2.3 G/DL (3.4-5.0); ALBUMIN/GLOBULIN RATIO 0.6 (1.0-2.7); ALKALINE PHOSPHATASE 111 U/L (46-116); ANION GAP 9 mmol/L (5-15); ASPARTATE AMINO TRANSFERASE 63 U/L (15-37); BILIRUBIN,TOTAL 4.5 MG/DL (0.2-1.0); BLOOD UREA NITROGEN 25 mg/dL (7-18); CALCIUM 7.6 MG/DL (8.5-10.1); CARBON DIOXIDE 27 MMOL/L (21-32); CHLORIDE 114 MMOL/L (98-107); CREATININE 0.9 MG/DL (0.55-1.30); POTASSIUM 3.3 MMOL/L (3.5-5.1); SODIUM 150 MMOL/L (136-145)
[2018-01-05 08:02] LABS: BILIRUBIN,DIRECT 2.8 MG/DL (0.0-0.3)
[2018-01-05] MEDS: Vasopressin 100 UNITS in NS 95 ML IV SCH (08:20)
--- NOTE | 2018-01-05 08:42 | Pulmonolgy Critical Care Note ---
Critical Care - Asmt/Plan Problems: (1) Septic shock (2) Sepsis (3) Choledocholithiasis (4) Thrombocytopenia (5) Leukocytosis (6) Elevated LFTs (7) Renal failure (8) Chronic deep vein thrombosis (DVT) Respiratory: monitor respiratory rate, adjust FIO2 - Titrate FiO2 to keep SaO2> 90, other - PRN HHN;s Cardiac: continue pressors - titrate NE to keep MAP > 60 Renal: F/U I&O, keep IV fluid - replete free water Infectious Disease: check cultures - and BAL studies, continue antibiotics - per ID Gastrointestinal: continue feedings/current rate Endocrine: monitor blood sugar, other - cortisol pending Neurologic: PRN Ativan Prophylaxis: Protonix Time Spent (Minutes): 60 Notes 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: 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 president 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, ID, GI, other - Heme-Onc Critical Care - Objective Last 24 Hour Vital Signs Date Time Temp Pulse Resp B/P (MAP) Pulse Ox O2 Delivery O2 Flow Rate FiO2 01/05/18 08:00 50 01/05/18 08:00 Mechanical Ventilator 01/05/18 08:00 62 18 110/66 (81) 99 01/05/18 07:30 65 20 108/68 (81) 98 01/05/18 07:00 60 18 110/65 (80) 98 01/05/18 06:55 74 25 50 01/05/18 06:00 53 18 108/71 (83) 98 01/05/18 05:30 55 20 110/68 (82) 100 01/05/18 05:13 53 20 60 01/05/18 05:00 56 21 105/65 (78) 99 01/05/18 04:00 Mechanical Ventilator 01/05/18 04:00 55 01/05/18 04:00 98.8 55 19 110/77 (88) 99 98.8 01/05/18 04:00 60 01/05/18 03:11 76 23 60 01/05/18 03:00 59 20 120/74 (89) 98 01/05/18 02:00 57 20 102/69 (80) 100 01/05/18 01:30 57 20 112/73 (86) 100 01/05/18 01:10 79 24 60 01/05/18 01:00 64 21 107/70 (82) 100 01/05/18 00:30 69 22 97/67 (77) 100 01/05/18 00:00 75 01/05/18 00:00 98.9 73 23 99/75 (83) 100 98.9 01/05/18 00:00 60 01/05/18 00:00 Mechanical Ventilator 01/04/18 23:30 70 23 104/71 (82) 100 01/04/18 23:13 86 22 60 01/04/18 23:00 67 20 125/78 (94) 98 01/04/18 22:30 71 21 128/76 (93) 98 01/04/18 22:00 71 23 133/77 (95) 97 01/04/18 21:30 78 24 132/72 (92) 96 01/04/18 21:12 103/65 01/04/18 21:00 70 23 114/69 (84) 98 01/04/18 20:40 59 21 60 01/04/18 20:30 57 19 112/71 (85) 99 01/04/18 20:00 78 01/04/18 20:00 Mechanical Ventilator 01/04/18 20:00 60 01/04/18 20:00 99.1 78 24 103/65 (78) 96 99.1 01/04/18 19:30 64 24 110/75 (87) 97 01/04/18 19:00 68 20 110/65 (80) 98 01/04/18 18:55 77 25 60 01/04/18 18:30 72 22 108/64 (79) 98 01/04/18 18:00 78 22 116/66 (83) 98 01/04/18 17:30 99.0 87 20 115/66 (82) 98 99.0 01/04/18 17:00 80 22 124/68 (86) 98 01/04/18 16:56 81 25 60 01/04/18 16:30 77 20 118/64 (82) 98 01/04/18 16:00 Mechanical Ventilator 01/04/18 16:00 60 01/04/18 16:00 75 20 115/68 (84) 98 01/04/18 15:30 70 20 110/66 (81) 98 01/04/18 15:24 54 21 65 01/04/18 15:22 80 01/04/18 15:20 108/62 01/04/18 15:00 78 20 108/62 (77) 98 01/04/18 14:30 82 20 118/62 (80) 98 01/04/18 14:00 98.8 88 20 118/65 (82) 98 98.8 01/04/18 13:30 90 20 120/68 (85) 98 01/04/18 13:00 98 20 122/68 (86) 98 01/04/18 12:50 61 20 70 01/04/18 12:30 70 20 110/66 (81) 98 01/04/18 12:00 Mechanical Ventilator 01/04/18 12:00 61 01/04/18 12:00 72 22 108/64 (79) 98 01/04/18 11:30 75 20 115/75 (88) 98 01/04/18 11:00 78 22 117/74 (88) 98 01/04/18 10:42 67 22 75 01/04/18 10:30 71 20 110/70 (83) 98 01/04/18 10:00 74 20 115/72 (86) 98 01/04/18 09:30 78 22 111/74 (86) 98 01/04/18 09:00 65 22 108/70 (83) 98 01/04/18 08:57 62 24 80 Status: awake - vent, other - OGT, ETT Condition: critical HEENT: atraumatic, normocephalic Lungs: rhonchi Heart: HR/BP unstable Abdomen: soft, non-tender, active bowel sounds Extremities: no C/C/E Micro: Microbiology Date/Time Source Procedure Growth Status 01/03/18 06:05 Blood Blood Culture - Preliminary Resulted 01/02/18 21:15 Sputum Induced Gram Stain - Final Complete 01/02/18 21:15 Sputum Induced Sputum Culture - Final NORMAL UPPER RESPIRATORY KEMI PRESENT Complete Accucheck: 89 Critical Care - Subjective ROS Limited/Unobtainable: Yes ICU Day: 5 Intubation Day: 4 Interval Events: S/P FOB Condition: critical IV Access: central - R fem CVC EKG Rhythm: Sinus Rhythm FI02: 50 Vent Support Breath Rate: 20 Vent Support Mode: AC Vent Tidal Volume: 450 Sputum Amount: Moderate PEEP: 8.0 PIP: 21 Secretions: small/mod white Fluids: D51/[id number]@50 Drips: NE8, off DA and VASO Tube Feeding Amount: 30 I&O: Intake and Output 01/04/18 01/05/18 19:00 07:00 Intake Total 1402.10 ml 1547.58 ml Output Total 860 ml 930 ml Balance 542.10 ml 617.58 ml Free Water 300 ml IV Total 1187.10 ml 887.58 ml Tube Feeding 215 ml 360 ml Output Urine Total 860 ml 780 ml Stool Total 150 ml Subjective: Awake on vent, follow commands ET-Tube: 7.5 ET Position: 22 Labs: Laboratory Tests Test 01/04/18 11:50 01/05/18 05:10 Lactic Acid Level 2.20 mmol/L (0.66-2.22) White Blood Count 19.1 K/UL (4.8-10.8) H Red Blood Count 3.44 M/UL (4.20-5.40) L Hemoglobin 11.7 G/DL (12.0-16.0) L Hematocrit 33.6 % (37.0-47.0) L Mean Corpuscular Volume 98 FL (80-99) Mean Corpuscular Hemoglobin 34.1 PG (27.0-31.0) H Mean Corpuscular Hemoglobin Concent 34.9 G/DL (32.0-36.0) Red Cell Distribution Width 13.5 % (11.6-14.8) Platelet Count 44 K/UL (150-450) #L Mean Platelet Volume 7.7 FL (6.5-10.1) Neutrophils (%) (Auto) % (45.0-75.0) Lymphocytes (%) (Auto) % (20.0-45.0) Monocytes (%) (Auto) % (1.0-10.0) Eosinophils (%) (Auto) % (0.0-3.0) Basophils (%) (Auto) % (0.0-2.0) Differential Total Cells Counted 100 Neutrophils % (Manual) 88 % (45-75) H Lymphocytes % (Manual) 6 % (20-45) L Monocytes % (Manual) 6 % (1-10) Eosinophils % (Manual) 0 % (0-3) Basophils % (Manual) 0 % (0-2) Band Neutrophils 0 % (0-8) Platelet Estimate Decreased L Platelet Morphology Normal Hypochromasia 1+ Anisocytosis 1+ Sodium Level 150 MMOL/L (136-145) H Potassium Level 3.3 MMOL/L (3.5-5.1) L Chloride Level 114 MMOL/L (98-107) H Carbon Dioxide Level 27 MMOL/L (21-32) Anion Gap 9 mmol/L (5-15) Blood Urea Nitrogen 25 mg/dL (7-18) H Creatinine 0.9 MG/DL (0.55-1.30) Estimat Glomerular Filtration Rate > 60 mL/min (>60) Glucose Level 129 MG/DL (74-106) H Calcium Level 7.6 MG/DL (8.5-10.1) L Total Bilirubin 4.5 MG/DL (0.2-1.0) H Direct Bilirubin 2.8 MG/DL (0.0-0.3) H Aspartate Amino Transf (AST/SGOT) 63 U/L (15-37) H Alanine Aminotransferase (ALT/SGPT) 102 U/L (12-78) H Alkaline Phosphatase 111 U/L (46-116) Total Protein 5.9 G/DL (6.4-8.2) L Albumin 2.3 G/DL (3.4-5.0) L Globulin 3.6 g/dL Albumin/Globulin Ratio 0.6 (1.0-2.7) L Thyroid Stimulating Hormone (TSH) 1.705 uiU/mL (0.358-3.740) Cortisol Pending Duncan Marte MD Jan 05, 2018 08:42
--- NOTE | 2018-01-05 08:48 | General Progress Note ---
Assessment/Plan Assessment/Plan # Leukocytosis. Likely related to underlying infection versus reactive process. In addition,has blasts, myelocytes and metamyelocytes initially but none detected on the flow cytometry, currently has improved --> flow cytometry is negative for any abnormalities --> Tumor lysis labs have been reviewed and does not appear to have TLS -- will monitor closely --> In future, need a bone marrow biopsy will discuss with pathologist --> Imaging has been reviewed and reveals: Mild pulmonary vascular congestion. Subsegmental atelectasis versus infiltrates in bilateral lung bases. Cholelithiasis --> Blood shows citro/kleb, sens pending --> Has been started on abx, empiric treatment --> appreciate ID recs # Thrombocytopenia. Potential causes multifactorial, evaluate liver and viral etiologies v infectious, hepatitis and hiv are negative, could be related to shock/sepsis as well. is no s/p transfusion --> HIT is wnl, no evidence of HIT AB --> US abd: cholelithiasis --> Peripheral smear now normalized --> Abx and other meds have been reviewed. # Choledocholithiasis with hypotension despite 2.5 liters of crystalloid, could be early cholangitis. She will be admitted to ICU with central line placement. --> NPO, Zofran, morphine prb. Continue IV fluids, check serial lactate levels, blood cultures, on abx --> Patient may require vasopressor support for possible septic shock. --> ID, GI and Surgery to evaluate. # Severe hypokalemia, will replace with IV KCl, repeat BMP tonight and replace as needed --> appreciate recs by renal, check BMP in AM # Acute metabolic encephalopathy, likely due to to underlying sepsis, continue to treat acute medical issues and provide supportive care --> Fall, aspiration, seizure precautions # History of unspecified psychiatric illness, will hold all psychotropics for now to avoid oversedation # Rrespiratory failure -- s/p vent --> pulm recs appreciated I GREATLY APPRECIATE CONSULTATION. Subjective ROS Limited/Unobtainable: Yes Allergies: Coded Allergies: OLANZAPINE (Verified Allergy, Unknown, 01/01/18) TETRACYCLINE (Verified Allergy, Unknown, 01/01/18) Subjective remains on pressors, on abx, on a vent, og, rt as well, currently s/p plt transfusing Objective Last 24 Hour Vital Signs Date Time Temp Pulse Resp B/P (MAP) Pulse Ox O2 Delivery O2 Flow Rate FiO2 01/05/18 08:00 50 01/05/18 08:00 Mechanical Ventilator 01/05/18 08:00 62 18 110/66 (81) 99 01/05/18 07:30 65 20 108/68 (81) 98 01/05/18 07:00 60 18 110/65 (80) 98 01/05/18 06:55 74 25 50 01/05/18 06:00 53 18 108/71 (83) 98 01/05/18 05:30 55 20 110/68 (82) 100 01/05/18 05:13 53 20 60 01/05/18 05:00 56 21 105/65 (78) 99 01/05/18 04:00 Mechanical Ventilator 01/05/18 04:00 55 01/05/18 04:00 98.8 55 19 110/77 (88) 99 98.8 01/05/18 04:00 60 01/05/18 03:11 76 23 60 01/05/18 03:00 59 20 120/74 (89) 98 01/05/18 02:00 57 20 102/69 (80) 100 01/05/18 01:30 57 20 112/73 (86) 100 01/05/18 01:10 79 24 60 01/05/18 01:00 64 21 107/70 (82) 100 01/05/18 00:30 69 22 97/67 (77) 100 01/05/18 00:00 75 01/05/18 00:00 98.9 73 23 99/75 (83) 100 98.9 01/05/18 00:00 60 01/05/18 00:00 Mechanical Ventilator 01/04/18 23:30 70 23 104/71 (82) 100 01/04/18 23:13 86 22 60 01/04/18 23:00 67 20 125/78 (94) 98 01/04/18 22:30 71 21 128/76 (93) 98 01/04/18 22:00 71 23 133/77 (95) 97 01/04/18 21:30 78 24 132/72 (92) 96 01/04/18 21:12 103/65 01/04/18 21:00 70 23 114/69 (84) 98 01/04/18 20:40 59 21 60 01/04/18 20:30 57 19 112/71 (85) 99 01/04/18 20:00 78 01/04/18 20:00 Mechanical Ventilator 01/04/18 20:00 60 01/04/18 20:00 99.1 78 24 103/65 (78) 96 99.1 01/04/18 19:30 64 24 110/75 (87) 97 01/04/18 19:00 68 20 110/65 (80) 98 01/04/18 18:55 77 25 60 01/04/18 18:30 72 22 108/64 (79) 98 01/04/18 18:00 78 22 116/66 (83) 98 01/04/18 17:30 99.0 87 20 115/66 (82) 98 99.0 01/04/18 17:00 80 22 124/68 (86) 98 01/04/18 16:56 81 25 60 01/04/18 16:30 77 20 118/64 (82) 98 01/04/18 16:00 Mechanical Ventilator 01/04/18 16:00 60 01/04/18 16:00 75 20 115/68 (84) 98 01/04/18 15:30 70 20 110/66 (81) 98 01/04/18 15:24 54 21 65 01/04/18 15:22 80 01/04/18 15:20 108/62 01/04/18 15:00 78 20 108/62 (77) 98 01/04/18 14:30 82 20 118/62 (80) 98 01/04/18 14:00 98.8 88 20 118/65 (82) 98 98.8 01/04/18 13:30 90 20 120/68 (85) 98 01/04/18 13:00 98 20 122/68 (86) 98 01/04/18 12:50 61 20 70 01/04/18 12:30 70 20 110/66 (81) 98 01/04/18 12:00 Mechanical Ventilator 01/04/18 12:00 61 01/04/18 12:00 72 22 108/64 (79) 98 01/04/18 11:30 75 20 115/75 (88) 98 01/04/18 11:00 78 22 117/74 (88) 98 01/04/18 10:42 67 22 75 01/04/18 10:30 71 20 110/70 (83) 98 01/04/18 10:00 74 20 115/72 (86) 98 01/04/18 09:30 78 22 111/74 (86) 98 01/04/18 09:00 65 22 108/70 (83) 98 01/04/18 08:57 62 24 80 Intake and Output 01/04/18 01/05/18 19:00 07:00 Intake Total 1402.10 ml 1547.58 ml Output Total 860 ml 930 ml Balance 542.10 ml 617.58 ml Free Water 300 ml IV Total 1187.10 ml 887.58 ml Tube Feeding 215 ml 360 ml Output Urine Total 860 ml 780 ml Stool Total 150 ml Laboratory Tests 01/04/18 11:50: Lactic Acid Level 2.20 01/05/18 05:10: White Blood Count 19.1H, Red Blood Count 3.44L, Hemoglobin 11.7L, Hematocrit 33.6L, Mean Corpuscular Volume 98, Mean Corpuscular Hemoglobin 34.1H, Mean Corpuscular Hemoglobin Concent 34.9, Red Cell Distribution Width 13.5, Platelet Count 44#L, Mean Platelet Volume 7.7, Neutrophils (%) (Auto) , Lymphocytes (%) ( Auto) , Monocytes (%) (Auto) , Eosinophils (%) (Auto) , Basophils (%) (Auto) , Differential Total Cells Counted 100, Neutrophils % (Manual) 88H, Lymphocytes % (Manual) 6L, Monocytes % (Manual) 6, Eosinophils % (Manual) 0, Basophils % ( Manual) 0, Band Neutrophils 0, Platelet Estimate DecreasedL, Platelet Morphology Normal, Hypochromasia 1+, Anisocytosis 1+, Sodium Level 150H, Potassium Level 3.3L, Chloride Level 114H, Carbon Dioxide Level 27, Anion Gap 9 , Blood Urea Nitrogen 25H, Creatinine 0.9, Estimat Glomerular Filtration Rate > 60, Glucose Level 129H, Calcium Level 7.6L, Total Bilirubin 4.5H, Direct Bilirubin 2.8H, Aspartate Amino Transf (AST/SGOT) 63H, Alanine Aminotransferase (ALT/SGPT) 102H, Alkaline Phosphatase 111, Total Protein 5.9L, Albumin 2.3L, Globulin 3.6, Albumin/Globulin Ratio 0.6L, Thyroid Stimulating Hormone (TSH) 1.705, Cortisol [Pending] Height (Feet): 5 Height (Inches): 5.00 Weight (Pounds): 141 General Appearance: alert EENT: TMs normal Neck: supple Cardiovascular: regular rhythm Respiratory/Chest: normal breath sounds Abdomen: non tender Extremities: non-tender Edema: mild edema Neurologic: responsive Skin: warm/dry - vent/og Objective on a vent, og, RT as well Davin Aguero MD Jan 05, 2018 08:48
[2018-01-05] MEDS: Pantoprazole Inj IV SCH (09:00)
[2018-01-05] MEDS ORDERED: Potassium Phosphate 20 MM in NS 275 ML IV SCH (10:30)
[2018-01-05] MEDS: D5 1/2NS w/KCl 40meq 1000ml 1,000 ML IV SCH ×2 (10:54→19:56)
--- NOTE | 2018-01-05 11:24 | General Progress Note ---
Assessment/Plan Problem List: (1) Septic shock ICD Codes: A41.9 - Sepsis, unspecified organism; R65.21 - Severe sepsis with septic shock SNOMED: 60395435 (2) Thrombocytopenia ICD Codes: D69.6 - Thrombocytopenia, unspecified SNOMED: 007055010 (3) Leukocytosis ICD Codes: D72.829 - Elevated white blood cell count, unspecified SNOMED: 829179732, 389837823 (4) Hypokalemia ICD Codes: E87.6 - Hypokalemia SNOMED: 61891443, 095313130 Assessment/Plan Septic Shock 2/2 gram negative bacteremia 2/2 cholelithiasis s/p sphincterotomy and biliary stent on 01/02 - continue IV abx - follow ID reqs - patient is currently being weaned off pressors and is only requiring levo at 6 mcg's, continue to wean Hypovolemic hyponatremia - consider LR on patient to improve fluid status and hypernatremia Thrombocytopenia likely multifactorial ddx include sepsis vs medication , DIC and HIT are negative - , follow up hemolysis labs including haptoglobin, LDH elevated but may also be from sepsis and peripheral smear shows no schistocytes Leukocytosis likely 2/2 to steroids and sepsis - will follow up labs per heme onc reqs Hyperkalemia- improving - replace as necessary Dispo planning - SW for identifying family, and CM for SNF Subjective ROS Limited/Unobtainable: Yes Allergies: Coded Allergies: OLANZAPINE (Verified Allergy, Unknown, 01/01/18) TETRACYCLINE (Verified Allergy, Unknown, 01/01/18) Subjective Patietn self extubated this morning and is alert but says incomprehensible sounds. Patient is being weaned off pressors with no other acute events. Objective Last 24 Hour Vital Signs Date Time Temp Pulse Resp B/P (MAP) Pulse Ox O2 Delivery O2 Flow Rate FiO2 01/05/18 10:40 55 18 100 Facial 100 01/05/18 10:18 Nasal Cannula 4.0 36 01/05/18 10:02 89 22 Nasal Cannula 4.0 36 01/05/18 10:00 Non-Rebreather 12.0 100 01/05/18 09:00 62 18 120/68 (85) 99 01/05/18 08:30 98.7 61 18 105/65 (78) 99 98.7 01/05/18 08:00 50 01/05/18 08:00 61 01/05/18 08:00 Mechanical Ventilator 01/05/18 08:00 62 18 110/66 (81) 99 01/05/18 07:30 65 20 108/68 (81) 98 01/05/18 07:00 60 18 110/65 (80) 98 01/05/18 06:55 74 25 50 01/05/18 06:00 53 18 108/71 (83) 98 01/05/18 05:30 55 20 110/68 (82) 100 01/05/18 05:13 53 20 60 01/05/18 05:00 56 21 105/65 (78) 99 01/05/18 04:00 Mechanical Ventilator 01/05/18 04:00 55 01/05/18 04:00 98.8 55 19 110/77 (88) 99 98.8 01/05/18 04:00 60 01/05/18 03:11 76 23 60 01/05/18 03:00 59 20 120/74 (89) 98 01/05/18 02:00 57 20 102/69 (80) 100 01/05/18 01:30 57 20 112/73 (86) 100 01/05/18 01:10 79 24 60 01/05/18 01:00 64 21 107/70 (82) 100 01/05/18 00:30 69 22 97/67 (77) 100 01/05/18 00:00 75 01/05/18 00:00 98.9 73 23 99/75 (83) 100 98.9 01/05/18 00:00 60 01/05/18 00:00 Mechanical Ventilator 01/04/18 23:30 70 23 104/71 (82) 100 01/04/18 23:13 86 22 60 01/04/18 23:00 67 20 125/78 (94) 98 01/04/18 22:30 71 21 128/76 (93) 98 01/04/18 22:00 71 23 133/77 (95) 97 01/04/18 21:30 78 24 132/72 (92) 96 01/04/18 21:12 103/65 01/04/18 21:00 70 23 114/69 (84) 98 01/04/18 20:40 59 21 60 01/04/18 20:30 57 19 112/71 (85) 99 01/04/18 20:00 78 01/04/18 20:00 Mechanical Ventilator 01/04/18 20:00 60 01/04/18 20:00 99.1 78 24 103/65 (78) 96 99.1 01/04/18 19:30 64 24 110/75 (87) 97 01/04/18 19:00 68 20 110/65 (80) 98 01/04/18 18:55 77 25 60 01/04/18 18:30 72 22 108/64 (79) 98 01/04/18 18:00 78 22 116/66 (83) 98 01/04/18 17:30 99.0 87 20 115/66 (82) 98 99.0 01/04/18 17:00 80 22 124/68 (86) 98 01/04/18 16:56 81 25 60 01/04/18 16:30 77 20 118/64 (82) 98 01/04/18 16:00 Mechanical Ventilator 01/04/18 16:00 60 01/04/18 16:00 75 20 115/68 (84) 98 01/04/18 15:30 70 20 110/66 (81) 98 01/04/18 15:24 54 21 65 01/04/18 15:22 80 01/04/18 15:20 108/62 01/04/18 15:00 78 20 108/62 (77) 98 01/04/18 14:30 82 20 118/62 (80) 98 01/04/18 14:00 98.8 88 20 118/65 (82) 98 98.8 01/04/18 13:30 90 20 120/68 (85) 98 01/04/18 13:00 98 20 122/68 (86) 98 01/04/18 12:50 61 20 70 01/04/18 12:30 70 20 110/66 (81) 98 01/04/18 12:00 Mechanical Ventilator 01/04/18 12:00 61 01/04/18 12:00 72 22 108/64 (79) 98 01/04/18 11:30 75 20 115/75 (88) 98 Intake and Output 01/04/18 01/05/18 19:00 07:00 Intake Total 1402.10 ml 1547.58 ml Output Total 860 ml 930 ml Balance 542.10 ml 617.58 ml Free Water 300 ml IV Total 1187.10 ml 887.58 ml Tube Feeding 215 ml 360 ml Output Urine Total 860 ml 780 ml Stool Total 150 ml Laboratory Tests 01/04/18 11:50: Lactic Acid Level 2.20 01/05/18 05:10: White Blood Count 19.1H, Red Blood Count 3.44L, Hemoglobin 11.7L, Hematocrit 33.6L, Mean Corpuscular Volume 98, Mean Corpuscular Hemoglobin 34.1H, Mean Corpuscular Hemoglobin Concent 34.9, Red Cell Distribution Width 13.5, Platelet Count 44#L, Mean Platelet Volume 7.7, Neutrophils (%) (Auto) , Lymphocytes (%) ( Auto) , Monocytes (%) (Auto) , Eosinophils (%) (Auto) , Basophils (%) (Auto) , Differential Total Cells Counted 100, Neutrophils % (Manual) 88H, Lymphocytes % (Manual) 6L, Monocytes % (Manual) 6, Eosinophils % (Manual) 0, Basophils % ( Manual) 0, Band Neutrophils 0, Platelet Estimate DecreasedL, Platelet Morphology Normal, Hypochromasia 1+, Anisocytosis 1+, Sodium Level 150H, Potassium Level 3.3L, Chloride Level 114H, Carbon Dioxide Level 27, Anion Gap 9 , Blood Urea Nitrogen 25H, Creatinine 0.9, Estimat Glomerular Filtration Rate > 60, Glucose Level 129H, Calcium Level 7.6L, Total Bilirubin 4.5H, Direct Bilirubin 2.8H, Aspartate Amino Transf (AST/SGOT) 63H, Alanine Aminotransferase (ALT/SGPT) 102H, Alkaline Phosphatase 111, Total Protein 5.9L, Albumin 2.3L, Globulin 3.6, Albumin/Globulin Ratio 0.6L, Thyroid Stimulating Hormone (TSH) 1.705, Cortisol [Pending] 01/05/18 10:40: Arterial Blood pH 7.394, Arterial Blood Partial Pressure CO2 45.4H, Arterial Blood Partial Pressure O2 46.3*L, Arterial Blood HCO3 27.1H, Arterial Blood Oxygen Saturation 51.2*L, Arterial Blood Base Excess 1.8, [place] Test N/a Height (Feet): 5 Height (Inches): 5.00 Weight (Pounds): 141 General Appearance: WD/WN, no apparent distress, alert, confused EENT: PERRL/EOMI, normal ENT inspection - dry mucous membranes , TMs normal Neck: non-tender, normal alignment, supple Cardiovascular: normal peripheral pulses, normal rate, regular rhythm, regularly irregular, no gallop/murmur, no JVD Respiratory/Chest: chest wall non-tender, lungs clear, normal breath sounds, no respiratory distress Abdomen: normal bowel sounds, non tender, soft, no organomegaly, no mass Genitourinary/Rectal: other - catheter in place Extremities: non-tender, normal inspection Edema: no edema noted Arm (L), no edema noted Arm (R), no edema noted Leg (L), no edema noted Leg (R), no edema noted Pedal (L), no edema noted Pedal (R), no edema noted Generalized Neurologic: alert, disoriented, other - patient is able to follow commands and opens eyes spontaneous, however speech is incomprehensible Skin: warm/dry Susi Pryor DO Jan 05, 2018 11:24
[2018-01-05] MEDS: Morphine Sulfate 2mg/ml Inj IVP PRN (12:35)
[2018-01-05] MEDS: LORazepam Inj 2mg/ml 1ml IV PRN (12:35)
[2018-01-05] MEDS ORDERED: Heparin 2000 units/Ns 1000ml INJ PRN (13:00)
[2018-01-05] MEDS ORDERED: Lidocaine 1% Plain 30 ml INJ PRN (13:00)
--- NOTE | 2018-01-05 13:31 | Procedure Note ---
DATE OF PROCEDURE: 01/01/2018 BRONCHOSCOPY REPORT PREOPERATIVE DIAGNOSIS: Respiratory failure with high peak pressures. POSTOPERATIVE DIAGNOSIS: Extensive mucus plugging of endobronchial tube and tracheobronchial tree. SEDATION: Moderate sedation in ICU. Emergency procedure, consent obtained on telephone from . COMPLICATIONS: None. ESTIMATED BLOOD LOSS: None. SAMPLES: BAL specimen/ . DISPOSITION: The patient remained in her ICU . DESCRIPTION OF PROCEDURE: The patient was identified as Johana Mcleod in ICU room. She was having high peak pressures on the ventilator. We were unable to ventilate her and she started desatting. I passed suction catheter through the endotracheal tube, but met great resistance. At this point, I asked the respiratory therapist to emergently get me the bedside bronchoscope. Bronchoscope was brought to the bedside. Consent was obtained by nurse, Bertha, from the patient's . Bronchoscope was then passed through the ET tube into the tracheobronchial tree. The ET tube was noted to be at the andrade. It was pulled back approximately 3 cm. There was extensive mucus plugging within the ET tube. We checked therapeutically aspirated. I then advanced the bronchoscope into the left mainstem bronchus, there was extensive mucus plugging of the proximal left mainstem bronchus, left upper lobe lingula, and lower lobe segments. These were thoroughly lavaged and aspirated. The bronchoscope was then advanced to the right tracheobronchial tree where there was extensive mucus plugging in the right upper lobe, right mainstem bronchus, and right tracheobronchial tree. Once again, this was thoroughly aspirated and irrigated. I did a surveillance bronchoscopy of the entire tracheobronchial tree. At the completion of the procedure, all segments were widely open and patent. There was no endobronchial lesions, no endobronchial obstruction. There was no excessive friability or bleeding. There was no further mucus plugging within the ET tube. The ET tube position was visually verified by myself. The bronchoscope was then pulled out of the airway. The patient's ventilatory parameters were markedly improved. Peak pressures were in the high 20s. Good tidal volume and no distress. Oxygenation improved with termination of the procedure. Duncan Marte M.D. DR: ELVIE JOB#: [id number] CC:
--- NOTE | 2018-01-05 14:56 | GI Progress Note ---
Assessment/Plan Problems: (1) Thrombocytopenia ICD Codes: D69.6 - Thrombocytopenia, unspecified SNOMED: 076178901 (2) Leukocytosis ICD Codes: D72.829 - Elevated white blood cell count, unspecified SNOMED: 992663515, 899762448 (3) Choledocholithiasis ICD Codes: K80.50 - Calculus of bile duct without cholangitis or cholecystitis without obstruction SNOMED: 074316966 (4) Renal failure ICD Codes: N19 - Unspecified kidney failure SNOMED: 39447693 Qualifiers: Qualified Codes: N19 - Unspecified kidney failure (5) Hypokalemia ICD Codes: E87.6 - Hypokalemia SNOMED: 49831812, 743908139 (6) Septic shock ICD Codes: A41.9 - Sepsis, unspecified organism; R65.21 - Severe sepsis with septic shock SNOMED: 44381094 (7) Sepsis ICD Codes: A41.9 - Sepsis, unspecified organism SNOMED: 98147105 (8) Elevated LFTs ICD Codes: R94.5 - Abnormal results of liver function studies SNOMED: 845360867, 821709099 Status: stable Status Narrative Discussed with Dr. Villar. Assessment/Plan Assessment - Cholangitis - Choledocholithiasis - s/p ERCP and stent - sepsis/chock - lactic acidosis - renal failure - thrombocytopenia, likely DIC related - Critical - LFT downtrending - hepatitis panel Recommendations - cont TF - IVF - Abx - follow labs - transfuse PRN The patient was seen and examined at bedside and all new and available data was reviewed in the patients chart. I agree with the above findings, impression and plan. (Patient seen earlier today. Signature stamp does not reflect patient encounter time.). - Edward Villar MD Subjective Subjective limited Objective Last 24 Hour Vital Signs Date Time Temp Pulse Resp B/P (MAP) Pulse Ox O2 Delivery O2 Flow Rate FiO2 01/05/18 14:30 84 18 112/64 (80) 100 01/05/18 14:00 82 18 118/65 (82) 100 01/05/18 13:30 88 15 115/66 (82) 100 01/05/18 13:00 80 15 110/68 (82) 100 01/05/18 12:30 81 18 115/68 (84) 98 01/05/18 12:00 69 01/05/18 12:00 Nasal Cannula 2.0 Nasal Cannula 2.0 01/05/18 12:00 98.9 79 18 122/73 (89) 98 98.9 01/05/18 11:30 77 20 121/73 (89) 98 01/05/18 11:00 63 23 101/72 (82) 96 01/05/18 10:40 55 18 100 Facial 100 01/05/18 10:30 80 23 124/73 (90) 96 01/05/18 10:18 Nasal Cannula 4.0 36 01/05/18 10:02 89 22 Nasal Cannula 4.0 36 01/05/18 10:00 Non-Rebreather 12.0 100 01/05/18 10:00 77 21 132/72 (92) 99 01/05/18 09:30 69 15 134/74 (94) 99 01/05/18 09:00 62 18 120/68 (85) 99 01/05/18 08:30 98.7 61 18 105/65 (78) 99 98.7 01/05/18 08:00 50 01/05/18 08:00 61 01/05/18 08:00 Mechanical Ventilator 01/05/18 08:00 62 18 110/66 (81) 99 01/05/18 07:30 65 20 108/68 (81) 98 01/05/18 07:00 60 18 110/65 (80) 98 01/05/18 06:55 74 25 50 01/05/18 06:00 53 18 108/71 (83) 98 01/05/18 05:30 55 20 110/68 (82) 100 01/05/18 05:13 53 20 60 01/05/18 05:00 56 21 105/65 (78) 99 01/05/18 04:00 Mechanical Ventilator 01/05/18 04:00 55 01/05/18 04:00 98.8 55 19 110/77 (88) 99 98.8 01/05/18 04:00 60 01/05/18 03:11 76 23 60 01/05/18 03:00 59 20 120/74 (89) 98 01/05/18 02:00 57 20 102/69 (80) 100 01/05/18 01:30 57 20 112/73 (86) 100 01/05/18 01:10 79 24 60 01/05/18 01:00 64 21 107/70 (82) 100 01/05/18 00:30 69 22 97/67 (77) 100 01/05/18 00:00 75 01/05/18 00:00 98.9 73 23 99/75 (83) 100 98.9 01/05/18 00:00 60 01/05/18 00:00 Mechanical Ventilator 01/04/18 23:30 70 23 104/71 (82) 100 01/04/18 23:13 86 22 60 01/04/18 23:00 67 20 125/78 (94) 98 01/04/18 22:30 71 21 128/76 (93) 98 01/04/18 22:00 71 23 133/77 (95) 97 01/04/18 21:30 78 24 132/72 (92) 96 01/04/18 21:12 103/65 01/04/18 21:00 70 23 114/69 (84) 98 01/04/18 20:40 59 21 60 01/04/18 20:30 57 19 112/71 (85) 99 01/04/18 20:00 78 01/04/18 20:00 Mechanical Ventilator 01/04/18 20:00 60 01/04/18 20:00 99.1 78 24 103/65 (78) 96 99.1 01/04/18 19:30 64 24 110/75 (87) 97 01/04/18 19:00 68 20 110/65 (80) 98 01/04/18 18:55 77 25 60 01/04/18 18:30 72 22 108/64 (79) 98 01/04/18 18:00 78 22 116/66 (83) 98 01/04/18 17:30 99.0 87 20 115/66 (82) 98 99.0 01/04/18 17:00 80 22 124/68 (86) 98 01/04/18 16:56 81 25 60 01/04/18 16:30 77 20 118/64 (82) 98 01/04/18 16:00 Mechanical Ventilator 01/04/18 16:00 60 01/04/18 16:00 75 20 115/68 (84) 98 01/04/18 15:30 70 20 110/66 (81) 98 01/04/18 15:24 54 21 65 01/04/18 15:22 80 01/04/18 15:20 108/62 01/04/18 15:00 78 20 108/62 (77) 98 Intake and Output 01/04/18 01/05/18 19:00 07:00 Intake Total 1402.10 ml 1625.08 ml Output Total 860 ml 930 ml Balance 542.10 ml 695.08 ml Free Water 300 ml IV Total 1187.10 ml 965.08 ml Tube Feeding 215 ml 360 ml Output Urine Total 860 ml 780 ml Stool Total 150 ml Laboratory Tests Test 01/05/18 05:10 01/05/18 10:40 White Blood Count 19.1 K/UL (4.8-10.8) H Red Blood Count 3.44 M/UL (4.20-5.40) L Hemoglobin 11.7 G/DL (12.0-16.0) L Hematocrit 33.6 % (37.0-47.0) L Mean Corpuscular Volume 98 FL (80-99) Mean Corpuscular Hemoglobin 34.1 PG (27.0-31.0) H Mean Corpuscular Hemoglobin Concent 34.9 G/DL (32.0-36.0) Red Cell Distribution Width 13.5 % (11.6-14.8) Platelet Count 44 K/UL (150-450) #L Mean Platelet Volume 7.7 FL (6.5-10.1) Neutrophils (%) (Auto) % (45.0-75.0) Lymphocytes (%) (Auto) % (20.0-45.0) Monocytes (%) (Auto) % (1.0-10.0) Eosinophils (%) (Auto) % (0.0-3.0) Basophils (%) (Auto) % (0.0-2.0) Differential Total Cells Counted 100 Neutrophils % (Manual) 88 % (45-75) H Lymphocytes % (Manual) 6 % (20-45) L Monocytes % (Manual) 6 % (1-10) Eosinophils % (Manual) 0 % (0-3) Basophils % (Manual) 0 % (0-2) Band Neutrophils 0 % (0-8) Platelet Estimate Decreased L Platelet Morphology Normal Hypochromasia 1+ Anisocytosis 1+ Sodium Level 150 MMOL/L (136-145) H Potassium Level 3.3 MMOL/L (3.5-5.1) L Chloride Level 114 MMOL/L (98-107) H Carbon Dioxide Level 27 MMOL/L (21-32) Anion Gap 9 mmol/L (5-15) Blood Urea Nitrogen 25 mg/dL (7-18) H Creatinine 0.9 MG/DL (0.55-1.30) Estimat Glomerular Filtration Rate > 60 mL/min (>60) Glucose Level 129 MG/DL (74-106) H Calcium Level 7.6 MG/DL (8.5-10.1) L Total Bilirubin 4.5 MG/DL (0.2-1.0) H Direct Bilirubin 2.8 MG/DL (0.0-0.3) H Aspartate Amino Transf (AST/SGOT) 63 U/L (15-37) H Alanine Aminotransferase (ALT/SGPT) 102 U/L (12-78) H Alkaline Phosphatase 111 U/L (46-116) Total Protein 5.9 G/DL (6.4-8.2) L Albumin 2.3 G/DL (3.4-5.0) L Globulin 3.6 g/dL Albumin/Globulin Ratio 0.6 (1.0-2.7) L Thyroid Stimulating Hormone (TSH) 1.705 uiU/mL (0.358-3.740) Cortisol 110.9 UG/DL Arterial Blood pH 7.394 (7.350-7.450) Arterial Blood Partial Pressure CO2 45.4 mmHg (35.0-45.0) H Arterial Blood Partial Pressure O2 46.3 mmHg (75.0-100.0) Arterial Blood HCO3 27.1 mmol/L (22.0-26.0) H Arterial Blood Oxygen Saturation 51.2 % (95-100) *L Arterial Blood Base Excess 1.8 (-2-2) [place] Test N/a Height (Feet): 5 Height (Inches): 5.00 Weight (Pounds): 141 General Appearance: no apparent distress Cardiovascular: normal rate Respiratory/Chest: normal breath sounds, no respiratory distress Abdominal Exam: normal bowel sounds, non tender, soft Extremities: non-tender Brando Euceda [employer] Jan 05, 2018 14:56
[2018-01-05] MEDS: TOBRAMYCIN IV SCH (18:04)
[2018-01-05] MEDS: NS IV SCH (18:04)
[2018-01-05] MEDS ORDERED: Dyna-Hex 2% Top Sol 2oz TOPIC SCH (20:00)
[2018-01-05] MEDS: DOPamine 400mg/250ml 250 ML IV SCH (20:15)
[2018-01-05] MEDS ORDERED: Norepinephrine Bitartrate 16 MG in D5W 500ml 550 ML IV SCH (20:30)
[2018-01-06] VITALS (19 sets, daily range): BP systolic 96–148; BP diastolic 44–88
[2018-01-06] MEDS: Hydrocortisone 100mg Inj IV SCH ×2 (00:05→05:52)
[2018-01-06] MEDS: LORazepam Inj 2mg/ml 1ml IV PRN ×5 (00:15→17:03)
[2018-01-06 05:08] LABS: HEMATOCRIT 34.5 % (37.0-47.0); HEMOGLOBIN 11.5 G/DL (12.0-16.0); MEAN CORPUSCULAR VOLUME 97 FL (80-99); PLATELET COUNT 79 K/UL (150-450); RED BLOOD COUNT 3.56 M/UL (4.20-5.40); RED CELL DISTRIBUTION WIDTH 13.5 % (11.6-14.8); WHITE BLOOD COUNT 18.4 K/UL (4.8-10.8)
[2018-01-06 05:39] LABS: ALANINE AMINOTRANSFERASE 93 U/L (12-78); ALBUMIN 2.3 G/DL (3.4-5.0); ALBUMIN/GLOBULIN RATIO 0.7 (1.0-2.7); ALKALINE PHOSPHATASE 94 U/L (46-116); ANION GAP 8 mmol/L (5-15); ASPARTATE AMINO TRANSFERASE 45 U/L (15-37); BILIRUBIN,TOTAL 4.3 MG/DL (0.2-1.0); BLOOD UREA NITROGEN 26 mg/dL (7-18); CALCIUM 8.2 MG/DL (8.5-10.1); CARBON DIOXIDE 27 MMOL/L (21-32); CHLORIDE 118 MMOL/L (98-107); CREATININE 0.8 MG/DL (0.55-1.30); SODIUM 153 MMOL/L (136-145)
[2018-01-06 05:48] LABS: BILIRUBIN,DIRECT 2.7 MG/DL (0.0-0.3)
[2018-01-06] MEDS: Piperacillin/Tazobactam 3.375 GM in D5W 110 ML IVPB SCH ×3 (05:52→22:34)
[2018-01-06] MEDS: Morphine Sulfate 2mg/ml Inj IVP PRN (05:54)
--- NOTE | 2018-01-06 07:13 | General Progress Note ---
Assessment/Plan Assessment/Plan # Leukocytosis. Likely related to underlying infection versus reactive process. In addition,has blasts, myelocytes and metamyelocytes initially but none detected on the flow cytometry, currently has improved, s/p ercp with stent --> flow cytometry is negative for any abnormalities, discussed with pathology --> Tumor lysis labs have been reviewed and does not appear to have TLS -- will monitor closely --> In future, need a bone marrow biopsy will discuss with pathologist --> Imaging has been reviewed and reveals: Mild pulmonary vascular congestion. Subsegmental atelectasis versus infiltrates in bilateral lung bases. Cholelithiasis --> Blood shows citro/kleb, sens pending --> Has been started on abx, empiric treatment --> appreciate ID recs # Thrombocytopenia. Potential causes multifactorial, evaluate liver and viral etiologies v infectious, hepatitis and hiv are negative, could be related to shock/sepsis as well. is no s/p transfusion --> HIT is wnl, no evidence of HIT AB --> US abd: cholelithiasis --> Peripheral smear now normalized --> Abx and other meds have been reviewed. # Choledocholithiasis with review by surgeon, could be early cholangitis, also has been reviewed by ID. s/p ercp with stent --> NPO, Zofran, morphine prb. Continue IV fluids, check serial lactate levels, blood cultures, on abx --> Patient may require vasopressor support for possible septic shock. --> ID, GI and Surgery to evaluate. # Severe hypokalemia, will continue to replace --> appreciate recs by renal, check BMP pM along with phos # Acute metabolic encephalopathy, likely due to to underlying sepsis, continue to treat acute medical issues and provide supportive care --> Fall, aspiration, seizure precautions # History of unspecified psychiatric illness, will hold all psychotropics for now to avoid oversedation # Respiratory failure -- s/p vent, and extubated on 01/05 --> pulm recs appreciated I GREATLY APPRECIATE CONSULTATION. Subjective Constitutional: Denies: no symptoms, chills, diaphoresis, fever, malaise, weakness, other HEENT: Denies: no symptoms, eye pain, blurred vision, tearing, double vision, ear pain, ear discharge, nose pain, nose congestion, throat pain, throat swelling, mouth pain, mouth swelling, other Cardiovascular: Denies: no symptoms, chest pain, edema, irregular heart rate, lightheadedness, palpitations, syncope, other Respiratory: Denies: no symptoms, cough, orthopnea, shortness of breath, SOB with excertion, SOB at rest, sputum, stridor, wheezing, other Gastrointestinal/Abdominal: Denies: no symptoms, abdomen distended, abdominal pain, black stools, tarry stools, blood in stool, constipated, diarrhea, difficulty swallowing, nausea, poor appetite, poor fluid intake, rectal bleeding , vomiting, other Genitourinary: Denies: no symptoms, burning, discharge, frequency, flank pain, hematuria, incontinence, pain, urgency, other Neurologic/Psychiatric: Denies: no symptoms, anxiety, depressed, emotional problems, headache, numbness, paresthesia, pre-existing deficit, seizure, tingling, tremors, weakness, other Endocrine: Denies: no symptoms, excessive sweating, flushing, intolerance to cold, intolerance to heat, increased hunger, increased thirst, increased urine, unexplained weight gain, unexplained weight loss, other Allergies: Coded Allergies: OLANZAPINE (Verified Allergy, Unknown, 01/01/18) TETRACYCLINE (Verified Allergy, Unknown, 01/01/18) Subjective remains on pressors, on abx, og, rt as well, remains in the icu, extubated Objective Last 24 Hour Vital Signs Date Time Temp Pulse Resp B/P (MAP) Pulse Ox O2 Delivery O2 Flow Rate FiO2 01/06/18 05:00 86 24 135/72 (93) 98 01/06/18 05:00 Nasal Cannula 3.0 Nasal Cannula 3.0 01/06/18 04:00 98.2 86 22 122/84 (97) 96 98.2 01/06/18 04:00 90 01/06/18 04:00 Nasal Cannula 3.0 Nasal Cannula 3.0 01/06/18 03:01 79 24 128/65 (86) 98 01/06/18 02:00 75 24 120/66 (84) 98 01/06/18 01:00 77 24 128/74 (92) 97 01/06/18 00:00 Nasal Cannula 3.0 Nasal Cannula 3.0 01/06/18 00:00 79 01/06/18 00:00 97.3 79 22 122/78 (93) 96 97.3 10/9/18 23:00 79 24 117/72 (87) 95 01/05/18 22:00 73 18 130/86 (101) 96 01/05/18 21:00 78 18 110/70 (83) 97 01/05/18 20:30 110/65 01/05/18 20:15 110/65 01/05/18 20:00 99.0 75 22 105/56 (72) 96 99.0 01/05/18 20:00 76 01/05/18 20:00 Nasal Cannula 3.0 Nasal Cannula 3.0 01/05/18 19:41 98 Nasal Cannula 4.0 36 01/05/18 19:41 Nasal Cannula 4.0 36 01/05/18 19:40 76 22 Nasal Cannula 4.0 36 01/05/18 19:00 70 18 110/65 (80) 99 01/05/18 18:00 88 17 125/65 (85) 99 01/05/18 17:00 87 16 117/60 (79) 99 01/05/18 16:30 78 15 118/65 (82) 99 01/05/18 16:00 77 01/05/18 16:00 82 15 115/64 (81) 99 01/05/18 16:00 Nasal Cannula 2.0 Nasal Cannula 2.0 01/05/18 15:30 80 16 112/65 (81) 99 01/05/18 15:00 85 16 118/66 (83) 99 01/05/18 14:30 84 18 112/64 (80) 100 01/05/18 14:00 82 18 118/65 (82) 100 01/05/18 13:30 88 15 115/66 (82) 100 01/05/18 13:00 80 15 110/68 (82) 100 01/05/18 12:30 81 18 115/68 (84) 98 01/05/18 12:00 69 01/05/18 12:00 Nasal Cannula 2.0 Nasal Cannula 2.0 01/05/18 12:00 98.9 79 18 122/73 (89) 98 98.9 01/05/18 11:30 77 20 121/73 (89) 98 01/05/18 11:00 63 23 101/72 (82) 96 01/05/18 10:40 55 18 100 Facial 100 01/05/18 10:30 80 23 124/73 (90) 96 01/05/18 10:18 Nasal Cannula 4.0 36 01/05/18 10:02 89 22 Nasal Cannula 4.0 36 01/05/18 10:00 Non-Rebreather 12.0 100 01/05/18 10:00 77 21 132/72 (92) 99 01/05/18 09:30 69 15 134/74 (94) 99 01/05/18 09:00 62 18 120/68 (85) 99 01/05/18 08:30 98.7 61 18 105/65 (78) 99 98.7 01/05/18 08:00 50 01/05/18 08:00 61 01/05/18 08:00 Mechanical Ventilator 01/05/18 08:00 62 18 110/66 (81) 99 01/05/18 07:30 65 20 108/68 (81) 98 Intake and Output 01/05/18 01/06/18 19:00 07:00 Intake Total 732.778 ml 460.0 ml Output Total 880 ml 750 ml Balance -147.222 ml -290.0 ml IV Total 672.778 ml 460.0 ml Tube Feeding 60 ml Output Urine Total 880 ml 750 ml # Bowel Movements 2 Laboratory Tests 01/05/18 10:40: Arterial Blood pH 7.394, Arterial Blood Partial Pressure CO2 45.4H, Arterial Blood Partial Pressure O2 46.3*L, Arterial Blood HCO3 27.1H, Arterial Blood Oxygen Saturation 51.2*L, Arterial Blood Base Excess 1.8, [place] Test N/a 01/06/18 04:40: White Blood Count 18.4H, Red Blood Count 3.56L, Hemoglobin 11.5L, Hematocrit 34.5L, Mean Corpuscular Volume 97, Mean Corpuscular Hemoglobin 32.3H, Mean Corpuscular Hemoglobin Concent 33.4, Red Cell Distribution Width 13.5, Platelet Count 79#L, Mean Platelet Volume 7.8, Neutrophils (%) (Auto) , Lymphocytes (%) ( Auto) , Monocytes (%) (Auto) , Eosinophils (%) (Auto) , Basophils (%) (Auto) , Neutrophils % (Manual) [Pending], Lymphocytes % (Manual) [Pending], Platelet Estimate [Pending], Platelet Morphology [Pending], Sodium Level 153H, Potassium Level 3.0L, Chloride Level 118H, Carbon Dioxide Level 27, Anion Gap 8, Blood Urea Nitrogen 26H, Creatinine 0.8, Estimat Glomerular Filtration Rate > 60, Glucose Level 122H, Calcium Level 8.2L, Total Bilirubin 4.3H, Direct Bilirubin 2.7H, Aspartate Amino Transf (AST/SGOT) 45H, Alanine Aminotransferase (ALT/SGPT ) 93H, Alkaline Phosphatase 94, Total Protein 5.8L, Albumin 2.3L, Globulin 3.5, Albumin/Globulin Ratio 0.7L Height (Feet): 5 Height (Inches): 5.00 Weight (Pounds): 141 General Appearance: no apparent distress EENT: normal ENT inspection Neck: supple Cardiovascular: regular rhythm Respiratory/Chest: lungs clear Abdomen: non tender Extremities: normal range of motion Edema: 1+ Leg (L), 1+ Leg (R) Neurologic: oriented x 3 Objective on a vent, og, RT as well Davin Aguero MD Jan 06, 2018 07:13
[2018-01-06] MEDS ORDERED: Potassium Phosphate 30 MM in NS 275 ML IV SCH (08:00)
[2018-01-06 08:15] LABS: PHOSPHORUS 1.3 MG/DL (2.5-4.9)
[2018-01-06] MEDS: Pantoprazole Inj IV SCH (08:35)
--- NOTE | 2018-01-06 08:59 | Pulmonolgy Critical Care Note ---
Critical Care - Asmt/Plan Problems: (1) Septic shock (2) Sepsis (3) Choledocholithiasis (4) Thrombocytopenia (5) Leukocytosis (6) Elevated LFTs (7) Renal failure (8) Chronic deep vein thrombosis (DVT) Respiratory: adjust FIO2 - Titrate down FiO2 > 90%, other - HHNs Cardiac: stop pressors - off pressors, continue to monitor HR/BP, other - Taper HC, now on 50 BID Renal: other - IVF changed to d%w Infectious Disease: continue antibiotics - per ID Gastrointestinal: other - CHIEF EXECUTIVE OR MANAGING DIRECTOR eval Endocrine: monitor blood sugar, other - Taper stress dose steroids Neurologic: other - Check ECG, if QT ok would start Seroquel Prophylaxis: Protonix, Heparin - LMWH Disposition: transfer to - [facility] Time Spent (Minutes): 40 Notes Reviewed: electronic warfare officer, ID, GI, other - Heme Onc Discussed with: nurses, consultants Critical Care - Objective Last 24 Hour Vital Signs Date Time Temp Pulse Resp B/P (MAP) Pulse Ox O2 Delivery O2 Flow Rate FiO2 01/06/18 08:00 98.7 74 24 111/83 (92) 98 98.7 01/06/18 08:00 Nasal Cannula 3.0 Nasal Cannula 3.0 01/06/18 07:00 74 24 128/80 (96) 99 01/06/18 06:00 88 24 125/77 (93) 97 01/06/18 05:00 86 24 135/72 (93) 98 01/06/18 05:00 Nasal Cannula 3.0 Nasal Cannula 3.0 01/06/18 04:00 98.2 86 22 122/84 (97) 96 98.2 01/06/18 04:00 90 01/06/18 04:00 Nasal Cannula 3.0 Nasal Cannula 3.0 01/06/18 03:01 79 24 128/65 (86) 98 01/06/18 02:00 75 24 120/66 (84) 98 01/06/18 01:00 77 24 128/74 (92) 97 01/06/18 00:00 Nasal Cannula 3.0 Nasal Cannula 3.0 01/06/18 00:00 79 01/06/18 00:00 97.3 79 22 122/78 (93) 96 97.3 01/05/18 23:00 79 24 117/72 (87) 95 01/05/18 22:00 73 18 130/86 (101) 96 01/05/18 21:00 78 18 110/70 (83) 97 01/05/18 20:30 110/65 01/05/18 20:15 110/65 01/05/18 20:00 99.0 75 22 105/56 (72) 96 99.0 01/05/18 20:00 76 01/05/18 20:00 Nasal Cannula 3.0 Nasal Cannula 3.0 01/05/18 19:41 98 Nasal Cannula 4.0 36 01/05/18 19:41 Nasal Cannula 4.0 36 01/05/18 19:40 76 22 Nasal Cannula 4.0 36 01/05/18 19:00 70 18 110/65 (80) 99 01/05/18 18:00 88 17 125/65 (85) 99 01/05/18 17:00 87 16 117/60 (79) 99 01/05/18 16:30 78 15 118/65 (82) 99 01/05/18 16:00 77 01/05/18 16:00 82 15 115/64 (81) 99 01/05/18 16:00 Nasal Cannula 2.0 Nasal Cannula 2.0 01/05/18 15:30 80 16 112/65 (81) 99 01/05/18 15:00 85 16 118/66 (83) 99 01/05/18 14:30 84 18 112/64 (80) 100 01/05/18 14:00 82 18 118/65 (82) 100 01/05/18 13:30 88 15 115/66 (82) 100 01/05/18 13:00 80 15 110/68 (82) 100 01/05/18 12:30 81 18 115/68 (84) 98 01/05/18 12:00 69 01/05/18 12:00 Nasal Cannula 2.0 Nasal Cannula 2.0 01/05/18 12:00 98.9 79 18 122/73 (89) 98 98.9 01/05/18 11:30 77 20 121/73 (89) 98 01/05/18 11:00 63 23 101/72 (82) 96 01/05/18 10:40 55 18 100 Facial 100 01/05/18 10:30 80 23 124/73 (90) 96 01/05/18 10:18 Nasal Cannula 4.0 36 01/05/18 10:02 89 22 Nasal Cannula 4.0 36 01/05/18 10:00 Non-Rebreather 12.0 100 01/05/18 10:00 77 21 132/72 (92) 99 01/05/18 09:30 69 15 134/74 (94) 99 01/05/18 09:00 62 18 120/68 (85) 99 Status: awake, other - confused Condition: improving HEENT: atraumatic, normocephalic Neck: full ROM Lungs: clear Heart: HR/BP stable Abdomen: soft, non-tender, active bowel sounds Extremities: no C/C/E Micro: Microbiology Date/Time Source Procedure Growth Status 01/04/18 13:40 Sputum Gram Stain - Final Resulted 01/04/18 13:40 Sputum Sputum Culture - Preliminary NORMAL UPPER RESPIRATORY KEMI PRESENT Resulted Accucheck: 89 Blood Sugars: BS controlled Critical Care - Subjective ROS Limited/Unobtainable: Yes ICU Day: 6 Intubation Day: Extubated Interval Events: Self extubated, gas exchange stabe Agitated, confused Condition: improving IV Access: PICC EKG Rhythm: Sinus Rhythm FI02: 36 Vent Support Breath Rate: 20 Vent Support Mode: AC Vent Tidal Volume: 450 Sputum Amount: None PEEP: 8.0 PIP: 21 Fluids: D51/2NS+40 Tube Feeding Amount: 30 I&O: Intake and Output 01/05/18 01/06/18 19:00 07:00 Intake Total 732.778 ml 687.5 ml Output Total 880 ml 910 ml Balance -147.222 ml -222.5 ml IV Total 672.778 ml 687.5 ml Tube Feeding 60 ml Output Urine Total 880 ml 910 ml # Bowel Movements 6 Subjective: Confused, agitated ET-Tube: 7.5 ET Position: 22 Labs: Laboratory Tests Test 01/05/18 10:40 01/06/18 04:40 Arterial Blood pH 7.394 (7.350-7.450) Arterial Blood Partial Pressure CO2 45.4 mmHg (35.0-45.0) H Arterial Blood Partial Pressure O2 46.3 mmHg (75.0-100.0) Arterial Blood HCO3 27.1 mmol/L (22.0-26.0) H Arterial Blood Oxygen Saturation 51.2 % (95-100) *L Arterial Blood Base Excess 1.8 (-2-2) [place] Test N/a White Blood Count 18.4 K/UL (4.8-10.8) H Red Blood Count 3.56 M/UL (4.20-5.40) L Hemoglobin 11.5 G/DL (12.0-16.0) L Hematocrit 34.5 % (37.0-47.0) L Mean Corpuscular Volume 97 FL (80-99) Mean Corpuscular Hemoglobin 32.3 PG (27.0-31.0) H Mean Corpuscular Hemoglobin Concent 33.4 G/DL (32.0-36.0) Red Cell Distribution Width 13.5 % (11.6-14.8) Platelet Count 79 K/UL (150-450) #L Mean Platelet Volume 7.8 FL (6.5-10.1) Neutrophils (%) (Auto) % (45.0-75.0) Lymphocytes (%) (Auto) % (20.0-45.0) Monocytes (%) (Auto) % (1.0-10.0) Eosinophils (%) (Auto) % (0.0-3.0) Basophils (%) (Auto) % (0.0-2.0) Differential Total Cells Counted 100 Neutrophils % (Manual) 84 % (45-75) H Lymphocytes % (Manual) 8 % (20-45) L Monocytes % (Manual) 5 % (1-10) Eosinophils % (Manual) 0 % (0-3) Basophils % (Manual) 0 % (0-2) Band Neutrophils 3 % (0-8) Platelet Estimate Decreased L Platelet Morphology Normal Hypochromasia 1+ Sodium Level 153 MMOL/L (136-145) H Potassium Level 3.0 MMOL/L (3.5-5.1) L Chloride Level 118 MMOL/L (98-107) H Carbon Dioxide Level 27 MMOL/L (21-32) Anion Gap 8 mmol/L (5-15) Blood Urea Nitrogen 26 mg/dL (7-18) H Creatinine 0.8 MG/DL (0.55-1.30) Estimat Glomerular Filtration Rate > 60 mL/min (>60) Glucose Level 122 MG/DL (74-106) H Calcium Level 8.2 MG/DL (8.5-10.1) L Phosphorus Level 1.3 MG/DL (2.5-4.9) L Magnesium Level 1.8 MG/DL (1.8-2.4) Total Bilirubin 4.3 MG/DL (0.2-1.0) H Direct Bilirubin 2.7 MG/DL (0.0-0.3) H Aspartate Amino Transf (AST/SGOT) 45 U/L (15-37) H Alanine Aminotransferase (ALT/SGPT) 93 U/L (12-78) H Alkaline Phosphatase 94 U/L (46-116) Total Protein 5.8 G/DL (6.4-8.2) L Albumin 2.3 G/DL (3.4-5.0) L Globulin 3.5 g/dL Albumin/Globulin Ratio 0.7 (1.0-2.7) L Duncan Marte MD Jan 06, 2018 08:59
[2018-01-06] MEDS ORDERED: Enoxaparin 40mg Inj SUBQ SCH (09:00)
[2018-01-06] MEDS ORDERED: Hydrocortisone 100mg Inj IV SCH ×2 (09:00→21:00)
--- NOTE | 2018-01-06 10:41 | General Progress Note ---
Assessment/Plan Problem List: (1) Septic shock ICD Codes: A41.9 - Sepsis, unspecified organism; R65.21 - Severe sepsis with septic shock SNOMED: 61242850 (2) Thrombocytopenia ICD Codes: D69.6 - Thrombocytopenia, unspecified SNOMED: 238748670 (3) Leukocytosis ICD Codes: D72.829 - Elevated white blood cell count, unspecified SNOMED: 558875760, 339495128 (4) Hypokalemia ICD Codes: E87.6 - Hypokalemia SNOMED: 20175354, 693998698 Assessment/Plan S/P Septic Shock 2/2 gram negative bacteremia 2/2 cholelithiasis s/p sphincterotomy and biliary stent on 01/02 - patient off all pressors - continue IV abx for total of two weeks since first positive blood culture - PICC Line - follow ID reqs - taper off steroids Hypovolemic hypernatremia - started patient on D5W will f.u repeat chem for goal to decrease Na by 1-2 mEQ per hours Thrombocytopenia likely multifactorial ddx include sepsis vs medication , DIC and HIT are negative - , follow up hemolysis labs including haptoglobin, LDH elevated but may also be from sepsis and peripheral smear shows no schistocytes , flow negative - appreciate heme onc reqs - start lovenox dvt prophylaxis today Leukocytosis likely 2/2 to steroids and sepsis - will follow up labs per heme onc reqs Hyperkalemia- improving - replace as necessary Dispo planning - SW for identifying family, and CM for SNF Subjective Date patient seen: Jan 06, 2018 Time patient seen: 08:00 ROS Limited/Unobtainable: Yes Allergies: Coded Allergies: OLANZAPINE (Verified Allergy, Unknown, 01/01/18) TETRACYCLINE (Verified Allergy, Unknown, 01/01/18) All Systems: reviewed and negative except above Subjective patient agitated overnight and required ativan Objective Last 24 Hour Vital Signs Date Time Temp Pulse Resp B/P (MAP) Pulse Ox O2 Delivery O2 Flow Rate FiO2 01/06/18 10:00 77 26 103/85 (91) 97 01/06/18 09:00 75 25 96/47 (63) 98 01/06/18 08:00 90 01/06/18 08:00 98.7 74 24 111/83 (92) 98 98.7 01/06/18 08:00 Nasal Cannula 3.0 Nasal Cannula 3.0 10/10/18 07:00 74 24 128/80 (96) 99 01/06/18 06:00 88 24 125/77 (93) 97 01/06/18 05:00 86 24 135/72 (93) 98 01/06/18 05:00 Nasal Cannula 3.0 Nasal Cannula 3.0 01/06/18 04:00 98.2 86 22 122/84 (97) 96 98.2 01/06/18 04:00 90 01/06/18 04:00 Nasal Cannula 3.0 Nasal Cannula 3.0 01/06/18 03:01 79 24 128/65 (86) 98 01/06/18 02:00 75 24 120/66 (84) 98 01/06/18 01:00 77 24 128/74 (92) 97 01/06/18 00:00 Nasal Cannula 3.0 Nasal Cannula 3.0 01/06/18 00:00 79 01/06/18 00:00 97.3 79 22 122/78 (93) 96 97.3 01/05/18 23:00 79 24 117/72 (87) 95 01/05/18 22:00 73 18 130/86 (101) 96 01/05/18 21:00 78 18 110/70 (83) 97 01/05/18 20:30 110/65 01/05/18 20:15 110/65 01/05/18 20:00 99.0 75 22 105/56 (72) 96 99.0 01/05/18 20:00 76 01/05/18 20:00 Nasal Cannula 3.0 Nasal Cannula 3.0 01/05/18 19:41 98 Nasal Cannula 4.0 36 01/05/18 19:41 Nasal Cannula 4.0 36 01/05/18 19:40 76 22 Nasal Cannula 4.0 36 01/05/18 19:00 70 18 110/65 (80) 99 01/05/18 18:00 88 17 125/65 (85) 99 01/05/18 17:00 87 16 117/60 (79) 99 01/05/18 16:30 78 15 118/65 (82) 99 01/05/18 16:00 77 01/05/18 16:00 82 15 115/64 (81) 99 01/05/18 16:00 Nasal Cannula 2.0 Nasal Cannula 2.0 10/9/18 15:30 80 16 112/65 (81) 99 01/05/18 15:00 85 16 118/66 (83) 99 01/05/18 14:30 84 18 112/64 (80) 100 01/05/18 14:00 82 18 118/65 (82) 100 01/05/18 13:30 88 15 115/66 (82) 100 01/05/18 13:00 80 15 110/68 (82) 100 01/05/18 12:30 81 18 115/68 (84) 98 01/05/18 12:00 69 01/05/18 12:00 Nasal Cannula 2.0 Nasal Cannula 2.0 01/05/18 12:00 98.9 79 18 122/73 (89) 98 98.9 01/05/18 11:30 77 20 121/73 (89) 98 01/05/18 11:00 63 23 101/72 (82) 96 01/05/18 10:40 55 18 100 Facial 100 Intake and Output 01/05/18 01/06/18 19:00 07:00 Intake Total 732.778 ml 687.5 ml Output Total 880 ml 910 ml Balance -147.222 ml -222.5 ml IV Total 672.778 ml 687.5 ml Tube Feeding 60 ml Output Urine Total 880 ml 910 ml # Bowel Movements 6 Laboratory Tests 01/05/18 10:40: Arterial Blood pH 7.394, Arterial Blood Partial Pressure CO2 45.4H, Arterial Blood Partial Pressure O2 46.3*L, Arterial Blood HCO3 27.1H, Arterial Blood Oxygen Saturation 51.2*L, Arterial Blood Base Excess 1.8, [place] Test N/a 01/06/18 04:40: White Blood Count 18.4H, Red Blood Count 3.56L, Hemoglobin 11.5L, Hematocrit 34.5L, Mean Corpuscular Volume 97, Mean Corpuscular Hemoglobin 32.3H, Mean Corpuscular Hemoglobin Concent 33.4, Red Cell Distribution Width 13.5, Platelet Count 79#L, Mean Platelet Volume 7.8, Neutrophils (%) (Auto) , Lymphocytes (%) ( Auto) , Monocytes (%) (Auto) , Eosinophils (%) (Auto) , Basophils (%) (Auto) , Differential Total Cells Counted 100, Neutrophils % (Manual) 84H, Lymphocytes % (Manual) 8L, Monocytes % (Manual) 5, Eosinophils % (Manual) 0, Basophils % ( Manual) 0, Band Neutrophils 3, Platelet Estimate DecreasedL, Platelet Morphology Normal, Hypochromasia 1+, Sodium Level 153H, Potassium Level 3.0L, Chloride Level 118H, Carbon Dioxide Level 27, Anion Gap 8, Blood Urea Nitrogen 26H, Creatinine 0.8, Estimat Glomerular Filtration Rate > 60, Glucose Level 122H , Calcium Level 8.2L, Phosphorus Level 1.3L, Magnesium Level 1.8, Total Bilirubin 4.3H, Direct Bilirubin 2.7H, Aspartate Amino Transf (AST/SGOT) 45H, Alanine Aminotransferase (ALT/SGPT) 93H, Alkaline Phosphatase 94, Total Protein 5.8L, Albumin 2.3L, Globulin 3.5, Albumin/Globulin Ratio 0.7L Height (Feet): 5 Height (Inches): 5.00 Weight (Pounds): 148 General Appearance: WD/WN, no apparent distress, confused EENT: PERRL/EOMI, normal ENT inspection, TMs normal Neck: non-tender, normal alignment, supple, normal inspection, abnormal alignment Cardiovascular: normal peripheral pulses, normal rate, regular rhythm, regularly irregular, no gallop/murmur, no JVD Respiratory/Chest: chest wall non-tender, lungs clear, normal breath sounds, no respiratory distress, no accessory muscle use Abdomen: normal bowel sounds, non tender, soft, no organomegaly, no mass Extremities: non-tender, normal inspection, no calf tenderness Edema: no edema noted Arm (L), no edema noted Arm (R), no edema noted Leg (L), no edema noted Leg (R), no edema noted Pedal (L), no edema noted Pedal (R), no edema noted Generalized Neurologic: alert, responsive, other - patient confused Skin: normal pigmentation, warm/dry Lymphatic: normal inguinal (L) Susi Pryor DO Jan 06, 2018 10:41
--- NOTE | 2018-01-06 11:32 | GI Progress Note ---
Assessment/Plan Problems: (1) Thrombocytopenia ICD Codes: D69.6 - Thrombocytopenia, unspecified SNOMED: 673614190 (2) Leukocytosis ICD Codes: D72.829 - Elevated white blood cell count, unspecified SNOMED: 996903080, 948447802 (3) Choledocholithiasis ICD Codes: K80.50 - Calculus of bile duct without cholangitis or cholecystitis without obstruction SNOMED: 994328689 (4) Renal failure ICD Codes: N19 - Unspecified kidney failure SNOMED: 51396186 Qualifiers: Qualified Codes: N19 - Unspecified kidney failure (5) Hypokalemia ICD Codes: E87.6 - Hypokalemia SNOMED: 12557732, 741384253 (6) Septic shock ICD Codes: A41.9 - Sepsis, unspecified organism; R65.21 - Severe sepsis with septic shock SNOMED: 82438595 (7) Sepsis ICD Codes: A41.9 - Sepsis, unspecified organism SNOMED: 50431999 (8) Elevated LFTs ICD Codes: R94.5 - Abnormal results of liver function studies SNOMED: 717264527, 221630950 Status: progressing, unchanged Status Narrative Discussed with Dr. Villar. Assessment/Plan Assessment - Cholangitis - Choledocholithiasis - s/p ERCP and stent - sepsis/chock - lactic acidosis - renal failure - thrombocytopenia, likely DIC related - Critical - LFT downtrending - hepatitis panel Recommendations - cont TF - IVF - Abx - transfuse PRN - trend LFTs Patient is to required to return in 3 months for repeat ERCP/stent removal. The patient was seen and examined at bedside and all new and available data was reviewed in the patients chart. I agree with the above findings, impression and plan. (Patient seen earlier today. Signature stamp does not reflect patient encounter time.). - Edward Villar MD Subjective Subjective limited Objective Last 24 Hour Vital Signs Date Time Temp Pulse Resp B/P (MAP) Pulse Ox O2 Delivery O2 Flow Rate FiO2 01/06/18 11:00 90 24 130/88 (102) 90 01/06/18 10:00 77 26 103/85 (91) 97 01/06/18 09:00 75 25 96/47 (63) 98 01/06/18 08:00 90 01/06/18 08:00 98.7 74 24 111/83 (92) 98 98.7 01/06/18 08:00 Nasal Cannula 3.0 Nasal Cannula 3.0 01/06/18 07:00 74 24 128/80 (96) 99 01/06/18 06:00 88 24 125/77 (93) 97 01/06/18 05:00 86 24 135/72 (93) 98 01/06/18 05:00 Nasal Cannula 3.0 Nasal Cannula 3.0 01/06/18 04:00 98.2 86 22 122/84 (97) 96 98.2 01/06/18 04:00 90 01/06/18 04:00 Nasal Cannula 3.0 Nasal Cannula 3.0 01/06/18 03:01 79 24 128/65 (86) 98 01/06/18 02:00 75 24 120/66 (84) 98 01/06/18 01:00 77 24 128/74 (92) 97 01/06/18 00:00 Nasal Cannula 3.0 Nasal Cannula 3.0 01/06/18 00:00 79 01/06/18 00:00 97.3 79 22 122/78 (93) 96 97.3 01/05/18 23:00 79 24 117/72 (87) 95 01/05/18 22:00 73 18 130/86 (101) 96 01/05/18 21:00 78 18 110/70 (83) 97 01/05/18 20:30 110/65 01/05/18 20:15 110/65 01/05/18 20:00 99.0 75 22 105/56 (72) 96 99.0 01/05/18 20:00 76 01/05/18 20:00 Nasal Cannula 3.0 Nasal Cannula 3.0 01/05/18 19:41 98 Nasal Cannula 4.0 36 01/05/18 19:41 Nasal Cannula 4.0 36 01/05/18 19:40 76 22 Nasal Cannula 4.0 36 01/05/18 19:00 70 18 110/65 (80) 99 01/05/18 18:00 88 17 125/65 (85) 99 01/05/18 17:00 87 16 117/60 (79) 99 01/05/18 16:30 78 15 118/65 (82) 99 10/9/18 16:00 77 01/05/18 16:00 82 15 115/64 (81) 99 01/05/18 16:00 Nasal Cannula 2.0 Nasal Cannula 2.0 01/05/18 15:30 80 16 112/65 (81) 99 01/05/18 15:00 85 16 118/66 (83) 99 01/05/18 14:30 84 18 112/64 (80) 100 01/05/18 14:00 82 18 118/65 (82) 100 01/05/18 13:30 88 15 115/66 (82) 100 01/05/18 13:00 80 15 110/68 (82) 100 01/05/18 12:30 81 18 115/68 (84) 98 01/05/18 12:00 69 01/05/18 12:00 Nasal Cannula 2.0 Nasal Cannula 2.0 01/05/18 12:00 98.9 79 18 122/73 (89) 98 98.9 Intake and Output 01/05/18 01/06/18 19:00 07:00 Intake Total 732.778 ml 687.5 ml Output Total 880 ml 910 ml Balance -147.222 ml -222.5 ml IV Total 672.778 ml 687.5 ml Tube Feeding 60 ml Output Urine Total 880 ml 910 ml # Bowel Movements 6 Laboratory Tests Test 01/06/18 04:40 White Blood Count 18.4 K/UL (4.8-10.8) H Red Blood Count 3.56 M/UL (4.20-5.40) L Hemoglobin 11.5 G/DL (12.0-16.0) L Hematocrit 34.5 % (37.0-47.0) L Mean Corpuscular Volume 97 FL (80-99) Mean Corpuscular Hemoglobin 32.3 PG (27.0-31.0) H Mean Corpuscular Hemoglobin Concent 33.4 G/DL (32.0-36.0) Red Cell Distribution Width 13.5 % (11.6-14.8) Platelet Count 79 K/UL (150-450) #L Mean Platelet Volume 7.8 FL (6.5-10.1) Neutrophils (%) (Auto) % (45.0-75.0) Lymphocytes (%) (Auto) % (20.0-45.0) Monocytes (%) (Auto) % (1.0-10.0) Eosinophils (%) (Auto) % (0.0-3.0) Basophils (%) (Auto) % (0.0-2.0) Differential Total Cells Counted 100 Neutrophils % (Manual) 84 % (45-75) H Lymphocytes % (Manual) 8 % (20-45) L Monocytes % (Manual) 5 % (1-10) Eosinophils % (Manual) 0 % (0-3) Basophils % (Manual) 0 % (0-2) Band Neutrophils 3 % (0-8) Platelet Estimate Decreased L Platelet Morphology Normal Hypochromasia 1+ Sodium Level 153 MMOL/L (136-145) H Potassium Level 3.0 MMOL/L (3.5-5.1) L Chloride Level 118 MMOL/L (98-107) H Carbon Dioxide Level 27 MMOL/L (21-32) Anion Gap 8 mmol/L (5-15) Blood Urea Nitrogen 26 mg/dL (7-18) H Creatinine 0.8 MG/DL (0.55-1.30) Estimat Glomerular Filtration Rate > 60 mL/min (>60) Glucose Level 122 MG/DL (74-106) H Calcium Level 8.2 MG/DL (8.5-10.1) L Phosphorus Level 1.3 MG/DL (2.5-4.9) L Magnesium Level 1.8 MG/DL (1.8-2.4) Total Bilirubin 4.3 MG/DL (0.2-1.0) H Direct Bilirubin 2.7 MG/DL (0.0-0.3) H Aspartate Amino Transf (AST/SGOT) 45 U/L (15-37) H Alanine Aminotransferase (ALT/SGPT) 93 U/L (12-78) H Alkaline Phosphatase 94 U/L (46-116) Total Protein 5.8 G/DL (6.4-8.2) L Albumin 2.3 G/DL (3.4-5.0) L Globulin 3.5 g/dL Albumin/Globulin Ratio 0.7 (1.0-2.7) L Height (Feet): 5 Height (Inches): 5.00 Weight (Pounds): 148 General Appearance: alert Cardiovascular: regular rhythm Respiratory/Chest: no respiratory distress, no accessory muscle use Abdominal Exam: soft Brando Euceda NP Jan 06, 2018 11:32
[2018-01-06 12:47] LABS: APPEARANCE,URINE SLIGHTLY CLOUDY; BILIRUBIN, URINE 1+ (NEGATIVE); GLUCOSE, URINE (UA) NEGATIVE (NEGATIVE); KETONES,URINE NEGATIVE (NEGATIVE); LEUKOCYTE ESTERASE ,URINE 2+ (NEGATIVE); NITRITE,URINE NEGATIVE (NEGATIVE); PH,URINE 7 (4.5-8.0); PROTEIN,URINE 3+ (NEGATIVE); UROBILINOGEN,URINE 4 MG/DL (0.0-1.0)
[2018-01-06 12:48] LABS: COLOR,URINE YELLOW
--- NOTE | 2018-01-06 15:04 | Diagnostic Imaging Report ---
APPROVED REPORT CPT Code: 77790 Present Symptoms Shortness of breath Comments: Hx of PICC line in right groin area RIGHT LEG: Venous imaging reveals recanalized chronic thrombus in the superficial femoral vein. Large collateral vein noted anterior to the superficial femoral artery. The remainder of the deep venous system is within normal limits. There is no evidence of thrombus in the common femoral, popliteal or calf veins. The greater saphenous vein is also within normal limits. Doppler indicates normal spontaneous flow within these segments. The proximal superficial femoral vein was not well visualized, due to an indwelling catheter. LEFT LEG: Venous imaging reveals a patent deep venous system. There is no evidence of thrombus within the femoral, popliteal or tibial segments. The greater saphenous vein is also within normal limits. Doppler indicates normal spontaneous flow within these segments. There is no evidence of acute deep vein thrombosis.
[2018-01-06 15:22] LABS: PHOSPHORUS 3.7 MG/DL (2.5-4.9); POTASSIUM 3.5 MMOL/L (3.5-5.1)
--- NOTE | 2018-01-06 15:24 | Infectious Diseases Prog Note ---
Assessment/Plan Assessment/Plan ASSESSMENT AND PLAN: 1. sepsis, shock, citrobacter/klebsiella bacteremia, cholangitis, fevers, leukocytosis, ? pna, ? ards - s/p ERCP - zosyn, discontinue tobramycin to avoid nephrotoxicity - f/u on cultures - surveillance blood culture still positive - monitor labs and chest x-ray - d/w RN - clinically improved, off pressors, extubated - icu, supportive care - d/w Dr. Pryor 2. Respiratory failure - on vent, per pulmonary medicine 3. Acute kidney injury - cr better 4. History of paranoid schizophrenia and psychiatric disease. 5. Hypertension. 6. No history of diabetes. 7. Allergy to olanzapine and tetracycline. 8. MAR was noted. 9. Case discussed with RN. 10. Family history noncontributory. 11. Social history negative. 12. Continue treatment per primary consultants. 13. Prognosis is guarded to poor. 14. Notes and records were noted and orders were entered. Subjective Constitutional: Reports: fatigue, other - no vent, extubated ; Denies: fever HEENT: Denies: congestion Respiratory: Denies: shortness of breath Cardiovascular: Reports: other; Denies: chest pain Gastrointestinal/Abdominal: Denies: nausea, vomiting, diarrhea Genitourinary: Reports: other - + goldman Neurologic: Reports: weakness, other - lethargic but responsive Psychiatric: Denies: depression Skin: Denies: rash Hematologic: Denies: bleeding Musculoskeletal: Denies: pain Allergies: Coded Allergies: OLANZAPINE (Verified Allergy, Unknown, 01/01/18) TETRACYCLINE (Verified Allergy, Unknown, 01/01/18) Objective Vital Signs Last 24 Hour Vital Signs Date Time Temp Pulse Resp B/P (MAP) Pulse Ox O2 Delivery O2 Flow Rate FiO2 01/06/18 15:00 68 23 142/73 (96) 100 01/06/18 14:00 73 17 104/44 (64) 100 01/06/18 13:00 96 21 133/71 (91) 100 01/06/18 12:00 71 01/06/18 12:00 98.6 77 24 133/71 (91) 94 98.6 01/06/18 12:00 Nasal Cannula 3.0 Nasal Cannula 3.0 01/06/18 11:00 90 24 130/88 (102) 90 01/06/18 10:00 77 26 103/85 (91) 97 01/06/18 09:00 75 25 96/47 (63) 98 01/06/18 08:00 90 01/06/18 08:00 98.7 74 24 111/83 (92) 98 98.7 01/06/18 08:00 Nasal Cannula 3.0 Nasal Cannula 3.0 01/06/18 07:00 74 24 128/80 (96) 99 01/06/18 06:00 88 24 125/77 (93) 97 01/06/18 05:00 86 24 135/72 (93) 98 01/06/18 05:00 Nasal Cannula 3.0 Nasal Cannula 3.0 01/06/18 04:00 98.2 86 22 122/84 (97) 96 98.2 01/06/18 04:00 90 01/06/18 04:00 Nasal Cannula 3.0 Nasal Cannula 3.0 01/06/18 03:01 79 24 128/65 (86) 98 01/06/18 02:00 75 24 120/66 (84) 98 01/06/18 01:00 77 24 128/74 (92) 97 01/06/18 00:00 Nasal Cannula 3.0 Nasal Cannula 3.0 01/06/18 00:00 79 01/06/18 00:00 97.3 79 22 122/78 (93) 96 97.3 01/05/18 23:00 79 24 117/72 (87) 95 01/05/18 22:00 73 18 130/86 (101) 96 01/05/18 21:00 78 18 110/70 (83) 97 01/05/18 20:30 110/65 01/05/18 20:15 110/65 01/05/18 20:00 99.0 75 22 105/56 (72) 96 99.0 01/05/18 20:00 76 01/05/18 20:00 Nasal Cannula 3.0 Nasal Cannula 3.0 01/05/18 19:41 98 Nasal Cannula 4.0 36 01/05/18 19:41 Nasal Cannula 4.0 36 01/05/18 19:40 76 22 Nasal Cannula 4.0 36 01/05/18 19:00 70 18 110/65 (80) 99 01/05/18 18:00 88 17 125/65 (85) 99 01/05/18 17:00 87 16 117/60 (79) 99 01/05/18 16:30 78 15 118/65 (82) 99 01/05/18 16:00 77 01/05/18 16:00 82 15 115/64 (81) 99 01/05/18 16:00 Nasal Cannula 2.0 Nasal Cannula 2.0 01/05/18 15:30 80 16 112/65 (81) 99 Height (Feet): 5 Height (Inches): 5.00 Weight (Pounds): 148 General Appearance: no acute distress HEENT: normocephalic, atraumatic, anicteric, mucous membranes moist, EOMI, supple, no JVD Respiratory/Chest: normal breath sounds, no respiratory distress, no accessory muscle use, crackles/rales - few, rhonchi - bilaterally - few Cardiovascular: normal rate, regular rhythm, no gallop/murmur Abdomen: normal bowel sounds, soft, non tender, no organomegaly, non distended Genitourinary: other - + goldman - urine clear Extremities: no cyanosis Skin: no rash Neurologic/Psychiatric: store host II-XII grossly normal, alert, responsive Lymphatic: no neck adenopathy Musculoskeletal: no effusion Objective CT abdomen and pelvis: Impression: Positive for choledocholithiasis, 3 large calculi in the downstream common bile duct. There is evidence of biliary obstruction, with marked dilatation of the extrahepatic and intrahepatic bile ducts. Dr. Niño was notified of this finding at the time of interpretation Cholelithiasis Limited assessment of the GI tract, due to lack of enteric contrast Posterior dependent pulmonary atelectatic changes. Right middle lobe scarring with associated bronchiectasis Incidental finding of tiny fat-containing abdominal hernia. US - abdomen: Impression: Cholelithiasis Marked biliary ductal dilatation, consistent with choledocholithiasis seen on prior CT scan, although not imaged on current study Chest x-ray - 01/03 - FINDINGS: Image is limited by portable technique and external artifacts. Allowing for this, endotracheal tube remains in place, terminating approximately 2 cm above the andrade. Enteric tube terminates at least within the gastric body. There are patchy coarse reticular opacities within bilateral medial lung bases with probable associated volume loss, indicating at least atelectasis, as before. No definite new lung opacity. Heart size is normal and stable. No obvious significant pleural effusion or pneumothorax. IMPRESSION: 1. New enteric tube terminates at least within the gastric body. 2. Otherwise, no definite significant interval change. Chest x-ray - 01/04 - Findings: The endotracheal tube appears to be projected over the right mainstem bronchus. This is not absolutely certain and the recommend repeating the examination. The heart is enlarged. There is basilar consolidation again demonstrated. IMPRESSION: Probable endotracheal tube in the proximal right mainstem bronchus. Suggest a repeat x-ray for confirmation. Microbiology Date/Time Source Procedure Growth Status 01/03/18 06:05 Blood Blood Culture - Preliminary Gram Negative Bacillus 1 Resulted 01/04/18 13:40 Sputum Gram Stain - Final Resulted 01/04/18 13:40 Sputum Sputum Culture - Preliminary NORMAL UPPER RESPIRATORY KEMI PRESENT Resulted 01/01/18 22:25 Rectum VRE Culture - Final NO VANCOMYCIN RESISTANT ENTEROCOCCUS ... Complete Microbiology Date/Time Source Procedure Growth Status 01/04/18 13:40 Sputum Gram Stain - Final Resulted 01/04/18 13:40 Sputum Sputum Culture - Preliminary NORMAL UPPER RESPIRATORY KEMI PRESENT Resulted Laboratory Tests Test 01/06/18 04:40 01/06/18 09:40 01/06/18 14:30 White Blood Count 18.4 K/UL (4.8-10.8) H Red Blood Count 3.56 M/UL (4.20-5.40) L Hemoglobin 11.5 G/DL (12.0-16.0) L Hematocrit 34.5 % (37.0-47.0) L Mean Corpuscular Volume 97 FL (80-99) Mean Corpuscular Hemoglobin 32.3 PG (27.0-31.0) H Mean Corpuscular Hemoglobin Concent 33.4 G/DL (32.0-36.0) Red Cell Distribution Width 13.5 % (11.6-14.8) Platelet Count 79 K/UL (150-450) #L Mean Platelet Volume 7.8 FL (6.5-10.1) Neutrophils (%) (Auto) % (45.0-75.0) Lymphocytes (%) (Auto) % (20.0-45.0) Monocytes (%) (Auto) % (1.0-10.0) Eosinophils (%) (Auto) % (0.0-3.0) Basophils (%) (Auto) % (0.0-2.0) Differential Total Cells Counted 100 Neutrophils % (Manual) 84 % (45-75) H Lymphocytes % (Manual) 8 % (20-45) L Monocytes % (Manual) 5 % (1-10) Eosinophils % (Manual) 0 % (0-3) Basophils % (Manual) 0 % (0-2) Band Neutrophils 3 % (0-8) Platelet Estimate Decreased L Platelet Morphology Normal Hypochromasia 1+ Sodium Level 153 MMOL/L (136-145) H Potassium Level 3.0 MMOL/L (3.5-5.1) L Pending Chloride Level 118 MMOL/L (98-107) H Carbon Dioxide Level 27 MMOL/L (21-32) Anion Gap 8 mmol/L (5-15) Blood Urea Nitrogen 26 mg/dL (7-18) H Creatinine 0.8 MG/DL (0.55-1.30) Estimat Glomerular Filtration Rate > 60 mL/min (>60) Glucose Level 122 MG/DL (74-106) H Calcium Level 8.2 MG/DL (8.5-10.1) L Phosphorus Level 1.3 MG/DL (2.5-4.9) L Pending Magnesium Level 1.8 MG/DL (1.8-2.4) Total Bilirubin 4.3 MG/DL (0.2-1.0) H Direct Bilirubin 2.7 MG/DL (0.0-0.3) H Aspartate Amino Transf (AST/SGOT) 45 U/L (15-37) H Alanine Aminotransferase (ALT/SGPT) 93 U/L (12-78) H Alkaline Phosphatase 94 U/L (46-116) Total Protein 5.8 G/DL (6.4-8.2) L Albumin 2.3 G/DL (3.4-5.0) L Globulin 3.5 g/dL Albumin/Globulin Ratio 0.7 (1.0-2.7) L Urine Color Yellow Urine Appearance Slightly cloudy Urine pH 7 (4.5-8.0) Urine Specific [place] 1.005 (1.005-1.035) Urine Protein 3+ (NEGATIVE) H Urine Glucose (UA) Negative (NEGATIVE) Urine Ketones Negative (NEGATIVE) Urine Blood 5+ (NEGATIVE) H Urine Nitrite Negative (NEGATIVE) Urine Bilirubin 1+ (NEGATIVE) H Urine Ictotest Positive (NEGATIVE) Urine Urobilinogen 4 MG/DL (0.0-1.0) H Urine Leukocyte Esterase 2+ (NEGATIVE) H Urine RBC 40-60 /HPF (0 - 2) H Urine WBC 5-10 /HPF (0 - 2) H Urine Squamous Epithelial Cells Few /LPF (NONE/OCC) Urine Bacteria Few /HPF (NONE) Current Medications Medications (Trade) Dose Ordered Sig/Bertrand Route PRN Reason Start Time Stop Time Status Last Admin Dose Admin Acetaminophen (Tylenol) 650 mg Q6H PRN ORAL Mild Pain/Temp > 100.5 01/03/18 21:25 02/02/18 21:24 Albuterol/ Ipratropium (Albuterol/ Ipratropium) 3 ml Q4H PRN HHN Shortness of Breath 01/04/18 13:15 01/09/18 13:14 Chlorhexidine Gluconate (Mandy-Hex 2%) 1 applic DAILY@2000 TOPIC 01/05/18 20:00 02/04/18 19:59 01/05/18 20:05 Dextrose 1,000 ml @ 100 mls/hr Q10H IV 01/06/18 07:15 02/05/18 07:14 01/06/18 07:50 Dextrose (Dextrose 50%) 25 ml Q30M PRN IV Hypoglycemia 01/01/18 17:30 01/31/18 17:29 Dextrose (Dextrose 50%) 50 ml Q30M PRN IV Hypoglycemia 01/01/18 17:30 01/31/18 17:29 Enoxaparin Sodium (Lovenox) 40 mg DAILY SUBQ 01/06/18 09:00 02/05/18 08:59 01/06/18 08:38 Heparin Sodium/ Sodium Chloride (Heparin 2000 units/Ns 1000ml premix) 2,000 unit ONCE PRN INJ picc line placement 01/05/18 13:00 01/07/18 12:59 Hydrocortisone (Solu-CORTEF) 50 mg EVERY 12 HOURS IV 01/06/18 09:00 02/05/18 08:59 01/06/18 08:35 Lidocaine HCl (Xylocaine 1% 30ml) 30 ml ONCE PRN INJ picc line placement 01/05/18 13:00 01/07/18 12:59 Lorazepam (Ativan 2mg/ml 1ml) 2 mg EVERY 2 HOURS PRN IV For Anxiety 01/02/18 14:30 01/09/18 14:29 01/06/18 10:52 Morphine Sulfate (Morphine Sulfate) 2 mg Q4H PRN IVP For Pain 01/02/18 14:30 01/09/18 14:29 01/06/18 05:54 Ondansetron HCl (Zofran) 4 mg Q6H PRN IVP Nausea & Vomiting 01/01/18 17:30 01/31/18 17:29 Pantoprazole (Protonix) 40 mg DAILY IV 01/02/18 09:00 02/01/18 08:59 01/06/18 08:35 Piperacillin Sod/ Tazobactam Sod 3.375 gm/Dextrose 110 ml @ 27.5 mls/hr Q8HR IVPB 01/03/18 14:00 01/10/18 13:59 01/06/18 14:20 Quetiapine Fumarate (SEROquel) 100 mg Q12HR ORAL 01/06/18 09:00 02/05/18 08:59 01/06/18 10:29 Tobramycin Protocol (Tobramycin pharmacy to dose) 1 ea DAILY PRN MISC Per rx protocol 01/02/18 09:15 02/01/18 09:14 Tobramycin Sulfate 280 mg/ Sodium Chloride 110 ml @ 220 mls/hr Q24H IV 01/04/18 18:00 01/11/18 17:59 01/05/18 18:04 Corinne Lilly MD Jan 06, 2018 15:24
[2018-01-06] MEDS ORDERED: Etomidate 40mg/20ml Inj IV ONE (15:36)
[2018-01-06] MEDS ORDERED: Succinylcholine 20mg/ml 10ml vial ONE (15:36)
--- NOTE | 2018-01-06 16:53 | General Surgery Progress Note ---
General Surgery-Progress Note Subjective Additional Comments leukocytosis trending down. labs improving. more awake and responsive today Objective Last 24 Hour Vital Signs Date Time Temp Pulse Resp B/P (MAP) Pulse Ox O2 Delivery O2 Flow Rate FiO2 01/06/18 16:00 Nasal Cannula 3.0 Nasal Cannula 3.0 01/06/18 16:00 98.0 63 21 140/48 (78) 100 98.0 01/06/18 16:00 61 01/06/18 15:00 68 23 142/73 (96) 100 01/06/18 14:00 73 17 104/44 (64) 100 01/06/18 13:00 96 21 133/71 (91) 100 01/06/18 12:00 71 01/06/18 12:00 98.6 77 24 133/71 (91) 94 98.6 01/06/18 12:00 Nasal Cannula 3.0 Nasal Cannula 3.0 01/06/18 11:00 90 24 130/88 (102) 90 01/06/18 10:00 77 26 103/85 (91) 97 01/06/18 09:00 75 25 96/47 (63) 98 01/06/18 08:00 90 01/06/18 08:00 98.7 74 24 111/83 (92) 98 98.7 01/06/18 08:00 Nasal Cannula 3.0 Nasal Cannula 3.0 01/06/18 07:00 74 24 128/80 (96) 99 01/06/18 06:00 88 24 125/77 (93) 97 01/06/18 05:00 86 24 135/72 (93) 98 01/06/18 05:00 Nasal Cannula 3.0 Nasal Cannula 3.0 01/06/18 04:00 98.2 86 22 122/84 (97) 96 98.2 01/06/18 04:00 90 01/06/18 04:00 Nasal Cannula 3.0 Nasal Cannula 3.0 01/06/18 03:01 79 24 128/65 (86) 98 01/06/18 02:00 75 24 120/66 (84) 98 01/06/18 01:00 77 24 128/74 (92) 97 01/06/18 00:00 Nasal Cannula 3.0 Nasal Cannula 3.0 01/06/18 00:00 79 01/06/18 00:00 97.3 79 22 122/78 (93) 96 97.3 01/05/18 23:00 79 24 117/72 (87) 95 01/05/18 22:00 73 18 130/86 (101) 96 01/05/18 21:00 78 18 110/70 (83) 97 01/05/18 20:30 110/65 01/05/18 20:15 110/65 01/05/18 20:00 99.0 75 22 105/56 (72) 96 99.0 01/05/18 20:00 76 01/05/18 20:00 Nasal Cannula 3.0 Nasal Cannula 3.0 01/05/18 19:41 98 Nasal Cannula 4.0 36 01/05/18 19:41 Nasal Cannula 4.0 36 01/05/18 19:40 76 22 Nasal Cannula 4.0 36 01/05/18 19:00 70 18 110/65 (80) 99 01/05/18 18:00 88 17 125/65 (85) 99 01/05/18 17:00 87 16 117/60 (79) 99 I&O Intake and Output 01/05/18 01/06/18 19:00 07:00 Intake Total 732.778 ml 687.5 ml Output Total 880 ml 910 ml Balance -147.222 ml -222.5 ml IV Total 672.778 ml 687.5 ml Tube Feeding 60 ml Output Urine Total 880 ml 910 ml # Bowel Movements 6 Dressing: saturated Wound: clean Drains: other Cardiovascular: RSR Respiratory: clear Abdomen: soft, distended, non-tender, present bowel sounds Extremities: other Laboratory Tests Test 01/06/18 04:40 01/06/18 09:40 01/06/18 14:30 White Blood Count 18.4 K/UL (4.8-10.8) H Red Blood Count 3.56 M/UL (4.20-5.40) L Hemoglobin 11.5 G/DL (12.0-16.0) L Hematocrit 34.5 % (37.0-47.0) L Mean Corpuscular Volume 97 FL (80-99) Mean Corpuscular Hemoglobin 32.3 PG (27.0-31.0) H Mean Corpuscular Hemoglobin Concent 33.4 G/DL (32.0-36.0) Red Cell Distribution Width 13.5 % (11.6-14.8) Platelet Count 79 K/UL (150-450) #L Mean Platelet Volume 7.8 FL (6.5-10.1) Neutrophils (%) (Auto) % (45.0-75.0) Lymphocytes (%) (Auto) % (20.0-45.0) Monocytes (%) (Auto) % (1.0-10.0) Eosinophils (%) (Auto) % (0.0-3.0) Basophils (%) (Auto) % (0.0-2.0) Differential Total Cells Counted 100 Neutrophils % (Manual) 84 % (45-75) H Lymphocytes % (Manual) 8 % (20-45) L Monocytes % (Manual) 5 % (1-10) Eosinophils % (Manual) 0 % (0-3) Basophils % (Manual) 0 % (0-2) Band Neutrophils 3 % (0-8) Platelet Estimate Decreased L Platelet Morphology Normal Hypochromasia 1+ Sodium Level 153 MMOL/L (136-145) H Potassium Level 3.0 MMOL/L (3.5-5.1) L 3.5 MMOL/L (3.5-5.1) Chloride Level 118 MMOL/L (98-107) H Carbon Dioxide Level 27 MMOL/L (21-32) Anion Gap 8 mmol/L (5-15) Blood Urea Nitrogen 26 mg/dL (7-18) H Creatinine 0.8 MG/DL (0.55-1.30) Estimat Glomerular Filtration Rate > 60 mL/min (>60) Glucose Level 122 MG/DL (74-106) H Calcium Level 8.2 MG/DL (8.5-10.1) L Phosphorus Level 1.3 MG/DL (2.5-4.9) L 3.7 MG/DL (2.5-4.9) Magnesium Level 1.8 MG/DL (1.8-2.4) Total Bilirubin 4.3 MG/DL (0.2-1.0) H Direct Bilirubin 2.7 MG/DL (0.0-0.3) H Aspartate Amino Transf (AST/SGOT) 45 U/L (15-37) H Alanine Aminotransferase (ALT/SGPT) 93 U/L (12-78) H Alkaline Phosphatase 94 U/L (46-116) Total Protein 5.8 G/DL (6.4-8.2) L Albumin 2.3 G/DL (3.4-5.0) L Globulin 3.5 g/dL Albumin/Globulin Ratio 0.7 (1.0-2.7) L Urine Color Yellow Urine Appearance Slightly cloudy Urine pH 7 (4.5-8.0) Urine Specific [place] 1.005 (1.005-1.035) Urine Protein 3+ (NEGATIVE) H Urine Glucose (UA) Negative (NEGATIVE) Urine Ketones Negative (NEGATIVE) Urine Blood 5+ (NEGATIVE) H Urine Nitrite Negative (NEGATIVE) Urine Bilirubin 1+ (NEGATIVE) H Urine Ictotest Positive (NEGATIVE) Urine Urobilinogen 4 MG/DL (0.0-1.0) H Urine Leukocyte Esterase 2+ (NEGATIVE) H Urine RBC 40-60 /HPF (0 - 2) H Urine WBC 5-10 /HPF (0 - 2) H Urine Squamous Epithelial Cells Few /LPF (NONE/OCC) Urine Bacteria Few /HPF (NONE) Plan Problems: (1) Septic shock Assessment & Plan: Septic shock, choledocholithiasis, possible cholangitis -npo -iv fluids -iv abx -icu care -trend labs thank you. will follow with recs. (2) Choledocholithiasis Assessment & Plan: s/p ERCP with stent LFT's improving leukocytosis cont iv abx thank you (3) Elevated LFTs Darius Caraballo Jan 06, 2018 16:53
[2018-01-06] MEDS ORDERED: Albuterol/Ipratropium 3ml neb HHN PRN (18:50)
[2018-01-06] MEDS ORDERED: Morphine Sulfate 2mg/ml Inj IVP PRN (18:51)
[2018-01-06] MEDS ORDERED: LORazepam Inj 2mg/ml 1ml IV PRN (20:00)
[2018-01-06] MEDS ORDERED: Dyna-Hex 2% Top Sol 2oz TOPIC SCH (20:00)
[2018-01-07] VITALS (7 sets, daily range): BP systolic 99–157; BP diastolic 67–90
[2018-01-07 04:22] LABS: HEMATOCRIT 32.3 % (37.0-47.0); HEMOGLOBIN 11.2 G/DL (12.0-16.0); MEAN CORPUSCULAR VOLUME 97 FL (80-99); PLATELET COUNT 111 K/UL (150-450); RED BLOOD COUNT 3.33 M/UL (4.20-5.40); RED CELL DISTRIBUTION WIDTH 13.2 % (11.6-14.8); WHITE BLOOD COUNT 18.1 K/UL (4.8-10.8)
[2018-01-07 04:45] LABS: ALANINE AMINOTRANSFERASE 80 U/L (12-78); ALBUMIN 2.2 G/DL (3.4-5.0); ALBUMIN/GLOBULIN RATIO 0.6 (1.0-2.7); ALKALINE PHOSPHATASE 89 U/L (46-116); ANION GAP 8 mmol/L (5-15); ASPARTATE AMINO TRANSFERASE 32 U/L (15-37); BILIRUBIN,TOTAL 3.1 MG/DL (0.2-1.0); BLOOD UREA NITROGEN 20 mg/dL (7-18); CALCIUM 8.1 MG/DL (8.5-10.1); CARBON DIOXIDE 27 MMOL/L (21-32); CHLORIDE 116 MMOL/L (98-107); CREATININE 0.8 MG/DL (0.55-1.30); POTASSIUM 2.8 MMOL/L (3.5-5.1); SODIUM 151 MMOL/L (136-145)
[2018-01-07 04:49] LABS: BILIRUBIN,DIRECT 1.9 MG/DL (0.0-0.3)
[2018-01-07] MEDS: Piperacillin/Tazobactam 3.375 GM in D5W 110 ML IVPB SCH ×3 (05:50→22:15)
[2018-01-07] MEDS ORDERED: Pantoprazole Inj IV SCH ×2 (09:00→10:30)
[2018-01-07] MEDS ORDERED: Enoxaparin 40mg Inj SUBQ SCH ×2 (09:00→10:30)
[2018-01-07] MEDS ORDERED: Hydrocortisone 100mg Inj IV SCH (09:00)
[2018-01-07] MEDS ORDERED: Piperacillin/Tazobactam 3.375 GM in D5W 110 ML IVPB SCH (09:45)
[2018-01-07] MEDS ORDERED: Potassium Phosphate 30 MM in NS 275 ML IVPB ONE (09:45)
[2018-01-07] MEDS ORDERED: LORazepam Inj 2mg/ml 1ml IV PRN (10:00)
--- NOTE | 2018-01-07 10:55 | GI Progress Note ---
Assessment/Plan Problems: (1) Thrombocytopenia ICD Codes: D69.6 - Thrombocytopenia, unspecified SNOMED: 533098711 (2) Leukocytosis ICD Codes: D72.829 - Elevated white blood cell count, unspecified SNOMED: 286909094, 919182699 (3) Choledocholithiasis ICD Codes: K80.50 - Calculus of bile duct without cholangitis or cholecystitis without obstruction SNOMED: 680305317 (4) Renal failure ICD Codes: N19 - Unspecified kidney failure SNOMED: 76203678 Qualifiers: Qualified Codes: N19 - Unspecified kidney failure (5) Hypokalemia ICD Codes: E87.6 - Hypokalemia SNOMED: 14319621, 976165561 (6) Septic shock ICD Codes: A41.9 - Sepsis, unspecified organism; R65.21 - Severe sepsis with septic shock SNOMED: 55651909 (7) Sepsis ICD Codes: A41.9 - Sepsis, unspecified organism SNOMED: 55565807 (8) Elevated LFTs ICD Codes: R94.5 - Abnormal results of liver function studies SNOMED: 574826352, 362681882 Status: stable Status Narrative Discussed with Dr. Villar. Assessment/Plan Assessment - Cholangitis - Choledocholithiasis - s/p ERCP and stent - sepsis/chock - lactic acidosis - renal failure - thrombocytopenia, likely DIC related - Critical - LFT downtrending - hepatitis panel Recommendations - cont TF - IVF - Abx - transfuse PRN - trend LFTs Patient is to required to return in 3 months for repeat ERCP/stent removal. The patient was seen and examined at bedside and all new and available data was reviewed in the patients chart. I agree with the above findings, impression and plan. (Patient seen earlier today. Signature stamp does not reflect patient encounter time.). - Edward Villar MD Subjective Subjective limited Objective Last 24 Hour Vital Signs Date Time Temp Pulse Resp B/P (MAP) Pulse Ox O2 Delivery O2 Flow Rate FiO2 01/07/18 08:00 98.1 63 22 157/73 (101) 92 98.1 01/07/18 08:00 78 01/07/18 06:45 98 Nasal Cannula 3.0 32 01/07/18 06:45 Nasal Cannula 3.0 32 01/07/18 06:45 81 18 Nasal Cannula 3.0 32 01/07/18 04:00 Nasal Cannula 3.0 Nasal Cannula 3.0 01/07/18 04:00 97.4 65 24 132/85 (101) 94 97.4 01/07/18 04:00 91 01/07/18 00:00 Nasal Cannula 3.0 Nasal Cannula 3.0 01/07/18 00:00 90 01/07/18 00:00 97.7 74 24 148/77 (100) 92 97.7 01/06/18 20:05 78 20 Nasal Cannula 3.0 32 01/06/18 20:05 Nasal Cannula 3.0 32 01/06/18 20:05 98 Nasal Cannula 3.0 32 01/06/18 20:00 55 01/06/18 20:00 Nasal Cannula 3.0 Nasal Cannula 3.0 01/06/18 20:00 97.7 74 24 148/77 (100) 92 97.7 01/06/18 17:00 60 20 142/75 (97) 99 01/06/18 16:00 Nasal Cannula 3.0 Nasal Cannula 3.0 01/06/18 16:00 98.0 63 21 140/48 (78) 100 98.0 01/06/18 16:00 61 01/06/18 15:00 68 23 142/73 (96) 100 01/06/18 14:00 73 17 104/44 (64) 100 01/06/18 13:00 96 21 133/71 (91) 100 01/06/18 12:00 71 01/06/18 12:00 98.6 77 24 133/71 (91) 94 98.6 01/06/18 12:00 Nasal Cannula 3.0 Nasal Cannula 3.0 01/06/18 11:00 90 24 130/88 (102) 90 Intake and Output 01/06/18 01/07/18 19:00 07:00 Intake Total 923.12 ml 815.0 ml Output Total 420 ml 700 ml Balance 503.12 ml 115.0 ml IV Total 923.12 ml 785.0 ml Other 30 ml Output Urine Total 420 ml 700 ml # Bowel Movements 6 Laboratory Tests Test 01/06/18 14:30 01/07/18 03:50 Potassium Level 3.5 MMOL/L (3.5-5.1) 2.8 MMOL/L (3.5-5.1) L Phosphorus Level 3.7 MG/DL (2.5-4.9) White Blood Count 18.1 K/UL (4.8-10.8) H Red Blood Count 3.33 M/UL (4.20-5.40) L Hemoglobin 11.2 G/DL (12.0-16.0) L Hematocrit 32.3 % (37.0-47.0) L Mean Corpuscular Volume 97 FL (80-99) Mean Corpuscular Hemoglobin 33.6 PG (27.0-31.0) H Mean Corpuscular Hemoglobin Concent 34.6 G/DL (32.0-36.0) Red Cell Distribution Width 13.2 % (11.6-14.8) Platelet Count 111 K/UL (150-450) L Mean Platelet Volume 7.8 FL (6.5-10.1) Neutrophils (%) (Auto) % (45.0-75.0) Lymphocytes (%) (Auto) % (20.0-45.0) Monocytes (%) (Auto) % (1.0-10.0) Eosinophils (%) (Auto) % (0.0-3.0) Basophils (%) (Auto) % (0.0-2.0) Differential Total Cells Counted 100 Neutrophils % (Manual) 74 % (45-75) Lymphocytes % (Manual) 19 % (20-45) L Monocytes % (Manual) 7 % (1-10) Eosinophils % (Manual) 0 % (0-3) Basophils % (Manual) 0 % (0-2) Band Neutrophils 0 % (0-8) Platelet Estimate Decreased L Platelet Morphology Normal Target Cells 1+ Sodium Level 151 MMOL/L (136-145) H Chloride Level 116 MMOL/L (98-107) H Carbon Dioxide Level 27 MMOL/L (21-32) Anion Gap 8 mmol/L (5-15) Blood Urea Nitrogen 20 mg/dL (7-18) H Creatinine 0.8 MG/DL (0.55-1.30) Estimat Glomerular Filtration Rate > 60 mL/min (>60) Glucose Level 116 MG/DL (74-106) H Calcium Level 8.1 MG/DL (8.5-10.1) L Total Bilirubin 3.1 MG/DL (0.2-1.0) H Direct Bilirubin 1.9 MG/DL (0.0-0.3) H Aspartate Amino Transf (AST/SGOT) 32 U/L (15-37) Alanine Aminotransferase (ALT/SGPT) 80 U/L (12-78) H Alkaline Phosphatase 89 U/L (46-116) Total Protein 5.6 G/DL (6.4-8.2) L Albumin 2.2 G/DL (3.4-5.0) L Globulin 3.4 g/dL Albumin/Globulin Ratio 0.6 (1.0-2.7) L Height (Feet): 5 Height (Inches): 5.00 Weight (Pounds): 148 General Appearance: no apparent distress, alert, confused Cardiovascular: normal rate Respiratory/Chest: normal breath sounds, no respiratory distress Abdominal Exam: normal bowel sounds, non tender, soft Extremities: non-tender Brando Euceda NP Jan 07, 2018 10:55
[2018-01-07] MEDS ORDERED: Morphine Sulfate 2mg/ml Inj IVP PRN ×2 (11:00→12:46)
--- NOTE | 2018-01-07 11:05 | General Progress Note ---
Assessment/Plan Problem List: (1) Delirium ICD Codes: R41.0 - Disorientation, unspecified SNOMED: 0464242 (2) Hypernatremia ICD Codes: E87.0 - Hyperosmolality and hypernatremia SNOMED: 46610313 (3) Septic shock ICD Codes: A41.9 - Sepsis, unspecified organism; R65.21 - Severe sepsis with septic shock SNOMED: 60768141 (4) Thrombocytopenia ICD Codes: D69.6 - Thrombocytopenia, unspecified SNOMED: 886566262 (5) Leukocytosis ICD Codes: D72.829 - Elevated white blood cell count, unspecified SNOMED: 898888014, 709651649 Assessment/Plan Delirium and Agitation likely ICU Delirium with component of metabolic encephalopathy - psyche consult - ativa and haldon prn - seroquel once able to take PO - speech re-eval - IVF - per board and care patient is usually alert at baseline but does have mood swings and displays agitation occasionally Hypovolemic Hypernatremia, improving - Cont D5W S/P Septic Shock 2/2 gram negative bacteremia 2/2 cholelithiasis s/p sphincterotomy and biliary stent on 01/02 - patient off all pressors - continue IV abx for total of two weeks since first positive blood culture to stop 01/15/18 - PICC Line- pulled out today - follow ID reqs - taper off steroids Thrombocytopenia likely multifactorial ddx include sepsis vs medication , DIC and HIT are negative - , follow up hemolysis labs including haptoglobin, LDH elevated but may also be from sepsis and peripheral smear shows no schistocytes , flow negative - appreciate heme onc reqs - lovenox for dvt prophylaxis Leukocytosis likely 2/2 to steroids and sepsis - will follow up labs per heme onc reqs Hypokalemia replace as needed started 40mEq K in fluids Dispo planning - SW for identifying family, and CM for SNF - unable to reach daughter today, however per RN daughter is involved in care, will need to discuss feeding options with daughter once available and may need to consider PEG placement Subjective Date patient seen: Jan 07, 2018 Time patient seen: 09:00 ROS Limited/Unobtainable: Yes Allergies: Coded Allergies: OLANZAPINE (Verified Allergy, Unknown, 01/01/18) TETRACYCLINE (Verified Allergy, Unknown, 01/01/18) Subjective patient continues to agitated and pulled out her PICC line Objective Last 24 Hour Vital Signs Date Time Temp Pulse Resp B/P (MAP) Pulse Ox O2 Delivery O2 Flow Rate FiO2 01/07/18 08:00 98.1 63 22 157/73 (101) 92 98.1 01/07/18 08:00 78 01/07/18 06:45 98 Nasal Cannula 3.0 32 01/07/18 06:45 Nasal Cannula 3.0 32 01/07/18 06:45 81 18 Nasal Cannula 3.0 32 01/07/18 04:00 Nasal Cannula 3.0 Nasal Cannula 3.0 01/07/18 04:00 97.4 65 24 132/85 (101) 94 97.4 01/07/18 04:00 91 01/07/18 00:00 Nasal Cannula 3.0 Nasal Cannula 3.0 01/07/18 00:00 90 01/07/18 00:00 97.7 74 24 148/77 (100) 92 97.7 01/06/18 20:05 78 20 Nasal Cannula 3.0 32 01/06/18 20:05 Nasal Cannula 3.0 32 01/06/18 20:05 98 Nasal Cannula 3.0 32 01/06/18 20:00 55 01/06/18 20:00 Nasal Cannula 3.0 Nasal Cannula 3.0 01/06/18 20:00 97.7 74 24 148/77 (100) 92 97.7 01/06/18 17:00 60 20 142/75 (97) 99 01/06/18 16:00 Nasal Cannula 3.0 Nasal Cannula 3.0 01/06/18 16:00 98.0 63 21 140/48 (78) 100 98.0 01/06/18 16:00 61 01/06/18 15:00 68 23 142/73 (96) 100 01/06/18 14:00 73 17 104/44 (64) 100 01/06/18 13:00 96 21 133/71 (91) 100 01/06/18 12:00 71 01/06/18 12:00 98.6 77 24 133/71 (91) 94 98.6 01/06/18 12:00 Nasal Cannula 3.0 Nasal Cannula 3.0 01/06/18 11:00 90 24 130/88 (102) 90 Intake and Output 01/06/18 01/07/18 19:00 07:00 Intake Total 923.12 ml 815.0 ml Output Total 420 ml 700 ml Balance 503.12 ml 115.0 ml IV Total 923.12 ml 785.0 ml Other 30 ml Output Urine Total 420 ml 700 ml # Bowel Movements 6 Laboratory Tests 01/06/18 14:30: Potassium Level 3.5, Phosphorus Level 3.7 01/07/18 03:50: Potassium Level 2.8L, White Blood Count 18.1H, Red Blood Count 3.33L, Hemoglobin 11.2L, Hematocrit 32.3L, Mean Corpuscular Volume 97, Mean Corpuscular Hemoglobin 33.6H, Mean Corpuscular Hemoglobin Concent 34.6, Red Cell Distribution Width 13.2, Platelet Count 111L, Mean Platelet Volume 7.8, Neutrophils (%) (Auto) , Lymphocytes (%) (Auto) , Monocytes (%) (Auto) , Eosinophils (%) (Auto) , Basophils (%) (Auto) , Differential Total Cells Counted 100, Neutrophils % (Manual) 74, Lymphocytes % (Manual) 19L, Monocytes % (Manual) 7, Eosinophils % (Manual) 0, Basophils % (Manual) 0, Band Neutrophils 0 , Platelet Estimate DecreasedL, Platelet Morphology Normal, Target Cells 1+, Sodium Level 151H, Chloride Level 116H, Carbon Dioxide Level 27, Anion Gap 8, Blood Urea Nitrogen 20H, Creatinine 0.8, Estimat Glomerular Filtration Rate > 60 , Glucose Level 116H, Calcium Level 8.1L, Total Bilirubin 3.1H, Direct Bilirubin 1.9H, Aspartate Amino Transf (AST/SGOT) 32, Alanine Aminotransferase ( ALT/SGPT) 80H, Alkaline Phosphatase 89, Total Protein 5.6L, Albumin 2.2L, Globulin 3.4, Albumin/Globulin Ratio 0.6L Height (Feet): 5 Height (Inches): 5.00 Weight (Pounds): 148 General Appearance: lethargic, confused EENT: normal ENT inspection, other - very dry mucous membranes Neck: normal alignment, supple, normal inspection Cardiovascular: normal peripheral pulses, normal rate, regular rhythm, regularly irregular, no gallop/murmur, no JVD Respiratory/Chest: lungs clear, normal breath sounds, no respiratory distress, no accessory muscle use Abdomen: normal bowel sounds, non tender, soft, no organomegaly, no mass Extremities: normal range of motion, non-tender, normal inspection Edema: no edema noted Arm (L), no edema noted Arm (R), no edema noted Leg (L), no edema noted Leg (R), no edema noted Pedal (L), no edema noted Pedal (R), no edema noted Generalized Neurologic: other - patient moves spontenously but is not alert or following commands at time of exam Skin: normal pigmentation, warm/dry Susi Pryor DO Jan 07, 2018 11:04
--- NOTE | 2018-01-07 11:38 | General Surgery Progress Note ---
General Surgery-Progress Note Subjective Additional Comments leukocytosis 18k. lfts improved Objective Last 24 Hour Vital Signs Date Time Temp Pulse Resp B/P (MAP) Pulse Ox O2 Delivery O2 Flow Rate FiO2 01/07/18 08:00 98.1 63 22 157/73 (101) 92 98.1 01/07/18 08:00 78 01/07/18 08:00 Nasal Cannula 3.0 Nasal Cannula 3.0 01/07/18 06:45 98 Nasal Cannula 3.0 32 01/07/18 06:45 Nasal Cannula 3.0 32 01/07/18 06:45 81 18 Nasal Cannula 3.0 32 01/07/18 04:00 Nasal Cannula 3.0 Nasal Cannula 3.0 01/07/18 04:00 97.4 65 24 132/85 (101) 94 97.4 01/07/18 04:00 91 01/07/18 00:00 Nasal Cannula 3.0 Nasal Cannula 3.0 01/07/18 00:00 90 01/07/18 00:00 97.7 74 24 148/77 (100) 92 97.7 01/06/18 20:05 78 20 Nasal Cannula 3.0 32 01/06/18 20:05 Nasal Cannula 3.0 32 01/06/18 20:05 98 Nasal Cannula 3.0 32 01/06/18 20:00 55 01/06/18 20:00 Nasal Cannula 3.0 Nasal Cannula 3.0 01/06/18 20:00 97.7 74 24 148/77 (100) 92 97.7 01/06/18 17:00 60 20 142/75 (97) 99 01/06/18 16:00 Nasal Cannula 3.0 Nasal Cannula 3.0 01/06/18 16:00 98.0 63 21 140/48 (78) 100 98.0 01/06/18 16:00 61 01/06/18 15:00 68 23 142/73 (96) 100 01/06/18 14:00 73 17 104/44 (64) 100 01/06/18 13:00 96 21 133/71 (91) 100 01/06/18 12:00 71 01/06/18 12:00 98.6 77 24 133/71 (91) 94 98.6 01/06/18 12:00 Nasal Cannula 3.0 Nasal Cannula 3.0 I&O Intake and Output 01/06/18 01/07/18 19:00 07:00 Intake Total 923.12 ml 815.0 ml Output Total 420 ml 700 ml Balance 503.12 ml 115.0 ml IV Total 923.12 ml 785.0 ml Other 30 ml Output Urine Total 420 ml 700 ml # Bowel Movements 6 Wound: clean Drains: other Cardiovascular: RSR Respiratory: clear Abdomen: soft, distended, non-tender, present bowel sounds Extremities: no cyanosis, other Laboratory Tests Test 01/06/18 14:30 01/07/18 03:50 Potassium Level 3.5 MMOL/L (3.5-5.1) 2.8 MMOL/L (3.5-5.1) L Phosphorus Level 3.7 MG/DL (2.5-4.9) White Blood Count 18.1 K/UL (4.8-10.8) H Red Blood Count 3.33 M/UL (4.20-5.40) L Hemoglobin 11.2 G/DL (12.0-16.0) L Hematocrit 32.3 % (37.0-47.0) L Mean Corpuscular Volume 97 FL (80-99) Mean Corpuscular Hemoglobin 33.6 PG (27.0-31.0) H Mean Corpuscular Hemoglobin Concent 34.6 G/DL (32.0-36.0) Red Cell Distribution Width 13.2 % (11.6-14.8) Platelet Count 111 K/UL (150-450) L Mean Platelet Volume 7.8 FL (6.5-10.1) Neutrophils (%) (Auto) % (45.0-75.0) Lymphocytes (%) (Auto) % (20.0-45.0) Monocytes (%) (Auto) % (1.0-10.0) Eosinophils (%) (Auto) % (0.0-3.0) Basophils (%) (Auto) % (0.0-2.0) Differential Total Cells Counted 100 Neutrophils % (Manual) 74 % (45-75) Lymphocytes % (Manual) 19 % (20-45) L Monocytes % (Manual) 7 % (1-10) Eosinophils % (Manual) 0 % (0-3) Basophils % (Manual) 0 % (0-2) Band Neutrophils 0 % (0-8) Platelet Estimate Decreased L Platelet Morphology Normal Target Cells 1+ Sodium Level 151 MMOL/L (136-145) H Chloride Level 116 MMOL/L (98-107) H Carbon Dioxide Level 27 MMOL/L (21-32) Anion Gap 8 mmol/L (5-15) Blood Urea Nitrogen 20 mg/dL (7-18) H Creatinine 0.8 MG/DL (0.55-1.30) Estimat Glomerular Filtration Rate > 60 mL/min (>60) Glucose Level 116 MG/DL (74-106) H Calcium Level 8.1 MG/DL (8.5-10.1) L Total Bilirubin 3.1 MG/DL (0.2-1.0) H Direct Bilirubin 1.9 MG/DL (0.0-0.3) H Aspartate Amino Transf (AST/SGOT) 32 U/L (15-37) Alanine Aminotransferase (ALT/SGPT) 80 U/L (12-78) H Alkaline Phosphatase 89 U/L (46-116) Total Protein 5.6 G/DL (6.4-8.2) L Albumin 2.2 G/DL (3.4-5.0) L Globulin 3.4 g/dL Albumin/Globulin Ratio 0.6 (1.0-2.7) L Plan Problems: (1) Septic shock Assessment & Plan: Septic shock, choledocholithiasis, possible cholangitis s/p emergency ercp improving -okay for diet -iv fluids -iv abx -trend labs thank you. will follow with recs. (2) Choledocholithiasis Assessment & Plan: s/p ERCP with stent LFT's improving leukocytosis cont iv abx thank you (3) Elevated LFTs Darius Caraballo Jan 07, 2018 11:38
--- NOTE | 2018-01-07 12:14 | Consultation ---
History of Present Illness General Date patient seen: Jan 07, 2018 Chief Complaint: Abdominal Pain Reason for Consultation: abdominal pain Present Illness HPI 57 year old woman with history of psychiatry history, brought in from a board and care facility for abdominal pain. the pt has been agitated and pulling out iv access. The pt has cognitive impairment and is not engaged. the pt was unable to participate and answer the questions. the pt has waxing and waning of consciousness. Allergies: Coded Allergies: OLANZAPINE (Verified Allergy, Unknown, 01/01/18) TETRACYCLINE (Verified Allergy, Unknown, 01/01/18) Medication History Scheduled Alprazolam (Alprazolam), 1 MG ORAL BID, (Reported) Benztropine Mesylate* (Cogentin*), 1 MG PO BID, (Reported) Ergocalciferol (Vitamin D2)* (Vitamin D*), 50,000 UNIT ORAL ONCE A WEEK, ( Reported) Famotidine (Famotidine), 20 MG ORAL TWICE A DAY, (Reported) Lisinopril/Hydrochlorothiazide 20-25 Mg Tab (Lisinopril-Hctz 20-25 Mg Tab), 1 TAB ORAL BID, (Reported) Lorazepam* (Lorazepam*), 1 MG ORAL BID, (Reported) Perphenazine (Perphenazine), 8 MG PO BID, (Reported) Promethazine Hcl* (Phenergan*), 6.25 MG ORAL Q8HR, (Reported) Quetiapine Fumarate* (Seroquel*), 100 MG ORAL BEDTIME, (Reported) Temazepam (Temazepam*), 15 MG ORAL BEDTIME, (Reported) Patient History Limited by: medical condition History Provided By: Patient, Medical Record Healthcare decision maker angela lewis Resuscitation status Full Code Advanced Directive on File No Past Medical/Surgical History Past Medical/Surgical History: (1) Unable to obtain due to confusion (2) Sepsis (3) Septic shock (4) Hypokalemia (5) Renal failure (6) Elevated LFTs (7) Choledocholithiasis (8) Leukocytosis (9) Thrombocytopenia (10) Chronic deep vein thrombosis (DVT) (11) Delirium (12) Hypernatremia Review of Systems Psychiatric: Reports: prior hx, anxiety, depressed feelings Physical Exam General Appearance: no apparent distress, lethargic, confused, agitated Last 24 Hour Vital Signs Date Time Temp Pulse Resp B/P (MAP) Pulse Ox O2 Delivery O2 Flow Rate FiO2 01/07/18 08:00 98.1 63 22 157/73 (101) 92 98.1 01/07/18 08:00 78 01/07/18 08:00 Nasal Cannula 3.0 Nasal Cannula 3.0 01/07/18 06:45 98 Nasal Cannula 3.0 32 01/07/18 06:45 Nasal Cannula 3.0 32 01/07/18 06:45 81 18 Nasal Cannula 3.0 32 01/07/18 04:00 Nasal Cannula 3.0 Nasal Cannula 3.0 01/07/18 04:00 97.4 65 24 132/85 (101) 94 97.4 01/07/18 04:00 91 01/07/18 00:00 Nasal Cannula 3.0 Nasal Cannula 3.0 01/07/18 00:00 90 01/07/18 00:00 97.7 74 24 148/77 (100) 92 97.7 01/06/18 20:05 78 20 Nasal Cannula 3.0 32 01/06/18 20:05 Nasal Cannula 3.0 32 01/06/18 20:05 98 Nasal Cannula 3.0 32 01/06/18 20:00 55 01/06/18 20:00 Nasal Cannula 3.0 Nasal Cannula 3.0 01/06/18 20:00 97.7 74 24 148/77 (100) 92 97.7 01/06/18 17:00 60 20 142/75 (97) 99 01/06/18 16:00 Nasal Cannula 3.0 Nasal Cannula 3.0 01/06/18 16:00 98.0 63 21 140/48 (78) 100 98.0 01/06/18 16:00 61 01/06/18 15:00 68 23 142/73 (96) 100 01/06/18 14:00 73 17 104/44 (64) 100 01/06/18 13:00 96 21 133/71 (91) 100 Intake and Output 01/06/18 01/07/18 19:00 07:00 Intake Total 923.12 ml 815.0 ml Output Total 420 ml 700 ml Balance 503.12 ml 115.0 ml IV Total 923.12 ml 785.0 ml Other 30 ml Output Urine Total 420 ml 700 ml # Bowel Movements 6 Laboratory Tests Test 01/06/18 14:30 01/07/18 03:50 Potassium Level 3.5 MMOL/L (3.5-5.1) 2.8 MMOL/L (3.5-5.1) L Phosphorus Level 3.7 MG/DL (2.5-4.9) White Blood Count 18.1 K/UL (4.8-10.8) H Red Blood Count 3.33 M/UL (4.20-5.40) L Hemoglobin 11.2 G/DL (12.0-16.0) L Hematocrit 32.3 % (37.0-47.0) L Mean Corpuscular Volume 97 FL (80-99) Mean Corpuscular Hemoglobin 33.6 PG (27.0-31.0) H Mean Corpuscular Hemoglobin Concent 34.6 G/DL (32.0-36.0) Red Cell Distribution Width 13.2 % (11.6-14.8) Platelet Count 111 K/UL (150-450) L Mean Platelet Volume 7.8 FL (6.5-10.1) Neutrophils (%) (Auto) % (45.0-75.0) Lymphocytes (%) (Auto) % (20.0-45.0) Monocytes (%) (Auto) % (1.0-10.0) Eosinophils (%) (Auto) % (0.0-3.0) Basophils (%) (Auto) % (0.0-2.0) Differential Total Cells Counted 100 Neutrophils % (Manual) 74 % (45-75) Lymphocytes % (Manual) 19 % (20-45) L Monocytes % (Manual) 7 % (1-10) Eosinophils % (Manual) 0 % (0-3) Basophils % (Manual) 0 % (0-2) Band Neutrophils 0 % (0-8) Platelet Estimate Decreased L Platelet Morphology Normal Target Cells 1+ Sodium Level 151 MMOL/L (136-145) H Chloride Level 116 MMOL/L (98-107) H Carbon Dioxide Level 27 MMOL/L (21-32) Anion Gap 8 mmol/L (5-15) Blood Urea Nitrogen 20 mg/dL (7-18) H Creatinine 0.8 MG/DL (0.55-1.30) Estimat Glomerular Filtration Rate > 60 mL/min (>60) Glucose Level 116 MG/DL (74-106) H Calcium Level 8.1 MG/DL (8.5-10.1) L Total Bilirubin 3.1 MG/DL (0.2-1.0) H Direct Bilirubin 1.9 MG/DL (0.0-0.3) H Aspartate Amino Transf (AST/SGOT) 32 U/L (15-37) Alanine Aminotransferase (ALT/SGPT) 80 U/L (12-78) H Alkaline Phosphatase 89 U/L (46-116) Total Protein 5.6 G/DL (6.4-8.2) L Albumin 2.2 G/DL (3.4-5.0) L Globulin 3.4 g/dL Albumin/Globulin Ratio 0.6 (1.0-2.7) L Height (Feet): 5 Height (Inches): 5.00 Weight (Pounds): 148 Medications Current Medications Medications (Trade) Dose Ordered Sig/Bertrand Route PRN Reason Start Time Stop Time Status Last Admin Dose Admin Acetaminophen (Tylenol) 650 mg Q6H PRN ORAL Mild Pain/Temp > 100.5 01/07/18 13:00 02/02/18 18:49 UNV Chlorhexidine Gluconate (Mandy-Hex 2%) 1 applic DAILY@2000 TOPIC 01/07/18 20:00 02/04/18 19:59 UNV Dextrose 1,000 ml @ 100 mls/hr Q10H IV 01/07/18 18:49 02/05/18 18:48 UNV Dextrose (Dextrose 50%) 25 ml Q30M PRN IV Hypoglycemia 01/07/18 10:00 01/31/18 17:29 UNV Dextrose (Dextrose 50%) 50 ml Q30M PRN IV Hypoglycemia 01/07/18 10:00 01/31/18 17:29 UNV Enoxaparin Sodium (Lovenox) 40 mg DAILY SUBQ 01/07/18 10:30 02/06/18 10:29 01/07/18 10:39 Lorazepam (Ativan 2mg/ml 1ml) 2 mg Q2H PRN IV For Anxiety 01/07/18 10:00 01/13/18 19:59 UNV Morphine Sulfate (Morphine Sulfate) 2 mg Q4H PRN IVP For Pain 01/07/18 11:00 01/09/18 18:50 UNV Ondansetron HCl (Zofran) 4 mg Q6H PRN IVP Nausea & Vomiting 01/07/18 13:00 01/31/18 18:50 UNV Pantoprazole (Protonix) 40 mg DAILY IV 01/07/18 10:30 02/06/18 10:29 01/07/18 10:47 Piperacillin Sod/ Tazobactam Sod 3.375 gm/Dextrose 110 ml @ 27.5 mls/hr Q8HR IVPB 01/07/18 09:45 01/10/18 13:59 UNV Potassium Phosphate 30 mm/ Sodium Chloride 285 ml @ 47.5 mls/hr ONCE ONCE IVPB 01/07/18 09:45 01/07/18 15:44 UNV Quetiapine Fumarate (SEROquel) 100 mg 1000,2200 ORAL 01/07/18 10:00 02/06/18 09:59 01/07/18 10:39 Assessment/Plan Assessment/Plan encephalopathy with [facility]/metabolic d/o the pt Seroquel will be changed to 25mg po tid Haldol 5mg q 6hr Im prn agitation the pt will be cont in restraints avoid prescribing benzo head raised 30 degree Shakira Jenkins MD Jan 07, 2018 12:14
[2018-01-07] MEDS ORDERED: Haloperidol 5mg/ml Inj IM PRN (12:15)
--- NOTE | 2018-01-07 12:18 | Diagnostic Imaging Report ---
Indication: ocean transportation intermediary venous access Findings: After the indications, procedure, risks, complications, and alternatives of the procedure were explained, written informed consent was obtained. The left upper extremity was prepped with alcohol. All elements of maximal sterile barrier technique were followed including usage of a cap, mask, sterile gown, sterile gloves, hand hygiene and a large sterile sheet. Sonographic evaluation of the upper extremity was performed demonstrating a patent and compressible basilic vein. Access was obtained under real-time ultrasound guidance (with utilization of sterile gel and sterile probe cover) and digital image was saved and archived. An .018 wire was introduced. Needle exchanged for a 5 Portuguese peel-away sheath. Measurements were obtained. A 5 Portuguese dual-lumen Power PICC line catheter was cut to 42 cm and introduced over the wire. Peel-away sheath and wire were removed.Catheter was secured to the skin using 2-0 Prolene suture. Both ports aspirate and flush easily. Post procedure chest x-ray demonstrates good position of the PICC line catheter within the upper part of the right atrium. Impression: Successful placement of an upper extremity PICC line catheter
--- NOTE | 2018-01-07 13:01 | General Progress Note ---
Assessment/Plan Status: stable Assessment/Plan # Leukocytosis. Likely related to underlying infection versus reactive process. In addition,has blasts, myelocytes and metamyelocytes initially but none detected on the flow cytometry, currently has improved, s/p ercp with stent --> flow cytometry is negative for any abnormalities, discussed with pathology --> Tumor lysis labs have been reviewed and does not appear to have TLS -- will monitor closely --> In future, need a bone marrow biopsy will discuss with pathologist --> Imaging has been reviewed and reveals: Mild pulmonary vascular congestion. Subsegmental atelectasis versus infiltrates in bilateral lung bases. Cholelithiasis --> Blood shows citro/kleb, sens pending --> Has been started on abx, empiric treatment --> appreciate ID recs # Thrombocytopenia. Potential causes multifactorial, evaluate liver and viral etiologies v infectious, hepatitis and hiv are negative, could be related to shock/sepsis as well. is no s/p transfusion --> HIT is wnl, no evidence of HIT AB --> US abd: cholelithiasis --> Peripheral smear now normalized --> Abx and other meds have been reviewed. # Choledocholithiasis with review by surgeon, could be early cholangitis, also has been reviewed by ID. s/p ercp with stent --> NPO, Zofran, morphine prb. Continue IV fluids, check serial lactate levels, blood cultures, on abx --> Patient may require vasopressor support for possible septic shock. --> ID, GI and Surgery to evaluate. # Severe hypokalemia, will continue to replace --> appreciate recs by renal, check BMP pM along with phos # Acute metabolic encephalopathy, likely due to to underlying sepsis, continue to treat acute medical issues and provide supportive care --> Fall, aspiration, seizure precautions # History of unspecified psychiatric illness, will hold all psychotropics for now to avoid oversedation # Respiratory failure -- s/p vent, and extubated on 01/05 --> pulm recs appreciated I GREATLY APPRECIATE CONSULTATION. Subjective Date patient seen: Jan 07, 2018 ROS Limited/Unobtainable: Yes Allergies: Coded Allergies: OLANZAPINE (Verified Allergy, Unknown, 01/01/18) TETRACYCLINE (Verified Allergy, Unknown, 01/01/18) Subjective Pt transferred ot med surg. Plt has improved. Objective Last 24 Hour Vital Signs Date Time Temp Pulse Resp B/P (MAP) Pulse Ox O2 Delivery O2 Flow Rate FiO2 01/07/18 12:00 Nasal Cannula 3.0 Nasal Cannula 3.0 01/07/18 12:00 97.9 66 24 135/90 (105) 94 97.9 01/07/18 08:00 98.1 63 22 157/73 (101) 92 98.1 01/07/18 08:00 78 01/07/18 08:00 Nasal Cannula 3.0 Nasal Cannula 3.0 01/07/18 06:45 98 Nasal Cannula 3.0 32 01/07/18 06:45 Nasal Cannula 3.0 32 01/07/18 06:45 81 18 Nasal Cannula 3.0 32 01/07/18 04:00 Nasal Cannula 3.0 Nasal Cannula 3.0 01/07/18 04:00 97.4 65 24 132/85 (101) 94 97.4 01/07/18 04:00 91 01/07/18 00:00 Nasal Cannula 3.0 Nasal Cannula 3.0 01/07/18 00:00 90 01/07/18 00:00 97.7 74 24 148/77 (100) 92 97.7 01/06/18 20:05 78 20 Nasal Cannula 3.0 32 01/06/18 20:05 Nasal Cannula 3.0 32 01/06/18 20:05 98 Nasal Cannula 3.0 32 01/06/18 20:00 55 01/06/18 20:00 Nasal Cannula 3.0 Nasal Cannula 3.0 01/06/18 20:00 97.7 74 24 148/77 (100) 92 97.7 01/06/18 17:00 60 20 142/75 (97) 99 01/06/18 16:00 Nasal Cannula 3.0 Nasal Cannula 3.0 01/06/18 16:00 98.0 63 21 140/48 (78) 100 98.0 01/06/18 16:00 61 01/06/18 15:00 68 23 142/73 (96) 100 01/06/18 14:00 73 17 104/44 (64) 100 01/06/18 13:00 96 21 133/71 (91) 100 Intake and Output 01/06/18 01/07/18 19:00 07:00 Intake Total 923.12 ml 815.0 ml Output Total 420 ml 700 ml Balance 503.12 ml 115.0 ml IV Total 923.12 ml 785.0 ml Other 30 ml Output Urine Total 420 ml 700 ml # Bowel Movements 6 Laboratory Tests 01/06/18 14:30: Potassium Level 3.5, Phosphorus Level 3.7 01/07/18 03:50: Potassium Level 2.8L, White Blood Count 18.1H, Red Blood Count 3.33L, Hemoglobin 11.2L, Hematocrit 32.3L, Mean Corpuscular Volume 97, Mean Corpuscular Hemoglobin 33.6H, Mean Corpuscular Hemoglobin Concent 34.6, Red Cell Distribution Width 13.2, Platelet Count 111L, Mean Platelet Volume 7.8, Neutrophils (%) (Auto) , Lymphocytes (%) (Auto) , Monocytes (%) (Auto) , Eosinophils (%) (Auto) , Basophils (%) (Auto) , Differential Total Cells Counted 100, Neutrophils % (Manual) 74, Lymphocytes % (Manual) 19L, Monocytes % (Manual) 7, Eosinophils % (Manual) 0, Basophils % (Manual) 0, Band Neutrophils 0 , Platelet Estimate DecreasedL, Platelet Morphology Normal, Target Cells 1+, Sodium Level 151H, Chloride Level 116H, Carbon Dioxide Level 27, Anion Gap 8, Blood Urea Nitrogen 20H, Creatinine 0.8, Estimat Glomerular Filtration Rate > 60 , Glucose Level 116H, Calcium Level 8.1L, Total Bilirubin 3.1H, Direct Bilirubin 1.9H, Aspartate Amino Transf (AST/SGOT) 32, Alanine Aminotransferase ( ALT/SGPT) 80H, Alkaline Phosphatase 89, Total Protein 5.6L, Albumin 2.2L, Globulin 3.4, Albumin/Globulin Ratio 0.6L Height (Feet): 5 Height (Inches): 5.00 Weight (Pounds): 148 General Appearance: no apparent distress EENT: PERRL/EOMI Neck: normal alignment Cardiovascular: normal peripheral pulses Respiratory/Chest: no respiratory distress Abdomen: soft Objective on a vent, og, RT as well Davin Aguero MD Jan 07, 2018 13:01
[2018-01-07] MEDS ORDERED: Lidocaine 1% Plain 30 ml INJ PRN (13:15)
[2018-01-07] MEDS ORDERED: Heparin 2000 units/Ns 1000ml INJ PRN (13:15)
[2018-01-07] MEDS ORDERED: Potassium Phosphate 30 MM in NS 275 ML IV ONE (14:00)
[2018-01-07] MEDS: Haloperidol 5mg/ml Inj IM PRN (14:17)
[2018-01-07] MEDS ORDERED: NS 275ml ONE ×2 (15:10→15:29)
[2018-01-07] MEDS ORDERED: Tubing IV Secondary IV ONE ×2 (15:10→15:29)
[2018-01-07] MEDS ORDERED: Sterile Water Irrig 1000ml IRRIG ONE (15:10)
[2018-01-07] MEDS ORDERED: Tubing Blood Filter IV ONE (15:10)
--- NOTE | 2018-01-07 16:13 | Pulmonology Progress Note ---
Assessment/Plan Problems: (1) Choledocholithiasis (2) Leukocytosis (3) Elevated LFTs (4) Hypokalemia (5) Hypernatremia (6) Delirium (7) Chronic deep vein thrombosis (DVT) (8) Thrombocytopenia (9) Sepsis Assessment/Plan -Optimize pulmonary hygiene/mobilize as tolerated -Titrate down FiO2 to keep SaO2 > 90% -PRN HHN's -Abx per iD, monitor WCt -Aspiration precautions -D5W, replete K -DVT Px: LMWH -F/U psych recs -F/U GI recs, repeat ERCP with stent removal in 3 months -Monitor MS -FC Subjective Allergies: Coded Allergies: OLANZAPINE (Verified Allergy, Unknown, 01/01/18) TETRACYCLINE (Verified Allergy, Unknown, 01/01/18) Subjective TTF, agitated, pulled out PICC and NGT, AFVSS, on 3L No cough, no SOB, no pain Seen by [employer] and cleared for puree Objective Last 24 Hour Vital Signs Date Time Temp Pulse Resp B/P (MAP) Pulse Ox O2 Delivery O2 Flow Rate FiO2 01/07/18 12:00 Nasal Cannula 3.0 Nasal Cannula 3.0 01/07/18 12:00 97.9 66 24 135/90 (105) 94 97.9 01/07/18 08:00 98.1 63 22 157/73 (101) 92 98.1 01/07/18 08:00 78 01/07/18 08:00 Nasal Cannula 3.0 Nasal Cannula 3.0 01/07/18 06:45 98 Nasal Cannula 3.0 32 01/07/18 06:45 Nasal Cannula 3.0 32 01/07/18 06:45 81 18 Nasal Cannula 3.0 32 01/07/18 04:00 Nasal Cannula 3.0 Nasal Cannula 3.0 01/07/18 04:00 97.4 65 24 132/85 (101) 94 97.4 01/07/18 04:00 91 01/07/18 00:00 Nasal Cannula 3.0 Nasal Cannula 3.0 01/07/18 00:00 90 01/07/18 00:00 97.7 74 24 148/77 (100) 92 97.7 01/06/18 20:05 78 20 Nasal Cannula 3.0 32 01/06/18 20:05 Nasal Cannula 3.0 32 01/06/18 20:05 98 Nasal Cannula 3.0 32 01/06/18 20:00 55 01/06/18 20:00 Nasal Cannula 3.0 Nasal Cannula 3.0 01/06/18 20:00 97.7 74 24 148/77 (100) 92 97.7 01/06/18 17:00 60 20 142/75 (97) 99 Intake and Output 01/06/18 01/07/18 19:00 07:00 Intake Total 923.12 ml 815.0 ml Output Total 420 ml 700 ml Balance 503.12 ml 115.0 ml IV Total 923.12 ml 785.0 ml Other 30 ml Output Urine Total 420 ml 700 ml # Bowel Movements 6 General Appearance: other - agitated HEENT: normocephalic, atraumatic, anicteric, mucous membranes moist Respiratory/Chest: chest wall non-tender, lungs clear, normal breath sounds, no respiratory distress Cardiovascular: normal peripheral pulses, normal rate, regular rhythm Abdomen: normal bowel sounds, soft, non tender, no organomegaly, non distended , no mass Extremities: no cyanosis, no clubbing, no edema Microbiology Date/Time Source Procedure Growth Status 01/05/18 05:15 Blood Blood Culture - Preliminary NO GROWTH AFTER 48 HOURS Resulted 01/05/18 05:00 Blood Blood Culture - Preliminary NO GROWTH AFTER 48 HOURS Resulted Laboratory Tests 01/07/18 03:50: White Blood Count 18.1H, Red Blood Count 3.33L, Hemoglobin 11.2L, Hematocrit 32.3L, Mean Corpuscular Volume 97, Mean Corpuscular Hemoglobin 33.6H, Mean Corpuscular Hemoglobin Concent 34.6, Red Cell Distribution Width 13.2, Platelet Count 111L, Mean Platelet Volume 7.8, Neutrophils (%) (Auto) , Lymphocytes (%) ( Auto) , Monocytes (%) (Auto) , Eosinophils (%) (Auto) , Basophils (%) (Auto) , Differential Total Cells Counted 100, Neutrophils % (Manual) 74, Lymphocytes % ( Manual) 19L, Monocytes % (Manual) 7, Eosinophils % (Manual) 0, Basophils % ( Manual) 0, Band Neutrophils 0, Platelet Estimate DecreasedL, Platelet Morphology Normal, Target Cells 1+, Sodium Level 151H, Potassium Level 2.8L, Chloride Level 116H, Carbon Dioxide Level 27, Anion Gap 8, Blood Urea Nitrogen 20H, Creatinine 0.8, Estimat Glomerular Filtration Rate > 60, Glucose Level 116H , Calcium Level 8.1L, Total Bilirubin 3.1H, Direct Bilirubin 1.9H, Aspartate Amino Transf (AST/SGOT) 32, Alanine Aminotransferase (ALT/SGPT) 80H, Alkaline Phosphatase 89, Total Protein 5.6L, Albumin 2.2L, Globulin 3.4, Albumin/ Globulin Ratio 0.6L Current Medications Medications (Trade) Dose Ordered Sig/Bertrand Route PRN Reason Start Time Stop Time Status Last Admin Dose Admin Acetaminophen (Tylenol) 650 mg Q6H PRN ORAL Mild Pain/Temp > 100.5 01/07/18 12:46 02/02/18 12:45 Chlorhexidine Gluconate (Mandy-Hex 2%) 1 applic DAILY@2000 TOPIC 01/07/18 20:00 02/06/18 19:59 Dextrose (Dextrose 50%) 25 ml Q30M PRN IV Hypoglycemia 01/07/18 13:00 01/31/18 17:29 Dextrose (Dextrose 50%) 50 ml Q30M PRN IV Hypoglycemia 01/07/18 13:00 01/31/18 17:29 Enoxaparin Sodium (Lovenox) 40 mg DAILY SUBQ 01/08/18 09:00 02/06/18 10:29 Haloperidol Lactate (Haldol) 5 mg Q6H PRN IM Agitation 01/07/18 12:46 02/06/18 12:45 01/07/18 14:17 Heparin Sodium/ Sodium Chloride (Heparin 2000 units/Ns 1000ml premix) 2,000 unit ONCE PRN INJ PICC 01/07/18 13:15 01/07/18 23:59 Lidocaine HCl (Xylocaine 1% 30ml) 30 ml ONCE PRN INJ PICC 01/07/18 13:15 01/07/18 23:59 Lorazepam (Ativan 2mg/ml 1ml) 2 mg Q2H PRN IV For Anxiety 01/07/18 12:46 01/13/18 12:45 Morphine Sulfate (Morphine Sulfate) 2 mg Q4H PRN IVP For Pain 01/07/18 12:46 01/09/18 12:45 Ondansetron HCl (Zofran) 4 mg Q6H PRN IVP Nausea & Vomiting 01/07/18 12:47 11/4/18 12:46 Pantoprazole (Protonix) 40 mg DAILY IV 01/08/18 09:00 02/06/18 10:29 Piperacillin Sod/ Tazobactam Sod 3.375 gm/Dextrose 110 ml @ 27.5 mls/hr Q8HR IVPB 01/07/18 14:00 01/10/18 13:59 01/07/18 15:19 Potassium Chloride 40 meq/ Dextrose 1,020 ml @ 100 mls/hr [id number] IV 01/07/18 14:00 02/06/18 13:59 01/07/18 14:38 Potassium Phosphate 30 mm/ Sodium Chloride 285 ml @ 47.5 mls/hr ONCE ONCE IV 01/07/18 14:00 01/07/18 19:59 01/07/18 14:52 Quetiapine Fumarate (SEROquel) 25 mg TID ORAL 01/07/18 13:00 02/06/18 12:59 01/07/18 13:21 Duncan Marte MD Jan 07, 2018 16:13
[2018-01-07] MEDS ORDERED: Albuterol/Ipratropium 3ml neb HHN PRN (16:14)
[2018-01-07] MEDS ORDERED: POTASSIUM PHOSPHATE IV SCH ×4 (18:49)
[2018-01-07] MEDS ORDERED: D5W IV SCH ×4 (18:49)
[2018-01-07] MEDS ORDERED: Dyna-Hex 2% Top Sol 2oz TOPIC SCH ×2 (20:00)
[2018-01-07] MEDS: Dyna-Hex 2% Top Sol 2oz TOPIC SCH (22:14)
[2018-01-08] VITALS: BP 156/76
[2018-01-08 04:00] VITALS: BP 132/72
[2018-01-08] MEDS: Piperacillin/Tazobactam 3.375 GM in D5W 110 ML IVPB SCH (05:30)
[2018-01-08 06:18] LABS: BASOPHILS % (AUTO) 0.6 % (0.0-2.0); EOSINOPHILS % (AUTO) 0.4 % (0.0-3.0); HEMATOCRIT 30.7 % (37.0-47.0); HEMOGLOBIN 10.7 G/DL (12.0-16.0); LYMPHOCYTES % (AUTO) 10.5 % (20.0-45.0); MEAN CORPUSCULAR VOLUME 97 FL (80-99); MONOCYTES % (AUTO) 7.4 % (1.0-10.0); NEUTROPHILS % (AUTO) 81.2 % (45.0-75.0); PLATELET COUNT 138 K/UL (150-450); RED BLOOD COUNT 3.17 M/UL (4.20-5.40); RED CELL DISTRIBUTION WIDTH 12.4 % (11.6-14.8); WHITE BLOOD COUNT 15.6 K/UL (4.8-10.8)
[2018-01-08 06:59] LABS: ALANINE AMINOTRANSFERASE 55 U/L (12-78); ALBUMIN/GLOBULIN RATIO 0.6 (1.0-2.7); ALKALINE PHOSPHATASE 90 U/L (46-116); ANION GAP 9 mmol/L (5-15); ASPARTATE AMINO TRANSFERASE 26 U/L (15-37); BILIRUBIN,TOTAL 2.9 MG/DL (0.2-1.0); BLOOD UREA NITROGEN 9 mg/dL (7-18); CALCIUM 7.4 MG/DL (8.5-10.1); CARBON DIOXIDE 26 MMOL/L (21-32); CHLORIDE 110 MMOL/L (98-107); CREATININE 0.7 MG/DL (0.55-1.30); POTASSIUM 2.8 MMOL/L (3.5-5.1); SODIUM 144 MMOL/L (136-145)
[2018-01-08 07:01] LABS: BILIRUBIN,DIRECT 1.7 MG/DL (0.0-0.3)
--- NOTE | 2018-01-08 07:54 | General Progress Note ---
Assessment/Plan Assessment/Plan # Leukocytosis. Likely related to underlying infection versus reactive process. In addition,has blasts, myelocytes and metamyelocytes initially but none detected on the flow cytometry, currently has improved, s/p ercp with stent --> flow cytometry is negative for any abnormalities, discussed with pathology --> Tumor lysis labs have been reviewed and does not appear to have TLS -- will monitor closely --> In future, need a bone marrow biopsy will discuss with pathologist --> Imaging has been reviewed and reveals: Mild pulmonary vascular congestion. Subsegmental atelectasis versus infiltrates in bilateral lung bases. Cholelithiasis --> Blood shows citro/kleb, as per id management --> Has been started on abx, empiric treatment --> appreciate ID recs # Thrombocytopenia. Potential causes multifactorial, evaluate liver and viral etiologies v infectious, hepatitis and hiv are negative, could be related to shock/sepsis as well. is no s/p transfusion. On presentation 20k, now improved slowly --> HIT is wnl, no evidence of HIT AB --> US abd: cholelithiasis --> Peripheral smear now normalized --> Abx and other meds have been reviewed. # Choledocholithiasis with review by surgeon, could be early cholangitis, also has been reviewed by ID. s/p ercp with stent --> NPO, Zofran, morphine prb. Continue IV fluids, check serial lactate levels, blood cultures, on abx --> Patient may require vasopressor support for possible septic shock. --> ID, GI and Surgery to evaluate. # Severe hypokalemia, will continue to replace --> appreciate recs by renal, check BMP pM along with phos # Acute metabolic encephalopathy, likely due to to underlying sepsis, continue to treat acute medical issues and provide supportive care --> Fall, aspiration, seizure precautions # History of unspecified psychiatric illness, will hold all psychotropics for now to avoid oversedation # Respiratory failure -- s/p vent, and extubated on 01/05 --> pulm recs appreciated I GREATLY APPRECIATE CONSULTATION. Subjective Constitutional: Denies: no symptoms, chills, diaphoresis, fever, malaise, weakness, other HEENT: Denies: no symptoms, eye pain, blurred vision, tearing, double vision, ear pain, ear discharge, nose pain, nose congestion, throat pain, throat swelling, mouth pain, mouth swelling, other Cardiovascular: Denies: no symptoms, chest pain, edema, irregular heart rate, lightheadedness, palpitations, syncope, other Respiratory: Denies: no symptoms, cough, orthopnea, shortness of breath, SOB with excertion, SOB at rest, sputum, stridor, wheezing, other Gastrointestinal/Abdominal: Denies: no symptoms, abdomen distended, abdominal pain, black stools, tarry stools, blood in stool, constipated, diarrhea, difficulty swallowing, nausea, poor appetite, poor fluid intake, rectal bleeding , vomiting, other Genitourinary: Denies: no symptoms, burning, discharge, frequency, flank pain, hematuria, incontinence, pain, urgency, other Neurologic/Psychiatric: Denies: no symptoms, anxiety, depressed, emotional problems, headache, numbness, paresthesia, pre-existing deficit, seizure, tingling, tremors, weakness, other Endocrine: Denies: no symptoms, excessive sweating, flushing, intolerance to cold, intolerance to heat, increased hunger, increased thirst, increased urine, unexplained weight gain, unexplained weight loss, other Allergies: Coded Allergies: OLANZAPINE (Verified Allergy, Unknown, 01/01/18) TETRACYCLINE (Verified Allergy, Unknown, 01/01/18) Subjective Pt transferred ot med surg. breathing unlabored, with restraints Objective Last 24 Hour Vital Signs Date Time Temp Pulse Resp B/P (MAP) Pulse Ox O2 Delivery O2 Flow Rate FiO2 01/08/18 04:00 97.9 85 15 132/72 (92) 99 97.9 01/08/18 00:00 98.8 76 18 156/76 (102) 94 98.8 01/07/18 21:38 77 20 Nasal Cannula 3.0 32 01/07/18 21:38 Nasal Cannula 3.0 32 01/07/18 21:38 92 Nasal Cannula 3.0 32 01/07/18 20:00 Nasal Cannula 2.0 Nasal Cannula 2.0 01/07/18 20:00 98.1 87 16 99/67 (78) 94 98.1 01/07/18 17:12 98.9 79 20 137/80 (99) 96 98.9 01/07/18 16:00 Nasal Cannula 3.0 Nasal Cannula 3.0 10/11/18 16:00 98.9 79 20 137/80 (99) 96 98.9 01/07/18 12:00 Nasal Cannula 3.0 Nasal Cannula 3.0 01/07/18 12:00 97.9 66 24 135/90 (105) 94 97.9 01/07/18 08:00 98.1 63 22 157/73 (101) 92 98.1 01/07/18 08:00 78 01/07/18 08:00 Nasal Cannula 3.0 Nasal Cannula 3.0 Intake and Output 01/07/18 01/08/18 19:00 07:00 Intake Total 492.5 ml 1030.0 ml Output Total 550 ml 1400 ml Balance -57.5 ml -370.0 ml Intake Oral 120 ml IV Total 372.5 ml 1030.0 ml Output Urine Total 550 ml 1400 ml # Voids 1 # Bowel Movements 1 3 Laboratory Tests 01/08/18 05:20: White Blood Count 15.6H, Red Blood Count 3.17L, Hemoglobin 10.7L, Hematocrit 30.7L, Mean Corpuscular Volume 97, Mean Corpuscular Hemoglobin 33.7H, Mean Corpuscular Hemoglobin Concent 34.9, Red Cell Distribution Width 12.4, Platelet Count 138L, Mean Platelet Volume 8.0, Neutrophils (%) (Auto) 81.2H, Lymphocytes (%) (Auto) 10.5L, Monocytes (%) (Auto) 7.4, Eosinophils (%) (Auto) 0.4, Basophils (%) (Auto) 0.6, Sodium Level 144, Potassium Level 2.8L, Chloride Level 110H, Carbon Dioxide Level 26, Anion Gap 9, Blood Urea Nitrogen 9, Creatinine 0.7, Estimat Glomerular Filtration Rate > 60, Glucose Level 95, Calcium Level 7.4L, Phosphorus Level 4.0, Magnesium Level 1.3L, Total Bilirubin 2.9H, Direct Bilirubin 1.7H, Aspartate Amino Transf (AST/SGOT) 26, Alanine Aminotransferase (ALT/SGPT) 55, Alkaline Phosphatase 90, Total Protein 5.3L, Albumin 2.0L, Globulin 3.3, Albumin/Globulin Ratio 0.6L Height (Feet): 5 Height (Inches): 5.00 Weight (Pounds): 157 General Appearance: no apparent distress EENT: TMs normal Neck: non-tender Cardiovascular: regular rhythm Respiratory/Chest: lungs clear Abdomen: normal bowel sounds Extremities: non-tender Edema: no edema noted Leg (L), no edema noted Leg (R) Edema: mild edema Neurologic: alert Skin: warm/dry Objective on a vent, og, RT as well Davin Aguero MD Jan 08, 2018 07:54
[2018-01-08 08:00] VITALS: BP 128/81
--- NOTE | 2018-01-08 08:30 | Pulmonology Progress Note ---
Assessment/Plan Problems: (1) Choledocholithiasis (2) Leukocytosis (3) Elevated LFTs (4) Hypokalemia (5) Hypernatremia (6) Delirium (7) Chronic deep vein thrombosis (DVT) (8) Thrombocytopenia (9) Sepsis Assessment/Plan -Optimize pulmonary hygiene/mobilize as tolerated -Titrate down FiO2 to keep SaO2 > 90% -PRN HHN's -Abx per iD, monitor WCt -Aspiration precautions -D5W, replete K & Mg -DVT Px: LMWH -F/U psych recs -F/U GI recs, repeat ERCP with stent removal in 3 months -Monitor MS -FC Subjective Allergies: Coded Allergies: OLANZAPINE (Verified Allergy, Unknown, 01/01/18) TETRACYCLINE (Verified Allergy, Unknown, 01/01/18) Subjective less agitated, AFVSS, on 3L No cough, no SOB, no pain Objective Last 24 Hour Vital Signs Date Time Temp Pulse Resp B/P (MAP) Pulse Ox O2 Delivery O2 Flow Rate FiO2 01/08/18 08:15 82 20 Room Air 01/08/18 08:15 Room Air 21 01/08/18 08:15 93 Room Air 21 01/08/18 04:00 97.9 85 15 132/72 (92) 99 97.9 01/08/18 00:00 98.8 76 18 156/76 (102) 94 98.8 01/07/18 21:38 77 20 Nasal Cannula 3.0 32 01/07/18 21:38 Nasal Cannula 3.0 32 01/07/18 21:38 92 Nasal Cannula 3.0 32 01/07/18 20:00 Nasal Cannula 2.0 Nasal Cannula 2.0 01/07/18 20:00 98.1 87 16 99/67 (78) 94 98.1 01/07/18 17:12 98.9 79 20 137/80 (99) 96 98.9 01/07/18 16:00 Nasal Cannula 3.0 Nasal Cannula 3.0 01/07/18 16:00 98.9 79 20 137/80 (99) 96 98.9 01/07/18 12:00 Nasal Cannula 3.0 Nasal Cannula 3.0 01/07/18 12:00 97.9 66 24 135/90 (105) 94 97.9 Intake and Output 01/07/18 01/08/18 19:00 07:00 Intake Total 492.5 ml 1030.0 ml Output Total 550 ml 1400 ml Balance -57.5 ml -370.0 ml Intake Oral 120 ml IV Total 372.5 ml 1030.0 ml Output Urine Total 550 ml 1400 ml # Voids 1 # Bowel Movements 1 3 General Appearance: no acute distress, other - agitated HEENT: normocephalic, atraumatic, anicteric, mucous membranes moist Respiratory/Chest: chest wall non-tender, lungs clear, normal breath sounds, no respiratory distress, no accessory muscle use Cardiovascular: normal peripheral pulses, normal rate, regular rhythm Abdomen: normal bowel sounds, soft, non tender, no organomegaly, non distended , no mass Extremities: no cyanosis, no clubbing, no edema Microbiology Date/Time Source Procedure Growth Status 01/06/18 16:38 Blood Blood Culture - Preliminary NO GROWTH AFTER 24 HOURS Resulted 01/06/18 16:35 Blood Blood Culture - Preliminary NO GROWTH AFTER 24 HOURS Resulted Laboratory Tests 01/08/18 05:20: White Blood Count 15.6H, Red Blood Count 3.17L, Hemoglobin 10.7L, Hematocrit 30.7L, Mean Corpuscular Volume 97, Mean Corpuscular Hemoglobin 33.7H, Mean Corpuscular Hemoglobin Concent 34.9, Red Cell Distribution Width 12.4, Platelet Count 138L, Mean Platelet Volume 8.0, Neutrophils (%) (Auto) 81.2H, Lymphocytes (%) (Auto) 10.5L, Monocytes (%) (Auto) 7.4, Eosinophils (%) (Auto) 0.4, Basophils (%) (Auto) 0.6, Sodium Level 144, Potassium Level 2.8L, Chloride Level 110H, Carbon Dioxide Level 26, Anion Gap 9, Blood Urea Nitrogen 9, Creatinine 0.7, Estimat Glomerular Filtration Rate > 60, Glucose Level 95, Calcium Level 7.4L, Phosphorus Level 4.0, Magnesium Level 1.3L, Total Bilirubin 2.9H, Direct Bilirubin 1.7H, Aspartate Amino Transf (AST/SGOT) 26, Alanine Aminotransferase (ALT/SGPT) 55, Alkaline Phosphatase 90, Total Protein 5.3L, Albumin 2.0L, Globulin 3.3, Albumin/Globulin Ratio 0.6L Current Medications Medications (Trade) Dose Ordered Sig/Bertrand Route PRN Reason Start Time Stop Time Status Last Admin Dose Admin Acetaminophen (Tylenol) 650 mg Q6H PRN ORAL Mild Pain/Temp > 100.5 01/07/18 12:46 02/02/18 12:45 Albuterol/ Ipratropium (Albuterol/ Ipratropium) 3 ml Q4H PRN HHN Shortness of Breath 01/07/18 16:14 01/12/18 16:13 Chlorhexidine Gluconate (Mandy-Hex 2%) 1 applic DAILY@2000 TOPIC 01/07/18 20:00 02/06/18 19:59 01/07/18 22:14 Dextrose (Dextrose 50%) 25 ml Q30M PRN IV Hypoglycemia 01/07/18 13:00 01/31/18 17:29 Dextrose (Dextrose 50%) 50 ml Q30M PRN IV Hypoglycemia 01/07/18 13:00 01/31/18 17:29 Enoxaparin Sodium (Lovenox) 40 mg DAILY SUBQ 01/08/18 09:00 02/06/18 10:29 Haloperidol Lactate (Haldol) 5 mg Q6H PRN IM Agitation 01/07/18 12:46 02/06/18 12:45 01/07/18 14:17 Lorazepam (Ativan 2mg/ml 1ml) 2 mg Q2H PRN IV For Anxiety 01/07/18 12:46 01/13/18 12:45 Magnesium Sulfate 100 ml @ 100 mls/hr Q1H IVPB 01/08/18 09:00 01/08/18 12:59 Magnesium Sulfate 100 ml @ 100 mls/hr Q1H IVPB 01/08/18 18:00 01/08/18 20:59 Morphine Sulfate (Morphine Sulfate) 2 mg Q4H PRN IVP For Pain 01/07/18 12:46 01/09/18 12:45 Ondansetron HCl (Zofran) 4 mg Q6H PRN IVP Nausea & Vomiting 01/07/18 12:47 01/31/18 12:46 Pantoprazole (Protonix) 40 mg DAILY IV 01/08/18 09:00 02/06/18 10:29 Piperacillin Sod/ Tazobactam Sod 3.375 gm/Dextrose 110 ml @ 27.5 mls/hr Q8HR IVPB 01/07/18 14:00 01/10/18 13:59 01/08/18 05:30 Potassium Chloride 40 meq/ Dextrose 1,020 ml @ 100 mls/hr [id number] IV 01/07/18 14:00 02/06/18 13:59 01/08/18 05:30 Potassium Chloride (K-Dur) 40 meq ONCE ORAL 01/08/18 18:00 01/08/18 19:00 Potassium Chloride (K-Dur) 60 meq ONCE ORAL 01/08/18 08:30 01/08/18 09:30 Quetiapine Fumarate (SEROquel) 25 mg TID ORAL 01/07/18 13:00 02/06/18 12:59 01/07/18 18:21 Duncan Marte MD Jan 08, 2018 08:30
[2018-01-08] MEDS: Pantoprazole Inj IV SCH (09:04)
[2018-01-08] MEDS: Enoxaparin 40mg Inj SUBQ SCH (09:06)
--- NOTE | 2018-01-08 10:59 | General Progress Note ---
Assessment/Plan Problem List: (1) Delirium ICD Codes: R41.0 - Disorientation, unspecified SNOMED: 1406041 (2) Hypernatremia ICD Codes: E87.0 - Hyperosmolality and hypernatremia SNOMED: 88760061 (3) Septic shock ICD Codes: A41.9 - Sepsis, unspecified organism; R65.21 - Severe sepsis with septic shock SNOMED: 87600155 (4) Thrombocytopenia ICD Codes: D69.6 - Thrombocytopenia, unspecified SNOMED: 379225268 (5) Leukocytosis ICD Codes: D72.829 - Elevated white blood cell count, unspecified SNOMED: 351127544, 135926048 Assessment/Plan Delirium and Agitation likely ICU Delirium with component of metabolic encephalopathy - appreciate psyche reqs - haldon prn - cont seroquel - per board and care patient is usually alert at baseline but does have mood swings and displays agitation occasionally Hypovolemic Hypernatremia,resolved - d/c ivf and encourage PO intake - calorie count S/P Septic Shock 2/2 gram negative bacteremia 2/2 cholelithiasis s/p sphincterotomy and biliary stent on 01/02 - patient off all pressors - discussed wt ID, Patient ok for PO Levaquin and flagyl for total of two weeks , ended in 01/15. Will change to PO meds today -steroids d/c'd (01/07/18) Thrombocytopenia likely multifactorial ddx include sepsis vs medication , DIC and HIT are negative - improving - , follow up hemolysis labs including haptoglobin, LDH elevated but may also be from sepsis and peripheral smear shows no schistocytes , flow negative - appreciate heme onc reqs - lovenox for dvt prophylaxis Leukocytosis likely 2/2 to steroids and sepsis - will follow up labs per heme onc reqs Hypokalemia replace as needed, patient will need daily replacement untill intake improves started 40mEq K in fluids Dispo planning - SW for identifying family, and CM for SNF or return to board and care , pending PT OT eval - unable to reach daughter today Subjective Date patient seen: Jan 08, 2018 Time patient seen: 09:00 Allergies: Coded Allergies: OLANZAPINE (Verified Allergy, Unknown, 01/01/18) TETRACYCLINE (Verified Allergy, Unknown, 01/01/18) Subjective no acute events patient tolerating diet and po meds Objective Last 24 Hour Vital Signs Date Time Temp Pulse Resp B/P (MAP) Pulse Ox O2 Delivery O2 Flow Rate FiO2 01/08/18 08:15 82 20 Room Air 01/08/18 08:15 Room Air 21 01/08/18 08:15 93 Room Air 21 01/08/18 08:00 97.9 76 18 128/81 (97) 96 97.9 01/08/18 04:00 97.9 85 15 132/72 (92) 99 97.9 01/08/18 00:00 98.8 76 18 156/76 (102) 94 98.8 01/07/18 21:38 77 20 Nasal Cannula 3.0 32 01/07/18 21:38 Nasal Cannula 3.0 32 01/07/18 21:38 92 Nasal Cannula 3.0 32 01/07/18 20:00 Nasal Cannula 2.0 Nasal Cannula 2.0 01/07/18 20:00 98.1 87 16 99/67 (78) 94 98.1 01/07/18 17:12 98.9 79 20 137/80 (99) 96 98.9 01/07/18 16:00 Nasal Cannula 3.0 Nasal Cannula 3.0 01/07/18 16:00 98.9 79 20 137/80 (99) 96 98.9 01/07/18 12:00 Nasal Cannula 3.0 Nasal Cannula 3.0 01/07/18 12:00 97.9 66 24 135/90 (105) 94 97.9 Intake and Output 01/07/18 01/08/18 19:00 07:00 Intake Total 492.5 ml 1030.0 ml Output Total 550 ml 1400 ml Balance -57.5 ml -370.0 ml Intake Oral 120 ml IV Total 372.5 ml 1030.0 ml Output Urine Total 550 ml 1400 ml # Voids 1 # Bowel Movements 1 3 Laboratory Tests 01/08/18 05:20: White Blood Count 15.6H, Red Blood Count 3.17L, Hemoglobin 10.7L, Hematocrit 30.7L, Mean Corpuscular Volume 97, Mean Corpuscular Hemoglobin 33.7H, Mean Corpuscular Hemoglobin Concent 34.9, Red Cell Distribution Width 12.4, Platelet Count 138L, Mean Platelet Volume 8.0, Neutrophils (%) (Auto) 81.2H, Lymphocytes (%) (Auto) 10.5L, Monocytes (%) (Auto) 7.4, Eosinophils (%) (Auto) 0.4, Basophils (%) (Auto) 0.6, Sodium Level 144, Potassium Level 2.8L, Chloride Level 110H, Carbon Dioxide Level 26, Anion Gap 9, Blood Urea Nitrogen 9, Creatinine 0.7, Estimat Glomerular Filtration Rate > 60, Glucose Level 95, Calcium Level 7.4L, Phosphorus Level 4.0, Magnesium Level 1.3L, Total Bilirubin 2.9H, Direct Bilirubin 1.7H, Aspartate Amino Transf (AST/SGOT) 26, Alanine Aminotransferase (ALT/SGPT) 55, Alkaline Phosphatase 90, Total Protein 5.3L, Albumin 2.0L, Globulin 3.3, Albumin/Globulin Ratio 0.6L Height (Feet): 5 Height (Inches): 5.00 Weight (Pounds): 157 General Appearance: WD/WN, no apparent distress, alert, confused EENT: PERRL/EOMI, normal ENT inspection, TMs normal, pharynx normal Neck: non-tender, normal alignment, supple, normal inspection, abnormal alignment Cardiovascular: normal peripheral pulses, normal rate, regular rhythm, regularly irregular, no gallop/murmur, no JVD Respiratory/Chest: chest wall non-tender, lungs clear, normal breath sounds, no respiratory distress Abdomen: normal bowel sounds, non tender, soft, no organomegaly, no mass Extremities: normal range of motion, non-tender Edema: no edema noted Arm (L), no edema noted Arm (R), no edema noted Leg (L), no edema noted Leg (R), no edema noted Pedal (L), no edema noted Pedal (R), no edema noted 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
--- NOTE | 2018-01-08 11:09 | GI Progress Note ---
Assessment/Plan Problems: (1) Thrombocytopenia ICD Codes: D69.6 - Thrombocytopenia, unspecified SNOMED: 804101970 (2) Leukocytosis ICD Codes: D72.829 - Elevated white blood cell count, unspecified SNOMED: 214199529, 780284891 (3) Choledocholithiasis ICD Codes: K80.50 - Calculus of bile duct without cholangitis or cholecystitis without obstruction SNOMED: 205826029 (4) Renal failure ICD Codes: N19 - Unspecified kidney failure SNOMED: 03390455 Qualifiers: Qualified Codes: N19 - Unspecified kidney failure (5) Hypokalemia ICD Codes: E87.6 - Hypokalemia SNOMED: 54727644, 756668397 (6) Septic shock ICD Codes: A41.9 - Sepsis, unspecified organism; R65.21 - Severe sepsis with septic shock SNOMED: 11914816 (7) Sepsis ICD Codes: A41.9 - Sepsis, unspecified organism SNOMED: 94854225 (8) Elevated LFTs ICD Codes: R94.5 - Abnormal results of liver function studies SNOMED: 042872856, 576583609 Status: doing well, progressing, tolerating diet Status Narrative Discussed with Dr. Villar. Assessment/Plan Assessment - Cholangitis - Choledocholithiasis - s/p ERCP and stent - sepsis/chock - lactic acidosis - renal failure - thrombocytopenia, likely DIC related - Critical - LFT downtrending - hepatitis panel negative Recommendations - advance diet - PT/OT - trend labs - supportive care Patient is to required to return in 3 months for repeat ERCP/stent removal. The patient was seen and examined at bedside and all new and available data was reviewed in the patients chart. I agree with the above findings, impression and plan. (Patient seen earlier today. Signature stamp does not reflect patient encounter time.). - Edward Villar MD Subjective Gastrointestinal/Abdominal: Reports: no symptoms Objective Last 24 Hour Vital Signs Date Time Temp Pulse Resp B/P (MAP) Pulse Ox O2 Delivery O2 Flow Rate FiO2 01/08/18 08:15 82 20 Room Air 01/08/18 08:15 Room Air 21 01/08/18 08:15 93 Room Air 21 01/08/18 08:00 97.9 76 18 128/81 (97) 96 97.9 01/08/18 04:00 97.9 85 15 132/72 (92) 99 97.9 01/08/18 00:00 98.8 76 18 156/76 (102) 94 98.8 01/07/18 21:38 77 20 Nasal Cannula 3.0 32 01/07/18 21:38 Nasal Cannula 3.0 32 01/07/18 21:38 92 Nasal Cannula 3.0 32 01/07/18 20:00 Nasal Cannula 2.0 Nasal Cannula 2.0 01/07/18 20:00 98.1 87 16 99/67 (78) 94 98.1 01/07/18 17:12 98.9 79 20 137/80 (99) 96 98.9 01/07/18 16:00 Nasal Cannula 3.0 Nasal Cannula 3.0 01/07/18 16:00 98.9 79 20 137/80 (99) 96 98.9 01/07/18 12:00 Nasal Cannula 3.0 Nasal Cannula 3.0 01/07/18 12:00 97.9 66 24 135/90 (105) 94 97.9 Intake and Output 01/07/18 01/08/18 19:00 07:00 Intake Total 492.5 ml 1030.0 ml Output Total 550 ml 1400 ml Balance -57.5 ml -370.0 ml Intake Oral 120 ml IV Total 372.5 ml 1030.0 ml Output Urine Total 550 ml 1400 ml # Voids 1 # Bowel Movements 1 3 Laboratory Tests Test 01/08/18 05:20 White Blood Count 15.6 K/UL (4.8-10.8) H Red Blood Count 3.17 M/UL (4.20-5.40) L Hemoglobin 10.7 G/DL (12.0-16.0) L Hematocrit 30.7 % (37.0-47.0) L Mean Corpuscular Volume 97 FL (80-99) Mean Corpuscular Hemoglobin 33.7 PG (27.0-31.0) H Mean Corpuscular Hemoglobin Concent 34.9 G/DL (32.0-36.0) Red Cell Distribution Width 12.4 % (11.6-14.8) Platelet Count 138 K/UL (150-450) L Mean Platelet Volume 8.0 FL (6.5-10.1) Neutrophils (%) (Auto) 81.2 % (45.0-75.0) H Lymphocytes (%) (Auto) 10.5 % (20.0-45.0) L Monocytes (%) (Auto) 7.4 % (1.0-10.0) Eosinophils (%) (Auto) 0.4 % (0.0-3.0) Basophils (%) (Auto) 0.6 % (0.0-2.0) Sodium Level 144 MMOL/L (136-145) Potassium Level 2.8 MMOL/L (3.5-5.1) L Chloride Level 110 MMOL/L (98-107) H Carbon Dioxide Level 26 MMOL/L (21-32) Anion Gap 9 mmol/L (5-15) Blood Urea Nitrogen 9 mg/dL (7-18) Creatinine 0.7 MG/DL (0.55-1.30) Estimat Glomerular Filtration Rate > 60 mL/min (>60) Glucose Level 95 MG/DL (74-106) Calcium Level 7.4 MG/DL (8.5-10.1) L Phosphorus Level 4.0 MG/DL (2.5-4.9) Magnesium Level 1.3 MG/DL (1.8-2.4) L Total Bilirubin 2.9 MG/DL (0.2-1.0) H Direct Bilirubin 1.7 MG/DL (0.0-0.3) H Aspartate Amino Transf (AST/SGOT) 26 U/L (15-37) Alanine Aminotransferase (ALT/SGPT) 55 U/L (12-78) Alkaline Phosphatase 90 U/L (46-116) Total Protein 5.3 G/DL (6.4-8.2) L Albumin 2.0 G/DL (3.4-5.0) L Globulin 3.3 g/dL Albumin/Globulin Ratio 0.6 (1.0-2.7) L Height (Feet): 5 Height (Inches): 5.00 Weight (Pounds): 157 General Appearance: WD/WN, no apparent distress, alert, thin Cardiovascular: normal rate Respiratory/Chest: normal breath sounds, no respiratory distress Abdominal Exam: normal bowel sounds, non tender, soft Extremities: normal range of motion, non-tender Brando Euceda [employer]STRUCTOR [employer]IAN Jan 08, 2018 11:09
[2018-01-08 12:00] VITALS: BP 127/76
[2018-01-08] MEDS ORDERED: metroNIDAZOLE 500mg tab ORAL SCH ×2 (13:00→22:00)
[2018-01-08] MEDS: LORazepam Inj 2mg/ml 1ml IV PRN (13:51)
--- NOTE | 2018-01-08 14:47 | General Surgery Progress Note ---
General Surgery-Progress Note Subjective Additional Comments improved. awake. responsive. labs improved. Objective Last 24 Hour Vital Signs Date Time Temp Pulse Resp B/P (MAP) Pulse Ox O2 Delivery O2 Flow Rate FiO2 01/08/18 12:00 98.0 72 19 127/76 (93) 98 98.0 01/08/18 09:00 Nasal Cannula 2.0 Nasal Cannula 2.0 01/08/18 08:15 82 20 Room Air 01/08/18 08:15 Room Air 21 01/08/18 08:15 93 Room Air 21 01/08/18 08:00 97.9 76 18 128/81 (97) 96 97.9 01/08/18 04:00 97.9 85 15 132/72 (92) 99 97.9 01/08/18 00:00 98.8 76 18 156/76 (102) 94 98.8 01/07/18 21:38 77 20 Nasal Cannula 3.0 32 01/07/18 21:38 Nasal Cannula 3.0 32 01/07/18 21:38 92 Nasal Cannula 3.0 32 01/07/18 20:00 Nasal Cannula 2.0 Nasal Cannula 2.0 01/07/18 20:00 98.1 87 16 99/67 (78) 94 98.1 01/07/18 17:12 98.9 79 20 137/80 (99) 96 98.9 01/07/18 16:00 Nasal Cannula 3.0 Nasal Cannula 3.0 01/07/18 16:00 98.9 79 20 137/80 (99) 96 98.9 I&O Intake and Output 01/07/18 01/08/18 19:00 07:00 Intake Total 492.5 ml 1030.0 ml Output Total 550 ml 1400 ml Balance -57.5 ml -370.0 ml Intake Oral 120 ml IV Total 372.5 ml 1030.0 ml Output Urine Total 550 ml 1400 ml # Voids 1 # Bowel Movements 1 3 Drains: none Cardiovascular: RSR Respiratory: clear Abdomen: soft, distended, non-tender, present bowel sounds Extremities: other Laboratory Tests Test 01/08/18 05:20 White Blood Count 15.6 K/UL (4.8-10.8) H Red Blood Count 3.17 M/UL (4.20-5.40) L Hemoglobin 10.7 G/DL (12.0-16.0) L Hematocrit 30.7 % (37.0-47.0) L Mean Corpuscular Volume 97 FL (80-99) Mean Corpuscular Hemoglobin 33.7 PG (27.0-31.0) H Mean Corpuscular Hemoglobin Concent 34.9 G/DL (32.0-36.0) Red Cell Distribution Width 12.4 % (11.6-14.8) Platelet Count 138 K/UL (150-450) L Mean Platelet Volume 8.0 FL (6.5-10.1) Neutrophils (%) (Auto) 81.2 % (45.0-75.0) H Lymphocytes (%) (Auto) 10.5 % (20.0-45.0) L Monocytes (%) (Auto) 7.4 % (1.0-10.0) Eosinophils (%) (Auto) 0.4 % (0.0-3.0) Basophils (%) (Auto) 0.6 % (0.0-2.0) Sodium Level 144 MMOL/L (136-145) Potassium Level 2.8 MMOL/L (3.5-5.1) L Chloride Level 110 MMOL/L (98-107) H Carbon Dioxide Level 26 MMOL/L (21-32) Anion Gap 9 mmol/L (5-15) Blood Urea Nitrogen 9 mg/dL (7-18) Creatinine 0.7 MG/DL (0.55-1.30) Estimat Glomerular Filtration Rate > 60 mL/min (>60) Glucose Level 95 MG/DL (74-106) Calcium Level 7.4 MG/DL (8.5-10.1) L Phosphorus Level 4.0 MG/DL (2.5-4.9) Magnesium Level 1.3 MG/DL (1.8-2.4) L Total Bilirubin 2.9 MG/DL (0.2-1.0) H Direct Bilirubin 1.7 MG/DL (0.0-0.3) H Aspartate Amino Transf (AST/SGOT) 26 U/L (15-37) Alanine Aminotransferase (ALT/SGPT) 55 U/L (12-78) Alkaline Phosphatase 90 U/L (46-116) Total Protein 5.3 G/DL (6.4-8.2) L Albumin 2.0 G/DL (3.4-5.0) L Globulin 3.3 g/dL Albumin/Globulin Ratio 0.6 (1.0-2.7) L Plan Problems: (1) Septic shock Assessment & Plan: Septic shock, choledocholithiasis, possible cholangitis s/p emergency ercp improving recovering -okay for diet -iv fluids -iv abx -trend labs thank you. will follow with recs. (2) Choledocholithiasis Assessment & Plan: s/p ERCP with stent LFT's improving leukocytosis cont iv abx thank you (3) Elevated LFTs Darius Caraballo Jan 08, 2018 14:47
--- NOTE | 2018-01-08 14:58 | Diagnostic Imaging Report ---
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 The left upper extremity was prepped with alcohol. All elements of maximal sterile barrier technique were followed including usage of a cap, mask, sterile gown, sterile gloves, hand hygiene and a large sterile sheet. Sonographic evaluation of the upper extremity was performed demonstrating a patent and compressible basilic vein. Access was obtained under real-time ultrasound guidance (with utilization of sterile gel and sterile probe cover) and digital image was saved and archived. An .018 wire was introduced. Needle exchanged for a 5 Syriac peel-away sheath. Measurements were obtained. A 5 Syriac dual-lumen Power PICC line catheter was cut to 45 cm and introduced over the wire. Peel-away sheath and wire were removed.Catheter was secured to the skin using 2-0 Prolene suture. Both ports aspirate and flush easily. Fluoroscopic images show distal tip in the superior vena cava. Total fluoroscopic time 0.2 minutes. Impression: Successful placement of an upper extremity PICC line catheter
--- NOTE | 2018-01-08 15:00 | General Progress Note ---
Assessment/Plan Status: stable Assessment/Plan encephalopathy with gmc/metabolic d/o the pt Seroquel will be changed to 25mg po tid Haldol 5mg q 6hr Im prn agitation the pt will be cont in restraints avoid prescribing benzo head raised 30 degree Subjective Date patient seen: Jan 08, 2018 Neurologic/Psychiatric: Reports: anxiety Allergies: Coded Allergies: OLANZAPINE (Verified Allergy, Unknown, 01/01/18) TETRACYCLINE (Verified Allergy, Unknown, 01/01/18) Objective Last 24 Hour Vital Signs Date Time Temp Pulse Resp B/P (MAP) Pulse Ox O2 Delivery O2 Flow Rate FiO2 01/08/18 12:00 98.0 72 19 127/76 (93) 98 98.0 01/08/18 09:00 Nasal Cannula 2.0 Nasal Cannula 2.0 01/08/18 08:15 82 20 Room Air 01/08/18 08:15 Room Air 21 01/08/18 08:15 93 Room Air 21 01/08/18 08:00 97.9 76 18 128/81 (97) 96 97.9 01/08/18 04:00 97.9 85 15 132/72 (92) 99 97.9 01/08/18 00:00 98.8 76 18 156/76 (102) 94 98.8 01/07/18 21:38 77 20 Nasal Cannula 3.0 32 01/07/18 21:38 Nasal Cannula 3.0 32 01/07/18 21:38 92 Nasal Cannula 3.0 32 01/07/18 20:00 Nasal Cannula 2.0 Nasal Cannula 2.0 01/07/18 20:00 98.1 87 16 99/67 (78) 94 98.1 01/07/18 17:12 98.9 79 20 137/80 (99) 96 98.9 01/07/18 16:00 Nasal Cannula 3.0 Nasal Cannula 3.0 01/07/18 16:00 98.9 79 20 137/80 (99) 96 98.9 Intake and Output 01/07/18 01/08/18 19:00 07:00 Intake Total 492.5 ml 1030.0 ml Output Total 550 ml 1400 ml Balance -57.5 ml -370.0 ml Intake Oral 120 ml IV Total 372.5 ml 1030.0 ml Output Urine Total 550 ml 1400 ml # Voids 1 # Bowel Movements 1 3 Laboratory Tests 01/08/18 05:20: White Blood Count 15.6H, Red Blood Count 3.17L, Hemoglobin 10.7L, Hematocrit 30.7L, Mean Corpuscular Volume 97, Mean Corpuscular Hemoglobin 33.7H, Mean Corpuscular Hemoglobin Concent 34.9, Red Cell Distribution Width 12.4, Platelet Count 138L, Mean Platelet Volume 8.0, Neutrophils (%) (Auto) 81.2H, Lymphocytes (%) (Auto) 10.5L, Monocytes (%) (Auto) 7.4, Eosinophils (%) (Auto) 0.4, Basophils (%) (Auto) 0.6, Sodium Level 144, Potassium Level 2.8L, Chloride Level 110H, Carbon Dioxide Level 26, Anion Gap 9, Blood Urea Nitrogen 9, Creatinine 0.7, Estimat Glomerular Filtration Rate > 60, Glucose Level 95, Calcium Level 7.4L, Phosphorus Level 4.0, Magnesium Level 1.3L, Total Bilirubin 2.9H, Direct Bilirubin 1.7H, Aspartate Amino Transf (AST/SGOT) 26, Alanine Aminotransferase (ALT/SGPT) 55, Alkaline Phosphatase 90, Total Protein 5.3L, Albumin 2.0L, Globulin 3.3, Albumin/Globulin Ratio 0.6L Height (Feet): 5 Height (Inches): 5.00 Weight (Pounds): 157 General Appearance: no apparent distress, confused, agitated Neurologic: responsive, depressed affect Shakira Jenkins MD Jan 08, 2018 15:00
[2018-01-08 16:00] VITALS: BP 120/81
--- NOTE | 2018-01-08 16:09 | Infectious Diseases Prog Note ---
Assessment/Plan Assessment/Plan ASSESSMENT AND PLAN: 1. sepsis, shock, citrobacter/klebsiella bacteremia, cholangitis, fevers, leukocytosis, ? pna, ? ards - s/p ERCP - zosyn - changed to levofloxacin and flagyl, day # 7 antibiotics, plan on 14 day course total iv plus po - f/u on cultures - surveillance blood culture still positive - monitor labs and chest x-ray - d/w RN - clinically improved - d/w Dr. Pryor 2. Respiratory failure - on vent, per pulmonary medicine 3. Acute kidney injury - cr better 4. History of paranoid schizophrenia and psychiatric disease. 5. Hypertension. 6. No history of diabetes. 7. Allergy to olanzapine and tetracycline. 8. MAR was noted. 9. Case discussed with RN. 10. Family history noncontributory. 11. Social history negative. 12. Continue treatment per primary consultants. 13. Prognosis is guarded to poor. 14. Notes and records were noted and orders were entered. Subjective Constitutional: Reports: fatigue, other - more alert; Denies: fever, chills HEENT: Denies: congestion Respiratory: Denies: productive cough Breasts: Denies: swelling Cardiovascular: Denies: chest pain Gastrointestinal/Abdominal: Reports: other - no goldman; Denies: nausea, vomiting , diarrhea, constipation Neurologic: Denies: headache Psychiatric: Denies: depression Skin: Denies: rash Hematologic: Denies: bleeding Musculoskeletal: Denies: pain Allergies: Coded Allergies: OLANZAPINE (Verified Allergy, Unknown, 01/01/18) TETRACYCLINE (Verified Allergy, Unknown, 01/01/18) Objective Vital Signs Last 24 Hour Vital Signs Date Time Temp Pulse Resp B/P (MAP) Pulse Ox O2 Delivery O2 Flow Rate FiO2 01/08/18 12:00 98.0 72 19 127/76 (93) 98 98.0 01/08/18 09:00 Nasal Cannula 2.0 Nasal Cannula 2.0 01/08/18 08:15 82 20 Room Air 01/08/18 08:15 Room Air 21 01/08/18 08:15 93 Room Air 21 01/08/18 08:00 97.9 76 18 128/81 (97) 96 97.9 01/08/18 04:00 97.9 85 15 132/72 (92) 99 97.9 01/08/18 00:00 98.8 76 18 156/76 (102) 94 98.8 01/07/18 21:38 77 20 Nasal Cannula 3.0 32 01/07/18 21:38 Nasal Cannula 3.0 32 01/07/18 21:38 92 Nasal Cannula 3.0 32 01/07/18 20:00 Nasal Cannula 2.0 Nasal Cannula 2.0 01/07/18 20:00 98.1 87 16 99/67 (78) 94 98.1 01/07/18 17:12 98.9 79 20 137/80 (99) 96 98.9 Height (Feet): 5 Height (Inches): 5.00 Weight (Pounds): 157 General Appearance: no acute distress HEENT: normocephalic, atraumatic, anicteric, mucous membranes moist Respiratory/Chest: lungs clear, normal breath sounds, no respiratory distress, no accessory muscle use Cardiovascular: normal rate, regular rhythm, no gallop/murmur, no JVD Abdomen: normal bowel sounds, soft, non tender, no organomegaly, non distended Genitourinary: other - no goldman Extremities: no cyanosis Skin: no rash Neurologic/Psychiatric: psychiatric cns II-XII grossly normal, alert, oriented x 3 Lymphatic: no neck adenopathy Musculoskeletal: no effusion Objective CT abdomen and pelvis: Impression: Positive for choledocholithiasis, 3 large calculi in the downstream common bile duct. There is evidence of biliary obstruction, with marked dilatation of the extrahepatic and intrahepatic bile ducts. Dr. Niño was notified of this finding at the time of interpretation Cholelithiasis Limited assessment of the GI tract, due to lack of enteric contrast Posterior dependent pulmonary atelectatic changes. Right middle lobe scarring with associated bronchiectasis Incidental finding of tiny fat-containing abdominal hernia. US - abdomen: Impression: Cholelithiasis Marked biliary ductal dilatation, consistent with choledocholithiasis seen on prior CT scan, although not imaged on current study Chest x-ray - 01/03 - FINDINGS: Image is limited by portable technique and external artifacts. Allowing for this, endotracheal tube remains in place, terminating approximately 2 cm above the andrade. Enteric tube terminates at least within the gastric body. There are patchy coarse reticular opacities within bilateral medial lung bases with probable associated volume loss, indicating at least atelectasis, as before. No definite new lung opacity. Heart size is normal and stable. No obvious significant pleural effusion or pneumothorax. IMPRESSION: 1. New enteric tube terminates at least within the gastric body. 2. Otherwise, no definite significant interval change. Chest x-ray - 01/04 - Findings: The endotracheal tube appears to be projected over the right mainstem bronchus. This is not absolutely certain and the recommend repeating the examination. The heart is enlarged. There is basilar consolidation again demonstrated. IMPRESSION: Probable endotracheal tube in the proximal right mainstem bronchus. Suggest a repeat x-ray for confirmation. Microbiology Date/Time Source Procedure Growth Status 01/06/18 16:38 Blood Blood Culture - Preliminary NO GROWTH AFTER 24 HOURS Resulted 01/04/18 13:40 Sputum Gram Stain - Final Complete 01/04/18 13:40 Sputum Sputum Culture - Final NORMAL UPPER RESPIRATORY KEMI PRESENT Complete 01/01/18 22:25 Rectum VRE Culture - Final NO VANCOMYCIN RESISTANT ENTEROCOCCUS ... Complete Microbiology Date/Time Source Procedure Growth Status 01/06/18 16:38 Blood Blood Culture - Preliminary NO GROWTH AFTER 24 HOURS Resulted 01/06/18 16:35 Blood Blood Culture - Preliminary NO GROWTH AFTER 24 HOURS Resulted Laboratory Tests Test 01/08/18 05:20 White Blood Count 15.6 K/UL (4.8-10.8) H Red Blood Count 3.17 M/UL (4.20-5.40) L Hemoglobin 10.7 G/DL (12.0-16.0) L Hematocrit 30.7 % (37.0-47.0) L Mean Corpuscular Volume 97 FL (80-99) Mean Corpuscular Hemoglobin 33.7 PG (27.0-31.0) H Mean Corpuscular Hemoglobin Concent 34.9 G/DL (32.0-36.0) Red Cell Distribution Width 12.4 % (11.6-14.8) Platelet Count 138 K/UL (150-450) L Mean Platelet Volume 8.0 FL (6.5-10.1) Neutrophils (%) (Auto) 81.2 % (45.0-75.0) H Lymphocytes (%) (Auto) 10.5 % (20.0-45.0) L Monocytes (%) (Auto) 7.4 % (1.0-10.0) Eosinophils (%) (Auto) 0.4 % (0.0-3.0) Basophils (%) (Auto) 0.6 % (0.0-2.0) Sodium Level 144 MMOL/L (136-145) Potassium Level 2.8 MMOL/L (3.5-5.1) L Chloride Level 110 MMOL/L (98-107) H Carbon Dioxide Level 26 MMOL/L (21-32) Anion Gap 9 mmol/L (5-15) Blood Urea Nitrogen 9 mg/dL (7-18) Creatinine 0.7 MG/DL (0.55-1.30) Estimat Glomerular Filtration Rate > 60 mL/min (>60) Glucose Level 95 MG/DL (74-106) Calcium Level 7.4 MG/DL (8.5-10.1) L Phosphorus Level 4.0 MG/DL (2.5-4.9) Magnesium Level 1.3 MG/DL (1.8-2.4) L Total Bilirubin 2.9 MG/DL (0.2-1.0) H Direct Bilirubin 1.7 MG/DL (0.0-0.3) H Aspartate Amino Transf (AST/SGOT) 26 U/L (15-37) Alanine Aminotransferase (ALT/SGPT) 55 U/L (12-78) Alkaline Phosphatase 90 U/L (46-116) Total Protein 5.3 G/DL (6.4-8.2) L Albumin 2.0 G/DL (3.4-5.0) L Globulin 3.3 g/dL Albumin/Globulin Ratio 0.6 (1.0-2.7) L Current Medications Medications (Trade) Dose Ordered Sig/Bertrand Route PRN Reason Start Time Stop Time Status Last Admin Dose Admin Acetaminophen (Tylenol) 650 mg Q6H PRN ORAL Mild Pain/Temp > 100.5 01/07/18 12:46 02/02/18 12:45 Albuterol/ Ipratropium (Albuterol/ Ipratropium) 3 ml Q4H PRN HHN Shortness of Breath 01/07/18 16:14 01/12/18 16:13 Chlorhexidine Gluconate (Mandy-Hex 2%) 1 applic DAILY@2000 TOPIC 01/07/18 20:00 02/06/18 19:59 01/07/18 22:14 Dextrose (Dextrose 50%) 25 ml Q30M PRN IV Hypoglycemia 01/07/18 13:00 01/31/18 17:29 Dextrose (Dextrose 50%) 50 ml Q30M PRN IV Hypoglycemia 01/07/18 13:00 01/31/18 17:29 Enoxaparin Sodium (Lovenox) 40 mg DAILY SUBQ 01/08/18 09:00 02/06/18 10:29 01/08/18 09:06 Haloperidol Lactate (Haldol) 5 mg Q6H PRN IM Agitation 01/07/18 12:46 02/06/18 12:45 01/07/18 14:17 Levofloxacin (Levaquin) 750 mg DAILY ORAL 01/09/18 09:00 01/16/18 08:59 Lorazepam (Ativan 2mg/ml 1ml) 2 mg Q2H PRN IV For Anxiety 01/07/18 12:46 01/13/18 12:45 01/08/18 13:51 Magnesium Sulfate 100 ml @ 100 mls/hr Q1H IVPB 01/08/18 18:00 01/08/18 20:59 Metronidazole (Flagyl) 500 mg Q12HR ORAL 01/08/18 13:00 01/15/18 12:59 01/08/18 13:51 Morphine Sulfate (Morphine Sulfate) 2 mg Q4H PRN IVP For Pain 01/07/18 12:46 01/09/18 12:45 Ondansetron HCl (Zofran) 4 mg Q6H PRN IVP Nausea & Vomiting 01/07/18 12:47 01/31/18 12:46 Pantoprazole (Protonix) 40 mg DAILY IV 01/08/18 09:00 02/06/18 10:29 01/08/18 09:04 Potassium Chloride (K-Dur) 40 meq ONCE ORAL 01/08/18 18:00 01/08/18 19:00 Quetiapine Fumarate (SEROquel) 25 mg TID ORAL 01/07/18 13:00 02/06/18 12:59 01/08/18 13:51 Corinne Lilly MD Jan 08, 2018 16:09
[2018-01-08 20:00] VITALS: BP 129/81
[2018-01-08] MEDS: Dyna-Hex 2% Top Sol 2oz TOPIC SCH (20:00)
[2018-01-08] MEDS: metroNIDAZOLE 500mg tab ORAL SCH (21:10)
[2018-01-09] VITALS: BP 128/78
[2018-01-09] MEDS: LORazepam Inj 2mg/ml 1ml IV PRN ×3 (00:41→13:49)
[2018-01-09 04:00] VITALS: BP 142/78
[2018-01-09] MEDS: metroNIDAZOLE 500mg tab ORAL SCH ×4 (05:21→21:38)
--- NOTE | 2018-01-09 07:21 | General Progress Note ---
Assessment/Plan Assessment/Plan Assessment - Cholangitis - Choledocholithiasis - s/p ERCP and stent - sepsis/chock - lactic acidosis - renal failure - thrombocytopenia, likely DIC related - Critical - LFT downtrending - hepatitis panel negative Recommendations - advance diet - PT/OT - trend labs - supportive care Patient is to required to return in 3 months for repeat ERCP/stent removal. Subjective ROS Limited/Unobtainable: Yes Allergies: Coded Allergies: OLANZAPINE (Verified Allergy, Unknown, 01/01/18) TETRACYCLINE (Verified Allergy, Unknown, 01/01/18) Objective Last 24 Hour Vital Signs Date Time Temp Pulse Resp B/P (MAP) Pulse Ox O2 Delivery O2 Flow Rate FiO2 01/09/18 04:00 97.2 74 20 142/78 (99) 96 97.2 01/09/18 00:00 98.0 81 18 128/78 (95) 100 98.0 01/08/18 21:00 Nasal Cannula 2.0 Nasal Cannula 2.0 01/08/18 20:00 98.2 86 18 129/81 (97) 98 98.2 01/08/18 19:07 79 18 Room Air 01/08/18 19:07 Room Air 21 01/08/18 19:07 94 Room Air 21 01/08/18 16:00 98.0 84 18 120/81 (94) 97 98.0 01/08/18 12:00 98.0 72 19 127/76 (93) 98 98.0 01/08/18 09:00 Nasal Cannula 2.0 Nasal Cannula 2.0 01/08/18 08:15 82 20 Room Air 01/08/18 08:15 Room Air 21 01/08/18 08:15 93 Room Air 21 01/08/18 08:00 97.9 76 18 128/81 (97) 96 97.9 Intake and Output 01/08/18 01/09/18 19:00 07:00 Intake Total 610.0 ml Balance 610.0 ml IV Total 610.0 ml # Voids 1 # Bowel Movements 3 Height (Feet): 5 Height (Inches): 5.00 Weight (Pounds): 152 General Appearance: alert EENT: normal ENT inspection Neck: supple Cardiovascular: normal rate Respiratory/Chest: decreased breath sounds Abdomen: normal bowel sounds, non tender, soft Extremities: non-tender Edward Villar MD Jan 09, 2018 07:21
[2018-01-09 08:34] VITALS: BP 134/80
[2018-01-09] MEDS: Enoxaparin 40mg Inj SUBQ SCH (08:51)
[2018-01-09] MEDS: Pantoprazole Inj IV SCH (08:51)
--- NOTE | 2018-01-09 08:56 | Diagnostic Imaging Report ---
INDICATION: Status post line placement COMPARISON: Chest x-ray dated 01/07/18 FINDINGS: Single frontal view demonstrates prominent cardiac size. A left peripherally inserted central venous catheter with tip in distal superior vena cava. Improved aeration of bilateral lower lung zones. No pleural effusions. The visualized osseous structures are within normal limits. IMPRESSION: A left peripherally inserted central venous catheter with tip in distal superior vena cava. Improved aeration of bilateral lower lung zones.
[2018-01-09] MEDS ORDERED: Tubing IV Secondary IV ONE (09:01)
[2018-01-09] MEDS ORDERED: NS 500ML ONE (09:01)
[2018-01-09 10:23] LABS: BASOPHILS % (AUTO) 1.2 % (0.0-2.0); EOSINOPHILS % (AUTO) 0.2 % (0.0-3.0); HEMATOCRIT 36.7 % (37.0-47.0); HEMOGLOBIN 12.3 G/DL (12.0-16.0); LYMPHOCYTES % (AUTO) 13.2 % (20.0-45.0); MEAN CORPUSCULAR VOLUME 96 FL (80-99); MONOCYTES % (AUTO) 5.7 % (1.0-10.0); NEUTROPHILS % (AUTO) 79.6 % (45.0-75.0); PLATELET COUNT 167 K/UL (150-450); RED BLOOD COUNT 3.81 M/UL (4.20-5.40); RED CELL DISTRIBUTION WIDTH 12.6 % (11.6-14.8); WHITE BLOOD COUNT 13.1 K/UL (4.8-10.8)
[2018-01-09 10:54] LABS: ALANINE AMINOTRANSFERASE 49 U/L (12-78); ALBUMIN 2.4 G/DL (3.4-5.0); ALBUMIN/GLOBULIN RATIO 0.6 (1.0-2.7); ALKALINE PHOSPHATASE 94 U/L (46-116); ANION GAP 10 mmol/L (5-15); ASPARTATE AMINO TRANSFERASE 23 U/L (15-37); BILIRUBIN,TOTAL 2.4 MG/DL (0.2-1.0); BLOOD UREA NITROGEN 7 mg/dL (7-18); CARBON DIOXIDE 24 MMOL/L (21-32); CHLORIDE 108 MMOL/L (98-107); CREATININE 0.7 MG/DL (0.55-1.30); POTASSIUM 3.2 MMOL/L (3.5-5.1); SODIUM 142 MMOL/L (136-145)
[2018-01-09 10:55] LABS: BILIRUBIN,DIRECT 1.5 MG/DL (0.0-0.3)
[2018-01-09 12:00] VITALS: BP 129/77
--- NOTE | 2018-01-09 13:07 | General Surgery Progress Note ---
General Surgery-Progress Note Subjective Symptoms: improved Additional Comments no acute events. awake, alert, comfortable. Objective Last 24 Hour Vital Signs Date Time Temp Pulse Resp B/P (MAP) Pulse Ox O2 Delivery O2 Flow Rate FiO2 01/09/18 12:00 98.0 71 18 129/77 (94) 93 98.0 01/09/18 09:00 Nasal Cannula 2.0 Nasal Cannula 2.0 01/09/18 08:37 84 18 Room Air 01/09/18 08:37 Room Air 21 01/09/18 08:37 95 Room Air 21 01/09/18 08:34 97.6 76 134/80 (98) 94 97.6 01/09/18 04:00 97.2 74 20 142/78 (99) 96 97.2 01/09/18 00:00 98.0 81 18 128/78 (95) 100 98.0 01/08/18 21:00 Nasal Cannula 2.0 Nasal Cannula 2.0 01/08/18 20:00 98.2 86 18 129/81 (97) 98 98.2 01/08/18 19:07 79 18 Room Air 01/08/18 19:07 Room Air 21 01/08/18 19:07 94 Room Air 21 01/08/18 16:00 98.0 84 18 120/81 (94) 97 98.0 I&O Intake and Output 01/08/18 01/09/18 19:00 07:00 Intake Total 610.0 ml Balance 610.0 ml IV Total 610.0 ml # Voids 1 # Bowel Movements 3 Wound: clean Drains: other Cardiovascular: RSR Respiratory: clear Abdomen: soft, flat, non-tender, present bowel sounds Extremities: no cyanosis Laboratory Tests Test 01/09/18 10:10 White Blood Count 13.1 K/UL (4.8-10.8) H Red Blood Count 3.81 M/UL (4.20-5.40) L Hemoglobin 12.3 G/DL (12.0-16.0) Hematocrit 36.7 % (37.0-47.0) L Mean Corpuscular Volume 96 FL (80-99) Mean Corpuscular Hemoglobin 32.2 PG (27.0-31.0) H Mean Corpuscular Hemoglobin Concent 33.4 G/DL (32.0-36.0) Red Cell Distribution Width 12.6 % (11.6-14.8) Platelet Count 167 K/UL (150-450) Mean Platelet Volume 7.7 FL (6.5-10.1) Neutrophils (%) (Auto) 79.6 % (45.0-75.0) H Lymphocytes (%) (Auto) 13.2 % (20.0-45.0) L Monocytes (%) (Auto) 5.7 % (1.0-10.0) Eosinophils (%) (Auto) 0.2 % (0.0-3.0) Basophils (%) (Auto) 1.2 % (0.0-2.0) Sodium Level 142 MMOL/L (136-145) Potassium Level 3.2 MMOL/L (3.5-5.1) L Chloride Level 108 MMOL/L (98-107) H Carbon Dioxide Level 24 MMOL/L (21-32) Anion Gap 10 mmol/L (5-15) Blood Urea Nitrogen 7 mg/dL (7-18) Creatinine 0.7 MG/DL (0.55-1.30) Estimat Glomerular Filtration Rate > 60 mL/min (>60) Glucose Level 124 MG/DL (74-106) H Calcium Level 8.0 MG/DL (8.5-10.1) L Total Bilirubin 2.4 MG/DL (0.2-1.0) H Direct Bilirubin 1.5 MG/DL (0.0-0.3) H Aspartate Amino Transf (AST/SGOT) 23 U/L (15-37) Alanine Aminotransferase (ALT/SGPT) 49 U/L (12-78) Alkaline Phosphatase 94 U/L (46-116) Total Protein 6.4 G/DL (6.4-8.2) Albumin 2.4 G/DL (3.4-5.0) L Globulin 4.0 g/dL Albumin/Globulin Ratio 0.6 (1.0-2.7) L Plan Problems: (1) Septic shock Assessment & Plan: Septic shock, choledocholithiasis, possible cholangitis s/p emergency ercp improving recovering -okay for diet -iv fluids -iv abx -trend labs thank you. will follow with recs. (2) Choledocholithiasis Assessment & Plan: s/p ERCP with stent LFT's improving leukocytosis cont iv abx stent removal as per GI in 3 months thank you (3) Elevated LFTs Darius Caraballo Jan 09, 2018 13:07
--- NOTE | 2018-01-09 14:06 | General Progress Note ---
Assessment/Plan Status: stable Assessment/Plan # Leukocytosis. Likely related to underlying infection versus reactive process. In addition,has blasts, myelocytes and metamyelocytes initially but none detected on the flow cytometry, currently has improved, s/p ercp with stent --> flow cytometry is negative for any abnormalities, discussed with pathology --> Tumor lysis labs have been reviewed and does not appear to have TLS -- will monitor closely --> In future, need a bone marrow biopsy will discuss with pathologist --> Imaging has been reviewed and reveals: Mild pulmonary vascular congestion. Subsegmental atelectasis versus infiltrates in bilateral lung bases. Cholelithiasis --> Blood shows citro/kleb, as per id management --> Has been started on abx, empiric treatment --> appreciate ID recs --> Currently, WBC is improving. # Thrombocytopenia. Potential causes multifactorial, evaluate liver and viral etiologies v infectious, hepatitis and hiv are negative, could be related to shock/sepsis as well. is no s/p transfusion. On presentation 20k, now improved slowly --> HIT is wnl, no evidence of HIT AB --> US abd: cholelithiasis --> Peripheral smear now normalized --> Abx and other meds have been reviewed. --> Currently, resolved. # Choledocholithiasis with review by surgeon, could be early cholangitis, also has been reviewed by ID. s/p ercp with stent --> NPO, Zofran, morphine prb. Continue IV fluids, check serial lactate levels, blood cultures, on abx --> Patient may require vasopressor support for possible septic shock. --> ID, GI and Surgery to evaluate. # Severe hypokalemia, will continue to replace --> appreciate recs by renal, check BMP pM along with phos # Acute metabolic encephalopathy, likely due to to underlying sepsis, continue to treat acute medical issues and provide supportive care --> Fall, aspiration, seizure precautions # History of unspecified psychiatric illness, will hold all psychotropics for now to avoid oversedation # Respiratory failure -- s/p vent, and extubated on 01/05 --> pulm recs appreciated --> Currently on NC I GREATLY APPRECIATE CONSULTATION. Subjective Date patient seen: Jan 09, 2018 Allergies: Coded Allergies: OLANZAPINE (Verified Allergy, Unknown, 01/01/18) TETRACYCLINE (Verified Allergy, Unknown, 01/01/18) All Systems: reviewed and negative except above Subjective No acute events. Currently on NC. Objective Last 24 Hour Vital Signs Date Time Temp Pulse Resp B/P (MAP) Pulse Ox O2 Delivery O2 Flow Rate FiO2 01/09/18 12:00 98.0 71 18 129/77 (94) 93 98.0 01/09/18 09:00 Nasal Cannula 2.0 Nasal Cannula 2.0 01/09/18 08:37 84 18 Room Air 01/09/18 08:37 Room Air 21 01/09/18 08:37 95 Room Air 21 01/09/18 08:34 97.6 76 134/80 (98) 94 97.6 01/09/18 04:00 97.2 74 20 142/78 (99) 96 97.2 01/09/18 00:00 98.0 81 18 128/78 (95) 100 98.0 01/08/18 21:00 Nasal Cannula 2.0 Nasal Cannula 2.0 01/08/18 20:00 98.2 86 18 129/81 (97) 98 98.2 01/08/18 19:07 79 18 Room Air 01/08/18 19:07 Room Air 21 01/08/18 19:07 94 Room Air 21 01/08/18 16:00 98.0 84 18 120/81 (94) 97 98.0 Intake and Output 01/08/18 01/09/18 19:00 07:00 Intake Total 610.0 ml Balance 610.0 ml IV Total 610.0 ml # Voids 1 # Bowel Movements 3 Laboratory Tests 01/09/18 10:10: White Blood Count 13.1H, Red Blood Count 3.81L, Hemoglobin 12.3, Hematocrit 36.7L, Mean Corpuscular Volume 96, Mean Corpuscular Hemoglobin 32.2H, Mean Corpuscular Hemoglobin Concent 33.4, Red Cell Distribution Width 12.6, Platelet Count 167, Mean Platelet Volume 7.7, Neutrophils (%) (Auto) 79.6H, Lymphocytes ( %) (Auto) 13.2L, Monocytes (%) (Auto) 5.7, Eosinophils (%) (Auto) 0.2, Basophils (%) (Auto) 1.2, Sodium Level 142, Potassium Level 3.2L, Chloride Level 108H, Carbon Dioxide Level 24, Anion Gap 10, Blood Urea Nitrogen 7, Creatinine 0.7, Estimat Glomerular Filtration Rate > 60, Glucose Level 124H, Calcium Level 8.0L, Total Bilirubin 2.4H, Direct Bilirubin 1.5H, Aspartate Amino Transf (AST/SGOT) 23, Alanine Aminotransferase (ALT/SGPT) 49, Alkaline Phosphatase 94, Total Protein 6.4, Albumin 2.4L, Globulin 4.0, Albumin/Globulin Ratio 0.6L Height (Feet): 5 Height (Inches): 5.00 Weight (Pounds): 152 General Appearance: no apparent distress EENT: PERRL/EOMI Neck: normal alignment Cardiovascular: normal peripheral pulses Respiratory/Chest: no respiratory distress Abdomen: soft Objective on a vent, og, RT as well Dvain Aguero MD Jan 09, 2018 14:06
[2018-01-09] MEDS: Haloperidol 5mg/ml Inj IM PRN (14:43)
--- NOTE | 2018-01-09 15:08 | General Progress Note ---
Assessment/Plan Assessment/Plan Delirium and Agitation likely hospital Delirium with component of metabolic encephalopathy - appreciate psyche reqs - haldon prn - cont seroquel - per board and care patient is usually alert at baseline but does have mood swings and displays agitation occasionally Hypovolemic Hypernatremia,resolved - encourage PO intake - calorie count S/P Septic Shock 2/2 gram negative bacteremia 2/2 cholelithiasis s/p sphincterotomy and biliary stent on 01/02 - patient off all pressors - PO Levaquin and flagyl for total of two weeks, ended in 01/15. - steroids d/c'd (01/07/18) Thrombocytopenia likely multifactorial ddx include sepsis vs medication , DIC and HIT are negative - improving - , follow up hemolysis labs including haptoglobin, LDH elevated but may also be from sepsis and peripheral smear shows no schistocytes , flow negative - appreciate heme onc reqs - lovenox for dvt prophylaxis Leukocytosis likely 2/2 to steroids and sepsis - will follow up labs per heme onc reqs Hypokalemia replace as needed, patient will need daily replacement until intake improves started 40mEq K in fluids Dispo planning - SW for identifying family, and CM for SNF or return to board and care , pending PT OT eval - unable to reach daughter today Subjective Date patient seen: Jan 09, 2018 Allergies: Coded Allergies: OLANZAPINE (Verified Allergy, Unknown, 01/01/18) TETRACYCLINE (Verified Allergy, Unknown, 01/01/18) Subjective No acute events AVSS Awaiting placement Denies CP, SOB, Palp 12 pt ros neg except as mentioned above Objective Last 24 Hour Vital Signs Date Time Temp Pulse Resp B/P (MAP) Pulse Ox O2 Delivery O2 Flow Rate FiO2 01/09/18 12:00 98.0 71 18 129/77 (94) 93 98.0 01/09/18 09:00 Nasal Cannula 2.0 Nasal Cannula 2.0 01/09/18 08:37 84 18 Room Air 01/09/18 08:37 Room Air 21 01/09/18 08:37 95 Room Air 21 01/09/18 08:34 97.6 76 134/80 (98) 94 97.6 01/09/18 04:00 97.2 74 20 142/78 (99) 96 97.2 01/09/18 00:00 98.0 81 18 128/78 (95) 100 98.0 01/08/18 21:00 Nasal Cannula 2.0 Nasal Cannula 2.0 01/08/18 20:00 98.2 86 18 129/81 (97) 98 98.2 01/08/18 19:07 79 18 Room Air 01/08/18 19:07 Room Air 21 01/08/18 19:07 94 Room Air 21 01/08/18 16:00 98.0 84 18 120/81 (94) 97 98.0 Intake and Output 01/08/18 01/09/18 19:00 07:00 Intake Total 610.0 ml Balance 610.0 ml IV Total 610.0 ml # Voids 1 # Bowel Movements 3 Laboratory Tests 01/09/18 10:10: White Blood Count 13.1H, Red Blood Count 3.81L, Hemoglobin 12.3, Hematocrit 36.7L, Mean Corpuscular Volume 96, Mean Corpuscular Hemoglobin 32.2H, Mean Corpuscular Hemoglobin Concent 33.4, Red Cell Distribution Width 12.6, Platelet Count 167, Mean Platelet Volume 7.7, Neutrophils (%) (Auto) 79.6H, Lymphocytes ( %) (Auto) 13.2L, Monocytes (%) (Auto) 5.7, Eosinophils (%) (Auto) 0.2, Basophils (%) (Auto) 1.2, Sodium Level 142, Potassium Level 3.2L, Chloride Level 108H, Carbon Dioxide Level 24, Anion Gap 10, Blood Urea Nitrogen 7, Creatinine 0.7, Estimat Glomerular Filtration Rate > 60, Glucose Level 124H, Calcium Level 8.0L, Total Bilirubin 2.4H, Direct Bilirubin 1.5H, Aspartate Amino Transf (AST/SGOT) 23, Alanine Aminotransferase (ALT/SGPT) 49, Alkaline Phosphatase 94, Total Protein 6.4, Albumin 2.4L, Globulin 4.0, Albumin/Globulin Ratio 0.6L Height (Feet): 5 Height (Inches): 5.00 Weight (Pounds): 152 Objective General Appearance: WD/WN, no apparent distress, alert, confused EENT: PERRL/EOMI, normal ENT inspection, TMs normal, pharynx normal Neck: non-tender, normal alignment, supple, normal inspection, abnormal alignment Cardiovascular: normal peripheral pulses, normal rate, regular rhythm, regularly irregular, no gallop/murmur, no JVD Respiratory/Chest: chest wall non-tender, lungs clear, normal breath sounds, no respiratory distress Abdomen: normal bowel sounds, non tender, soft, no organomegaly, no mass Extremities: normal range of motion, non-tender Edema: no edema noted Arm (L), no edema noted Arm (R), no edema noted Leg (L), no edema noted Leg (R), no edema noted Pedal (L), no edema noted Pedal (R), no edema noted Generalized Neurologic: composite engineer II-XII grossly normal, no motor/sensory deficits Skin: normal pigmentation, warm/dry Akira Wolf MD Jan 09, 2018 15:08
[2018-01-09 16:00] VITALS: BP 108/69
--- NOTE | 2018-01-09 16:57 | Pulmonology Progress Note ---
Assessment/Plan Assessment/Plan (1) Choledocholithiasis (2) Leukocytosis (3) Elevated LFTs (4) Hypokalemia (5) Hypernatremia (6) Delirium (7) Chronic deep vein thrombosis (DVT) (8) Thrombocytopenia (9) Sepsis Assessment/Plan -Optimize pulmonary hygiene/mobilize as tolerated -Titrate down FiO2 to keep SaO2 > 90% -PRN HHN's -Abx per iD, monitor WCt -Aspiration precautions -D5W, replete K & Mg -DVT Px: LMWH -F/U psych recs -F/U GI recs, repeat ERCP with stent removal in 3 months -dc planning -Monitor MS -FC Subjective ROS Limited/Unobtainable: Yes Allergies: Coded Allergies: OLANZAPINE (Verified Allergy, Unknown, 01/01/18) TETRACYCLINE (Verified Allergy, Unknown, 01/01/18) Subjective confused po with assistance only sitter present no distress not getting oob and in restraints no reports of CP NV or bleeding Objective Last 24 Hour Vital Signs Date Time Temp Pulse Resp B/P (MAP) Pulse Ox O2 Delivery O2 Flow Rate FiO2 01/09/18 16:00 98.3 79 20 108/69 (82) 94 98.3 01/09/18 12:00 98.0 71 18 129/77 (94) 93 98.0 01/09/18 09:00 Nasal Cannula 2.0 Nasal Cannula 2.0 01/09/18 08:37 84 18 Room Air 01/09/18 08:37 Room Air 21 01/09/18 08:37 95 Room Air 21 01/09/18 08:34 97.6 76 134/80 (98) 94 97.6 01/09/18 04:00 97.2 74 20 142/78 (99) 96 97.2 01/09/18 00:00 98.0 81 18 128/78 (95) 100 98.0 01/08/18 21:00 Nasal Cannula 2.0 Nasal Cannula 2.0 01/08/18 20:00 98.2 86 18 129/81 (97) 98 98.2 01/08/18 19:07 79 18 Room Air 01/08/18 19:07 Room Air 21 01/08/18 19:07 94 Room Air 21 Intake and Output 01/08/18 01/09/18 19:00 07:00 Intake Total 610.0 ml Balance 610.0 ml IV Total 610.0 ml # Voids 1 # Bowel Movements 3 General Appearance: cachetic HEENT: atraumatic, anicteric Respiratory/Chest: rhonchi Cardiovascular: normal rate, regular rhythm Abdomen: soft, non tender, distended - miold Neurologic/Psychiatric: responsive, disoriented Laboratory Tests 01/09/18 10:10: White Blood Count 13.1H, Red Blood Count 3.81L, Hemoglobin 12.3, Hematocrit 36.7L, Mean Corpuscular Volume 96, Mean Corpuscular Hemoglobin 32.2H, Mean Corpuscular Hemoglobin Concent 33.4, Red Cell Distribution Width 12.6, Platelet Count 167, Mean Platelet Volume 7.7, Neutrophils (%) (Auto) 79.6H, Lymphocytes ( %) (Auto) 13.2L, Monocytes (%) (Auto) 5.7, Eosinophils (%) (Auto) 0.2, Basophils (%) (Auto) 1.2, Sodium Level 142, Potassium Level 3.2L, Chloride Level 108H, Carbon Dioxide Level 24, Anion Gap 10, Blood Urea Nitrogen 7, Creatinine 0.7, Estimat Glomerular Filtration Rate > 60, Glucose Level 124H, Calcium Level 8.0L, Total Bilirubin 2.4H, Direct Bilirubin 1.5H, Aspartate Amino Transf (AST/SGOT) 23, Alanine Aminotransferase (ALT/SGPT) 49, Alkaline Phosphatase 94, Total Protein 6.4, Albumin 2.4L, Globulin 4.0, Albumin/Globulin Ratio 0.6L Current Medications Medications (Trade) Dose Ordered Sig/Bertrand Route PRN Reason Start Time Stop Time Status Last Admin Dose Admin Acetaminophen (Tylenol) 650 mg Q6H PRN ORAL Mild Pain/Temp > 100.5 01/07/18 12:46 02/02/18 12:45 Albuterol/ Ipratropium (Albuterol/ Ipratropium) 3 ml Q4H PRN HHN Shortness of Breath 01/07/18 16:14 01/12/18 16:13 Chlorhexidine Gluconate (Mandy-Hex 2%) 1 applic DAILY@1999 TOPIC 01/07/18 20:00 02/06/18 19:59 01/08/18 20:00 Dextrose (Dextrose 50%) 25 ml Q30M PRN IV Hypoglycemia 01/07/18 13:00 01/31/18 17:29 Dextrose (Dextrose 50%) 50 ml Q30M PRN IV Hypoglycemia 01/07/18 13:00 01/31/18 17:29 Enoxaparin Sodium (Lovenox) 40 mg DAILY SUBQ 01/08/18 09:00 02/06/18 10:29 01/09/18 08:51 Haloperidol Lactate (Haldol) 5 mg Q6H PRN IM Agitation 01/07/18 12:46 02/06/18 12:45 01/09/18 14:43 Levofloxacin (Levaquin) 750 mg DAILY ORAL 01/09/18 09:00 01/16/18 08:59 Lorazepam (Ativan 2mg/ml 1ml) 2 mg Q2H PRN IV For Anxiety 01/07/18 12:46 01/13/18 12:45 01/09/18 13:49 Metronidazole (Flagyl) 500 mg EVERY 8 HOURS ORAL 01/08/18 22:00 01/15/18 21:59 01/09/18 13:56 Ondansetron HCl (Zofran) 4 mg Q6H PRN IVP Nausea & Vomiting 01/07/18 12:47 01/31/18 12:46 Pantoprazole (Protonix) 40 mg DAILY IV 01/08/18 09:00 02/06/18 10:29 01/09/18 08:51 Quetiapine Fumarate (SEROquel) 25 mg TID ORAL 01/07/18 13:00 02/06/18 12:59 01/09/18 13:56 Leni Sofia DO Jan 09, 2018 16:57
[2018-01-09 20:00] VITALS: BP 123/66
[2018-01-09] MEDS: Dyna-Hex 2% Top Sol 2oz TOPIC SCH (20:42)
--- NOTE | 2018-01-09 23:43 | General Progress Note ---
Assessment/Plan Status: stable Assessment/Plan encephalopathy with gmc/metabolic d/o Seroquel 25mg po tid Haldol 5mg q 6hr Im prn agitation the pt will be cont in restraints avoid prescribing benzo head raised 30 degree Subjective Date patient seen: Jan 09, 2018 Neurologic/Psychiatric: Reports: anxiety, depressed Allergies: Coded Allergies: OLANZAPINE (Verified Allergy, Unknown, 01/01/18) TETRACYCLINE (Verified Allergy, Unknown, 01/01/18) Objective Last 24 Hour Vital Signs Date Time Temp Pulse Resp B/P (MAP) Pulse Ox O2 Delivery O2 Flow Rate FiO2 01/09/18 21:53 Nasal Cannula 2.0 Nasal Cannula 2.0 01/09/18 20:33 Nasal Cannula 3.0 32 01/09/18 20:32 80 18 Room Air 01/09/18 20:32 93 Nasal Cannula 3.0 32 01/09/18 20:00 99.6 81 19 123/66 (85) 94 99.6 01/09/18 16:00 98.3 79 20 108/69 (82) 94 98.3 01/09/18 12:00 98.0 71 18 129/77 (94) 93 98.0 01/09/18 09:00 Nasal Cannula 2.0 Nasal Cannula 2.0 01/09/18 08:37 84 18 Room Air 01/09/18 08:37 Room Air 21 01/09/18 08:37 95 Room Air 21 01/09/18 08:34 97.6 76 134/80 (98) 94 97.6 01/09/18 04:00 97.2 74 20 142/78 (99) 96 97.2 01/09/18 00:00 98.0 81 18 128/78 (95) 100 98.0 Intake and Output 01/08/18 01/09/18 19:00 07:00 Intake Total 610.0 ml Balance 610.0 ml IV Total 610.0 ml # Voids 1 # Bowel Movements 3 Laboratory Tests 01/09/18 10:10: White Blood Count 13.1H, Red Blood Count 3.81L, Hemoglobin 12.3, Hematocrit 36.7L, Mean Corpuscular Volume 96, Mean Corpuscular Hemoglobin 32.2H, Mean Corpuscular Hemoglobin Concent 33.4, Red Cell Distribution Width 12.6, Platelet Count 167, Mean Platelet Volume 7.7, Neutrophils (%) (Auto) 79.6H, Lymphocytes ( %) (Auto) 13.2L, Monocytes (%) (Auto) 5.7, Eosinophils (%) (Auto) 0.2, Basophils (%) (Auto) 1.2, Sodium Level 142, Potassium Level 3.2L, Chloride Level 108H, Carbon Dioxide Level 24, Anion Gap 10, Blood Urea Nitrogen 7, Creatinine 0.7, Estimat Glomerular Filtration Rate > 60, Glucose Level 124H, Calcium Level 8.0L, Total Bilirubin 2.4H, Direct Bilirubin 1.5H, Aspartate Amino Transf (AST/SGOT) 23, Alanine Aminotransferase (ALT/SGPT) 49, Alkaline Phosphatase 94, Total Protein 6.4, Albumin 2.4L, Globulin 4.0, Albumin/Globulin Ratio 0.6L Height (Feet): 5 Height (Inches): 5.00 Weight (Pounds): 152 General Appearance: no apparent distress, alert, confused, agitated Shakira Jenkins MD Jan 09, 2018 23:42
[2018-01-10 00:48] VITALS: BP 145/74
[2018-01-10] MEDS: LORazepam Inj 2mg/ml 1ml IV PRN ×5 (03:49→22:05)
[2018-01-10] MEDS: Haloperidol 5mg/ml Inj IM PRN ×2 (04:31→17:42)
[2018-01-10 04:50] VITALS: BP 117/85
[2018-01-10] MEDS: metroNIDAZOLE 500mg tab ORAL SCH ×3 (06:32→21:51)
--- NOTE | 2018-01-10 07:43 | General Progress Note ---
Assessment/Plan Assessment/Plan Assessment - Cholangitis - Choledocholithiasis - s/p ERCP and stent - sepsis/chock - lactic acidosis - renal failure - thrombocytopenia, likely DIC related - Critical - LFT downtrending - hepatitis panel negative Recommendations - PT/OT - trend labs - supportive care Patient is to required to return in 3 months for repeat ERCP/stent removal. Subjective ROS Limited/Unobtainable: Yes Allergies: Coded Allergies: OLANZAPINE (Verified Allergy, Unknown, 01/01/18) TETRACYCLINE (Verified Allergy, Unknown, 01/01/18) Objective Last 24 Hour Vital Signs Date Time Temp Pulse Resp B/P (MAP) Pulse Ox O2 Delivery O2 Flow Rate FiO2 01/10/18 04:50 96.6 80 20 117/85 (96) 95 96.6 01/10/18 00:49 99.1 99.1 01/10/18 00:48 74 19 145/74 (97) 96 01/09/18 21:53 Nasal Cannula 2.0 Nasal Cannula 2.0 01/09/18 20:33 Nasal Cannula 3.0 32 01/09/18 20:32 80 18 Room Air 01/09/18 20:32 93 Nasal Cannula 3.0 32 01/09/18 20:00 99.6 81 19 123/66 (85) 94 99.6 01/09/18 16:00 98.3 79 20 108/69 (82) 94 98.3 01/09/18 12:00 98.0 71 18 129/77 (94) 93 98.0 01/09/18 09:00 Nasal Cannula 2.0 Nasal Cannula 2.0 01/09/18 08:37 84 18 Room Air 01/09/18 08:37 Room Air 21 01/09/18 08:37 95 Room Air 21 01/09/18 08:34 97.6 76 134/80 (98) 94 97.6 Intake and Output 01/09/18 01/10/18 19:00 07:00 Intake Total 240 ml 160 ml Balance 240 ml 160 ml Intake Oral 240 ml Tube Feeding 160 ml # Voids 3 3 Laboratory Tests 01/09/18 10:10: White Blood Count 13.1H, Red Blood Count 3.81L, Hemoglobin 12.3, Hematocrit 36.7L, Mean Corpuscular Volume 96, Mean Corpuscular Hemoglobin 32.2H, Mean Corpuscular Hemoglobin Concent 33.4, Red Cell Distribution Width 12.6, Platelet Count 167, Mean Platelet Volume 7.7, Neutrophils (%) (Auto) 79.6H, Lymphocytes ( %) (Auto) 13.2L, Monocytes (%) (Auto) 5.7, Eosinophils (%) (Auto) 0.2, Basophils (%) (Auto) 1.2, Sodium Level 142, Potassium Level 3.2L, Chloride Level 108H, Carbon Dioxide Level 24, Anion Gap 10, Blood Urea Nitrogen 7, Creatinine 0.7, Estimat Glomerular Filtration Rate > 60, Glucose Level 124H, Calcium Level 8.0L, Total Bilirubin 2.4H, Direct Bilirubin 1.5H, Aspartate Amino Transf (AST/SGOT) 23, Alanine Aminotransferase (ALT/SGPT) 49, Alkaline Phosphatase 94, Total Protein 6.4, Albumin 2.4L, Globulin 4.0, Albumin/Globulin Ratio 0.6L Height (Feet): 5 Height (Inches): 5.00 Weight (Pounds): 150 General Appearance: alert EENT: normal ENT inspection Neck: supple Cardiovascular: normal rate Respiratory/Chest: decreased breath sounds Abdomen: normal bowel sounds, non tender, soft Extremities: non-tender Edward Villar MD Jan 10, 2018 07:43
[2018-01-10 08:00] VITALS: BP 143/97
[2018-01-10] MEDS: Pantoprazole Inj IV SCH (08:46)
[2018-01-10] MEDS: Enoxaparin 40mg Inj SUBQ SCH (08:55)
[2018-01-10] MEDS ORDERED: DiphenhydrAMINE 50mg/ml Inj IM SCH (11:07)
[2018-01-10] MEDS ORDERED: Haloperidol 5mg/ml Inj IM SCH (11:07)
[2018-01-10 11:26] VITALS: BP 138/89
--- NOTE | 2018-01-10 12:07 | General Surgery Progress Note ---
General Surgery-Progress Note Subjective Additional Comments no acute events. more awake and alert today Objective Last 24 Hour Vital Signs Date Time Temp Pulse Resp B/P (MAP) Pulse Ox O2 Delivery O2 Flow Rate FiO2 01/10/18 11:26 98.2 74 20 138/89 (105) 100 98.2 01/10/18 09:00 Nasal Cannula 2.0 Nasal Cannula 2.0 01/10/18 08:00 98.1 78 20 143/97 (112) 96 98.1 01/10/18 07:50 Nasal Cannula 3.0 32 01/10/18 07:50 80 18 Nasal Cannula 3.0 32 01/10/18 07:50 93 Nasal Cannula 3.0 32 01/10/18 04:50 96.6 80 20 117/85 (96) 95 96.6 01/10/18 00:49 99.1 99.1 01/10/18 00:48 74 19 145/74 (97) 96 01/09/18 21:53 Nasal Cannula 2.0 Nasal Cannula 2.0 01/09/18 20:33 Nasal Cannula 3.0 32 01/09/18 20:32 80 18 Room Air 01/09/18 20:32 93 Nasal Cannula 3.0 32 01/09/18 20:00 99.6 81 19 123/66 (85) 94 99.6 01/09/18 16:00 98.3 79 20 108/69 (82) 94 98.3 I&O Intake and Output 01/09/18 01/10/18 19:00 07:00 Intake Total 240 ml 160 ml Balance 240 ml 160 ml Intake Oral 240 ml Tube Feeding 160 ml # Voids 3 3 Wound: clean Drains: none Cardiovascular: RSR Respiratory: clear Abdomen: soft, flat, non-tender, present bowel sounds Extremities: no cyanosis Plan Problems: (1) Septic shock Assessment & Plan: Septic shock, choledocholithiasis, possible cholangitis s/p emergency ercp improving recovering -diet as tolerated -abx as per ID thank you. will follow with recs. (2) Choledocholithiasis Assessment & Plan: s/p ERCP with stent improving stent removal as per GI in 3 months thank you (3) Elevated LFTs Darius Caraballo Jan 10, 2018 12:07
--- NOTE | 2018-01-10 12:22 | Cardiology Report ---
APPROVED REPORT EKG Measurement Heart [id number] Normal sinus rhythm Cannot rule out septal infarct, age undetermined Borderline ECG
--- NOTE | 2018-01-10 15:54 | General Progress Note ---
Assessment/Plan Assessment/Plan Delirium and Agitation likely hospital Delirium with component of metabolic encephalopathy - appreciate psyche reqs - haldon prn - cont seroquel - per board and care patient is usually alert at baseline but does have mood swings and displays agitation occasionally Hypovolemic Hypernatremia,resolved - encourage PO intake - calorie count S/P Septic Shock 2/2 gram negative bacteremia 2/2 cholelithiasis s/p sphincterotomy and biliary stent on 01/02 - patient off all pressors - PO Levaquin and flagyl for total of two weeks, ended in 01/15. - steroids d/c'd (01/07/18) Thrombocytopenia likely multifactorial ddx include sepsis vs medication , DIC and HIT are negative - improving - , follow up hemolysis labs including haptoglobin, LDH elevated but may also be from sepsis and peripheral smear shows no schistocytes , flow negative - appreciate heme onc reqs - lovenox for dvt prophylaxis Leukocytosis likely 2/2 to steroids and sepsis - will follow up labs per heme onc reqs Hypokalemia replace as needed, patient will need daily replacement until intake improves started 40mEq K in fluids Dispo planning - SW for identifying family, and CM for SNF or return to board and care , pending PT OT eval - unable to reach daughter today Subjective Date patient seen: Jan 10, 2018 Allergies: Coded Allergies: OLANZAPINE (Verified Allergy, Unknown, 01/01/18) TETRACYCLINE (Verified Allergy, Unknown, 01/01/18) Subjective No acute events AVSS Awaiting labs Remains on restraints Awaiting placement Denies CP, SOB, Palp 12 pt ros neg except as mentioned above Objective Last 24 Hour Vital Signs Date Time Temp Pulse Resp B/P (MAP) Pulse Ox O2 Delivery O2 Flow Rate FiO2 01/10/18 11:26 98.2 74 20 138/89 (105) 100 98.2 01/10/18 09:00 Nasal Cannula 2.0 Nasal Cannula 2.0 01/10/18 08:00 98.1 78 20 143/97 (112) 96 98.1 01/10/18 07:50 Nasal Cannula 3.0 32 01/10/18 07:50 80 18 Nasal Cannula 3.0 32 01/10/18 07:50 93 Nasal Cannula 3.0 32 01/10/18 04:50 96.6 80 20 117/85 (96) 95 96.6 01/10/18 00:49 99.1 99.1 01/10/18 00:48 74 19 145/74 (97) 96 01/09/18 21:53 Nasal Cannula 2.0 Nasal Cannula 2.0 01/09/18 20:33 Nasal Cannula 3.0 32 01/09/18 20:32 80 18 Room Air 01/09/18 20:32 93 Nasal Cannula 3.0 32 01/09/18 20:00 99.6 81 19 123/66 (85) 94 99.6 01/09/18 16:00 98.3 79 20 108/69 (82) 94 98.3 Intake and Output 01/09/18 01/10/18 19:00 07:00 Intake Total 240 ml 160 ml Balance 240 ml 160 ml Intake Oral 240 ml Tube Feeding 160 ml # Voids 3 3 Height (Feet): 5 Height (Inches): 5.00 Weight (Pounds): 150 Objective General Appearance: WD/WN, no apparent distress, alert, confused EENT: PERRL/EOMI, normal ENT inspection, TMs normal, pharynx normal Neck: non-tender, normal alignment, supple, normal inspection, abnormal alignment Cardiovascular: normal peripheral pulses, normal rate, regular rhythm, regularly irregular, no gallop/murmur, no JVD Respiratory/Chest: chest wall non-tender, lungs clear, normal breath sounds, no respiratory distress Abdomen: normal bowel sounds, non tender, soft, no organomegaly, no mass Extremities: normal range of motion, non-tender Edema: no edema noted Arm (L), no edema noted Arm (R), no edema noted Leg (L), no edema noted Leg (R), no edema noted Pedal (L), no edema noted Pedal (R), no edema noted 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
--- NOTE | 2018-01-10 15:58 | Pulmonology Progress Note ---
Assessment/Plan Assessment/Plan (1) Choledocholithiasis (2) Leukocytosis (3) Elevated LFTs (4) Hypokalemia (5) Hypernatremia (6) Delirium (7) Chronic deep vein thrombosis (DVT) (8) Thrombocytopenia (9) Sepsis Assessment/Plan -Optimize pulmonary hygiene/mobilize as tolerated -Titrate down FiO2 to keep SaO2 > 90% -PRN HHN's -Abx per iD, monitor WCt -Aspiration precautions -D5W, replete K & Mg -DVT Px: LMWH -F/U psych recs -F/U GI recs, repeat ERCP with stent removal in 3 months -dc planning -Monitor MS -FC cxr prn better 01/09 Subjective Constitutional: Reports: no symptoms HEENT: Repors: no symptoms Respiratory: Reports: no symptoms Cardiovascular: Reports: no symptoms Gastrointestinal/Abdominal: Reports: no symptoms Genitourinary: Reports: no symptoms Allergies: Coded Allergies: OLANZAPINE (Verified Allergy, Unknown, 01/01/18) TETRACYCLINE (Verified Allergy, Unknown, 01/01/18) Subjective confused po with assistance only sitter present no distress not getting oob and in restraints no reports of CP NV or bleeding Objective Last 24 Hour Vital Signs Date Time Temp Pulse Resp B/P (MAP) Pulse Ox O2 Delivery O2 Flow Rate FiO2 01/10/18 11:26 98.2 74 20 138/89 (105) 100 98.2 01/10/18 09:00 Nasal Cannula 2.0 Nasal Cannula 2.0 01/10/18 08:00 98.1 78 20 143/97 (112) 96 98.1 01/10/18 07:50 Nasal Cannula 3.0 32 01/10/18 07:50 80 18 Nasal Cannula 3.0 32 01/10/18 07:50 93 Nasal Cannula 3.0 32 01/10/18 04:50 96.6 80 20 117/85 (96) 95 96.6 01/10/18 00:49 99.1 99.1 01/10/18 00:48 74 19 145/74 (97) 96 01/09/18 21:53 Nasal Cannula 2.0 Nasal Cannula 2.0 01/09/18 20:33 Nasal Cannula 3.0 32 01/09/18 20:32 80 18 Room Air 01/09/18 20:32 93 Nasal Cannula 3.0 32 01/09/18 20:00 99.6 81 19 123/66 (85) 94 99.6 01/09/18 16:00 98.3 79 20 108/69 (82) 94 98.3 Intake and Output 01/09/18 01/10/18 19:00 07:00 Intake Total 240 ml 160 ml Balance 240 ml 160 ml Intake Oral 240 ml Tube Feeding 160 ml # Voids 3 3 General Appearance: cachetic HEENT: atraumatic, anicteric Respiratory/Chest: normal breath sounds Cardiovascular: normal rate, regularly irregular Abdomen: no organomegaly, non distended Extremities: no cyanosis Skin: no rash Neurologic/Psychiatric: disoriented Current Medications Medications (Trade) Dose Ordered Sig/Bertrand Route PRN Reason Start Time Stop Time Status Last Admin Dose Admin Acetaminophen (Tylenol) 650 mg Q6H PRN ORAL Mild Pain/Temp > 100.5 01/07/18 12:46 02/02/18 12:45 Albuterol/ Ipratropium (Albuterol/ Ipratropium) 3 ml Q4H PRN HHN Shortness of Breath 01/07/18 16:14 01/12/18 16:13 Chlorhexidine Gluconate (Mandy-Hex 2%) 1 applic DAILY@1999 TOPIC 01/07/18 20:00 02/06/18 19:59 01/09/18 20:42 Dextrose (Dextrose 50%) 25 ml Q30M PRN IV Hypoglycemia 01/07/18 13:00 01/31/18 17:29 Dextrose (Dextrose 50%) 50 ml Q30M PRN IV Hypoglycemia 01/07/18 13:00 01/31/18 17:29 Enoxaparin Sodium (Lovenox) 40 mg DAILY SUBQ 01/08/18 09:00 02/06/18 10:29 01/10/18 08:55 Haloperidol Lactate (Haldol) 5 mg Q6H PRN IM Agitation 01/07/18 12:46 02/06/18 12:45 01/10/18 04:31 Levofloxacin (Levaquin) 750 mg DAILY ORAL 01/09/18 09:00 01/16/18 08:59 01/10/18 08:47 Lorazepam (Ativan 2mg/ml 1ml) 2 mg Q2H PRN IV For Anxiety 01/07/18 12:46 01/13/18 12:45 01/10/18 08:47 Metronidazole (Flagyl) 500 mg EVERY 8 HOURS ORAL 01/08/18 22:00 01/15/18 21:59 01/10/18 14:54 Ondansetron HCl (Zofran) 4 mg Q6H PRN IVP Nausea & Vomiting 01/07/18 12:47 01/31/18 12:46 Pantoprazole (Protonix) 40 mg DAILY IV 01/08/18 09:00 02/06/18 10:29 01/10/18 08:46 Quetiapine Fumarate (SEROquel) 50 mg TID ORAL 01/10/18 18:00 02/09/18 17:59 Leni Sofia DO Jan 10, 2018 15:58
[2018-01-10 16:00] VITALS: BP 123/70
--- NOTE | 2018-01-10 16:57 | General Progress Note ---
Assessment/Plan Status: stable Assessment/Plan # Leukocytosis. Likely related to underlying infection versus reactive process. In addition,has blasts, myelocytes and metamyelocytes initially but none detected on the flow cytometry, currently has improved, s/p ercp with stent --> flow cytometry is negative for any abnormalities, discussed with pathology --> Tumor lysis labs have been reviewed and does not appear to have TLS -- will monitor closely --> In future, need a bone marrow biopsy will discuss with pathologist --> Imaging has been reviewed and reveals: Mild pulmonary vascular congestion. Subsegmental atelectasis versus infiltrates in bilateral lung bases. Cholelithiasis --> Blood shows citro/kleb, as per id management --> Has been started on abx, empiric treatment --> appreciate ID recs --> Currently, WBC is improving. # Thrombocytopenia. Potential causes multifactorial, evaluate liver and viral etiologies v infectious, hepatitis and hiv are negative, could be related to shock/sepsis as well. is no s/p transfusion. On presentation 20k, now improved slowly --> HIT is wnl, no evidence of HIT AB --> US abd: cholelithiasis --> Peripheral smear now normalized --> Abx and other meds have been reviewed. --> Currently, resolved. # Choledocholithiasis with review by surgeon, could be early cholangitis, also has been reviewed by ID. s/p ercp with stent --> NPO, Zofran, morphine prb. Continue IV fluids, check serial lactate levels, blood cultures, on abx --> Patient may require vasopressor support for possible septic shock. --> ID, GI and Surgery to evaluate. # Severe hypokalemia, will continue to replace --> appreciate recs by renal, check BMP pM along with phos # Acute metabolic encephalopathy, likely due to to underlying sepsis, continue to treat acute medical issues and provide supportive care --> Fall, aspiration, seizure precautions # History of unspecified psychiatric illness, will hold all psychotropics for now to avoid oversedation # Respiratory failure -- s/p vent, and extubated on 01/05 --> pulm recs appreciated --> Currently on NC I GREATLY APPRECIATE CONSULTATION. Subjective Date patient seen: Jan 10, 2018 Allergies: Coded Allergies: OLANZAPINE (Verified Allergy, Unknown, 01/01/18) TETRACYCLINE (Verified Allergy, Unknown, 01/01/18) All Systems: reviewed and negative except above Subjective No acute events. Currently on NC. WBC improving. Objective Last 24 Hour Vital Signs Date Time Temp Pulse Resp B/P (MAP) Pulse Ox O2 Delivery O2 Flow Rate FiO2 01/10/18 11:26 98.2 74 20 138/89 (105) 100 98.2 01/10/18 09:00 Nasal Cannula 2.0 Nasal Cannula 2.0 01/10/18 08:00 98.1 78 20 143/97 (112) 96 98.1 01/10/18 07:50 Nasal Cannula 3.0 32 01/10/18 07:50 80 18 Nasal Cannula 3.0 32 01/10/18 07:50 93 Nasal Cannula 3.0 32 01/10/18 04:50 96.6 80 20 117/85 (96) 95 96.6 01/10/18 00:49 99.1 99.1 01/10/18 00:48 74 19 145/74 (97) 96 01/09/18 21:53 Nasal Cannula 2.0 Nasal Cannula 2.0 01/09/18 20:33 Nasal Cannula 3.0 32 01/09/18 20:32 80 18 Room Air 01/09/18 20:32 93 Nasal Cannula 3.0 32 01/09/18 20:00 99.6 81 19 123/66 (85) 94 99.6 Intake and Output 01/09/18 01/10/18 19:00 07:00 Intake Total 240 ml 160 ml Balance 240 ml 160 ml Intake Oral 240 ml Tube Feeding 160 ml # Voids 3 3 Laboratory Tests 01/10/18 16:28: Sodium Level [Pending], Potassium Level [Pending], Chloride Level [Pending], Carbon Dioxide Level [Pending], Blood Urea Nitrogen [Pending], Creatinine [ Pending], Estimat Glomerular Filtration Rate [Pending], Glucose Level [Pending] , Calcium Level [Pending] Height (Feet): 5 Height (Inches): 5.00 Weight (Pounds): 150 General Appearance: no apparent distress EENT: PERRL/EOMI Neck: normal alignment Cardiovascular: normal peripheral pulses Respiratory/Chest: no respiratory distress Abdomen: soft Objective on a vent, og, RT as well Davin Aguero MD Jan 10, 2018 16:57
[2018-01-10 16:59] LABS: ANION GAP 9 mmol/L (5-15); BLOOD UREA NITROGEN 6 mg/dL (7-18); CALCIUM 7.5 MG/DL (8.5-10.1); CARBON DIOXIDE 22 MMOL/L (21-32); CHLORIDE 111 MMOL/L (98-107); CREATININE 0.7 MG/DL (0.55-1.30); POTASSIUM 3.4 MMOL/L (3.5-5.1); SODIUM 142 MMOL/L (136-145)
--- NOTE | 2018-01-10 17:03 | Infectious Diseases Prog Note ---
Assessment/Plan Assessment/Plan ASSESSMENT AND PLAN: 1. sepsis, shock, citrobacter/klebsiella bacteremia, cholangitis, fevers, leukocytosis, ? pna, ? ards - s/p ERCP - levofloxacin and flagyl, day # 9 antibiotics, plan on 14 day course total iv plus po - surveillance blood culture now negative - monitor labs, chest x-ray improved, watch temps - d/w RN - clinically improved, leukocytosis better, watch lgt 2. Respiratory failure - on vent, per pulmonary medicine 3. Acute kidney injury - cr better 4. History of paranoid schizophrenia and psychiatric disease. 5. Hypertension. 6. No history of diabetes. 7. Allergy to olanzapine and tetracycline. 8. MAR was noted. 9. Case discussed with RN. 10. Family history noncontributory. 11. Social history negative. 12. Continue treatment per primary consultants. 13. Prognosis is guarded to poor. 14. Notes and records were noted and orders were entered. Subjective Constitutional: Denies: fever HEENT: Denies: congestion Respiratory: Denies: shortness of breath Cardiovascular: Denies: chest pain Gastrointestinal/Abdominal: Denies: nausea, vomiting, diarrhea Genitourinary: Denies: dysuria, hematuria, frequency Neurologic: Denies: headache, numbness Psychiatric: Denies: depression Skin: Denies: rash Hematologic: Denies: bleeding Musculoskeletal: Denies: pain Allergies: Coded Allergies: OLANZAPINE (Verified Allergy, Unknown, 01/01/18) TETRACYCLINE (Verified Allergy, Unknown, 01/01/18) Objective Vital Signs Last 24 Hour Vital Signs Date Time Temp Pulse Resp B/P (MAP) Pulse Ox O2 Delivery O2 Flow Rate FiO2 01/10/18 11:26 98.2 74 20 138/89 (105) 100 98.2 01/10/18 09:00 Nasal Cannula 2.0 Nasal Cannula 2.0 01/10/18 08:00 98.1 78 20 143/97 (112) 96 98.1 01/10/18 07:50 Nasal Cannula 3.0 32 01/10/18 07:50 80 18 Nasal Cannula 3.0 32 01/10/18 07:50 93 Nasal Cannula 3.0 32 01/10/18 04:50 96.6 80 20 117/85 (96) 95 96.6 01/10/18 00:49 99.1 99.1 01/10/18 00:48 74 19 145/74 (97) 96 01/09/18 21:53 Nasal Cannula 2.0 Nasal Cannula 2.0 01/09/18 20:33 Nasal Cannula 3.0 32 01/09/18 20:32 80 18 Room Air 01/09/18 20:32 93 Nasal Cannula 3.0 32 01/09/18 20:00 99.6 81 19 123/66 (85) 94 99.6 Height (Feet): 5 Height (Inches): 5.00 Weight (Pounds): 150 General Appearance: no acute distress HEENT: normocephalic, atraumatic, anicteric, mucous membranes moist Respiratory/Chest: lungs clear, normal breath sounds, no respiratory distress, no accessory muscle use Cardiovascular: normal rate, regular rhythm, no gallop/murmur, no JVD Abdomen: normal bowel sounds, soft, non tender, no organomegaly, non distended Genitourinary: other - no goldman Extremities: no cyanosis Skin: no rash 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 There is evidence of biliary obstruction, with marked dilatation of the extrahepatic and intrahepatic bile ducts. Dr. Niño was notified of this finding at the time of interpretation Cholelithiasis Limited assessment of the GI tract, due to lack of enteric contrast Posterior dependent pulmonary atelectatic changes. Right middle lobe scarring with associated bronchiectasis Incidental finding of tiny fat-containing abdominal hernia. US - abdomen: Impression: Cholelithiasis Marked biliary ductal dilatation, consistent with choledocholithiasis seen on prior CT scan, although not imaged on current study Chest x-ray - 01/03 - FINDINGS: Image is limited by portable technique and external artifacts. Allowing for this, endotracheal tube remains in place, terminating approximately 2 cm above the andrade. Enteric tube terminates at least within the gastric body. There are patchy coarse reticular opacities within bilateral medial lung bases with probable associated volume loss, indicating at least atelectasis, as before. No definite new lung opacity. Heart size is normal and stable. No obvious significant pleural effusion or pneumothorax. IMPRESSION: 1. New enteric tube terminates at least within the gastric body. 2. Otherwise, no definite significant interval change. Chest x-ray - 01/04 - Findings: The endotracheal tube appears to be projected over the right mainstem bronchus. This is not absolutely certain and the recommend repeating the examination. The heart is enlarged. There is basilar consolidation again demonstrated. IMPRESSION: Probable endotracheal tube in the proximal right mainstem bronchus. Suggest a repeat x-ray for confirmation. Microbiology Date/Time Source Procedure Growth Status 01/06/18 16:38 Blood Blood Culture - Preliminary NO GROWTH AFTER 72 HOURS Resulted 01/04/18 13:40 Sputum Gram Stain - Final Complete 01/04/18 13:40 Sputum Sputum Culture - Final NORMAL UPPER RESPIRATORY KEMI PRESENT Complete 01/01/18 22:25 Rectum VRE Culture - Final NO VANCOMYCIN RESISTANT ENTEROCOCCUS ... Complete Labs Test 01/08/18 05:20 01/09/18 10:10 01/10/18 16:28 White Blood Count 15.6 K/UL (4.8-10.8) 13.1 K/UL (4.8-10.8) Red Blood Count 3.17 M/UL (4.20-5.40) 3.81 M/UL (4.20-5.40) Hemoglobin 10.7 G/DL (12.0-16.0) 12.3 G/DL (12.0-16.0) Hematocrit 30.7 % (37.0-47.0) 36.7 % (37.0-47.0) Mean Corpuscular Volume 97 FL (80-99) 96 FL (80-99) Mean Corpuscular Hemoglobin 33.7 PG (27.0-31.0) 32.2 PG (27.0-31.0) Mean Corpuscular Hemoglobin Concent 34.9 G/DL (32.0-36.0) 33.4 G/DL (32.0-36.0) Red Cell Distribution Width 12.4 % (11.6-14.8) 12.6 % (11.6-14.8) Platelet Count 138 K/UL (150-450) 167 K/UL (150-450) Mean Platelet Volume 8.0 FL (6.5-10.1) 7.7 FL (6.5-10.1) Neutrophils (%) (Auto) 81.2 % (45.0-75.0) 79.6 % (45.0-75.0) Lymphocytes (%) (Auto) 10.5 % (20.0-45.0) 13.2 % (20.0-45.0) Monocytes (%) (Auto) 7.4 % (1.0-10.0) 5.7 % (1.0-10.0) Eosinophils (%) (Auto) 0.4 % (0.0-3.0) 0.2 % (0.0-3.0) Basophils (%) (Auto) 0.6 % (0.0-2.0) 1.2 % (0.0-2.0) Sodium Level 144 MMOL/L (136-145) 142 MMOL/L (136-145) Potassium Level 2.8 MMOL/L (3.5-5.1) 3.2 MMOL/L (3.5-5.1) Chloride Level 110 MMOL/L (98-107) 108 MMOL/L (98-107) Carbon Dioxide Level 26 MMOL/L (21-32) 24 MMOL/L (21-32) Anion Gap 9 mmol/L (5-15) 10 mmol/L (5-15) Blood Urea Nitrogen 9 mg/dL (7-18) 7 mg/dL (7-18) Creatinine 0.7 MG/DL (0.55-1.30) 0.7 MG/DL (0.55-1.30) Estimat Glomerular Filtration Rate > 60 mL/min (>60) > 60 mL/min (>60) Glucose Level 95 MG/DL (74-106) 124 MG/DL (74-106) Calcium Level 7.4 MG/DL (8.5-10.1) 8.0 MG/DL (8.5-10.1) Phosphorus Level 4.0 MG/DL (2.5-4.9) Magnesium Level 1.3 MG/DL (1.8-2.4) Total Bilirubin 2.9 MG/DL (0.2-1.0) 2.4 MG/DL (0.2-1.0) Direct Bilirubin 1.7 MG/DL (0.0-0.3) 1.5 MG/DL (0.0-0.3) Aspartate Amino Transf (AST/SGOT) 26 U/L (15-37) 23 U/L (15-37) Alanine Aminotransferase (ALT/SGPT) 55 U/L (12-78) 49 U/L (12-78) Alkaline Phosphatase 90 U/L (46-116) 94 U/L (46-116) Total Protein 5.3 G/DL (6.4-8.2) 6.4 G/DL (6.4-8.2) Albumin 2.0 G/DL (3.4-5.0) 2.4 G/DL (3.4-5.0) Globulin 3.3 g/dL 4.0 g/dL Albumin/Globulin Ratio 0.6 (1.0-2.7) 0.6 (1.0-2.7) Current Medications Medications (Trade) Dose Ordered Sig/Bertrand Route PRN Reason Start Time Stop Time Status Last Admin Dose Admin Acetaminophen (Tylenol) 650 mg Q6H PRN ORAL Mild Pain/Temp > 100.5 01/07/18 12:46 02/02/18 12:45 Albuterol/ Ipratropium (Albuterol/ Ipratropium) 3 ml Q4H PRN HHN Shortness of Breath 01/07/18 16:14 01/12/18 16:13 Chlorhexidine Gluconate (Mandy-Hex 2%) 1 applic DAILY@1999 TOPIC 01/07/18 20:00 02/06/18 19:59 01/09/18 20:42 Dextrose (Dextrose 50%) 25 ml Q30M PRN IV Hypoglycemia 01/07/18 13:00 01/31/18 17:29 Dextrose (Dextrose 50%) 50 ml Q30M PRN IV Hypoglycemia 01/07/18 13:00 01/31/18 17:29 Enoxaparin Sodium (Lovenox) 40 mg DAILY SUBQ 01/08/18 09:00 02/06/18 10:29 01/10/18 08:55 Haloperidol Lactate (Haldol) 5 mg Q6H PRN IM Agitation 01/07/18 12:46 02/06/18 12:45 01/10/18 04:31 Levofloxacin (Levaquin) 750 mg DAILY ORAL 01/09/18 09:00 01/16/18 08:59 01/10/18 08:47 Lorazepam (Ativan 2mg/ml 1ml) 2 mg Q2H PRN IV For Anxiety 01/07/18 12:46 01/13/18 12:45 01/10/18 08:47 Metronidazole (Flagyl) 500 mg EVERY 8 HOURS ORAL 01/08/18 22:00 01/15/18 21:59 01/10/18 14:54 Ondansetron HCl (Zofran) 4 mg Q6H PRN IVP Nausea & Vomiting 01/07/18 12:47 01/31/18 12:46 Pantoprazole (Protonix) 40 mg DAILY IV 01/08/18 09:00 02/06/18 10:29 01/10/18 08:46 Quetiapine Fumarate (SEROquel) 50 mg TID ORAL 01/10/18 18:00 02/09/18 17:59 Corinne Lilly MD Jan 10, 2018 17:03
[2018-01-10 20:00] VITALS: BP 105/83
[2018-01-10] MEDS: Dyna-Hex 2% Top Sol 2oz TOPIC SCH (20:11)
[2018-01-11] VITALS: BP 125/77
[2018-01-11 04:00] VITALS: BP 146/79
[2018-01-11] MEDS: LORazepam Inj 2mg/ml 1ml IV PRN ×2 (04:27→11:44)
[2018-01-11] MEDS: metroNIDAZOLE 500mg tab ORAL SCH ×3 (06:00→20:54)
[2018-01-11] MEDS: Haloperidol 5mg/ml Inj IM PRN ×2 (06:33→12:33)
[2018-01-11 06:51] LABS: ANION GAP 9 mmol/L (5-15); BLOOD UREA NITROGEN 4 mg/dL (7-18); CALCIUM 8.2 MG/DL (8.5-10.1); CARBON DIOXIDE 24 MMOL/L (21-32); CHLORIDE 108 MMOL/L (98-107); CREATININE 0.7 MG/DL (0.55-1.30); POTASSIUM 3.8 MMOL/L (3.5-5.1); SODIUM 141 MMOL/L (136-145)
[2018-01-11 06:59] LABS: ALANINE AMINOTRANSFERASE 34 U/L (12-78); ALBUMIN 2.3 G/DL (3.4-5.0); ALKALINE PHOSPHATASE 83 U/L (46-116); ASPARTATE AMINO TRANSFERASE 30 U/L (15-37); BASOPHILS % (AUTO) 0.6 % (0.0-2.0); BILIRUBIN,DIRECT 1.1 MG/DL (0.0-0.3); BILIRUBIN,TOTAL 1.6 MG/DL (0.2-1.0); EOSINOPHILS % (AUTO) 0.5 % (0.0-3.0); HEMATOCRIT 32.1 % (37.0-47.0); HEMOGLOBIN 11.2 G/DL (12.0-16.0); LYMPHOCYTES % (AUTO) 14.5 % (20.0-45.0); MEAN CORPUSCULAR VOLUME 98 FL (80-99); MONOCYTES % (AUTO) 9.2 % (1.0-10.0); NEUTROPHILS % (AUTO) 75.2 % (45.0-75.0); PLATELET COUNT 184 K/UL (150-450); RED CELL DISTRIBUTION WIDTH 12.7 % (11.6-14.8); WHITE BLOOD COUNT 12.4 K/UL (4.8-10.8)
[2018-01-11 08:00] VITALS: BP 136/78
--- NOTE | 2018-01-11 08:03 | General Progress Note ---
Assessment/Plan Assessment/Plan # Leukocytosis. Likely related to underlying infection versus reactive process. In addition,has blasts, myelocytes and metamyelocytes initially but none detected on the flow cytometry, currently has improved, s/p ercp with stent --> flow cytometry is negative for any abnormalities, discussed with pathology --> tumor lysis labs have been reviewed and does not appear to have TLS -- will monitor closely --> In future, need a bone marrow biopsy will discuss with pathologist --> Imaging has been reviewed and reveals: Mild pulmonary vascular congestion. Subsegmental atelectasis versus infiltrates in bilateral lung bases. Cholelithiasis --> Blood shows citro/kleb, as per id management --> Has been started on abx, empiric treatment --> appreciate ID recs --> Currently, WBC has improved # Thrombocytopenia. Potential causes multifactorial, evaluate liver and viral etiologies v infectious, hepatitis and hiv are negative, could be related to shock/sepsis as well. is no s/p transfusion. On presentation 20k, now improved slowly --> HIT is wnl, no evidence of HIT AB --> US abd: cholelithiasis --> Peripheral smear reviewed as well --> Abx and other meds have been reviewed. --> Currently, resolved. # Choledocholithiasis with review by surgeon, could be early cholangitis, also has been reviewed by ID. s/p ercp with stent --> NPO, Zofran, morphine prb. Continue IV fluids, check serial lactate levels, blood cultures, on abx --> Patient may require vasopressor support for possible septic shock. --> ID, GI and Surgery to evaluate. # Severe hypokalemia, will continue to replace --> appreciate recs by renal, check BMP pM along with phos # Acute metabolic encephalopathy, likely due to to underlying sepsis, continue to treat acute medical issues and provide supportive care --> Fall, aspiration, seizure precautions # History of unspecified psychiatric illness, will hold all psychotropics for now to avoid oversedation --> as per psych # Respiratory failure -- s/p vent, and extubated on 01/05 --> pulm recs appreciated --> Currently on SD I GREATLY APPRECIATE CONSULTATION. Subjective Constitutional: Denies: no symptoms, chills, diaphoresis, fever, malaise, weakness, other HEENT: Denies: no symptoms, eye pain, blurred vision, tearing, double vision, ear pain, ear discharge, nose pain, nose congestion, throat pain, throat swelling, mouth pain, mouth swelling, other Cardiovascular: Denies: no symptoms, chest pain, edema, irregular heart rate, lightheadedness, palpitations, syncope, other Respiratory: Denies: no symptoms, cough, orthopnea, shortness of breath, SOB with excertion, SOB at rest, sputum, stridor, wheezing, other Gastrointestinal/Abdominal: Denies: no symptoms, abdomen distended, abdominal pain, black stools, tarry stools, blood in stool, constipated, diarrhea, difficulty swallowing, nausea, poor appetite, poor fluid intake, rectal bleeding , vomiting, other Genitourinary: Denies: no symptoms, burning, discharge, frequency, flank pain, hematuria, incontinence, pain, urgency, other Neurologic/Psychiatric: Denies: no symptoms, anxiety, depressed, emotional problems, headache, numbness, paresthesia, pre-existing deficit, seizure, tingling, tremors, weakness, other Endocrine: Denies: no symptoms, excessive sweating, flushing, intolerance to cold, intolerance to heat, increased hunger, increased thirst, increased urine, unexplained weight gain, unexplained weight loss, other Allergies: Coded Allergies: OLANZAPINE (Verified Allergy, Unknown, 01/01/18) TETRACYCLINE (Verified Allergy, Unknown, 01/01/18) Subjective No acute events. Currently on NC. soft restraints in place, wbc better Objective Last 24 Hour Vital Signs Date Time Temp Pulse Resp B/P (MAP) Pulse Ox O2 Delivery O2 Flow Rate FiO2 01/11/18 04:00 98.6 68 20 146/79 (101) 90 98.6 01/11/18 00:00 99.6 76 20 125/77 (93) 96 99.6 01/10/18 21:50 Nasal Cannula 3.0 32 01/10/18 21:50 92 20 Nasal Cannula 3.0 32 01/10/18 21:50 92 Nasal Cannula 3.0 32 01/10/18 21:00 Nasal Cannula 2.0 Nasal Cannula 2.0 01/10/18 20:00 99.4 88 20 105/83 (90) 96 99.4 01/10/18 16:00 97.6 81 18 123/70 (87) 96 97.6 01/10/18 11:26 98.2 74 20 138/89 (105) 100 98.2 01/10/18 09:00 Nasal Cannula 2.0 Nasal Cannula 2.0 Laboratory Tests 01/10/18 16:28: Sodium Level 142, Potassium Level 3.4L, Chloride Level 111H, Carbon Dioxide Level 22, Anion Gap 9, Blood Urea Nitrogen 6L, Creatinine 0.7, Estimat Glomerular Filtration Rate > 60, Glucose Level 111H, Calcium Level 7.5L 01/11/18 06:05: Sodium Level 141, Potassium Level 3.8, Chloride Level 108H, Carbon Dioxide Level 24, Anion Gap 9, Blood Urea Nitrogen 4L, Creatinine 0.7, Estimat Glomerular Filtration Rate > 60, Glucose Level 89, Calcium Level 8.2L, White Blood Count 12.4H, Red Blood Count 3.30L, Hemoglobin 11.2L, Hematocrit 32.1L, Mean Corpuscular Volume 98, Mean Corpuscular Hemoglobin 33.9H, Mean Corpuscular Hemoglobin Concent 34.7, Red Cell Distribution Width 12.7, Platelet Count 184, Mean Platelet Volume 6.7, Neutrophils (%) (Auto) 75.2H, Lymphocytes (%) (Auto) 14.5L, Monocytes (%) (Auto) 9.2, Eosinophils (%) (Auto) 0.5, Basophils (%) (Auto ) 0.6, Total Bilirubin 1.6H, Direct Bilirubin 1.1H, Aspartate Amino Transf (AST/ SGOT) 30, Alanine Aminotransferase (ALT/SGPT) 34, Alkaline Phosphatase 83, Total Protein 6.3L, Albumin 2.3L Height (Feet): 5 Height (Inches): 5.00 Weight (Pounds): 144 General Appearance: alert EENT: TMs normal Neck: supple Cardiovascular: normal rate Respiratory/Chest: lungs clear Abdomen: non tender Extremities: non-tender Edema: 1+ Leg (L), 1+ Pedal (L) Objective on a vent, og, RT as well Davin Aguero MD Jan 11, 2018 08:02
[2018-01-11] MEDS: Pantoprazole Inj IV SCH (08:27)
[2018-01-11] MEDS: Enoxaparin 40mg Inj SUBQ SCH (08:28)
--- NOTE | 2018-01-11 10:41 | GI Progress Note ---
Assessment/Plan Problems: (1) Thrombocytopenia ICD Codes: D69.6 - Thrombocytopenia, unspecified SNOMED: 643899656 (2) Leukocytosis ICD Codes: D72.829 - Elevated white blood cell count, unspecified SNOMED: 480912649, 884303459 (3) Choledocholithiasis ICD Codes: K80.50 - Calculus of bile duct without cholangitis or cholecystitis without obstruction SNOMED: 015502854 (4) Renal failure ICD Codes: N19 - Unspecified kidney failure SNOMED: 58245482 Qualifiers: Qualified Codes: N19 - Unspecified kidney failure (5) Hypokalemia ICD Codes: E87.6 - Hypokalemia SNOMED: 84497614, 353705565 (6) Septic shock ICD Codes: A41.9 - Sepsis, unspecified organism; R65.21 - Severe sepsis with septic shock SNOMED: 28119133 (7) Sepsis ICD Codes: A41.9 - Sepsis, unspecified organism SNOMED: 54226796 (8) Elevated LFTs ICD Codes: R94.5 - Abnormal results of liver function studies SNOMED: 924050195, 638847239 Status: stable Status Narrative Discussed with Dr. Villar. Assessment/Plan Assessment - Cholangitis - Choledocholithiasis - s/p ERCP and stent - sepsis/chock - lactic acidosis - renal failure - thrombocytopenia, likely DIC related - Critical - LFT downtrending - hepatitis panel negative Recommendations - advance diet - PT/OT - trend labs - supportive care Patient is to required to return in 3 months for repeat ERCP/stent removal. The patient was seen and examined at bedside and all new and available data was reviewed in the patients chart. I agree with the above findings, impression and plan. (Patient seen earlier today. Signature stamp does not reflect patient encounter time.). - Edward Villar MD Subjective Gastrointestinal/Abdominal: Reports: no symptoms Objective Last 24 Hour Vital Signs Date Time Temp Pulse Resp B/P (MAP) Pulse Ox O2 Delivery O2 Flow Rate FiO2 01/11/18 08:00 97.7 76 20 136/78 (97) 100 97.7 01/11/18 08:00 Nasal Cannula 2.0 Nasal Cannula 2.0 01/11/18 04:00 98.6 68 20 146/79 (101) 90 98.6 01/11/18 00:00 99.6 76 20 125/77 (93) 96 99.6 01/10/18 21:50 Nasal Cannula 3.0 32 01/10/18 21:50 92 20 Nasal Cannula 3.0 32 01/10/18 21:50 92 Nasal Cannula 3.0 32 01/10/18 21:00 Nasal Cannula 2.0 Nasal Cannula 2.0 01/10/18 20:00 99.4 88 20 105/83 (90) 96 99.4 01/10/18 16:00 97.6 81 18 123/70 (87) 96 97.6 01/10/18 11:26 98.2 74 20 138/89 (105) 100 98.2 Laboratory Tests Test 01/10/18 16:28 01/11/18 06:05 Sodium Level 142 MMOL/L (136-145) 141 MMOL/L (136-145) Potassium Level 3.4 MMOL/L (3.5-5.1) L 3.8 MMOL/L (3.5-5.1) Chloride Level 111 MMOL/L (98-107) H 108 MMOL/L (98-107) H Carbon Dioxide Level 22 MMOL/L (21-32) 24 MMOL/L (21-32) Anion Gap 9 mmol/L (5-15) 9 mmol/L (5-15) Blood Urea Nitrogen 6 mg/dL (7-18) L 4 mg/dL (7-18) L Creatinine 0.7 MG/DL (0.55-1.30) 0.7 MG/DL (0.55-1.30) Estimat Glomerular Filtration Rate > 60 mL/min (>60) > 60 mL/min (>60) Glucose Level 111 MG/DL (74-106) H 89 MG/DL (74-106) Calcium Level 7.5 MG/DL (8.5-10.1) L 8.2 MG/DL (8.5-10.1) L White Blood Count 12.4 K/UL (4.8-10.8) H Red Blood Count 3.30 M/UL (4.20-5.40) L Hemoglobin 11.2 G/DL (12.0-16.0) L Hematocrit 32.1 % (37.0-47.0) L Mean Corpuscular Volume 98 FL (80-99) Mean Corpuscular Hemoglobin 33.9 PG (27.0-31.0) H Mean Corpuscular Hemoglobin Concent 34.7 G/DL (32.0-36.0) Red Cell Distribution Width 12.7 % (11.6-14.8) Platelet Count 184 K/UL (150-450) Mean Platelet Volume 6.7 FL (6.5-10.1) Neutrophils (%) (Auto) 75.2 % (45.0-75.0) H Lymphocytes (%) (Auto) 14.5 % (20.0-45.0) L Monocytes (%) (Auto) 9.2 % (1.0-10.0) Eosinophils (%) (Auto) 0.5 % (0.0-3.0) Basophils (%) (Auto) 0.6 % (0.0-2.0) Total Bilirubin 1.6 MG/DL (0.2-1.0) H Direct Bilirubin 1.1 MG/DL (0.0-0.3) H Aspartate Amino Transf (AST/SGOT) 30 U/L (15-37) Alanine Aminotransferase (ALT/SGPT) 34 U/L (12-78) Alkaline Phosphatase 83 U/L (46-116) Total Protein 6.3 G/DL (6.4-8.2) L Albumin 2.3 G/DL (3.4-5.0) L Height (Feet): 5 Height (Inches): 5.00 Weight (Pounds): 144 General Appearance: WD/WN, no apparent distress, alert Cardiovascular: normal rate Respiratory/Chest: normal breath sounds, no respiratory distress Abdominal Exam: normal bowel sounds, non tender, soft Extremities: non-tender Brando Euceda CARDIOLOGY CONSULTANT Jan 11, 2018 10:40
--- NOTE | 2018-01-11 11:01 | General Surgery Progress Note ---
General Surgery-Progress Note Subjective Additional Comments no acute events. improving Objective Last 24 Hour Vital Signs Date Time Temp Pulse Resp B/P (MAP) Pulse Ox O2 Delivery O2 Flow Rate FiO2 01/11/18 08:04 Nasal Cannula 3.0 32 01/11/18 08:04 88 Nasal Cannula 3.0 32 01/11/18 08:04 88 20 Nasal Cannula 3.0 32 01/11/18 08:00 97.7 76 20 136/78 (97) 100 97.7 01/11/18 08:00 Nasal Cannula 2.0 Nasal Cannula 2.0 01/11/18 04:00 98.6 68 20 146/79 (101) 90 98.6 01/11/18 00:00 99.6 76 20 125/77 (93) 96 99.6 01/10/18 21:50 Nasal Cannula 3.0 32 01/10/18 21:50 92 20 Nasal Cannula 3.0 32 01/10/18 21:50 92 Nasal Cannula 3.0 32 01/10/18 21:00 Nasal Cannula 2.0 Nasal Cannula 2.0 01/10/18 20:00 99.4 88 20 105/83 (90) 96 99.4 01/10/18 16:00 97.6 81 18 123/70 (87) 96 97.6 01/10/18 11:26 98.2 74 20 138/89 (105) 100 98.2 Drains: none Cardiovascular: RSR Respiratory: clear Abdomen: soft, flat, non-tender, present bowel sounds Extremities: no cyanosis Laboratory Tests Test 01/10/18 16:28 01/11/18 06:05 Sodium Level 142 MMOL/L (136-145) 141 MMOL/L (136-145) Potassium Level 3.4 MMOL/L (3.5-5.1) L 3.8 MMOL/L (3.5-5.1) Chloride Level 111 MMOL/L (98-107) H 108 MMOL/L (98-107) H Carbon Dioxide Level 22 MMOL/L (21-32) 24 MMOL/L (21-32) Anion Gap 9 mmol/L (5-15) 9 mmol/L (5-15) Blood Urea Nitrogen 6 mg/dL (7-18) L 4 mg/dL (7-18) L Creatinine 0.7 MG/DL (0.55-1.30) 0.7 MG/DL (0.55-1.30) Estimat Glomerular Filtration Rate > 60 mL/min (>60) > 60 mL/min (>60) Glucose Level 111 MG/DL (74-106) H 89 MG/DL (74-106) Calcium Level 7.5 MG/DL (8.5-10.1) L 8.2 MG/DL (8.5-10.1) L White Blood Count 12.4 K/UL (4.8-10.8) H Red Blood Count 3.30 M/UL (4.20-5.40) L Hemoglobin 11.2 G/DL (12.0-16.0) L Hematocrit 32.1 % (37.0-47.0) L Mean Corpuscular Volume 98 FL (80-99) Mean Corpuscular Hemoglobin 33.9 PG (27.0-31.0) H Mean Corpuscular Hemoglobin Concent 34.7 G/DL (32.0-36.0) Red Cell Distribution Width 12.7 % (11.6-14.8) Platelet Count 184 K/UL (150-450) Mean Platelet Volume 6.7 FL (6.5-10.1) Neutrophils (%) (Auto) 75.2 % (45.0-75.0) H Lymphocytes (%) (Auto) 14.5 % (20.0-45.0) L Monocytes (%) (Auto) 9.2 % (1.0-10.0) Eosinophils (%) (Auto) 0.5 % (0.0-3.0) Basophils (%) (Auto) 0.6 % (0.0-2.0) Total Bilirubin 1.6 MG/DL (0.2-1.0) H Direct Bilirubin 1.1 MG/DL (0.0-0.3) H Aspartate Amino Transf (AST/SGOT) 30 U/L (15-37) Alanine Aminotransferase (ALT/SGPT) 34 U/L (12-78) Alkaline Phosphatase 83 U/L (46-116) Total Protein 6.3 G/DL (6.4-8.2) L Albumin 2.3 G/DL (3.4-5.0) L Plan Problems: (1) Septic shock Assessment & Plan: Septic shock, choledocholithiasis, possible cholangitis s/p emergency ercp improving recovering -diet as tolerated -abx as per ID thank you. will follow with recs. (2) Choledocholithiasis Assessment & Plan: s/p ERCP with stent improving stent removal as per GI in 3 months thank you (3) Elevated LFTs Darius Caraballo Jan 11, 2018 11:01
[2018-01-11 12:00] VITALS: BP 115/63
--- NOTE | 2018-01-11 12:08 | General Progress Note ---
Assessment/Plan Assessment/Plan Delirium and Agitation likely hospital Delirium with component of metabolic encephalopathy, labile status. - appreciate psyche reqs - haldon prn - cont seroquel - per board and care patient is usually alert at baseline, w/ occasional mood swings Hypovolemic Hypernatremia,resolved - encourage PO intake - calorie count S/P Septic Shock 2/2 gram negative bacteremia 2/2 cholelithiasis s/p sphincterotomy and biliary stent on 01/02 - patient off all pressors - PO Levaquin and flagyl for total of two weeks, end date 01/15. - steroids d/c'd (01/07/18) Thrombocytopenia likely multifactorial ddx include sepsis vs medication , DIC and HIT are negative - improving - , follow up hemolysis labs including haptoglobin, LDH elevated but may also be from sepsis and peripheral smear shows no schistocytes , flow negative - appreciate heme onc reqs - lovenox for dvt prophylaxis Leukocytosis likely 2/2 to steroids and sepsis - will follow up labs per heme onc reqs Hypokalemia replace as needed, patient will need daily replacement until intake improves currently improved Dispo planning - SW for identifying family, and CM for SNF or return to board and care , pending PT OT eval - unable to reach daughter Subjective Date patient seen: Jan 11, 2018 Time patient seen: 12:02 Allergies: Coded Allergies: OLANZAPINE (Verified Allergy, Unknown, 01/01/18) TETRACYCLINE (Verified Allergy, Unknown, 01/01/18) Subjective Pt seen and examined. Pt is somnolent, no new issues. No nursing issues overnight. Objective Last 24 Hour Vital Signs Date Time Temp Pulse Resp B/P (MAP) Pulse Ox O2 Delivery O2 Flow Rate FiO2 01/11/18 08:04 Nasal Cannula 3.0 32 01/11/18 08:04 88 Nasal Cannula 3.0 32 01/11/18 08:04 88 20 Nasal Cannula 3.0 32 01/11/18 08:00 97.7 76 20 136/78 (97) 100 97.7 01/11/18 08:00 Nasal Cannula 2.0 Nasal Cannula 2.0 01/11/18 04:00 98.6 68 20 146/79 (101) 90 98.6 01/11/18 00:00 99.6 76 20 125/77 (93) 96 99.6 10/14/18 21:50 Nasal Cannula 3.0 32 01/10/18 21:50 92 20 Nasal Cannula 3.0 32 01/10/18 21:50 92 Nasal Cannula 3.0 32 01/10/18 21:00 Nasal Cannula 2.0 Nasal Cannula 2.0 01/10/18 20:00 99.4 88 20 105/83 (90) 96 99.4 01/10/18 16:00 97.6 81 18 123/70 (87) 96 97.6 Laboratory Tests 01/10/18 16:28: Sodium Level 142, Potassium Level 3.4L, Chloride Level 111H, Carbon Dioxide Level 22, Anion Gap 9, Blood Urea Nitrogen 6L, Creatinine 0.7, Estimat Glomerular Filtration Rate > 60, Glucose Level 111H, Calcium Level 7.5L 01/11/18 06:05: Sodium Level 141, Potassium Level 3.8, Chloride Level 108H, Carbon Dioxide Level 24, Anion Gap 9, Blood Urea Nitrogen 4L, Creatinine 0.7, Estimat Glomerular Filtration Rate > 60, Glucose Level 89, Calcium Level 8.2L, White Blood Count 12.4H, Red Blood Count 3.30L, Hemoglobin 11.2L, Hematocrit 32.1L, Mean Corpuscular Volume 98, Mean Corpuscular Hemoglobin 33.9H, Mean Corpuscular Hemoglobin Concent 34.7, Red Cell Distribution Width 12.7, Platelet Count 184, Mean Platelet Volume 6.7, Neutrophils (%) (Auto) 75.2H, Lymphocytes (%) (Auto) 14.5L, Monocytes (%) (Auto) 9.2, Eosinophils (%) (Auto) 0.5, Basophils (%) (Auto ) 0.6, Total Bilirubin 1.6H, Direct Bilirubin 1.1H, Aspartate Amino Transf (AST/ SGOT) 30, Alanine Aminotransferase (ALT/SGPT) 34, Alkaline Phosphatase 83, Total Protein 6.3L, Albumin 2.3L Height (Feet): 5 Height (Inches): 5.00 Weight (Pounds): 144 General Appearance: no apparent distress, confused EENT: PERRL/EOMI, normal ENT inspection Neck: non-tender, supple, normal inspection Cardiovascular: normal rate, regular rhythm Respiratory/Chest: normal breath sounds, no respiratory distress, no accessory muscle use Abdomen: normal bowel sounds, non tender, soft Edema: no edema noted Arm (L), no edema noted Arm (R), no edema noted Leg (L), no edema noted Leg (R) Neurologic: alert, responsive Marina Vasquez D.O. Jan 11, 2018 12:08
[2018-01-11] MEDS ORDERED: DiphenhydrAMINE 50mg/ml Inj IM SCH (13:04)
[2018-01-11 16:00] VITALS: BP 144/87
--- NOTE | 2018-01-11 20:17 | Infectious Diseases Prog Note ---
Assessment/Plan Assessment/Plan ASSESSMENT AND PLAN: 1. sepsis, shock, citrobacter/klebsiella bacteremia, cholangitis, fevers, leukocytosis, ? pna, ? ards - s/p ERCP - levofloxacin and flagyl, day # 10 antibiotics, plan on 14 day course total iv plus po - surveillance blood culture now negative - monitor labs, chest x-ray improved, watch temps - TB decreasing - clinically improved, leukocytosis better, no current fevers 2. Respiratory failure - on vent, per pulmonary medicine 3. Acute kidney injury - cr better 4. History of paranoid schizophrenia and psychiatric disease. 5. Hypertension. 6. No history of diabetes. 7. Allergy to olanzapine and tetracycline. 8. MAR was noted. 9. Case discussed with RN. 10. Family history noncontributory. 11. Social history negative. 12. Continue treatment per primary consultants. 13. Prognosis is guarded to poor. 14. Notes and records were noted and orders were entered. Subjective Constitutional: Denies: fever HEENT: Denies: congestion Respiratory: Denies: shortness of breath Cardiovascular: Denies: chest pain Gastrointestinal/Abdominal: Denies: nausea, vomiting, diarrhea Genitourinary: Reports: other - no goldman Neurologic: Denies: headache Psychiatric: Denies: depression Skin: Denies: rash Hematologic: Denies: bleeding Musculoskeletal: Denies: pain Allergies: Coded Allergies: OLANZAPINE (Verified Allergy, Unknown, 01/01/18) TETRACYCLINE (Verified Allergy, Unknown, 01/01/18) Objective Vital Signs Last 24 Hour Vital Signs Date Time Temp Pulse Resp B/P (MAP) Pulse Ox O2 Delivery O2 Flow Rate FiO2 01/11/18 20:12 Nasal Cannula 3.0 32 01/11/18 20:12 94 Nasal Cannula 3.0 32 01/11/18 20:12 86 22 Nasal Cannula 3.0 32 01/11/18 16:00 99.1 84 20 144/87 (106) 94 99.1 01/11/18 12:00 97.0 100 20 115/63 (80) 98 97.0 01/11/18 08:04 Nasal Cannula 3.0 32 01/11/18 08:04 88 Nasal Cannula 3.0 32 01/11/18 08:04 88 20 Nasal Cannula 3.0 32 01/11/18 08:00 97.7 76 20 136/78 (97) 100 97.7 01/11/18 08:00 Nasal Cannula 2.0 Nasal Cannula 2.0 01/11/18 04:00 98.6 68 20 146/79 (101) 90 98.6 01/11/18 00:00 99.6 76 20 125/77 (93) 96 99.6 01/10/18 21:50 Nasal Cannula 3.0 32 01/10/18 21:50 92 20 Nasal Cannula 3.0 32 01/10/18 21:50 92 Nasal Cannula 3.0 32 01/10/18 21:00 Nasal Cannula 2.0 Nasal Cannula 2.0 Height (Feet): 5 Height (Inches): 5.00 Weight (Pounds): 144 General Appearance: no acute distress HEENT: normocephalic, atraumatic, anicteric, mucous membranes moist, EOMI, supple, no JVD, other - no icterus Respiratory/Chest: lungs clear, normal breath sounds, no respiratory distress, no accessory muscle use Cardiovascular: normal rate, regular rhythm, no gallop/murmur, no JVD Abdomen: normal bowel sounds, soft, non tender, no organomegaly, non distended Genitourinary: other - no goldman Extremities: no cyanosis Skin: no rash Neurologic/Psychiatric: manager wholesale II-XII grossly normal, alert, oriented x 3, responsive Lymphatic: no neck adenopathy Musculoskeletal: no effusion Objective CT abdomen and pelvis: Impression: Positive for choledocholithiasis, 3 large calculi in the downstream common bile duct. There is evidence of biliary obstruction, with marked dilatation of the extrahepatic and intrahepatic bile ducts. Dr. Niño was notified of this finding at the time of interpretation Cholelithiasis Limited assessment of the GI tract, due to lack of enteric contrast Posterior dependent pulmonary atelectatic changes. Right middle lobe scarring with associated bronchiectasis Incidental finding of tiny fat-containing abdominal hernia. US - abdomen: Impression: Cholelithiasis Marked biliary ductal dilatation, consistent with choledocholithiasis seen on prior CT scan, although not imaged on current study Chest x-ray - 01/03 - FINDINGS: Image is limited by portable technique and external artifacts. Allowing for this, endotracheal tube remains in place, terminating approximately 2 cm above the andrade. Enteric tube terminates at least within the gastric body. There are patchy coarse reticular opacities within bilateral medial lung bases with probable associated volume loss, indicating at least atelectasis, as before. No definite new lung opacity. Heart size is normal and stable. No obvious significant pleural effusion or pneumothorax. IMPRESSION: 1. New enteric tube terminates at least within the gastric body. 2. Otherwise, no definite significant interval change. Chest x-ray - 01/04 - Findings: The endotracheal tube appears to be projected over the right mainstem bronchus. This is not absolutely certain and the recommend repeating the examination. The heart is enlarged. There is basilar consolidation again demonstrated. IMPRESSION: Probable endotracheal tube in the proximal right mainstem bronchus. Suggest a repeat x-ray for confirmation. Microbiology Date/Time Source Procedure Growth Status 01/06/18 16:38 Blood Blood Culture - Preliminary NO GROWTH AFTER 4 DAYS Resulted 01/04/18 13:40 Sputum Gram Stain - Final Complete 01/04/18 13:40 Sputum Sputum Culture - Final NORMAL UPPER RESPIRATORY KEMI PRESENT Complete 01/01/18 22:25 Rectum VRE Culture - Final NO VANCOMYCIN RESISTANT ENTEROCOCCUS ... Complete Laboratory Tests Test 01/11/18 06:05 White Blood Count 12.4 K/UL (4.8-10.8) H Red Blood Count 3.30 M/UL (4.20-5.40) L Hemoglobin 11.2 G/DL (12.0-16.0) L Hematocrit 32.1 % (37.0-47.0) L Mean Corpuscular Volume 98 FL (80-99) Mean Corpuscular Hemoglobin 33.9 PG (27.0-31.0) H Mean Corpuscular Hemoglobin Concent 34.7 G/DL (32.0-36.0) Red Cell Distribution Width 12.7 % (11.6-14.8) Platelet Count 184 K/UL (150-450) Mean Platelet Volume 6.7 FL (6.5-10.1) Neutrophils (%) (Auto) 75.2 % (45.0-75.0) H Lymphocytes (%) (Auto) 14.5 % (20.0-45.0) L Monocytes (%) (Auto) 9.2 % (1.0-10.0) Eosinophils (%) (Auto) 0.5 % (0.0-3.0) Basophils (%) (Auto) 0.6 % (0.0-2.0) Sodium Level 141 MMOL/L (136-145) Potassium Level 3.8 MMOL/L (3.5-5.1) Chloride Level 108 MMOL/L (98-107) H Carbon Dioxide Level 24 MMOL/L (21-32) Anion Gap 9 mmol/L (5-15) Blood Urea Nitrogen 4 mg/dL (7-18) L Creatinine 0.7 MG/DL (0.55-1.30) Estimat Glomerular Filtration Rate > 60 mL/min (>60) Glucose Level 89 MG/DL (74-106) Calcium Level 8.2 MG/DL (8.5-10.1) L Total Bilirubin 1.6 MG/DL (0.2-1.0) H Direct Bilirubin 1.1 MG/DL (0.0-0.3) H Aspartate Amino Transf (AST/SGOT) 30 U/L (15-37) Alanine Aminotransferase (ALT/SGPT) 34 U/L (12-78) Alkaline Phosphatase 83 U/L (46-116) Total Protein 6.3 G/DL (6.4-8.2) L Albumin 2.3 G/DL (3.4-5.0) L Current Medications Medications (Trade) Dose Ordered Sig/Bertrand Route PRN Reason Start Time Stop Time Status Last Admin Dose Admin Acetaminophen (Tylenol) 650 mg Q6H PRN ORAL Mild Pain/Temp > 100.5 01/07/18 12:46 02/02/18 12:45 Albuterol/ Ipratropium (Albuterol/ Ipratropium) 3 ml Q4H PRN HHN Shortness of Breath 01/07/18 16:14 01/12/18 16:13 Chlorhexidine Gluconate (Mandy-Hex 2%) 1 applic DAILY@1999 TOPIC 01/07/18 20:00 02/06/18 19:59 01/10/18 20:11 Dextrose (Dextrose 50%) 25 ml Q30M PRN IV Hypoglycemia 01/07/18 13:00 01/31/18 17:29 Dextrose (Dextrose 50%) 50 ml Q30M PRN IV Hypoglycemia 01/07/18 13:00 01/31/18 17:29 Enoxaparin Sodium (Lovenox) 40 mg DAILY SUBQ 01/08/18 09:00 02/06/18 10:29 01/11/18 08:28 Escitalopram Oxalate (Lexapro) 10 mg DAILY ORAL 01/11/18 11:46 02/10/18 11:45 Haloperidol Lactate (Haldol) 5 mg Q6H PRN IM Agitation 01/07/18 12:46 02/06/18 12:45 01/11/18 12:33 Levofloxacin (Levaquin) 750 mg DAILY ORAL 01/09/18 09:00 01/16/18 08:59 01/11/18 08:28 Metronidazole (Flagyl) 500 mg EVERY 8 HOURS ORAL 01/08/18 22:00 01/15/18 21:59 01/10/18 21:51 Ondansetron HCl (Zofran) 4 mg Q6H PRN IVP Nausea & Vomiting 01/07/18 12:47 01/31/18 12:46 Pantoprazole (Protonix) 40 mg ACBREAKFAST ORAL 01/11/18 09:30 02/10/18 09:29 Quetiapine Fumarate (SEROquel) 75 mg TID ORAL 01/11/18 13:00 02/10/18 12:59 01/11/18 18:02 Corinne Lilly MD Jan 11, 2018 20:17
[2018-01-11] MEDS: Dyna-Hex 2% Top Sol 2oz TOPIC SCH (20:51)
[2018-01-11 21:11] VITALS: BP 117/89
--- NOTE | 2018-01-11 21:25 | General Progress Note ---
Assessment/Plan Status: unchanged Assessment/Plan encephalopathy with gmc/metabolic d/o Seroquel 50mg po tid Haldol 5mg q 6hr Im prn agitation the pt will be cont in restraints avoid prescribing benzo head raised 30 degree the pt was given benadryl im Subjective Date patient seen: Jan 11, 2018 Neurologic/Psychiatric: Reports: anxiety, emotional problems Allergies: Coded Allergies: OLANZAPINE (Verified Allergy, Unknown, 01/01/18) TETRACYCLINE (Verified Allergy, Unknown, 01/01/18) Subjective the pt was more agitated today not re-directable Objective Last 24 Hour Vital Signs Date Time Temp Pulse Resp B/P (MAP) Pulse Ox O2 Delivery O2 Flow Rate FiO2 01/11/18 21:11 97.7 92 19 117/89 (98) 98 97.7 01/11/18 21:00 Nasal Cannula 2.0 Nasal Cannula 2.0 01/11/18 20:12 Nasal Cannula 3.0 32 01/11/18 20:12 94 Nasal Cannula 3.0 32 01/11/18 20:12 86 22 Nasal Cannula 3.0 32 01/11/18 16:00 99.1 84 20 144/87 (106) 94 99.1 01/11/18 12:00 97.0 100 20 115/63 (80) 98 97.0 01/11/18 08:04 Nasal Cannula 3.0 32 01/11/18 08:04 88 Nasal Cannula 3.0 32 01/11/18 08:04 88 20 Nasal Cannula 3.0 32 01/11/18 08:00 97.7 76 20 136/78 (97) 100 97.7 01/11/18 08:00 Nasal Cannula 2.0 Nasal Cannula 2.0 01/11/18 04:00 98.6 68 20 146/79 (101) 90 98.6 01/11/18 00:00 99.6 76 20 125/77 (93) 96 99.6 01/10/18 21:50 Nasal Cannula 3.0 32 01/10/18 21:50 92 20 Nasal Cannula 3.0 32 01/10/18 21:50 92 Nasal Cannula 3.0 32 Laboratory Tests 01/11/18 06:05: White Blood Count 12.4H, Red Blood Count 3.30L, Hemoglobin 11.2L, Hematocrit 32.1L, Mean Corpuscular Volume 98, Mean Corpuscular Hemoglobin 33.9H, Mean Corpuscular Hemoglobin Concent 34.7, Red Cell Distribution Width 12.7, Platelet Count 184, Mean Platelet Volume 6.7, Neutrophils (%) (Auto) 75.2H, Lymphocytes ( %) (Auto) 14.5L, Monocytes (%) (Auto) 9.2, Eosinophils (%) (Auto) 0.5, Basophils (%) (Auto) 0.6, Sodium Level 141, Potassium Level 3.8, Chloride Level 108H, Carbon Dioxide Level 24, Anion Gap 9, Blood Urea Nitrogen 4L, Creatinine 0.7, Estimat Glomerular Filtration Rate > 60, Glucose Level 89, Calcium Level 8.2L, Total Bilirubin 1.6H, Direct Bilirubin 1.1H, Aspartate Amino Transf (AST/ SGOT) 30, Alanine Aminotransferase (ALT/SGPT) 34, Alkaline Phosphatase 83, Total Protein 6.3L, Albumin 2.3L Height (Feet): 5 Height (Inches): 5.00 Weight (Pounds): 144 General Appearance: alert, confused, severe distress, agitated Shakira Jenkins MD Jan 11, 2018 21:25
--- NOTE | 2018-01-11 21:29 | Psych Consult Progress Note ---
Psych Consult Progress Note Consult 01/10/18 the pt cont to be agitated in bilat restraints. Vital Signs Last 24 Hour Vital Signs Date Time Temp Pulse Resp B/P (MAP) Pulse Ox O2 Delivery O2 Flow Rate FiO2 01/11/18 21:11 97.7 92 19 117/89 (98) 98 97.7 01/11/18 21:00 Nasal Cannula 2.0 Nasal Cannula 2.0 01/11/18 20:12 Nasal Cannula 3.0 32 01/11/18 20:12 94 Nasal Cannula 3.0 32 01/11/18 20:12 86 22 Nasal Cannula 3.0 32 01/11/18 16:00 99.1 84 20 144/87 (106) 94 99.1 01/11/18 12:00 97.0 100 20 115/63 (80) 98 97.0 01/11/18 08:04 Nasal Cannula 3.0 32 01/11/18 08:04 88 Nasal Cannula 3.0 32 01/11/18 08:04 88 20 Nasal Cannula 3.0 32 01/11/18 08:00 97.7 76 20 136/78 (97) 100 97.7 01/11/18 08:00 Nasal Cannula 2.0 Nasal Cannula 2.0 01/11/18 04:00 98.6 68 20 146/79 (101) 90 98.6 01/11/18 00:00 99.6 76 20 125/77 (93) 96 99.6 01/10/18 21:50 Nasal Cannula 3.0 32 01/10/18 21:50 92 20 Nasal Cannula 3.0 32 01/10/18 21:50 92 Nasal Cannula 3.0 32 Labs Laboratory Tests Test 01/11/18 06:05 White Blood Count 12.4 K/UL (4.8-10.8) H Red Blood Count 3.30 M/UL (4.20-5.40) L Hemoglobin 11.2 G/DL (12.0-16.0) L Hematocrit 32.1 % (37.0-47.0) L Mean Corpuscular Volume 98 FL (80-99) Mean Corpuscular Hemoglobin 33.9 PG (27.0-31.0) H Mean Corpuscular Hemoglobin Concent 34.7 G/DL (32.0-36.0) Red Cell Distribution Width 12.7 % (11.6-14.8) Platelet Count 184 K/UL (150-450) Mean Platelet Volume 6.7 FL (6.5-10.1) Neutrophils (%) (Auto) 75.2 % (45.0-75.0) H Lymphocytes (%) (Auto) 14.5 % (20.0-45.0) L Monocytes (%) (Auto) 9.2 % (1.0-10.0) Eosinophils (%) (Auto) 0.5 % (0.0-3.0) Basophils (%) (Auto) 0.6 % (0.0-2.0) Sodium Level 141 MMOL/L (136-145) Potassium Level 3.8 MMOL/L (3.5-5.1) Chloride Level 108 MMOL/L (98-107) H Carbon Dioxide Level 24 MMOL/L (21-32) Anion Gap 9 mmol/L (5-15) Blood Urea Nitrogen 4 mg/dL (7-18) L Creatinine 0.7 MG/DL (0.55-1.30) Estimat Glomerular Filtration Rate > 60 mL/min (>60) Glucose Level 89 MG/DL (74-106) Calcium Level 8.2 MG/DL (8.5-10.1) L Total Bilirubin 1.6 MG/DL (0.2-1.0) H Direct Bilirubin 1.1 MG/DL (0.0-0.3) H Aspartate Amino Transf (AST/SGOT) 30 U/L (15-37) Alanine Aminotransferase (ALT/SGPT) 34 U/L (12-78) Alkaline Phosphatase 83 U/L (46-116) Total Protein 6.3 G/DL (6.4-8.2) L Albumin 2.3 G/DL (3.4-5.0) L Medications Current Medications Medications (Trade) Dose Ordered Sig/Bertrand Route PRN Reason Start Time Stop Time Status Last Admin Dose Admin Acetaminophen (Tylenol) 650 mg Q6H PRN ORAL Mild Pain/Temp > 100.5 01/07/18 12:46 02/02/18 12:45 Albuterol/ Ipratropium (Albuterol/ Ipratropium) 3 ml Q4H PRN HHN Shortness of Breath 01/07/18 16:14 10/16/18 16:13 Chlorhexidine Gluconate (Mandy-Hex 2%) 1 applic DAILY@2000 TOPIC 01/07/18 20:00 02/06/18 19:59 01/11/18 20:51 Dextrose (Dextrose 50%) 25 ml Q30M PRN IV Hypoglycemia 01/07/18 13:00 01/31/18 17:29 Dextrose (Dextrose 50%) 50 ml Q30M PRN IV Hypoglycemia 01/07/18 13:00 01/31/18 17:29 Enoxaparin Sodium (Lovenox) 40 mg DAILY SUBQ 01/08/18 09:00 02/06/18 10:29 01/11/18 08:28 Escitalopram Oxalate (Lexapro) 10 mg DAILY ORAL 01/11/18 11:46 02/10/18 11:45 Haloperidol Lactate (Haldol) 5 mg Q6H PRN IM Agitation 01/07/18 12:46 02/06/18 12:45 01/11/18 12:33 Levofloxacin (Levaquin) 750 mg DAILY ORAL 01/09/18 09:00 01/16/18 08:59 01/11/18 08:28 Metronidazole (Flagyl) 500 mg EVERY 8 HOURS ORAL 01/08/18 22:00 01/15/18 21:59 01/11/18 20:54 Ondansetron HCl (Zofran) 4 mg Q6H PRN IVP Nausea & Vomiting 01/07/18 12:47 01/31/18 12:46 Pantoprazole (Protonix) 40 mg ACBREAKFAST ORAL 01/11/18 09:30 02/10/18 09:29 Quetiapine Fumarate (SEROquel) 75 mg TID ORAL 01/11/18 13:00 02/10/18 12:59 01/11/18 18:02 Problems: (1) Delirium Status: Acute Assessment & Plan: encephalopathy with gmc/metabolic d/o Seroquel 25mg po tid Haldol 5mg q 6hr Im prn agitation the pt will be cont in restraints avoid prescribing benzo head raised 30 degree Shakira Jenkins MD Jan 11, 2018 21:29
[2018-01-11] MEDS ORDERED: Haloperidol 5mg/ml Inj IM PRN (21:30)
[2018-01-12] VITALS: BP 126/75
[2018-01-12 04:00] VITALS: BP 131/79
[2018-01-12] MEDS: metroNIDAZOLE 500mg tab ORAL SCH ×2 (05:36→13:36)
[2018-01-12 07:17] LABS: BASOPHILS % (AUTO) 1.1 % (0.0-2.0); EOSINOPHILS % (AUTO) 0.4 % (0.0-3.0); HEMOGLOBIN 11.1 G/DL (12.0-16.0); LYMPHOCYTES % (AUTO) 17.6 % (20.0-45.0); MEAN CORPUSCULAR VOLUME 97 FL (80-99); MONOCYTES % (AUTO) 8.1 % (1.0-10.0); NEUTROPHILS % (AUTO) 72.7 % (45.0-75.0); PLATELET COUNT 190 K/UL (150-450); RED BLOOD COUNT 3.39 M/UL (4.20-5.40); WHITE BLOOD COUNT 11.4 K/UL (4.8-10.8)
[2018-01-12 07:45] LABS: ALANINE AMINOTRANSFERASE 33 U/L (12-78); ALBUMIN 2.3 G/DL (3.4-5.0); ALBUMIN/GLOBULIN RATIO 0.6 (1.0-2.7); ALKALINE PHOSPHATASE 82 U/L (46-116); ANION GAP 9 mmol/L (5-15); ASPARTATE AMINO TRANSFERASE 25 U/L (15-37); BILIRUBIN,TOTAL 1.6 MG/DL (0.2-1.0); BLOOD UREA NITROGEN 5 mg/dL (7-18); CALCIUM 8.4 MG/DL (8.5-10.1); CARBON DIOXIDE 23 MMOL/L (21-32); CHLORIDE 109 MMOL/L (98-107); CREATININE 0.8 MG/DL (0.55-1.30); POTASSIUM 3.5 MMOL/L (3.5-5.1); SODIUM 141 MMOL/L (136-145)
[2018-01-12 07:47] LABS: BILIRUBIN,DIRECT 0.8 MG/DL (0.0-0.3)
[2018-01-12 08:00] VITALS: BP 103/67
[2018-01-12] MEDS: Enoxaparin 40mg Inj SUBQ SCH (09:29)
--- NOTE | 2018-01-12 11:12 | Pulmonology Progress Note ---
Assessment/Plan Problems: (1) Choledocholithiasis (2) Leukocytosis (3) Elevated LFTs (4) Hypokalemia (5) Hypernatremia (6) Delirium (7) Chronic deep vein thrombosis (DVT) (8) Thrombocytopenia (9) Sepsis Assessment/Plan -Optimize pulmonary hygiene/mobilize as tolerated -Titrate down FiO2 to keep SaO2 > 90% -PRN HHN's -Abx per iD, monitor WCt -Aspiration precautions -DVT Px: LMWH -F/U psych recs -F/U GI recs, repeat ERCP with stent removal in 3 months -Monitor MS -FC Subjective Allergies: Coded Allergies: OLANZAPINE (Verified Allergy, Unknown, 01/01/18) TETRACYCLINE (Verified Allergy, Unknown, 01/01/18) Subjective AFVSS, O2 needs stable Agitation on and off No cough, no SOB, no pain Objective Last 24 Hour Vital Signs Date Time Temp Pulse Resp B/P (MAP) Pulse Ox O2 Delivery O2 Flow Rate FiO2 01/12/18 09:00 Nasal Cannula 2.0 Nasal Cannula 2.0 01/12/18 07:45 80 18 Nasal Cannula 3.0 32 01/12/18 07:45 97 Nasal Cannula 3.0 32 01/12/18 07:45 Nasal Cannula 3.0 32 01/12/18 04:00 97.9 77 17 131/79 (96) 100 97.9 01/12/18 00:00 98.3 77 17 126/75 (92) 98 98.3 01/11/18 21:11 97.7 92 19 117/89 (98) 98 97.7 01/11/18 21:00 Nasal Cannula 2.0 Nasal Cannula 2.0 01/11/18 20:12 Nasal Cannula 3.0 32 01/11/18 20:12 94 Nasal Cannula 3.0 32 01/11/18 20:12 86 22 Nasal Cannula 3.0 32 01/11/18 16:00 99.1 84 20 144/87 (106) 94 99.1 01/11/18 12:00 97.0 100 20 115/63 (80) 98 97.0 Intake and Output 01/11/18 01/12/18 19:00 07:00 Intake Total 330 ml Balance 330 ml Intake Oral 330 ml # Voids 3 2 General Appearance: WD/WN, no acute distress HEENT: normocephalic, atraumatic, anicteric, mucous membranes moist Respiratory/Chest: chest wall non-tender, lungs clear, normal breath sounds, no respiratory distress, no accessory muscle use Cardiovascular: normal peripheral pulses, normal rate, regular rhythm Abdomen: normal bowel sounds, soft, non tender, no organomegaly, non distended , no mass Extremities: no cyanosis, no clubbing, no edema Laboratory Tests 01/12/18 05:25: White Blood Count 11.4H, Red Blood Count 3.39L, Hemoglobin 11.1L, Hematocrit 33.0L, Mean Corpuscular Volume 97, Mean Corpuscular Hemoglobin 32.7H, Mean Corpuscular Hemoglobin Concent 33.6, Red Cell Distribution Width 13.0, Platelet Count 190, Mean Platelet Volume 6.2L, Neutrophils (%) (Auto) 72.7, Lymphocytes ( %) (Auto) 17.6L, Monocytes (%) (Auto) 8.1, Eosinophils (%) (Auto) 0.4, Basophils (%) (Auto) 1.1, Sodium Level 141, Potassium Level 3.5, Chloride Level 109H, Carbon Dioxide Level 23, Anion Gap 9, Blood Urea Nitrogen 5L, Creatinine 0.8, Estimat Glomerular Filtration Rate > 60, Glucose Level 80, Calcium Level 8.4L, Total Bilirubin 1.6H, Direct Bilirubin 0.8H, Aspartate Amino Transf (AST/ SGOT) 25, Alanine Aminotransferase (ALT/SGPT) 33, Alkaline Phosphatase 82, Total Protein 6.4, Albumin 2.3L, Globulin 4.1, Albumin/Globulin Ratio 0.6L Current Medications Medications (Trade) Dose Ordered Sig/Bertrand Route PRN Reason Start Time Stop Time Status Last Admin Dose Admin Acetaminophen (Tylenol) 650 mg Q6H PRN ORAL Mild Pain/Temp > 100.5 01/07/18 12:46 02/02/18 12:45 Albuterol/ Ipratropium (Albuterol/ Ipratropium) 3 ml Q4H PRN HHN Shortness of Breath 01/07/18 16:14 01/12/18 16:13 Chlorhexidine Gluconate (Mandy-Hex 2%) 1 applic DAILY@2000 TOPIC 01/07/18 20:00 02/06/18 19:59 01/11/18 20:51 Dextrose (Dextrose 50%) 25 ml Q30M PRN IV Hypoglycemia 01/07/18 13:00 01/31/18 17:29 Dextrose (Dextrose 50%) 50 ml Q30M PRN IV Hypoglycemia 01/07/18 13:00 01/31/18 17:29 Enoxaparin Sodium (Lovenox) 40 mg DAILY SUBQ 01/08/18 09:00 02/06/18 10:29 01/12/18 09:29 Escitalopram Oxalate (Lexapro) 10 mg DAILY ORAL 01/11/18 11:46 02/10/18 11:45 01/12/18 09:24 Haloperidol Lactate (Haldol) 5 mg Q4H PRN IM Agitation 01/11/18 21:30 02/10/18 21:29 Levofloxacin (Levaquin) 750 mg DAILY ORAL 01/09/18 09:00 01/16/18 08:59 01/12/18 09:23 Metronidazole (Flagyl) 500 mg EVERY 8 HOURS ORAL 01/08/18 22:00 01/15/18 21:59 01/12/18 05:36 Ondansetron HCl (Zofran) 4 mg Q6H PRN IVP Nausea & Vomiting 01/07/18 12:47 01/31/18 12:46 Pantoprazole (Protonix) 40 mg ACBREAKFAST ORAL 01/11/18 09:30 02/10/18 09:29 01/12/18 05:36 Quetiapine Fumarate (SEROquel) 75 mg TID ORAL 01/11/18 13:00 02/10/18 12:59 01/12/18 09:24 Duncan Marte MD Jan 12, 2018 11:12
[2018-01-12 12:00] VITALS: BP 114/80
--- NOTE | 2018-01-12 12:42 | Infectious Diseases Prog Note ---
Assessment/Plan Assessment/Plan ASSESSMENT AND PLAN: 1. sepsis, shock, citrobacter/klebsiella bacteremia, cholangitis, fevers, leukocytosis, ? pna, ? ards - s/p ERCP - levofloxacin and flagyl, day # 11 antibiotics, plan on 14 day course total iv plus po - surveillance blood culture negative - monitor labs, chest x-ray improved, watch temps - TB decreasing - clinically improved, leukocytosis better, no current fevers 2. Respiratory failure - on vent, per pulmonary medicine 3. Acute kidney injury - cr better 4. History of paranoid schizophrenia and psychiatric disease. 5. Hypertension. 6. No history of diabetes. 7. Allergy to olanzapine and tetracycline. 8. MAR was noted. 9. Case discussed with RN. 10. Family history noncontributory. 11. Social history negative. 12. Continue treatment per primary consultants. 13. Prognosis is guarded to poor. 14. Notes and records were noted and orders were entered. Subjective Constitutional: Denies: fever HEENT: Denies: congestion Respiratory: Denies: shortness of breath Cardiovascular: Denies: chest pain Gastrointestinal/Abdominal: Denies: nausea, vomiting, diarrhea Genitourinary: Reports: other - no goldman Neurologic: Denies: headache Psychiatric: Denies: depression Skin: Denies: rash Hematologic: Denies: bleeding Musculoskeletal: Denies: pain Allergies: Coded Allergies: OLANZAPINE (Verified Allergy, Unknown, 01/01/18) TETRACYCLINE (Verified Allergy, Unknown, 01/01/18) Objective Vital Signs Last 24 Hour Vital Signs Date Time Temp Pulse Resp B/P (MAP) Pulse Ox O2 Delivery O2 Flow Rate FiO2 01/12/18 09:00 Nasal Cannula 2.0 Nasal Cannula 2.0 01/12/18 08:00 97.7 74 22 103/67 (79) 96 97.7 01/12/18 07:45 80 18 Nasal Cannula 3.0 32 01/12/18 07:45 97 Nasal Cannula 3.0 32 01/12/18 07:45 Nasal Cannula 3.0 32 01/12/18 04:00 97.9 77 17 131/79 (96) 100 97.9 01/12/18 00:00 98.3 77 17 126/75 (92) 98 98.3 01/11/18 21:11 97.7 92 19 117/89 (98) 98 97.7 01/11/18 21:00 Nasal Cannula 2.0 Nasal Cannula 2.0 01/11/18 20:12 Nasal Cannula 3.0 32 01/11/18 20:12 94 Nasal Cannula 3.0 32 01/11/18 20:12 86 22 Nasal Cannula 3.0 32 01/11/18 16:00 99.1 84 20 144/87 (106) 94 99.1 Height (Feet): 5 Height (Inches): 5.00 Weight (Pounds): 142 General Appearance: no acute distress HEENT: normocephalic, atraumatic, anicteric, mucous membranes moist Respiratory/Chest: lungs clear, normal breath sounds, no respiratory distress, no accessory muscle use Cardiovascular: normal rate, regular rhythm, no gallop/murmur, no JVD Abdomen: normal bowel sounds, soft, non tender, no organomegaly, non distended Genitourinary: other - + goldman Extremities: no cyanosis Skin: no rash Neurologic/Psychiatric: patient service specialist II-XII grossly normal, alert Lymphatic: no neck adenopathy Musculoskeletal: no effusion Objective CT abdomen and pelvis: Impression: Positive for choledocholithiasis, 3 large calculi in the downstream common bile duct. There is evidence of biliary obstruction, with marked dilatation of the extrahepatic and intrahepatic bile ducts. Dr. Niño was notified of this finding at the time of interpretation Cholelithiasis Limited assessment of the GI tract, due to lack of enteric contrast Posterior dependent pulmonary atelectatic changes. Right middle lobe scarring with associated bronchiectasis Incidental finding of tiny fat-containing abdominal hernia. US - abdomen: Impression: Cholelithiasis Marked biliary ductal dilatation, consistent with choledocholithiasis seen on prior CT scan, although not imaged on current study Chest x-ray - 01/03 - FINDINGS: Image is limited by portable technique and external artifacts. Allowing for this, endotracheal tube remains in place, terminating approximately 2 cm above the andrade. Enteric tube terminates at least within the gastric body. There are patchy coarse reticular opacities within bilateral medial lung bases with probable associated volume loss, indicating at least atelectasis, as before. No definite new lung opacity. Heart size is normal and stable. No obvious significant pleural effusion or pneumothorax. IMPRESSION: 1. New enteric tube terminates at least within the gastric body. 2. Otherwise, no definite significant interval change. Chest x-ray - 01/04 - Findings: The endotracheal tube appears to be projected over the right mainstem bronchus. This is not absolutely certain and the recommend repeating the examination. The heart is enlarged. There is basilar consolidation again demonstrated. IMPRESSION: Probable endotracheal tube in the proximal right mainstem bronchus. Suggest a repeat x-ray for confirmation. Microbiology Date/Time Source Procedure Growth Status 01/06/18 16:38 Blood Blood Culture - Final NO GROWTH AFTER 5 DAYS Complete 01/04/18 13:40 Sputum Gram Stain - Final Complete 01/04/18 13:40 Sputum Sputum Culture - Final NORMAL UPPER RESPIRATORY KEMI PRESENT Complete 01/01/18 22:25 Rectum VRE Culture - Final NO VANCOMYCIN RESISTANT ENTEROCOCCUS ... Complete Laboratory Tests Test 01/12/18 05:25 White Blood Count 11.4 K/UL (4.8-10.8) H Red Blood Count 3.39 M/UL (4.20-5.40) L Hemoglobin 11.1 G/DL (12.0-16.0) L Hematocrit 33.0 % (37.0-47.0) L Mean Corpuscular Volume 97 FL (80-99) Mean Corpuscular Hemoglobin 32.7 PG (27.0-31.0) H Mean Corpuscular Hemoglobin Concent 33.6 G/DL (32.0-36.0) Red Cell Distribution Width 13.0 % (11.6-14.8) Platelet Count 190 K/UL (150-450) Mean Platelet Volume 6.2 FL (6.5-10.1) L Neutrophils (%) (Auto) 72.7 % (45.0-75.0) Lymphocytes (%) (Auto) 17.6 % (20.0-45.0) L Monocytes (%) (Auto) 8.1 % (1.0-10.0) Eosinophils (%) (Auto) 0.4 % (0.0-3.0) Basophils (%) (Auto) 1.1 % (0.0-2.0) Sodium Level 141 MMOL/L (136-145) Potassium Level 3.5 MMOL/L (3.5-5.1) Chloride Level 109 MMOL/L (98-107) H Carbon Dioxide Level 23 MMOL/L (21-32) Anion Gap 9 mmol/L (5-15) Blood Urea Nitrogen 5 mg/dL (7-18) L Creatinine 0.8 MG/DL (0.55-1.30) Estimat Glomerular Filtration Rate > 60 mL/min (>60) Glucose Level 80 MG/DL (74-106) Calcium Level 8.4 MG/DL (8.5-10.1) L Total Bilirubin 1.6 MG/DL (0.2-1.0) H Direct Bilirubin 0.8 MG/DL (0.0-0.3) H Aspartate Amino Transf (AST/SGOT) 25 U/L (15-37) Alanine Aminotransferase (ALT/SGPT) 33 U/L (12-78) Alkaline Phosphatase 82 U/L (46-116) Total Protein 6.4 G/DL (6.4-8.2) Albumin 2.3 G/DL (3.4-5.0) L Globulin 4.1 g/dL Albumin/Globulin Ratio 0.6 (1.0-2.7) L Current Medications Medications (Trade) Dose Ordered Sig/Bertrand Route PRN Reason Start Time Stop Time Status Last Admin Dose Admin Acetaminophen (Tylenol) 650 mg Q6H PRN ORAL Mild Pain/Temp > 100.5 01/07/18 12:46 02/02/18 12:45 Albuterol/ Ipratropium (Albuterol/ Ipratropium) 3 ml Q4H PRN HHN Shortness of Breath 01/07/18 16:14 01/12/18 16:13 Chlorhexidine Gluconate (Mandy-Hex 2%) 1 applic DAILY@2000 TOPIC 01/07/18 20:00 02/06/18 19:59 01/11/18 20:51 Dextrose (Dextrose 50%) 25 ml Q30M PRN IV Hypoglycemia 01/07/18 13:00 01/31/18 17:29 Dextrose (Dextrose 50%) 50 ml Q30M PRN IV Hypoglycemia 01/07/18 13:00 01/31/18 17:29 Enoxaparin Sodium (Lovenox) 40 mg DAILY SUBQ 01/08/18 09:00 02/06/18 10:29 01/12/18 09:29 Escitalopram Oxalate (Lexapro) 10 mg DAILY ORAL 01/11/18 11:46 02/10/18 11:45 01/12/18 09:24 Haloperidol Lactate (Haldol) 5 mg Q4H PRN IM Agitation 01/11/18 21:30 02/10/18 21:29 Levofloxacin (Levaquin) 750 mg DAILY ORAL 01/09/18 09:00 01/22/18 10:00 01/12/18 09:23 Metronidazole (Flagyl) 500 mg EVERY 8 HOURS ORAL 01/08/18 22:00 01/22/18 23:00 01/12/18 05:36 Ondansetron HCl (Zofran) 4 mg Q6H PRN IVP Nausea & Vomiting 01/07/18 12:47 01/31/18 12:46 Pantoprazole (Protonix) 40 mg ACBREAKFAST ORAL 01/11/18 09:30 02/10/18 09:29 01/12/18 05:36 Quetiapine Fumarate (SEROquel) 75 mg TID ORAL 01/11/18 13:00 02/10/18 12:59 01/12/18 09:24 Corinne Lilly MD Jan 12, 2018 12:42
--- NOTE | 2018-01-12 13:31 | General Surgery Progress Note ---
General Surgery-Progress Note Subjective Symptoms: improved, pain absent, tolerating diet, BM Objective Last 24 Hour Vital Signs Date Time Temp Pulse Resp B/P (MAP) Pulse Ox O2 Delivery O2 Flow Rate FiO2 01/12/18 12:00 98.1 65 20 114/80 (91) 94 98.1 01/12/18 09:00 Nasal Cannula 2.0 Nasal Cannula 2.0 01/12/18 08:00 97.7 74 22 103/67 (79) 96 97.7 01/12/18 07:45 80 18 Nasal Cannula 3.0 32 01/12/18 07:45 97 Nasal Cannula 3.0 32 01/12/18 07:45 Nasal Cannula 3.0 32 01/12/18 04:00 97.9 77 17 131/79 (96) 100 97.9 01/12/18 00:00 98.3 77 17 126/75 (92) 98 98.3 01/11/18 21:11 97.7 92 19 117/89 (98) 98 97.7 01/11/18 21:00 Nasal Cannula 2.0 Nasal Cannula 2.0 01/11/18 20:12 Nasal Cannula 3.0 32 01/11/18 20:12 94 Nasal Cannula 3.0 32 01/11/18 20:12 86 22 Nasal Cannula 3.0 32 01/11/18 16:00 99.1 84 20 144/87 (106) 94 99.1 I&O Intake and Output 01/11/18 01/12/18 19:00 07:00 Intake Total 330 ml Balance 330 ml Intake Oral 330 ml # Voids 3 2 Cardiovascular: RSR Respiratory: clear Abdomen: soft, flat, non-tender, present bowel sounds Extremities: no cyanosis Laboratory Tests Test 01/12/18 05:25 White Blood Count 11.4 K/UL (4.8-10.8) H Red Blood Count 3.39 M/UL (4.20-5.40) L Hemoglobin 11.1 G/DL (12.0-16.0) L Hematocrit 33.0 % (37.0-47.0) L Mean Corpuscular Volume 97 FL (80-99) Mean Corpuscular Hemoglobin 32.7 PG (27.0-31.0) H Mean Corpuscular Hemoglobin Concent 33.6 G/DL (32.0-36.0) Red Cell Distribution Width 13.0 % (11.6-14.8) Platelet Count 190 K/UL (150-450) Mean Platelet Volume 6.2 FL (6.5-10.1) L Neutrophils (%) (Auto) 72.7 % (45.0-75.0) Lymphocytes (%) (Auto) 17.6 % (20.0-45.0) L Monocytes (%) (Auto) 8.1 % (1.0-10.0) Eosinophils (%) (Auto) 0.4 % (0.0-3.0) Basophils (%) (Auto) 1.1 % (0.0-2.0) Sodium Level 141 MMOL/L (136-145) Potassium Level 3.5 MMOL/L (3.5-5.1) Chloride Level 109 MMOL/L (98-107) H Carbon Dioxide Level 23 MMOL/L (21-32) Anion Gap 9 mmol/L (5-15) Blood Urea Nitrogen 5 mg/dL (7-18) L Creatinine 0.8 MG/DL (0.55-1.30) Estimat Glomerular Filtration Rate > 60 mL/min (>60) Glucose Level 80 MG/DL (74-106) Calcium Level 8.4 MG/DL (8.5-10.1) L Total Bilirubin 1.6 MG/DL (0.2-1.0) H Direct Bilirubin 0.8 MG/DL (0.0-0.3) H Aspartate Amino Transf (AST/SGOT) 25 U/L (15-37) Alanine Aminotransferase (ALT/SGPT) 33 U/L (12-78) Alkaline Phosphatase 82 U/L (46-116) Total Protein 6.4 G/DL (6.4-8.2) Albumin 2.3 G/DL (3.4-5.0) L Globulin 4.1 g/dL Albumin/Globulin Ratio 0.6 (1.0-2.7) L Plan Problems: (1) Septic shock Assessment & Plan: Septic shock, choledocholithiasis, possible cholangitis s/p emergency ercp improving recovering -diet as tolerated -abx as per ID thank you. will follow with recs. (2) Choledocholithiasis Assessment & Plan: s/p ERCP with stent improving stent removal as per GI in 3 months thank you (3) Elevated LFTs Daruis Caraballo Jan 12, 2018 13:31
--- NOTE | 2018-01-12 13:33 | GI Progress Note ---
Assessment/Plan Problems: (1) Thrombocytopenia ICD Codes: D69.6 - Thrombocytopenia, unspecified SNOMED: 530186168 (2) Leukocytosis ICD Codes: D72.829 - Elevated white blood cell count, unspecified SNOMED: 140772043, 343098721 (3) Choledocholithiasis ICD Codes: K80.50 - Calculus of bile duct without cholangitis or cholecystitis without obstruction SNOMED: 971429483 (4) Renal failure ICD Codes: N19 - Unspecified kidney failure SNOMED: 33089134 Qualifiers: Qualified Codes: N19 - Unspecified kidney failure (5) Hypokalemia ICD Codes: E87.6 - Hypokalemia SNOMED: 88439557, 831557261 (6) Septic shock ICD Codes: A41.9 - Sepsis, unspecified organism; R65.21 - Severe sepsis with septic shock SNOMED: 95935049 (7) Sepsis ICD Codes: A41.9 - Sepsis, unspecified organism SNOMED: 73055507 (8) Elevated LFTs ICD Codes: R94.5 - Abnormal results of liver function studies SNOMED: 111125774, 381134111 Status: doing well, stable Status Narrative Discussed with Dr. Villar. Assessment/Plan Assessment - Cholangitis - Choledocholithiasis - s/p ERCP and stent - sepsis/chock - lactic acidosis - renal failure - thrombocytopenia, likely DIC related - Critical - LFT downtrending - hepatitis panel negative Recommendations - okay for DC per GI standpoint >> Patient is to required to return in 3 months for repeat ERCP/stent removal. - advance diet - PT/OT - trend labs - supportive care The patient was seen and examined at bedside and all new and available data was reviewed in the patients chart. I agree with the above findings, impression and plan. (Patient seen earlier today. Signature stamp does not reflect patient encounter time.). - Edward Villar MD Subjective Gastrointestinal/Abdominal: Reports: no symptoms Objective Last 24 Hour Vital Signs Date Time Temp Pulse Resp B/P (MAP) Pulse Ox O2 Delivery O2 Flow Rate FiO2 01/12/18 12:00 98.1 65 20 114/80 (91) 94 98.1 01/12/18 09:00 Nasal Cannula 2.0 Nasal Cannula 2.0 01/12/18 08:00 97.7 74 22 103/67 (79) 96 97.7 01/12/18 07:45 80 18 Nasal Cannula 3.0 32 01/12/18 07:45 97 Nasal Cannula 3.0 32 01/12/18 07:45 Nasal Cannula 3.0 32 01/12/18 04:00 97.9 77 17 131/79 (96) 100 97.9 01/12/18 00:00 98.3 77 17 126/75 (92) 98 98.3 01/11/18 21:11 97.7 92 19 117/89 (98) 98 97.7 01/11/18 21:00 Nasal Cannula 2.0 Nasal Cannula 2.0 01/11/18 20:12 Nasal Cannula 3.0 32 01/11/18 20:12 94 Nasal Cannula 3.0 32 01/11/18 20:12 86 22 Nasal Cannula 3.0 32 01/11/18 16:00 99.1 84 20 144/87 (106) 94 99.1 Intake and Output 01/11/18 01/12/18 19:00 07:00 Intake Total 330 ml Balance 330 ml Intake Oral 330 ml # Voids 3 2 Laboratory Tests Test 01/12/18 05:25 White Blood Count 11.4 K/UL (4.8-10.8) H Red Blood Count 3.39 M/UL (4.20-5.40) L Hemoglobin 11.1 G/DL (12.0-16.0) L Hematocrit 33.0 % (37.0-47.0) L Mean Corpuscular Volume 97 FL (80-99) Mean Corpuscular Hemoglobin 32.7 PG (27.0-31.0) H Mean Corpuscular Hemoglobin Concent 33.6 G/DL (32.0-36.0) Red Cell Distribution Width 13.0 % (11.6-14.8) Platelet Count 190 K/UL (150-450) Mean Platelet Volume 6.2 FL (6.5-10.1) L Neutrophils (%) (Auto) 72.7 % (45.0-75.0) Lymphocytes (%) (Auto) 17.6 % (20.0-45.0) L Monocytes (%) (Auto) 8.1 % (1.0-10.0) Eosinophils (%) (Auto) 0.4 % (0.0-3.0) Basophils (%) (Auto) 1.1 % (0.0-2.0) Sodium Level 141 MMOL/L (136-145) Potassium Level 3.5 MMOL/L (3.5-5.1) Chloride Level 109 MMOL/L (98-107) H Carbon Dioxide Level 23 MMOL/L (21-32) Anion Gap 9 mmol/L (5-15) Blood Urea Nitrogen 5 mg/dL (7-18) L Creatinine 0.8 MG/DL (0.55-1.30) Estimat Glomerular Filtration Rate > 60 mL/min (>60) Glucose Level 80 MG/DL (74-106) Calcium Level 8.4 MG/DL (8.5-10.1) L Total Bilirubin 1.6 MG/DL (0.2-1.0) H Direct Bilirubin 0.8 MG/DL (0.0-0.3) H Aspartate Amino Transf (AST/SGOT) 25 U/L (15-37) Alanine Aminotransferase (ALT/SGPT) 33 U/L (12-78) Alkaline Phosphatase 82 U/L (46-116) Total Protein 6.4 G/DL (6.4-8.2) Albumin 2.3 G/DL (3.4-5.0) L Globulin 4.1 g/dL Albumin/Globulin Ratio 0.6 (1.0-2.7) L Height (Feet): 5 Height (Inches): 5.00 Weight (Pounds): 142 General Appearance: WD/WN, no apparent distress, alert Cardiovascular: normal rate Respiratory/Chest: normal breath sounds, no respiratory distress Abdominal Exam: normal bowel sounds, non tender, soft Extremities: normal range of motion, non-tender Brando Euceda REHAB THERAPY MANAGER Jan 12, 2018 13:33
[2018-01-12] MEDS ORDERED: LEXAPRO10 MG ORAL (14:22)
[2018-01-12] MEDS ORDERED: SEROQUEL25 MG ORAL (14:22)
[2018-01-12] MEDS ORDERED: Levofloxacin 250mg ORAL (14:22)
[2018-01-12] MEDS ORDERED: FLAGYL500 MG ORAL (14:22)
--- NOTE | 2018-01-12 15:11 | Discharge Summary ---
Discharge Summary Hospital Course Date of Admission Jan 01, 2018 at 15:25 Date of Discharge Admitting Diagnosis vomiting, hypokalemia, dehydration HPI Johana Mcleod is a 57 year old female who was admitted on Jan 01, 2018 at 15:25 57 year old woman with history of unspecified psychiatry history, brought in from a [facility] and [facility] facility for abdominal pain and altered mental status which was reported by the patient's caregiver. Patient is unable to provide any meaningful history due to confusion. Hospital Course In ED she was noted to have markedly elevated T. bili of [address] A/P showing choledocholithiasis. She has been persistently hypotensive to the 60s despite 2.5 liters of fluid. Central line placed and patient sent to the ICU. Pt was diagnosed w/ acute cholangitis. stent was placed in blocked duct upon ERCP. pt was continued on antibiotics, changed to levaquin and flagyl for 14 day duration. Continued upon discharge for completion of course. Plan will be to followup in 2-3 months to remove stent. Discharge Medications New Medications: Escitalopram Oxalate* (Lexapro*) 10 Mg Tablet 10 MG ORAL DAILY for 30 Days, #30 TAB [Levofloxacin 250mg] () 250 MG TAB 750 MG ORAL DAILY for 3 Days, #3 Metronidazole* (Flagyl*) 500 Mg Tablet 500 MG ORAL EVERY 8 HOURS, #9 TAB Quetiapine Fumarate* (Seroquel*) 25 Mg Tablet 75 MG ORAL TID for 14 Days, TAB Continued Medications: Benztropine Mesylate* (Cogentin*) 0.5 Mg Tablet 1 MG PO BID Ergocalciferol (Vitamin D2)* (Vitamin D*) 50,000 Unit Capsule 67664 UNIT ORAL ONCE A WEEK Famotidine (Famotidine) 20 Mg Tablet 20 MG ORAL TWICE A DAY, #60 TAB 0 Refills Lisinopril/Hydrochlorothiazide 20-25 Mg Tab (Lisinopril-Hctz 20-25 Mg Tab) 1 Each Tablet 1 TAB ORAL BID Lorazepam* (Lorazepam*) 1 Mg Tablet 1 MG ORAL BID Perphenazine (Perphenazine) 8 Mg Tablet 8 MG PO BID, TAB Promethazine Hcl* (Phenergan*) 25 Mg Tablet 6.25 MG ORAL Q8HR Discontinued Medications: Alprazolam (Alprazolam) 1 Mg Tab.rapdis 1 MG ORAL BID, TAB Quetiapine Fumarate* (Seroquel*) 100 Mg Tablet 100 MG ORAL BEDTIME Temazepam (Temazepam*) 15 Mg Capsule 15 MG ORAL BEDTIME Discharge Condition Upon Discharge: improving, stable Discharge Disposition Patient was discharged to SNF. Discharge process took >35 mins. Marina Vasquez D.O. Jan 12, 2018 15:11
[2018-01-12 16:00] VITALS: BP 87/62
--- NOTE | 2018-01-12 17:28 | General Progress Note ---
Assessment/Plan Status: stable Assessment/Plan # Leukocytosis. Likely related to underlying infection versus reactive process. In addition,has blasts, myelocytes and metamyelocytes initially but none detected on the flow cytometry, currently has improved, s/p ercp with stent --> flow cytometry is negative for any abnormalities, discussed with pathology --> tumor lysis labs have been reviewed and does not appear to have TLS -- will monitor closely --> In future, need a bone marrow biopsy will discuss with pathologist --> Imaging has been reviewed and reveals: Mild pulmonary vascular congestion. Subsegmental atelectasis versus infiltrates in bilateral lung bases. Cholelithiasis --> Blood shows citro/kleb, as per id management --> Has been started on abx, empiric treatment --> appreciate ID recs --> Currently, WBC has improved # Thrombocytopenia. Potential causes multifactorial, evaluate liver and viral etiologies v infectious, hepatitis and hiv are negative, could be related to shock/sepsis as well. is no s/p transfusion. On presentation 20k, now improved slowly --> HIT is wnl, no evidence of HIT AB --> US abd: cholelithiasis --> Peripheral smear reviewed as well --> Abx and other meds have been reviewed. --> Currently, resolved. # Choledocholithiasis with review by surgeon, could be early cholangitis, also has been reviewed by ID. s/p ercp with stent --> NPO, Zofran, morphine prb. Continue IV fluids, check serial lactate levels, blood cultures, on abx --> Patient may require vasopressor support for possible septic shock. --> ID, GI and Surgery to evaluate. # Severe hypokalemia, will continue to replace --> appreciate recs by renal, check BMP pM along with phos # Acute metabolic encephalopathy, likely due to to underlying sepsis, continue to treat acute medical issues and provide supportive care --> Fall, aspiration, seizure precautions # History of unspecified psychiatric illness, will hold all psychotropics for now to avoid oversedation --> as per psych # Respiratory failure -- s/p vent, and extubated on 01/05 --> pulm recs appreciated --> Currently on NC I GREATLY APPRECIATE CONSULTATION. Subjective Date patient seen: Jan 12, 2018 Allergies: Coded Allergies: OLANZAPINE (Verified Allergy, Unknown, 01/01/18) TETRACYCLINE (Verified Allergy, Unknown, 01/01/18) All Systems: reviewed and negative except above Subjective Pt awake and alert. No acute events. DC planning. Objective Last 24 Hour Vital Signs Date Time Temp Pulse Resp B/P (MAP) Pulse Ox O2 Delivery O2 Flow Rate FiO2 01/12/18 12:00 98.1 65 20 114/80 (91) 94 98.1 01/12/18 09:00 Nasal Cannula 2.0 Nasal Cannula 2.0 01/12/18 08:00 97.7 74 22 103/67 (79) 96 97.7 01/12/18 07:45 80 18 Nasal Cannula 3.0 32 01/12/18 07:45 97 Nasal Cannula 3.0 32 01/12/18 07:45 Nasal Cannula 3.0 32 01/12/18 04:00 97.9 77 17 131/79 (96) 100 97.9 01/12/18 00:00 98.3 77 17 126/75 (92) 98 98.3 01/11/18 21:11 97.7 92 19 117/89 (98) 98 97.7 01/11/18 21:00 Nasal Cannula 2.0 Nasal Cannula 2.0 01/11/18 20:12 Nasal Cannula 3.0 32 01/11/18 20:12 94 Nasal Cannula 3.0 32 01/11/18 20:12 86 22 Nasal Cannula 3.0 32 Intake and Output 01/11/18 01/12/18 19:00 07:00 Intake Total 330 ml Balance 330 ml Intake Oral 330 ml # Voids 3 2 Laboratory Tests 01/12/18 05:25: White Blood Count 11.4H, Red Blood Count 3.39L, Hemoglobin 11.1L, Hematocrit 33.0L, Mean Corpuscular Volume 97, Mean Corpuscular Hemoglobin 32.7H, Mean Corpuscular Hemoglobin Concent 33.6, Red Cell Distribution Width 13.0, Platelet Count 190, Mean Platelet Volume 6.2L, Neutrophils (%) (Auto) 72.7, Lymphocytes ( %) (Auto) 17.6L, Monocytes (%) (Auto) 8.1, Eosinophils (%) (Auto) 0.4, Basophils (%) (Auto) 1.1, Sodium Level 141, Potassium Level 3.5, Chloride Level 109H, Carbon Dioxide Level 23, Anion Gap 9, Blood Urea Nitrogen 5L, Creatinine 0.8, Estimat Glomerular Filtration Rate > 60, Glucose Level 80, Calcium Level 8.4L, Total Bilirubin 1.6H, Direct Bilirubin 0.8H, Aspartate Amino Transf (AST/ SGOT) 25, Alanine Aminotransferase (ALT/SGPT) 33, Alkaline Phosphatase 82, Total Protein 6.4, Albumin 2.3L, Globulin 4.1, Albumin/Globulin Ratio 0.6L Height (Feet): 5 Height (Inches): 5.00 Weight (Pounds): 142 General Appearance: no apparent distress EENT: PERRL/EOMI Neck: normal alignment Cardiovascular: normal peripheral pulses Respiratory/Chest: no respiratory distress Abdomen: soft Objective on a vent, og, RT as well Davin Aguero MD Jan 12, 2018 17:28
--- NOTE | 2018-01-12 19:45 | Progress Note ---
DATE: 01/12/2018 SUBJECTIVE: The patient continues to be easily agitated. Unable to be engaged during the evaluation. Participated in PT today. She is agitated, confused, unable to provide any history. MENTAL STATUS EXAMINATION: The patient is confused, disoriented. Mood is agitated. Affect is constricted, congruent with mood. Thought process is concrete. Thought content, no suicidal or homicidal ideations. ASSESSMENT: Encephalopathy due to toxin or metabolic factor. PLAN: We will continue current medication. Provide the patient with supportive therapy and reality orientation. We will continue follow and readjust the medications. Shakira Jenkins M.D. DR: Jenae JOB#: [id number] CC:
== END 2018-01-12 18:15 | DRG 871 ==
LOC: EMR 14:30 → ICU 15:25 → EDBEDREQSVC 17:13 → EDBEDREQ 17:13 → 2W 01-06 18:40 → 4E 01-07 12:11
PROC: 0BCB8ZZ Extirpation of Matter from Left Lower Lobe Bronchus, Via Natural or Artificial Opening Endoscopic (ICD-10-PCS; principal; 2018-01-01)
PROC: 0BC68ZZ Extirpation of Matter from Right Lower Lobe Bronchus, Via Natural or Artificial Opening Endoscopic (ICD-10-PCS; principal; 2018-01-01)
PROC: 0BC48ZZ Extirpation of Matter from Right Upper Lobe Bronchus, Via Natural or Artificial Opening Endoscopic (ICD-10-PCS; principal; 2018-01-01)
PROC: 06HM33Z Insertion of Infusion Device into Right Femoral Vein, Percutaneous Approach (ICD-10-PCS; principal; 2018-01-01)
PROC: 0BC98ZZ Extirpation of Matter from Lingula Bronchus, Via Natural or Artificial Opening Endoscopic (ICD-10-PCS; principal; 2018-01-01)
PROC: 0BC38ZZ Extirpation of Matter from Right Main Bronchus, Via Natural or Artificial Opening Endoscopic (ICD-10-PCS; principal; 2018-01-01)
PROC: 0BC78ZZ Extirpation of Matter from Left Main Bronchus, Via Natural or Artificial Opening Endoscopic (ICD-10-PCS; principal; 2018-01-01)
PROC: 6A551Z2 Pheresis of Platelets, Multiple (ICD-10-PCS; 2018-01-02 16:39)
PROC: 0BH17EZ Insertion of Endotracheal Airway into Trachea, Via Natural or Artificial Opening (ICD-10-PCS; 2018-01-02 16:39)
PROC: 0FC98ZZ Extirpation of Matter from Common Bile Duct, Via Natural or Artificial Opening Endoscopic (ICD-10-PCS; 2018-01-02 16:39)
PROC: 0F798DZ Dilation of Common Bile Duct with Intraluminal Device, Via Natural or Artificial Opening Endoscopic (ICD-10-PCS; 2018-01-02 16:39)
PROC: 5A1945Z Respiratory Ventilation, 24-96 Consecutive Hours (ICD-10-PCS; 2018-01-02 16:39)
PROC: B548ZZA Ultrasonography of Superior Vena Cava, Guidance (ICD-10-PCS; 2018-01-07)
PROC: 02HV33Z Insertion of Infusion Device into Superior Vena Cava, Percutaneous Approach (ICD-10-PCS; 2018-01-07)
PROC: 02HV33Z Insertion of Infusion Device into Superior Vena Cava, Percutaneous Approach (ICD-10-PCS; 2018-01-08)
PROC: B518ZZA Fluoroscopy of Superior Vena Cava, Guidance (ICD-10-PCS; 2018-01-08)
DX: A41.9 Sepsis, unspecified organism (principal); G93.41 Metabolic encephalopathy; R65.21 Severe sepsis with septic shock; D65 Disseminated intravascular coagulation [defibrination syndrome]; J96.01 Acute respiratory failure with hypoxia; N17.9 Acute kidney failure, unspecified; K80.33 Calculus of bile duct with acute cholangitis with obstruction; E87.1 Hypo-osmolality and hyponatremia; F20.0 Paranoid schizophrenia; T17.590A Other foreign object in bronchus causing asphyxiation, initial encounter; E87.6 Hypokalemia; E86.0 Dehydration; R94.5 Abnormal results of liver function studies; X58.XXXA Exposure to other specified factors, initial encounter; Y92.9 Unspecified place or not applicable
CPT/HCPCS: 31645; 36415; 36569; 36600; 71045; 74176; 74328; 76000; 76700; 76937; 80048; 80053; 80076; 80200; 81001; 81270; 82248; 82270; 82378; 82533; 82803; 83010; 83540; 83550; 83605; 83615; 83690; 83735; 84100; 84132; 84443; 84550; 85007; 85025; 85044; 85060; 85362; 85379; 85384; 85610; 85660; 85730; 86703; 86705; 86709; 86803; 86850; 86900; 86901; 87040; 87070; 87081; 87181; 87205; 87340; 93005; 93306; 93970; 94002; 94003; 94150; 94660; 94664; 94760; 96361; 96365; 96366; 96375; 99291; J2250; J2405; J8499

== ENCOUNTER 2018-01-28 13:12 | Outpatient (CLI) | payer MEDICARE, OTHER ==
[~2018-01-28 13:12] MED LIST: ALPRAZOLAM1 M2 ORAL; BENZTROPINE ME0.5 MG PO; BENZTROPINE2 MG/2 ML PO; FAMOTIDINE IV; FAMOTIDINE20 MG ORAL; FLAGYL500 MG ORAL; LEXAPRO10 MG ORAL; LISINOPRIL-HCT1 EAC2 ORAL; LISINOPRIL20 MG ORAL; LORAZEPAM1 MG ORAL; LORAZEPAM2 MG/1 M4 ORAL; Levofloxacin 250mg ORAL; PERFOROMIS20 MCG/2 M IH; PERPHENAZINE8 MG PO; PHENERGAN25 M1 ORAL; PROMETHAZINE HC25 M1 ORAL; QUETIAPINE FUM300 MG ORAL; SEROQUEL100 MG ORAL; SEROQUEL25 MG ORAL; TEMAZEPAM15 MG ORAL; TEMAZEPAM22.5 MG PO; VITAMIN D250000 UNI1 ORAL
[2018-01-28 15:23] VITALS: BP 85/61
[2018-01-28] MEDS ORDERED: PRO-STAT LIQUID30 ML ORAL (16:20)
[2018-01-28] MEDS ORDERED: SEROQUEL25 MG ORAL (16:20)
--- NOTE | 2018-01-29 15:33 | GI Progress Note ---
Assessment/Plan Problems: (1) Choledocholithiasis ICD Codes: K80.50 - Calculus of bile duct without cholangitis or cholecystitis without obstruction SNOMED: 223762464 Status: stable Status Narrative Seen with Dr. Villar. Assessment/Plan S/P ERCP with CBD stone removal and stent placement plan for repeat ERCP for stent removal 02/12/18. will discuss colonoscopy after procedure during next visit and follow with additional recs The patient was seen and examined at bedside and all new and available data was reviewed in the patients chart. I agree with the above findings, impression and plan. (Patient seen earlier today. Signature stamp does not reflect patient encounter time.). - Edward Villar MD Subjective Gastrointestinal/Abdominal: Reports: no symptoms Objective T 99.1 BP 85/61 P 107 93 RA General Appearance: WD/WN, no apparent distress, alert Cardiovascular: normal rate Respiratory/Chest: normal breath sounds, no respiratory distress Abdominal Exam: normal bowel sounds, non tender, soft Extremities: normal range of motion, non-tender Brando Euceda TRAINING INSTRUCTOR Jan 29, 2018 15:33
== END 2018-01-28 13:42 | disposition home or self-care (01) ==
LOC: PAN 13:12
DX: K80.50 Calculus of bile duct without cholangitis or cholecystitis without obstruction (principal)
CPT/HCPCS: 99213

== ENCOUNTER 2018-02-05 16:35 | Emergency (ER) | payer MEDICARE, OTHER ==
[~2018-02-05] VITALS: Ht 170.2 cm; Wt 62.1 kg
[~2018-02-05 16:35] MED LIST changes: +PRO-STAT LIQUID30 ML ORAL
--- NOTE | 2018-02-05 18:26 | Emergency Room Report ---
History of Present Illness General Chief Complaint: Abnormal Labs Source: Patient Present Illness HPI is a 57-year-old female with history of schizophrenia, sepsis, CKD who presents from [facility] with elevated white count. Patient has been in her normal state of health. Outside labs revealed white count 17,000. Patient has chronic cough. Has history of tobacco use. Previous history with ERCP with biliary stent. According to previous consultation bone marrow biopsy was considered and recommended. Allergies: Coded Allergies: OLANZAPINE (Verified Allergy, Unknown, 01/01/18) TETRACYCLINE (Verified Allergy, Unknown, 01/01/18) Patient History Past Medical History: see triage record, old chart reviewed Past Surgical History: other - reviewed per EMS Social History: Reports: smoking Now: No Reviewed Nursing Documentation: PMH: Agreed; PSxH: Agreed Nursing Documentation-PMH Hx Cardiac Problems: Yes Hx Hypertension: Yes Hx Cancer: No Hx Gastrointestinal Problems: Yes Hx Neurological Problems: No Review of Systems Constitutional: Denies: fever, malaise Respiratory: Reports: cough Gastrointestinal: Denies: abdominal pain Musculoskeletal: Denies: back pain All Other Systems: negative except mentioned in HPI Physical Exam Vital Signs Date Time Temp Pulse Resp B/P (MAP) Pulse Ox O2 Delivery O2 Flow Rate FiO2 02/05/18 16:39 97.7 82 18 97/66 93 Room Air Sp02 EP Interpretation: reviewed, normal General Appearance: no apparent distress, alert, GCS 15, non-toxic Head: normocephalic, atraumatic Eyes: bilateral eye normal inspection ENT: hearing grossly normal, normal pharynx, no angioedema, normal voice Neck: full range of motion, supple/symm/no masses Respiratory: chest non-tender, lungs clear, normal breath sounds, speaking full sentences Cardiovascular #1: regular rate, rhythm, no edema Cardiovascular #2: 2+ radial (R), 2+ radial (L) Gastrointestinal: normal bowel sounds, non tender, soft, non-distended, no guarding, no rebound Musculoskeletal: back normal, gait/station normal, normal range of motion, non- tender Neurologic: alert, oriented x3, responsive, motor strength/tone normal, sensory intact, speech normal Psychiatric: judgement/insight normal, memory normal, mood/affect normal, no suicidal/homicidal ideation Skin: normal color, no rash, warm/dry, well hydrated Lymphatic: no adenopathy Medical Decision Making Diagnostic Impression: Primary Impression: Leukocytosis ER Course Ms. Mcleod presents with persistent leukocytosis without acute infection. Dr. Galicia consulted and agreed with outpatient w/u. [facility]'d back to [facility] EKG Diagnostic Results EKG Time: 18:20 Rate: normal Rhythm: NSR ST Segments: no acute changes Other Impression NSR rate [address] elevation Last Vital Signs Date Time Temp Pulse Resp B/P (MAP) Pulse Ox O2 Delivery O2 Flow Rate FiO2 02/05/18 16:39 97.7 82 18 97/66 93 Room Air Disposition: HOME, SELF-CARE Condition: Stable Tanya Delvalle MD Feb 05, 2018 18:26
[2018-02-05 18:38] LABS: BASOPHILS % (AUTO) 1.9 % (0.0-2.0); EOSINOPHILS % (AUTO) 0.7 % (0.0-3.0); HEMATOCRIT 34.7 % (37.0-47.0); HEMOGLOBIN 12.1 G/DL (12.0-16.0); LYMPHOCYTES % (AUTO) 22.2 % (20.0-45.0); MEAN CORPUSCULAR VOLUME 92 FL (80-99); NEUTROPHILS % (AUTO) 69.2 % (45.0-75.0); PLATELET COUNT 461 K/UL (150-450); RED BLOOD COUNT 3.78 M/UL (4.20-5.40); RED CELL DISTRIBUTION WIDTH 11.9 % (11.6-14.8); WHITE BLOOD COUNT 15.3 K/UL (4.8-10.8)
--- NOTE | 2018-02-05 18:59 | Diagnostic Imaging Report ---
EXAM: XR Chest, 1 View CLINICAL HISTORY: COUGH TECHNIQUE: Frontal view of the chest. COMPARISON: No relevant prior studies available. FINDINGS: Lungs: Mild left basilar pneumonitis. Pleural space: Unremarkable. No pneumothorax. Heart: Mild cardiomegaly. Mediastinum: Unremarkable. Bones/joints: No acute fracture. IMPRESSION: Mild left basilar pneumonitis.
[2018-02-05 19:00] LABS: ANION GAP 9 mmol/L (5-15); BLOOD UREA NITROGEN 5 mg/dL (7-18); CALCIUM 9.4 MG/DL (8.5-10.1); CARBON DIOXIDE 25 MMOL/L (21-32); CHLORIDE 87 MMOL/L (98-107); CREATININE 0.6 MG/DL (0.55-1.30); POTASSIUM 3.8 MMOL/L (3.5-5.1); SODIUM 121 MMOL/L (136-145)
[2018-02-05 19:08] LABS: APPEARANCE,URINE CLEAR; BILIRUBIN, URINE NEGATIVE (NEGATIVE); COLOR,URINE PALE YELLOW; GLUCOSE, URINE (UA) NEGATIVE (NEGATIVE); KETONES,URINE NEGATIVE (NEGATIVE); LEUKOCYTE ESTERASE ,URINE NEGATIVE (NEGATIVE); NITRITE,URINE NEGATIVE (NEGATIVE); PH,URINE 7 (4.5-8.0); PROTEIN,URINE NEGATIVE (NEGATIVE); UROBILINOGEN,URINE NORMAL MG/DL (0.0-1.0)
[2018-02-05 19:25] LABS: ALANINE AMINOTRANSFERASE 10 U/L (12-78); ALBUMIN 2.7 G/DL (3.4-5.0); ALBUMIN/GLOBULIN RATIO 0.5 (1.0-2.7); ALKALINE PHOSPHATASE 141 U/L (46-116); ASPARTATE AMINO TRANSFERASE 12 U/L (15-37); BILIRUBIN,TOTAL 0.5 MG/DL (0.2-1.0); CKMB < 0.5 NG/ML (0.0-3.6)
[2018-02-05 19:30] VITALS: BP 95/71
[2018-02-05 20:40] VITALS: BP 96/70
== END 2018-02-05 20:40 ==
LOC: EDBD 16:35 → EMR 20:40
DX: D72.829 Elevated white blood cell count, unspecified (principal); I10 Essential (primary) hypertension; Z88.1 Allergy status to other antibiotic agents; Z88.8 Allergy status to other drugs, medicaments and biological substances
CPT/HCPCS: 36415; 71045; 80053; 81003; 82553; 83605; 84484; 85025; 87040; 93005; 99284